=== PATIENT | male | born 1960 | race American Indian/Alaskan Native ===

== ENCOUNTER 2019-01-27 10:07 | Inpatient (IN) | payer MEDICAID ==
[2019-01-27] MEDS ORDERED: KEPPRA 1,000 MG/NS 0.75% 100ML 1,000 MG/100 ML BAG IV ONE ×2 (10:12→10:21)
[2019-01-27] MEDS ORDERED: ATIVAN IV ONE (10:20)
[2019-01-27] MEDS ORDERED: NACL 0.9% 1000 ML IV ONE (10:21)
[2019-01-27] MEDS ORDERED: TYLENOL PR ONE ×2 (10:24→10:25)
[2019-01-27] MEDS ORDERED: NACL 0.9% 1000 ML 1,000 ML ONE (10:24)
--- NOTE | 2019-01-27 10:32 | Emergency Department Report ---
ED Seizure HPI - General Chief Complaint: Seizure Stated Complaint: SEIZURE Time Seen by Provider: 01/27/19 10:16 Source: EMS, RN notes reviewed, old records reviewed Mode of arrival: Stretcher Limitations: Altered Mental Status - History of Present Illness Initial Comments: Mr. Bauman is 59 yo male with hx of seizure disorder, Wernickie's encephalopathy, coronary artery disease, type 2 diabetes mellitus, chronic systolic heart failure, schizophrenia, hematochezia status post CVA, myocardial infarction who presents from [facility] with altered mental status. SNF personnel noticed seizure activitiy. Administered 1 mg Ativan. EMS then administered 2 mg of Ativan. Seizure activity has continued since. Jono, relative, saw Mr. Bauman this morning. Today is Mr. Bauman's birthday. The family had planned to take him out. He was in his normal state of health this morning. He was talking with mild twitching in his extremities. He was awake alert, conversant. He then became unresponsive with full seizure activity. Relative noticed blood from scalp. He is concerned that he may have fallen causing a closed head injury. Mr. Bauman is full CODE STATUS Antiepileptic medications include Keppra Depakote and Dilantin. I obtained further hx from niece Yesenia Bauman via phone . I also spoke with son-in-law Jono at the bedside. Mr. Bauman has been a resident at SNF for the past year since February or March. At [place], he was diagnosed with major severe CVA at that time, requiring trachesotomy and prolonged hospitalization. MD Complaint: seizure -: This morning Description of Episode: loss of consciousness, tonic-clonic movement, other (t ongue biting eyes deviated) Witnessed:: Yes Trauma: Yes (tongue laceration) Seizure History: known seizure disorder [facility] Associated Symptoms: other (fever present on arrival 102 Fahrenheit rectal temp) - Related Data Home Medications Medication Instructions Recorded Confirmed Last Taken Aspirin [Aspirin BABY CHEW TAB] 81 mg PO DAILY 01/27/19 01/27/19 Unknown Clopidogrel [Plavix] 75 mg PO QDAY 01/27/19 01/27/[address] [DepaKOTE DR] 125 mg PO DAILY 01/27/19 01/27/19 Unknown Lisinopril [Zestril] 5 mg PO DAILY 01/27/19 01/27/19 Unknown Mag Hydrox/Aluminum Hyd/Simeth 355 ml PO PRN 01/27/19 01/27/19 Unknown [Maalox Advanced Suspension] Metoprolol Tartrate 75 mg PO BID 01/27/19 01/27/19 Unknown Pantoprazole [Protonix TAB] 20 mg PO DAILY 01/27/19 01/27/19 Unknown Phenytoin [Dilantin] 200 mg PO BID 01/27/19 01/27/19 Unknown Pravastatin Sodium [Pravastatin] 20 mg PO QHS 01/27/19 01/27/19 Unknown Terbinafine [LamiSIL At 1%] 1 gm TRANSDERMA BID 01/27/19 01/27/19 Unknown Tylenol Pm Ex-Strength Caplet 500 mg PO PRN 01/27/19 01/27/19 Unknown levETIRAcetam [Keppra] 100 mg PO DAILY 01/27/19 01/27/19 Unknown Allergies Allergy/AdvReac Type Severity Reaction Status Date / Time Iodine and Iodide Containing Allergy Unknown Verified 01/27/19 10:25 Produc ED Review of Systems ROS: Stated complaint: SEIZURE Other details as noted in HPI Comment: Unobtainable due to pts medical conditions (active seizure altered mental status history of encephalopathy) ED Past Medical Hx - Past Medical History Previous Medical History?: Yes Hx Hypertension: Yes Hx CVA: Yes Hx Congestive Heart Failure: Yes Hx Seizures: Yes Hx Psychiatric Treatment: Yes (Schizophrenia) Additional medical history: hyperlipidemia, CAD - Surgical History Additional Surgical History: Unable to obtain at this time - Social History Smoking Status: Unknown if ever smoked - Medications Home Medications: Home Medications Medication Instructions Recorded Confirmed Last Taken Type Aspirin [Aspirin BABY CHEW TAB] 81 mg PO DAILY 01/27/19 01/27/19 Unknown History Clopidogrel [Plavix] 75 mg PO QDAY 01/27/19 01/27/19 Unknown History Divalproex [Braxton DUTTA] 125 mg PO DAILY 01/27/19 01/27/19 Unknown History Lisinopril [Zestril] 5 mg PO DAILY 01/27/19 01/27/19 Unknown History Mag Hydrox/Aluminum Hyd/Simeth 355 ml PO PRN 01/27/19 01/27/19 Unknown History [Maalox Advanced Suspension] Metoprolol Tartrate 75 mg PO BID 01/27/19 01/27/19 Unknown History Pantoprazole [Protonix TAB] 20 mg PO DAILY 01/27/19 01/27/19 Unknown History Phenytoin [Dilantin] 200 mg PO BID 01/27/19 01/27/19 Unknown History Pravastatin Sodium [Pravastatin] 20 mg PO QHS 01/27/19 01/27/19 Unknown History Terbinafine [LamiSIL At 1%] 1 gm TRANSDERMA BID 01/27/19 01/27/19 Unknown History Tylenol Pm Ex-Strength Caplet 500 mg PO PRN 01/27/19 01/27/19 Unknown History levETIRAcetam [Keppra] 100 mg PO DAILY 01/27/19 01/27/19 Unknown History ED Physical Exam - General Limitations: No Limitations, Altered Mental Status General appearance: lethargic, other (one sided tonic clonic movement of upper and lower extremity, head turned to left, not responsive to voice) - Head Head exam: Present: atraumatic, normocephalic - Eye Eye exam: Present: normal appearance, PERRL Pupils: Present: normal accommodation - ENT ENT exam: Present: other (small amount of bleeding at tongue) - Neck Neck exam: Present: normal inspection - Respiratory Respiratory exam: Present: wheezes, rales, rhonchi (loud) - Cardiovascular Cardiovascular Exam: Present: regular rate, tachycardia, normal heart sounds. Absent: systolic murmur, diastolic murmur - GI/Abdominal GI/Abdominal exam: Present: soft. Absent: distended, tenderness, guarding, rebound - Extremities Exam Extremities exam: Present: other (no edema) - Neurological Exam Neurological exam: Present: other (lethargic) - Psychiatric Psychiatric exam: Present: other (lethargic) - Skin Skin exam: Present: dry, intact, other (hot to touch) ED Course Vital Signs 01/27/19 10:32 Temperature 102.1 F H Pulse Rate 123 H Respiratory 29 H Rate Blood Pressure 130/88 [Left] O2 Sat by Pulse 100 Oximetry ED Medical Decision Making - Lab Data Result diagrams: 01/27/19 10:31 01/27/19 10:31 Laboratory Results - last 24 hr 01/27/19 01/27/19 01/27/19 10:31 10:31 10:31 WBC 7.0 RBC 4.74 Hgb 13.9 Hct 41.7 MCV 88 MCH 29 MCHC 33 RDW 14.4 Plt Count 292 Lymph % (Auto) 36.[address] [place] % (Auto) 7.0 Eos % (Auto) 4.4 H Baso % (Auto) 0.9 Lymph # 2.5 [place] # 0.5 Eos # 0.3 Baso # 0.1 Seg Neutrophils % 51.3 Seg Neutrophils # 3.6 Sodium 138 Potassium 3.9 Chloride 98.5 Carbon Dioxide 23 Anion Gap 20 BUN 13 Creatinine 1.0 Estimated GFR > 60 BUN/Creatinine Ratio 13 Glucose 162 H Lactic Acid 4.90 H* Calcium 8.6 Total Bilirubin 0.20 AST 25 ALT 24 Alkaline Phosphatase 112 Troponin T 0.036 H Total Protein 7.5 Albumin 4.3 Albumin/Globulin Ratio 1.3 Triglycerides 101 Cholesterol 175 LDL Cholesterol Direct 116 HDL Cholesterol 49 Cholesterol/HDL Ratio 3.57 Urine Color Urine Turbidity Urine pH Ur Specific [place] Urine Protein Urine Glucose (UA) Urine Ketones Urine Blood Urine Nitrite Urine Bilirubin Urine Urobilinogen Ur Leukocyte Esterase Urine WBC (Auto) Urine RBC (Auto) Urine Mucus Phenytoin Valproic Acid 01/27/19 01/27/19 11:09 Unknown WBC RBC Hgb Hct MCV MCH MCHC RDW Plt Count Lymph % (Auto) [place] % (Auto) Eos % (Auto) Baso % (Auto) Lymph # [place] # Eos # Baso # Seg Neutrophils % Seg Neutrophils # Sodium Potassium Chloride Carbon Dioxide Anion Gap BUN Creatinine Estimated GFR BUN/Creatinine Ratio Glucose Lactic Acid Calcium Total Bilirubin AST ALT Alkaline Phosphatase Troponin T Total Protein Albumin Albumin/Globulin Ratio Triglycerides Cholesterol LDL Cholesterol Direct HDL Cholesterol Cholesterol/HDL Ratio Urine Color Yellow Urine Turbidity Slightly-cloudy Urine pH 5.0 Ur Specific [place] 1.017 Urine Protein <15 mg/dl Urine Glucose (UA) Neg Urine Ketones Neg Urine Blood Neg Urine Nitrite Neg Urine Bilirubin Neg Urine Urobilinogen < 2.0 Ur Leukocyte Esterase Neg Urine WBC (Auto) < 1.0 Urine RBC (Auto) 1.0 Urine Mucus Few Phenytoin 16.4 Valproic Acid 6.9 L - EKG Data 01/27/19 10:32 EKG obtained 1010 Sinus tachycardia rate of 130 beats a minute left axis deviation right bundle snehal block no ST elevation - Radiology Data Radiology results: report reviewed, image reviewed pCXR: no acute process according to radiology report Head CT: acute or subacute infarct in the left occipital lobe - Medical Decision Making 1. status epilepticus: given IV keppra 1000 mg, Ativan 5 mg IV, dilantin 500 mg IV, teleneurologist Dr. Xiao recommended Keppra 1500 mg BID and to continue Dilantin 200 mg BID. I was concerned that the patient is persistently was lethargic in postictal state. Teleneurologist explained that his decrease level consciousness is to be expected after prolonged seizure activity and multiple doses of antiepileptic medications including lorazepam. 2. abnormal head CT possible acute CVA, will need MRI and further w/u 3. fever: unknown source at this time. Presumed pneumonia with abnormal lung exam. Sepsis protocol initiated admitted to hospitalist service in fair condition. Critical Care Time: Yes Critical care time in (mins) excluding proc time.: 50 Critical care attestation.: If time is entered above; I have spent that time in minutes in the direct care of this critically ill patient, excluding procedure time. 50 minutes of critical care time excluding procedures were used in the care of the patient. I came to the bedside immediately upon arrival. I spoke with health care assistant obtaining history at the bedside. I reviewed [facility] documentation. I directed resuscitation with orders of Ativan, Keppra and sepsis protocol. I monitored patient's airway. I was concerned for respiratory failure after receiving multiple doses of lorazepam. Patient required multiple assessments and interventions. I reviewed the electronic medical record. I spoke with consultants involved in the care of the patient. ED Disposition Clinical Impression: Status epilepticus, Acute CVA (cerebrovascular accident), Fever Disposition: OP ADMIT IP TO THIS HOSP Is pt being admited?: Yes Does the pt Need Aspirin: No Condition: Fair Referrals: YUMIKO GALAVIZ MD [Primary Care Provider] - 3-5 Days
[2019-01-27 10:42] LABS: Bilirubin,Urine NEG (Negative); Blood,Urine NEG (Negative); Color,Urine Yellow (Yellow); Mucus,Urine FEW /HPF; Protein,Urine <15 mg/dL mg/dL (Negative); Urobilinogen,Urine < 2.0 mg/dL (<2.0); WBC,Urine < 1.0 /HPF (0.0-6.0)
[2019-01-27 10:46] LABS: Basophils # (Auto) 0.1 K/mm3 (0.0-0.1); Basophils % (Auto) 0.9 % (0.0-1.8); Eosinophils # (Auto) 0.3 K/mm3 (0.0-0.4); Eosinophils % (Auto) 4.4 % (0.0-4.3); Hematocrit 41.7 % (35.5-45.6); Hemoglobin 13.9 gm/dl (11.8-15.2); Lymphocytes # (Auto) 2.5 K/mm3 (1.2-5.4); Lymphocytes % (Auto) 36.4 % (13.4-35.0); Mean Corpuscular HGB Conc 33 % (32-34); Mean Corpuscular Volume 88 fl (84-94); Monocytes # (Auto) 0.5 K/mm3 (0.0-0.8); Platelet Count 292 K/mm3 (140-440); Red Blood Count 4.74 M/mm3 (3.65-5.03); Red Cell Distribution Width 14.4 % (13.2-15.2)
--- NOTE | 2019-01-27 10:49 | XRay Report ---
PROCEDURE: XR CHEST 1V AP TECHNIQUE: Portable semiupright HISTORY: fever COMPARISON: None FINDINGS: There is borderline cardiomegaly. Patient is status post median sternotomy. There is no congestion, p leural effusion, infiltrate or pneumothorax. IMPRESSION: There is no acute abnormality identified. This document is electronically signed by Aleida Holland MD., Jan 27 2019 10:47:40 AM ET
[2019-01-27] MEDS: MAXIPIME/NS 2 GM/100 ML 2 GM/100 ML BAG IV SCH ×2 (11:01→20:00)
[2019-01-27 11:07] LABS: Alanine Aminotransferase 24 units/L (7-56); Albumin 4.3 g/dL (3.9-5); BUN/Creatinine Ratio 13; Blood Urea Nitrogen 13 mg/dL (9-20); Calcium 8.6 mg/dL (8.4-10.2); Hemolysis Index 2
[2019-01-27 11:18] LABS: Chol/HDL Ratio 3.57 %; HDL Cholesterol 49 mg/dL (40-59); LDL Cholesterol,Direct 116 mg/dL (50-130)
--- NOTE | 2019-01-27 11:35 | Cat Scan Report ---
PROCEDURE: CT HEAD/BRAIN WO CON TECHNIQUE: A noncontrast CT of the head was performed. HISTORY: Seizure COMPARISON: None FINDINGS: Hypoattenuation throughout the white matter seen which may reflect chronic microvascular ischemic ivis nge. There is some hypodensity in the left occipital lobe. I cannot exclude an acute infarct. Consider MRI for further evaluation. There is likely an old small infarct in right temporal lobe. There is no acute intracranial hemorrhage. There is no brain edema, mass effect or midline shift. Ventricular size is appropriate for brain volume. There is no abnormal extra-axial fluid collections. There is no skull fracture seen. The visualized paranasal sinuses are clear. IMPRESSION: Possible acute or subacute infarct in the left occipital lobe. This can be correlated with MRI. Nonspecific white matter hypoattenuation could reflect chronic microvascular ischemic disease. This document is electronically signed by Aleida Holland MD., Jan 27 2019 11:33:22 AM ET
[2019-01-27] MEDS ORDERED: VANCOMYCIN 1,500 MG in NACL 0.9% 500 ML 500 ML IV ONE (13:00)
[2019-01-27] MEDS ORDERED: DILANTIN IV ONE (13:00)
[2019-01-27] MEDS ORDERED: NACL 0.9% IV ONE (13:00)
[2019-01-27] MEDS ORDERED: VANCOMYCIN PHARMACY TO DOSE IV SCH (13:00)
--- NOTE | 2019-01-27 15:42 | Cat Scan Report ---
PROCEDURE: CT ABDOMEN W CON TECHNIQUE: CT of the abdomen and pelvis was performed. IV contrast was administered. Axial images and coronal and sagittal reformatted images were obtained. HISTORY: FEVER/HIGH LACTIC ACID COMPARISON: None FINDINGS: Atelectasis and/or infiltrate at both lung bases. There are multiple low-density liver lesions. The larger lesions are likely cysts. Others are too sma ll to characterize but may also be cysts. The spleen, pancreas, adrenal glands and kidneys demonstrate no significant abnormality. There is no evidence for intestinal obstruction. The appendix is not visualized. There is no abnormal fluid collection seen. There is no free intraperitoneal air. There is a small amount of free fluid in the pelvis. The bladder is unremarkable. There is prominent dextroconvex thoracolumbar scoliosis. There are IMPRESSION: Atelectasis and/or infiltrate at both lung bases. Scoliosis. Otherwise no acute finding in the abdomen or pelvis.. This document is electronically signed by Aleida Holland MD., Jan 27 2019 03:40:27 PM ET
--- NOTE | 2019-01-27 16:52 | History and Physical Report ---
History of Present Illness Date of examination: 01/27/19 Date of admission: 01/27/19 13:03 Chief complaint: Continuous seizures History of present illness: 59-year-old -[place] male--[facility] resident with extensive past medical history including Wernick is encephalopathy seizure disorder type 2 diabetes congestive heart failure schizophrenia status post cerebrovascular accident and status post MA sent from [facility] for recurrent seizures and altered sensorium. Patient has been having continuous seizures. EMS administered 1 mg of Ativan followed by 2 mg of Ativan.. This a.m. patient was apparently talking with mild twitching in his upper extremities. Patient continued to have seizures. Patient has a small laceration on the scalp secondary to fall. No shortness of breath no recent travel. Patient was given multiple doses of Ativan and IV Keppra was started when the seizures stopped. Patient was about to be intubated for protection of airway but because the seizures stopped--patient was not intubated or rebound W the [facility] we will requestalson will evaluate his family is Medical History Previous Medical History?: Yes Hypertension: Yes CVA: Yes Congestive Heart Failure: Yes Seizures: Yes Psychiatric Treatment: Yes (Schizophrenia) Additional medical history: hyperlipidemia, CAD Surgical History Additional Surgical History: Unable to obtain at this time Family History Htn Social History Smoking Status: Unknown if ever smoked Resident of [facility] Medications Home Medications: Home Medications Medication Instructions Recorded Confirmed Last Taken Type Aspirin [Aspirin BABY CHEW TAB] 81 mg PO DAILY 01/27/19 01/27/19 Unknown History Clopidogrel [Plavix] 75 mg PO QDAY 01/27/19 01/27/[address] [Braxton DUTTA] 125 mg PO DAILY 01/27/19 01/27/19 Unknown History Lisinopril [Zestril] 5 mg PO DAILY 01/27/19 01/27/19 Unknown History Mag Hydrox/Aluminum Hyd/Simeth 355 ml PO PRN 01/27/19 01/27/19 Unknown History [Maalox Advanced Suspension] Metoprolol Tartrate 75 mg PO BID 01/27/19 01/27/19 Unknown History Pantoprazole [Protonix TAB] 20 mg PO DAILY 01/27/19 01/27/19 Unknown History Phenytoin [Dilantin] 200 mg PO BID 01/27/19 01/27/19 Unknown History Pravastatin Sodium [Pravastatin] 20 mg PO QHS 01/27/19 01/27/19 Unknown History Terbinafine [LamiSIL At 1%] 1 gm TRANSDERMA BID 01/27/19 01/27/19 Unknown History Tylenol Pm Ex-Strength Caplet 500 mg PO PRN 01/27/19 01/27/19 Unknown History levETIRAcetam [Keppra] 100 mg PO DAILY 01/27/19 01/27/19 Unknown History Review of Systems ROS: Stated complaint: SEIZURE Other details as noted in HPI Patient lethargic and postictal Comment: Unobtainable due to pts medical conditions (active seizure altered mental status history of encephalopathy) Medications and Allergies Allergies Allergy/AdvReac Type Severity Reaction Status Date / Time Iodine and Iodide Containing Allergy Unknown Verified 01/27/19 10:25 Produc Home Medications Medication Instructions Recorded Confirmed Last Taken Type Aspirin [Aspirin BABY CHEW TAB] 81 mg PO DAILY 01/27/19 01/27/19 Unknown History Clopidogrel [Plavix] 75 mg PO QDAY 01/27/19 01/27/19 Unknown History Divalproex [DepaKOTE DR] 125 mg PO DAILY 01/27/19 01/27/19 Unknown History Lisinopril [Zestril] 5 mg PO DAILY 01/27/19 01/27/19 Unknown History Mag Hydrox/Aluminum Hyd/Simeth 355 ml PO PRN 01/27/19 01/27/19 Unknown History [Maalox Advanced Suspension] Metoprolol Tartrate 75 mg PO BID 01/27/19 01/27/19 Unknown History Pantoprazole [Protonix TAB] 20 mg PO DAILY 01/27/19 01/27/19 Unknown History Phenytoin [Dilantin] 200 mg PO BID 01/27/19 01/27/19 Unknown History Pravastatin Sodium [Pravastatin] 20 mg PO QHS 01/27/19 01/27/19 Unknown History Terbinafine [LamiSIL At 1%] 1 gm TRANSDERMA BID 01/27/19 01/27/19 Unknown History Tylenol Pm Ex-Strength Caplet 500 mg PO PRN 01/27/19 01/27/19 Unknown History levETIRAcetam [Keppra] 100 mg PO DAILY 01/27/19 01/27/19 Unknown History Active Meds: Active Medications Cefepime HCl (Maxipime/Ns 2 Gm/100 Ml) 2 gm in 100 mls @ 200 mls/hr IV Q8H WALT; Protocol Last Admin: 01/27/19 11:01 Dose: 200 mls/hr Documented by: Vancomycin HCl 1,250 mg/ (Sodium Chloride) 262.5 mls @ 175 mls/hr IV Q12H [facility] Exam - Constitutional Vitals: Temp Pulse Resp BP Pulse Ox 102.1 F H 84 27 H 115/90 97 01/27/19 10:32 01/27/19 15:30 01/27/19 15:30 01/27/19 15:30 01/27/19 15:30 General appearance: Present: no acute distress, well-nourished - EENT Eyes: Present: PERRL ENT: hearing intact, clear oral mucosa - Neck Neck: Present: supple, normal ROM - Respiratory Respiratory effort: normal Respiratory: bilateral: CTA - Cardiovascular Heart rate: 78 Rhythm: regular Heart Sounds: Present: S1 & S2. Absent: rub, click - Extremities Extremities: no ischemia, pulses intact, pulses symmetrical, No edema Peripheral Pulses: within normal limits - Abdominal General gastrointestinal: Present: soft, non-tender, non-distended, normal bowel sounds Male genitourinary: Present: normal - Rectal Rectal Exam: deferred - Integumentary Integumentary: Present: clear, warm, dry - Musculoskeletal Musculoskeletal: generalized weakness - Psychiatric Psychiatric: other (patient very lethargic and decreased responsiveness consi stent with postictal state) - Neurologic Neurologic: other (patient very lethargic,Neuro Exam could not be done) Results - Labs CBC & Chem 7: 01/27/19 10:31 01/27/19 10:31 Labs: Laboratory Last Values WBC 7.0 K/mm3 (4.5-11.0) 01/27/19 10:31 RBC 4.74 M/mm3 (3.65-5.03) 01/27/19 10:31 Hgb 13.9 gm/dl (11.8-15.2) 01/27/19 10:31 Hct 41.7 % (35.5-45.6) 01/27/19 10:31 MCV 88 fl (84-94) 01/27/19 10:31 MCH 29 pg (28-32) 01/27/19 10:31 MCHC 33 % (32-34) 01/27/19 10:31 RDW 14.4 % (13.2-15.2) 01/27/19 10:31 Plt Count 292 K/mm3 (140-440) 01/27/19 10:31 Lymph % (Auto) 36.4 % (13.4-35.0) H 01/27/19 10:31 [place] % (Auto) 7.0 % (0.0-7.3) 01/27/19 10:31 Eos % (Auto) 4.4 % (0.0-4.3) H 01/27/19 10:31 Baso % (Auto) 0.9 % (0.0-1.8) 01/27/19 10:31 Lymph # 2.5 K/mm3 (1.2-5.4) 01/27/19 10:31 [place] # 0.5 K/mm3 (0.0-0.8) 01/27/19 10:31 Eos # 0.3 K/mm3 (0.0-0.4) 01/27/19 10:31 Baso # 0.1 K/mm3 (0.0-0.1) 01/27/19 10:31 Seg Neutrophils % 51.3 % (40.0-70.0) 01/27/19 10:31 Seg Neutrophils # 3.6 K/mm3 (1.8-7.7) 01/27/19 10:31 Sodium 138 mmol/L (137-145) 01/27/19 10:31 Potassium 3.9 mmol/L (3.6-5.0) 01/27/19 10:31 Chloride 98.5 mmol/L (98-107) 01/27/19 10:31 Carbon Dioxide 23 mmol/L (22-30) 01/27/19 10:31 20 mmol/L 01/27/19 10:31 BUN 13 mg/dL (9-20) 01/27/19 10:31 1.0 mg/dL (0.8-1.5) 01/27/19 10:31 Estimated GFR > 60 ml/min 01/27/19 10:31 13 % 01/27/19 10:31 Glucose 162 mg/dL (75-100) H 01/27/19 10:31 Lactic Acid 1.80 mmol/L (0.7-2.0) 01/27/19 13:18 Calcium 8.6 mg/dL (8.4-10.2) 01/27/19 10:31 0.20 mg/dL (0.1-1.2) 01/27/19 10:31 AST 25 units/L (5-40) 01/27/19 10:31 ALT 24 units/L (7-56) 01/27/19 10:31 112 units/L (35-129) 01/27/19 10:31 0.036 ng/mL (0.00-0.029) H 01/27/19 10:31 7.5 g/dL (6.3-8.2) 01/27/19 10:31 4.3 g/dL (3.9-5) 01/27/19 10:31 1.3 % 01/27/19 10:31 Triglycerides 101 mg/dL (2-149) 01/27/19 10:31 Cholesterol 175 mg/dL (50-199) 01/27/19 10:31 116 mg/dL (50-130) 01/27/19 10:31 49 mg/dL (40-59) 01/27/19 10:31 3.57 % 01/27/19 10:31 Yellow (Yellow) 01/27/19 Unknown Slightly-cloudy (Clear) 01/27/19 Unknown 5.0 (5.0-7.0) 01/27/19 Unknown Ur Specific [place] 1.017 (1.003-1.030) 01/27/19 Unknown <15 mg/dl mg/dL (Negative) 01/27/19 Unknown Neg mg/dL (Negative) 01/27/19 Unknown Neg mg/dL (Negative) 01/27/19 Unknown Neg (Negative) 01/27/19 Unknown Neg (Negative) 01/27/19 Unknown Neg (Negative) 01/27/19 Unknown < 2.0 mg/dL (<2.0) 01/27/19 Unknown Ur Leukocyte Esterase Neg (Negative) 01/27/19 Unknown < 1.0 /HPF (0.0-6.0) 01/27/19 Unknown 1.0 /HPF (0.0-6.0) 01/27/19 Unknown Few /HPF 01/27/19 Unknown Phenytoin 16.4 ug/mL (10.0-20.0) 01/27/19 11:09 Valproic Acid 6.9 ug/mL (50-100) L 01/27/19 11:09 Short CBC 01/27/19 Range/Units 10:31 WBC 7.0 (4.5-11.0) K/mm3 Hgb 13.9 (11.8-15.2) gm/dl Hct 41.7 (35.5-45.6) % Plt Count 292 (140-440) K/mm3 BMP 01/27/19 10:31 Sodium 138 Potassium 3.9 Chloride 98.5 Carbon Dioxide 23 BUN 13 Creatinine 1.0 Glucose 162 H Calcium 8.6 Cardiac Enzymes 01/27/19 Range/Units 10:31 Troponin T 0.036 H (0.00-0.029) ng/mL Liver Function 01/27/19 Range/Units 10:31 Total Bilirubin 0.20 (0.1-1.2) mg/dL AST 25 (5-40) units/L ALT 24 (7-56) units/L Alkaline Phosphatase 112 (35-129) units/L Albumin 4.3 (3.9-5) g/dL Urine 01/27/19 Range/Units Unknown Urine Color Yellow (Yellow) Urine pH 5.0 (5.0-7.0) Ur Specific [place] 1.017 (1.003-1.030) Urine Protein <15 mg/dl (Negative) mg/dL Urine Glucose (UA) Neg (Negative) mg/dL - Imaging and Cardiology EKG: report reviewed (sinus tachycardia heart rate of 1 27/m IVCD consider right bundle branch block) Assessment and Plan Assessment and plan: Critical care statement The high probability of a clinically significant, sudden or life-threatening de terioration of the pulmonary, cardiac, renal systems required my full and direct attention, intervention and personal management. The aggregate critical care time was 38 minutes. This time is in addition to times when performing reported procedures but includes the followin data review and interpretation 2 patient assessment and monitoring of vital signs 3 documentation 4 medication orders and management Advance Directives: Yes (full code) VTE prophylaxis?: Chemical Plan of care discussed with patient/family: Yes - Patient Problems (1) Status epilepticus Current Visit: Yes Status: Acute Plan to address problem: IV Keppra initiated IV Ativan when necessary IV fluids We will discontinue valproic acid Will discontinue phenytoin (2) Hypertension Current Visit: Yes Status: Chronic Qualifiers: Hypertension type: essential hypertension Qualified Code(s): I10 - Essential (primary) hypertension Plan to address problem: Continue antihypertensives (3) Coronary artery disease Current Visit: Yes Status: Chronic Qualifiers: Coronary Disease-Associated Artery/Lesion type: [place] artery [place] vs. transplanted heart: [place] heart Plan to address problem: Continue Plavix 75 mg once a day (4) Hyperlipidemia Current Visit: Yes Status: Chronic Qualifiers: Hyperlipidemia type: unspecified Qualified Code(s): E78.5 - Hyperlipidemia, unspecified Plan to address problem: Continue statins (5) Elevated lactic acid level Current Visit: Yes Status: Acute Plan to address problem: Secondary to seizures No signs of infection (6) History of cerebrovascular accident Current Visit: Yes Status: Chronic Plan to address problem: Supportive care (7) Elevated troponin Current Visit: Yes Status: Acute Plan to address problem: Nonspecific Will trend the troponin (8) DVT prophylaxis Current Visit: Yes Status: Acute Plan to address problem: Lovenox 40 mg subcutaneous daily
[2019-01-27] MEDS ORDERED: TORADOL IV PRN (18:33)
[2019-01-27] MEDS ORDERED: SIMPLE SYRUP FEEDTUBE PRN ×2 (18:33)
[2019-01-27] MEDS ORDERED: PANCREAZE DR 10,500 UNIT FEEDTUBE PRN (18:33)
[2019-01-27] MEDS ORDERED: SODIUM CHLORIDE FLUSH SYRINGE 10 ML IV PRN (18:33)
[2019-01-27] MEDS ORDERED: SODIUM BICARBONATE FEEDTUBE PRN (18:33)
[2019-01-27] MEDS ORDERED: MORPHINE IV PRN (18:33)
[2019-01-27] MEDS ORDERED: PROTONIX PO SCH (19:00)
[2019-01-27] MEDS: KEPPRA 750 MG in D5W 100 ML IV SCH (19:30)
[2019-01-27] MEDS: LOVENOX SUB-Q SCH (21:37)
[2019-01-27] MEDS: PRAVACHOL PO SCH (21:40)
[2019-01-27] MEDS: LOPRESSOR PO SCH (21:40)
[2019-01-27] MEDS: PLAVIX PO SCH (21:40)
[2019-01-27] MEDS: SODIUM CHLORIDE FLUSH SYRINGE 10 ML IV SCH (21:41)
[2019-01-27] MEDS: PEPCID IV SCH (21:46)
[2019-01-27] MEDS ORDERED: NON-FORMULARY (Pravastatin Sodium [Pravastatin] 20 MG) PO SCH (22:00)
[2019-01-27] MEDS ORDERED: NON-FORMULARY (Metoprolol Tartrate [Metoprolol Tartrate] 75 MG) PO SCH (22:00)
[2019-01-27] MEDS ORDERED: D50W (25GM) Syringe IV PRN (23:01)
[2019-01-28] MEDS ORDERED: VANCOMYCIN 1,250 MG in NACL 0.9% 250ML 250 ML IV SCH (02:00)
[2019-01-28] MEDS: MAXIPIME/NS 2 GM/100 ML 2 GM/100 ML BAG IV SCH (04:58)
[2019-01-28] MEDS ORDERED: ATIVAN IV ONE (05:33)
[2019-01-28] MEDS ORDERED: ZOFRAN IV PRN (05:34)
--- NOTE | 2019-01-28 06:26 | Event Note ---
Date: 01/28/19 Received a call from nurse at 0507am stating that patient had seizure lasting in 40 seconds followed by 20 second seizure. Ativan 2 mg was ordered and given. There has been no additional seizure activity reported. Pt remains on seizure precautions.
--- NOTE | 2019-01-28 09:33 | XRay Report ---
PROCEDURE: XR ABDOMEN 1V AP TECHNIQUE: Supine abdomen HISTORY: dobhoff placement COMPARISON: None FINDINGS: The feeding tube tip is in the stomach. The gas pattern is nonspecific and nonobstructive with gas lo cated within normal caliber bowel. There is scoliosis. No suspicious calcifications are seen. IMPRESSION: Feeding tube tip in the stomach. This document is electronically signed by Aleida Holland MD., Jan 28 2019 09:31:45 AM ET
[2019-01-28] MEDS ORDERED: SIMPLE SYRUP FEEDTUBE PRN ×2 (10:00)
[2019-01-28] MEDS ORDERED: SODIUM BICARBONATE FEEDTUBE PRN (10:00)
[2019-01-28] MEDS ORDERED: PANCREAZE DR 10,500 UNIT FEEDTUBE PRN (10:00)
[2019-01-28] MEDS: D5NS 1,000 ML IV SCH ×2 (10:30→22:53)
[2019-01-28] MEDS: KEPPRA 750 MG in D5W 100 ML IV SCH ×2 (10:30→22:52)
[2019-01-28] MEDS: ZESTRIL PO SCH (10:31)
[2019-01-28] MEDS: PEPCID IV SCH ×2 (10:31→22:54)
[2019-01-28] MEDS: PLAVIX PO SCH (10:31)
[2019-01-28] MEDS: LOPRESSOR PO SCH ×2 (10:31→22:52)
[2019-01-28] MEDS: SODIUM CHLORIDE FLUSH SYRINGE 10 ML IV SCH ×2 (10:33→22:55)
--- NOTE | 2019-01-28 12:00 | Progress Note ---
Assessment and Plan Assessment and plan: - Patient Problems -- Status epilepticus: Seizure precautions , IV Ativan as needed Antiseizure medications , neuro workup Continue phenytoin and Depakote Workup so far; CT head without contrast; possible acute or subacute infarct in the left occipital lobe CT abdomen and pelvis; atelectasis or infiltrates in both lung bases, scoliosis Chest x-ray; no acute abnormality --Possible CVACVA; not a candidate for TPA Aspirin and statin, neuro workup with MRI/MRA echocardiogram carotid Doppler Physical therapy occupational therapy speech therapy Neurology consult, EEG --Hypertension Rate controlled , continue current antihypertensives and when necessary medications Permissive hypertension per stroke protocol -- Coronary artery disease Continue Plavix 75 mg once a day --Hyperlipidemia Continue statins -- Elevated lactic acid level Secondary to seizures No signs of infection --? History of cerebrovascular accident Supportive care --Nonspecific Elevated troponin Will trend the troponin, allergy evaluation if needed --DVT prophylaxis Lovenox 40 mg subcutaneous daily Monitor closely and adjust management as needed Critical care Time 36 min History Interval history: Patient seen and examined medical records reviewed Admitted last night with witnessed seizures and possible CVA Patient had 1 witnessed seizure in the ICU early this morning noticed by night No new episodes since then On seizure precautions Patient is alert and awake nonverbal confused and nonverbal vital signs noted Hospitalist Physical - Constitutional Vitals: Temp Pulse Resp BP Pulse Ox 99.2 F 95 H 35 H 129/89 100 01/28/19 08:00 01/28/19 11:57 01/28/19 11:57 01/28/19 11:00 01/28/19 11:57 General appearance: Present: no acute distress, well-nourished - EENT Eyes: Present: PERRL, EOM intact - Neck Neck: Present: supple, normal ROM - Respiratory Respiratory effort: normal, labored Respiratory: bilateral: diminished, rhonchi, negative: rales, wheezing - Cardiovascular Rhythm: regular Heart Sounds: Present: S1 & S2 - Extremities Extremities: no ischemia, No edema - Abdominal General gastrointestinal: soft, non-tender, non-distended, normal bowel sounds - Integumentary Integumentary: Present: clear, warm - Psychiatric Psychiatric: other (nonverbal) - Neurologic Neurologic: other (unable to assess as patient is not cooperative) Results - Labs CBC & Chem 7: 01/27/19 10:31 01/27/19 10:31 Labs: Laboratory Last Values WBC 7.0 K/mm3 (4.5-11.0) 01/27/19 10:31 RBC 4.74 M/mm3 (3.65-5.03) 01/27/19 10:31 Hgb 13.9 gm/dl (11.8-15.2) 01/27/19 10:31 Hct 41.7 % (35.5-45.6) 01/27/19 10:31 MCV 88 fl (84-94) 01/27/19 10:31 MCH 29 pg (28-32) 01/27/19 10:31 MCHC 33 % (32-34) 01/27/19 10:31 RDW 14.4 % (13.2-15.2) 01/27/19 10:31 Plt Count 292 K/mm3 (140-440) 01/27/19 10:31 Lymph % (Auto) 36.4 % (13.4-35.0) H 01/27/19 10:31 [place] % (Auto) 7.0 % (0.0-7.3) 01/27/19 10:31 Eos % (Auto) 4.4 % (0.0-4.3) H 01/27/19 10:31 Baso % (Auto) 0.9 % (0.0-1.8) 01/27/19 10:31 Lymph # 2.5 K/mm3 (1.2-5.4) 01/27/19 10:31 [place] # 0.5 K/mm3 (0.0-0.8) 01/27/19 10:31 Eos # 0.3 K/mm3 (0.0-0.4) 01/27/19 10:31 Baso # 0.1 K/mm3 (0.0-0.1) 01/27/19 10:31 Seg Neutrophils % 51.3 % (40.0-70.0) 01/27/19 10:31 Seg Neutrophils # 3.6 K/mm3 (1.8-7.7) 01/27/19 10:31 Sodium 138 mmol/L (137-145) 01/27/19 10:31 Potassium 3.9 mmol/L (3.6-5.0) 01/27/19 10:31 Chloride 98.5 mmol/L (98-107) 01/27/19 10:31 Carbon Dioxide 23 mmol/L (22-30) 01/27/19 10:31 20 mmol/L 01/27/19 10:31 BUN 13 mg/dL (9-20) 01/27/19 10:31 1.0 mg/dL (0.8-1.5) 01/27/19 10:31 Estimated GFR > 60 ml/min 01/27/19 10:31 13 % 01/27/19 10:31 Glucose 162 mg/dL (75-100) H 01/27/19 10:31 POC Glucose 125 (70-105) H 01/28/19 08:43 Lactic Acid 1.50 mmol/L (0.7-2.0) 01/27/19 19:05 Calcium 8.6 mg/dL (8.4-10.2) 01/27/19 10:31 0.20 mg/dL (0.1-1.2) 01/27/19 10:31 AST 25 units/L (5-40) 01/27/19 10:31 ALT 24 units/L (7-56) 01/27/19 10:31 112 units/L (35-129) 01/27/19 10:31 0.036 ng/mL (0.00-0.029) H 01/27/19 10:31 7.5 g/dL (6.3-8.2) 01/27/19 10:31 4.3 g/dL (3.9-5) 01/27/19 10:31 1.3 % 01/27/19 10:31 Triglycerides 101 mg/dL (2-149) 01/27/19 10:31 Cholesterol 175 mg/dL (50-199) 01/27/19 10:31 116 mg/dL (50-130) 01/27/19 10:31 49 mg/dL (40-59) 01/27/19 10:31 3.57 % 01/27/19 10:31 Yellow (Yellow) 01/27/19 Unknown Slightly-cloudy (Clear) 01/27/19 Unknown 5.0 (5.0-7.0) 01/27/19 Unknown Ur Specific [place] 1.017 (1.003-1.030) 01/27/19 Unknown <15 mg/dl mg/dL (Negative) 01/27/19 Unknown Neg mg/dL (Negative) 01/27/19 Unknown Neg mg/dL (Negative) 01/27/19 Unknown Neg (Negative) 01/27/19 Unknown Neg (Negative) 01/27/19 Unknown Neg (Negative) 01/27/19 Unknown < 2.0 mg/dL (<2.0) 01/27/19 Unknown Ur Leukocyte Esterase Neg (Negative) 01/27/19 Unknown < 1.0 /HPF (0.0-6.0) 01/27/19 Unknown 1.0 /HPF (0.0-6.0) 01/27/19 Unknown Few /HPF 01/27/19 Unknown Phenytoin 16.4 ug/mL (10.0-20.0) 01/27/19 11:09 Valproic Acid 6.9 ug/mL (50-100) L 01/27/19 11:09 Active Medications - Current Medications Current Medications: Generic Name Dose Route Start Last Admin Trade Name Freq PRN Reason Stop Dose Admin Lipase/Protease/Amylase 1 each 01/27/19 18:[address] 10,500 Unit FEEDTUBE PRN PRN For Clogged Feeding Tube Clopidogrel Bisulfate 75 mg 01/27/19 19:00 01/28/19 10:31 Plavix PO 75 mg QDAY [facility] Administration Dextrose 50 ml 01/27/19 23:01 D50w (25gm) Syringe IV PRN PRN Hypoglycemia Enoxaparin Sodium 40 mg 01/27/19 22:00 01/27/19 21:37 Lovenox SUB-Q 40 mg QDAY@2200 W[facility] Administration Famotidine 20 mg 01/27/19 22:00 01/28/19 10:31 Pepcid IV 20 mg BID WALT Administration Dextrose/Sodium Chloride 1,000 mls @ 100 mls/hr 01/27/19 19:00 01/28/19 10:30 D5ns IV 100 mls/hr DIRECT WALT Administration Levetiracetam 750 mg/ Dextrose 107.5 mls @ 400 mls/hr 01/27/19 22:00 01/28/19 10:30 IV 400 mls/hr Q12HR WALT Administration Ketorolac Tromethamine 15 mg 01/27/19 18:33 Toradol IV 02/01/19 18:32 Q6H PRN Pain, Mild (1-3) Lisinopril 5 mg 01/28/19 10:00 01/28/19 10:31 Zestril PO 5 mg DAILY WALT Administration Metoprolol Tartrate 75 mg 01/27/19 22:00 01/28/19 10:31 Lopressor PO 75 mg BID WALT Administration Morphine Sulfate 2 mg 01/27/19 18:33 Morphine IV Q4H PRN Pain, Moderate (4-6) Ondansetron HCl 4 mg 01/28/19 05:34 01/28/19 06:24 Zofran IV 4 mg Q8H PRN Administration Nausea And Vomiting Pravastatin Sodium 20 mg 01/27/19 22:00 01/27/19 21:40 Pravachol PO 20 mg QHS WALT Administration Simple Syrup 15 ml 01/27/19 18:33 Simple Syrup FEEDTUBE PRN PRN Hypoglycemia Simple Syrup 30 ml 01/27/19 18:33 Simple Syrup FEEDTUBE PRN PRN Hypoglycemia Sodium Bicarbonate 325 mg 01/27/19 18:33 Sodium Bicarbonate FEEDTUBE PRN PRN For Clogged Feeding Tube Sodium Chloride 10 ml 01/27/19 22:00 01/28/19 10:33 Sodium Chloride Flush Syringe 10 Ml IV 10 ml BID WALT Administration Sodium Chloride 10 ml 01/27/19 18:33 Sodium Chloride Flush Syringe 10 Ml IV PRN PRN LINE FLUSH Nutrition/Malnutrition Assess - Dietary Evaluation Nutrition/Malnutrition Findings: Nutrition Notes Start: 01/28/19 08:19 Freq: Status: Active Protocol: Document 01/28/19 08:19 LP (Rec: 01/28/19 08:25 LP [id number]) Nutrition Notes Need for Assessment generated from: MD Order Initial or Follow up Assessment Current Diagnosis Diabetes,Heart Failure,Stroke Other Pertinent Diagnosis Wernicke's Encephalopathy Current Diet NPO Labs/Tests Reviewed Pertinent Medications Reviewed Height 6 ft 3 in Weight 80.8 kg [place] Body Weight (kg) 89.09 BMI 22.2 Subjective/Other Information Consult for TF. Pt noted with seizures. Dobhoff placed. Burn Absent Trauma Absent #1 Nutrition Diagnosis Inadequate oral intake Etiology dysphagia As Evidenced by Signs and Symptoms Pt S/P CVA and NPO Is patient on ventilator? No Is Patient Ambulatory and/or Out of Bed No REE-([place]-St. Jeor-confined to bed) 5.855 Calculation Used for Recommendations [place]-St Jeor Additional Notes Protein need are 81-97g (1-1. 2g/kg) Fluid needs are 1ml/kcal Nutrition Intervention Change Diet Order: TF Nutrition Support: Glucerna 1.2 at 70ml/hr Flush with 100ml q4h Kcal 2,016 Protein (gm) 101 Fluid (mL) 1,357 Goal #1 Meet at least 80% of kcal and protein needs via TF Anticipated Discharge Needs: Unable to determine at this time Follow-Up By: 01/30/19 Additional Comments Follow for TF start/tolerance
--- NOTE | 2019-01-28 12:11 | Consultation ---
History of Present Illness - Reason for Consult Consult date: 01/28/19 Seizure Requesting physician: VAL PATEL - History of Present Illness 59 y/o male with prior history of Seizure's and Wernicke's encephalopathy admitted with seizures. Per report, patient was in status but aborted with Ativan therapy and Keppra load. Did not require intubation but IMS requested ICU for management. Patient apparently had another seizure this am early that was aborted with ativan. patient speaks but does not make sense. I am not sure what his baseline is. No family at bedside. Past History Past Medical History: other (unable to obtain from patient. Only PMHx is what is listed in the H and P from IMS) Past Surgical History: Other (unable to obtain) Social history: other (unable to obtain) Family history: other (unable to obtain) Medications and Allergies Allergies Allergy/AdvReac Type Severity Reaction Status Date / Time Iodine and Iodide Containing Allergy Unknown Verified 01/27/19 10:25 Produc Home Medications Medication Instructions Recorded Confirmed Last Taken Type Aspirin [Aspirin BABY CHEW TAB] 81 mg PO DAILY 01/27/19 01/27/19 Unknown History Clopidogrel [Plavix] 75 mg PO QDAY 01/27/19 01/27/[address] [DepaKOTE DR] 125 mg PO DAILY 01/27/19 01/27/19 Unknown History Lisinopril [Zestril] 5 mg PO DAILY 01/27/19 01/27/19 Unknown History Mag Hydrox/Aluminum Hyd/Simeth 355 ml PO PRN 01/27/19 01/27/19 Unknown History [Maalox Advanced Suspension] Metoprolol Tartrate 75 mg PO BID 01/27/19 01/27/19 Unknown History Pantoprazole [Protonix TAB] 20 mg PO DAILY 01/27/19 01/27/19 Unknown History Phenytoin [Dilantin] 200 mg PO BID 01/27/19 01/27/19 Unknown History Pravastatin Sodium [Pravastatin] 20 mg PO QHS 01/27/19 01/27/19 Unknown History Terbinafine [LamiSIL At 1%] 1 gm TRANSDERMA BID 01/27/19 01/27/19 Unknown History Tylenol Pm Ex-Strength Caplet 500 mg PO PRN 01/27/19 01/27/19 Unknown History levETIRAcetam [Keppra] 100 mg PO DAILY 01/27/19 01/27/19 Unknown History Active Meds: Active Medications Lipase/Protease/Amylase ([place]ignesh [place] 10,500 Unit) 1 each FEEDTUBE PRN PRN PRN Reason: For Clogged Feeding Tube Clopidogrel Bisulfate (Plavix) 75 mg PO QDAY [facility] Last Admin: 01/28/19 10:31 Dose: 75 mg Documented by: Dextrose (D50w (25gm) Syringe) 50 ml IV PRN PRN PRN Reason: Hypoglycemia Enoxaparin Sodium (Lovenox) 40 mg SUB-Q QDAY@2200 [facility] Last Admin: 01/27/19 21:37 Dose: 40 mg Documented by: Famotidine (Pepcid) 20 mg IV BID [facility] Last Admin: 01/28/19 10:31 Dose: 20 mg Documented by: Dextrose/Sodium Chloride (D5ns) 1,000 mls @ 100 mls/hr IV DIRECT [facility] Last Admin: 01/28/19 10:30 Dose: 100 mls/hr Documented by: Levetiracetam 750 mg/ Dextrose 107.5 mls @ 400 mls/hr IV Q12HR [facility] Last Admin: 01/28/19 10:30 Dose: 400 mls/hr Documented by: Ketorolac Tromethamine (Toradol) 15 mg IV Q6H PRN PRN Reason: Pain, Mild (1-3) Stop: 02/01/19 18:32 Lisinopril (Zestril) 5 mg PO DAILY [facility] Last Admin: 01/28/19 10:31 Dose: 5 mg Documented by: Metoprolol Tartrate (Lopressor) 75 mg PO BID [facility] Last Admin: 01/28/19 10:31 Dose: 75 mg Documented by: Morphine Sulfate (Morphine) 2 mg IV Q4H PRN PRN Reason: Pain, Moderate (4-6) Ondansetron HCl (Zofran) 4 mg IV Q8H PRN PRN Reason: Nausea And Vomiting Last Admin: 01/28/19 06:24 Dose: 4 mg Documented by: Pravastatin Sodium (Pravachol) 20 mg PO QHS [facility] Last Admin: 01/27/19 21:40 Dose: 20 mg Documented by: Simple Syrup (Simple Syrup) 15 ml FEEDTUBE PRN PRN PRN Reason: Hypoglycemia Simple Syrup (Simple Syrup) 30 ml FEEDTUBE PRN PRN PRN Reason: Hypoglycemia Sodium Bicarbonate (Sodium Bicarbonate) 325 mg FEEDTUBE PRN PRN PRN Reason: For Clogged Feeding Tube Sodium Chloride (Sodium Chloride Flush Syringe 10 Ml) 10 ml IV BID [facility] Last Admin: 01/28/19 10:33 Dose: 10 ml Documented by: Sodium Chloride (Sodium Chloride Flush Syringe 10 Ml) 10 ml IV PRN PRN PRN Reason: LINE FLUSH Review of Systems ROS unobtainable: due to mental status Exam - Constitutional Vitals: Temp Pulse Resp BP Pulse Ox 99.2 F 95 H 35 H 129/89 100 01/28/19 08:00 01/28/19 11:57 01/28/19 11:57 01/28/19 11:00 01/28/19 11:57 General appearance: Present: mild distress (tachpnic) - EENT Eyes: Present: EOM intact ENT: hearing intact, poor dentition - Neck Neck: Present: supple - Respiratory Respiratory effort: labored Respiratory: bilateral: CTA - Cardiovascular Rhythm: regular Heart Sounds: Present: S1 & S2 - Abdominal General gastrointestinal: Present: non-tender Male genitourinary: Present: deferred - Rectal Rectal Exam: deferred Results - Labs CBC & Chem 7: 01/27/19 10:31 01/27/19 10:31 Labs: Abnormal lab results 01/27/19 01/28/19 01/28/19 Range/Units 16:53 00:10 05:10 POC Glucose 126 H 108 H 130 H (70-105) 01/28/19 Range/Units 08:43 POC Glucose 125 H (70-105) - Imaging and Cardiology Chest x-ray: image reviewed (No acute disease noted) Assessment and Plan 59 y/o male with prior history of seizures, admitted with seizures, altered mental state and elevated lactic acid. 1. Agree with PRN ativan therapy. Continue keppra. May need increase dosage of keppra if continues to have breakthrough seizures. Also needs an order for PRN ativan. Suggest Neuro consult as well. 2. CVA seen on CT, unsure if old vs new. Not a TPA candidate. Agree with MRI if possible (may not be able to obtain accurate history for safety) 3. BP control per primary 4. From a critical care standpoint, does not meet criteria to remain in unit, spoke with IMS, please consider transfer. If uncomfortable with floor could do step down.
[2019-01-28] MEDS ORDERED: DILANTIN PO SCH (13:00)
[2019-01-28] MEDS: DILANTIN PO SCH ×2 (15:07→22:52)
[2019-01-28 15:52] LABS: Alanine Aminotransferase 21 units/L (7-56); Albumin 3.6 g/dL (3.9-5); BUN/Creatinine Ratio 17; Basophils # (Auto) 0.1 K/mm3 (0.0-0.1); Blood Urea Nitrogen 10 mg/dL (9-20); Calcium 8.4 mg/dL (8.4-10.2); Eosinophils % (Auto) 0.5 % (0.0-4.3); Hematocrit 38.9 % (35.5-45.6); Hemoglobin 12.9 gm/dl (11.8-15.2); Hemolysis Index 17; Lymphocytes # (Auto) 0.7 K/mm3 (1.2-5.4); Lymphocytes % (Auto) 11.6 % (13.4-35.0); Mean Corpuscular HGB Conc 33 % (32-34); Mean Corpuscular Volume 87 fl (84-94); Monocytes # (Auto) 0.8 K/mm3 (0.0-0.8); Monocytes % (Auto) 12.7 % (0.0-7.3); Platelet Count 246 K/mm3 (140-440); Red Blood Count 4.47 M/mm3 (3.65-5.03); Red Cell Distribution Width 14.4 % (13.2-15.2)
[2019-01-28] MEDS: LOVENOX SUB-Q SCH (22:53)
[2019-01-28] MEDS: PRAVACHOL PO SCH (22:55)
--- NOTE | 2019-01-29 08:25 | Progress Note ---
Assessment and Plan Assessment and plan: 59-year-old -[place] Citizen male patient in [facility] resident with history of Wernicke's encephalopathy,seizure disorder, diabetes mellitus congestive heart failure schizophrenia history of CVA was admi tted through emergency room with recurrent episodes of seizure and altered level of consciousness., CT head shows acute stroke, placed on seizure precautions and neuro workup is in progress Neurology evaluation noted and appreciated. Neuro workup is pending due to long weekend -- Status epilepticus: Seizure precautions , IV Ativan as needed Antiseizure medications , neuro workup,EEG Neurology following Workup so far; CT head without contrast; possible acute or subacute infarct in the left occipital lobe CT abdomen and pelvis; atelectasis or infiltrates in both lung bases, scoliosis Chest x-ray; no acute abnormality --Acute /subacute CVA; not a candidate for TPA Aspirin and statin, neuro workup with MRI/MRA echocardiogram carotid Doppler Physical therapy occupational therapy speech therapy, rehabilitation Neurology following, --Hypertension: Well controlled , continue current antihypertensives and when necessary medications , Permissive hypertension per stroke protocol -- Coronary artery disease Continue Plavix 75 mg once a day --Hyperlipidemia Continue statins -- Elevated lactic acid level Secondary to seizures, nonspecific --? History of cerebrovascular accident With residual weakness --Nonspecific Elevated troponin Will trend the troponin, cardiology evaluation if needed --DVT prophylaxis Lovenox 40 mg subcutaneous daily Monitor closely and adjust management as needed Consults and recommendations noted and appreciated Disposition; follow neuro workup, PTOT, discharged back to [facility] ,When medically stable Critical care Time 36 min Stable to be transferred out of ICU to medical floor History Interval history: Patient seen and evaluated medical records reviewed No new episodes of seizure, patient is noncommunicative Not in acute distress Vital signs noted Neuro workup is in progress Hospitalist Physical - Constitutional Vitals: Temp Pulse Resp BP Pulse Ox 98.1 F 80 32 H 137/94 99 01/29/19 04:00 01/29/19 06:00 01/29/19 06:00 01/29/19 06:00 01/29/19 07:02 General appearance: Present: no acute distress, well-nourished, other (noncomm unicative) - EENT Eyes: Present: PERRL, EOM intact - Neck Neck: Present: supple, normal ROM - Respiratory Respiratory: bilateral: diminished, negative: rales, rhonchi, wheezing - Cardiovascular Rhythm: regular Heart Sounds: Present: S1 & S2 - Extremities Extremities: no ischemia, No edema - Abdominal General gastrointestinal: soft, non-tender, non-distended, normal bowel sounds - Integumentary Integumentary: Present: clear, warm - Psychiatric Psychiatric: other (confused ,noncommunicative) - Neurologic Neurologic: other (residual weakness) Results - Labs CBC & Chem 7: 01/28/19 15:12 01/28/19 15:12 Labs: Laboratory Last Values WBC 6.3 K/mm3 (4.5-11.0) 01/28/19 15:12 RBC 4.47 M/mm3 (3.65-5.03) 01/28/19 15:12 Hgb 12.9 gm/dl (11.8-15.2) 01/28/19 15:12 Hct 38.9 % (35.5-45.6) 01/28/19 15:12 MCV 87 fl (84-94) 01/28/19 15:12 MCH 29 pg (28-32) 01/28/19 15:12 MCHC 33 % (32-34) 01/28/19 15:12 RDW 14.4 % (13.2-15.2) 01/28/19 15:12 Plt Count 246 K/mm3 (140-440) 01/28/19 15:12 Lymph % (Auto) 11.6 % (13.4-35.0) L 01/28/19 15:12 [place] % (Auto) 12.7 % (0.0-7.3) H 01/28/19 15:12 Eos % (Auto) 0.5 % (0.0-4.3) 01/28/19 15:12 Baso % (Auto) 1.0 % (0.0-1.8) 01/28/19 15:12 Lymph # 0.7 K/mm3 (1.2-5.4) L 01/28/19 15:12 [place] # 0.8 K/mm3 (0.0-0.8) 01/28/19 15:12 Eos # 0.0 K/mm3 (0.0-0.4) 01/28/19 15:12 Baso # 0.1 K/mm3 (0.0-0.1) 01/28/19 15:12 Seg Neutrophils % 74.2 % (40.0-70.0) H 01/28/19 15:12 Seg Neutrophils # 4.7 K/mm3 (1.8-7.7) 01/28/19 15:12 Sodium 134 mmol/L (137-145) L 01/28/19 15:12 Potassium 3.4 mmol/L (3.6-5.0) L 01/28/19 15:12 Chloride 101.4 mmol/L (98-107) 01/28/19 15:12 Carbon Dioxide 24 mmol/L (22-30) 01/28/19 15:12 12 mmol/L 01/28/19 15:12 BUN 10 mg/dL (9-20) 01/28/19 15:12 0.6 mg/dL (0.8-1.5) L 01/28/19 15:12 Estimated GFR > 60 ml/min 01/28/19 15:12 17 % 01/28/19 15:12 Glucose 143 mg/dL (75-100) H 01/28/19 15:12 POC Glucose 144 (70-105) H 01/28/19 23:45 Lactic Acid 1.50 mmol/L (0.7-2.0) 01/27/19 19:05 Calcium 8.4 mg/dL (8.4-10.2) 01/28/19 15:12 0.30 mg/dL (0.1-1.2) 01/28/19 15:12 AST 30 units/L (5-40) 01/28/19 15:12 ALT 21 units/L (7-56) 01/28/19 15:12 105 units/L (35-129) 01/28/19 15:12 0.036 ng/mL (0.00-0.029) H 01/27/19 10:31 6.9 g/dL (6.3-8.2) 01/28/19 15:12 3.6 g/dL (3.9-5) L 01/28/19 15:12 1.1 % 01/28/19 15:12 Triglycerides 101 mg/dL (2-149) 01/27/19 10:31 Cholesterol 175 mg/dL (50-199) 01/27/19 10:31 116 mg/dL (50-130) 01/27/19 10:31 49 mg/dL (40-59) 01/27/19 10:31 3.57 % 01/27/19 10:31 Yellow (Yellow) 01/27/19 Unknown Slightly-cloudy (Clear) 01/27/19 Unknown 5.0 (5.0-7.0) 01/27/19 Unknown Ur Specific [place] 1.017 (1.003-1.030) 01/27/19 Unknown <15 mg/dl mg/dL (Negative) 01/27/19 Unknown Neg mg/dL (Negative) 01/27/19 Unknown Neg mg/dL (Negative) 01/27/19 Unknown Neg (Negative) 01/27/19 Unknown Neg (Negative) 01/27/19 Unknown Neg (Negative) 01/27/19 Unknown < 2.0 mg/dL (<2.0) 01/27/19 Unknown Ur Leukocyte Esterase Neg (Negative) 01/27/19 Unknown < 1.0 /HPF (0.0-6.0) 01/27/19 Unknown 1.0 /HPF (0.0-6.0) 01/27/19 Unknown Few /HPF 01/27/19 Unknown Phenytoin 16.4 ug/mL (10.0-20.0) 01/27/19 11:09 Valproic Acid 6.9 ug/mL (50-100) L 01/27/19 11:09 Active Medications - Current Medications Current Medications: Generic Name Dose Route Start Last Admin Trade Name Freq PRN Reason Stop Dose Admin Lipase/Protease/Amylase 1 each 01/27/19 18:33 Pancreaze 10,500 Unit FEEDTUBE PRN PRN For Clogged Feeding Tube Atorvastatin Calcium 40 mg 01/28/19 22:00 01/28/19 22:53 Lipitor PO 40 mg QHS [facility] Administration Clopidogrel Bisulfate 75 mg 01/27/19 19:00 01/28/19 10:31 Plavix PO 75 mg QDAY [facility] Administration Dextrose 50 ml 01/27/19 23:01 D50w (25gm) Syringe IV PRN PRN Hypoglycemia Divalproex Sodium 125 mg 01/29/19 10:00 Depalvin [place] PO DAILY WALT Enoxaparin Sodium 40 mg 01/27/19 22:00 01/28/19 22:53 Lovenox SUB-Q 40 mg QDAY@2200 [facility] Administration Famotidine 20 mg 01/27/19 22:00 01/28/19 22:54 Pepcid IV 20 mg BID WALT Administration Dextrose/Sodium Chloride 1,000 mls @ 100 mls/hr 01/27/19 19:00 01/28/19 22:53 D5ns IV 100 mls/hr DIRECT [facility] Administration Levetiracetam 750 mg/ Dextrose 107.5 mls @ 400 mls/hr 01/27/19 22:00 01/28/19 22:52 IV 400 mls/hr Q12HR [facility] Administration Ketorolac Tromethamine 15 mg 01/27/19 18:33 Toradol IV 02/01/19 18:32 Q6H PRN Pain, Mild (1-3) Lisinopril 5 mg 01/28/19 10:00 01/28/19 10:31 Zestril PO 5 mg DAILY [facility] Administration Lorazepam 2 mg 01/28/19 12:28 Ativan IV Q4H PRN Seizures Metoprolol Tartrate 75 mg 01/27/19 22:00 01/28/19 22:52 Lopressor PO 75 mg BID [facility] Administration Ondansetron HCl 4 mg 01/28/19 05:34 01/28/19 06:24 Zofran IV 4 mg Q8H PRN Administration Nausea And Vomiting Phenytoin 200 mg 01/28/19 15:00 01/28/19 22:52 Dilantin PO 200 mg BID WALT Administration Pravastatin Sodium 20 mg 01/27/19 22:00 01/28/19 22:55 Pravachol PO 20 mg QHS [facility] Administration Simple Syrup 15 ml 01/27/19 18:33 Simple Syrup FEEDTUBE PRN PRN Hypoglycemia Simple Syrup 30 ml 01/27/19 18:33 Simple Syrup FEEDTUBE PRN PRN Hypoglycemia Sodium Bicarbonate 325 mg 01/27/19 18:33 Sodium Bicarbonate FEEDTUBE PRN PRN For Clogged Feeding Tube Sodium Chloride 10 ml 01/27/19 22:00 01/28/19 22:55 Sodium Chloride Flush Syringe 10 Ml IV 10 ml BID WALT Administration Sodium Chloride 10 ml 01/27/19 18:33 Sodium Chloride Flush Syringe 10 Ml IV PRN PRN LINE FLUSH Nutrition/Malnutrition Assess - Dietary Evaluation Nutrition/Malnutrition Findings: Nutrition Notes Start: 01/28/19 08:19 Freq: Status: Active Protocol: Document 01/28/19 08:19 LP (Rec: 01/28/19 08:25 LP [id number]) Nutrition Notes Need for Assessment generated from: MD Order Initial or Follow up Assessment Current Diagnosis Diabetes,Heart Failure,Stroke Other Pertinent Diagnosis Wernicke's Encephalopathy Current Diet NPO Labs/Tests Reviewed Pertinent Medications Reviewed Height 6 ft 3 in Weight 80.8 kg [place] Body Weight (kg) 89.09 BMI 22.2 Subjective/Other Information Consult for TF. Pt noted with seizures. Dobhoff placed. Burn Absent Trauma Absent #1 Nutrition Diagnosis Inadequate oral intake Etiology dysphagia As Evidenced by Signs and Symptoms Pt S/P CVA and NPO Is patient on ventilator? No Is Patient Ambulatory and/or Out of Bed No REE-([place]-St. Jeor-confined to bed) 2065. Calculation Used for Recommendations [place]-St Jeor Additional Notes Protein need are 81-97g (1-1. 2g/kg) Fluid needs are 1ml/kcal Nutrition Intervention Change Diet Order: TF Nutrition Support: Glucerna 1.2 at 70ml/hr Flush with 100ml q4h Kcal 2,016 Protein (gm) 101 Fluid (mL) 1,357 Goal #1 Meet at least 80% of kcal and protein needs via TF Anticipated Discharge Needs: Unable to determine at this time Follow-Up By: 01/30/19 Additional Comments Follow for TF start/tolerance
--- NOTE | 2019-01-29 09:37 | Progress Note ---
Subjective Date of service: 01/29/19 Interval history: went over the ED note and the PMH there have been several major old stroke delmy right hemisphere likely MCA occlusion there is large amount od ischemic white matter strokes bilateral advise check MRI and get EEG plan to follow spoke to Dr. Victoria suspect these are chronic seizures as the patient has been on dilantin previously- will check level Objective - Vital Sign Vital Signs - 12hr 01/28/19 01/28/19 01/28/19 22:00 22:52 23:00 Temperature Pulse Rate 78 79 80 Pulse Rate [ From Monitor] Respiratory 27 H 27 H Rate Blood Pressure 149/99 149/99 151/93 O2 Sat by Pulse 98 99 Oximetry 01/28/19 01/29/19 01/29/19 23:02 00:00 01:00 Temperature 98.0 F Pulse Rate 74 72 71 Pulse Rate [ 73 From Monitor] Respiratory 24 31 H 29 H Rate Blood Pressure 149/99 147/101 154/100 O2 Sat by Pulse 99 100 100 Oximetry 01/29/19 01/29/19 01/29/19 02:00 03:00 04:00 Temperature 98.1 F Pulse Rate 73 77 73 Pulse Rate [ 73 From Monitor] Respiratory 32 H 31 H 29 H Rate Blood Pressure 154/100 142/95 137/94 O2 Sat by Pulse 99 98 99 Oximetry 01/29/19 01/29/19 01/29/19 05:00 06:00 07:02 Temperature Pulse Rate 75 80 Pulse Rate [ From Monitor] Respiratory 32 H 32 H Rate Blood Pressure 137/94 137/94 O2 Sat by Pulse 98 99 99 Oximetry 01/29/19 08:00 Temperature 97.4 F L Pulse Rate Pulse Rate [ From Monitor] Respiratory Rate Blood Pressure O2 Sat by Pulse Oximetry - Laboratory Findings CBC and BMP: 01/28/19 15:12 01/28/19 15:12 Abnormal Lab Findings: Abnormal Labs 01/27/19 01/27/19 01/27/19 10:31 10:31 10:31 Lymph % (Auto) 36.4 H [place] % (Auto) Eos % (Auto) 4.4 H Lymph # Seg Neutrophils % Sodium Potassium Creatinine Glucose 162 H POC Glucose Lactic Acid 4.90 H* Troponin T 0.036 H Albumin Valproic Acid 01/27/19 01/27/19 01/28/19 11:09 16:53 00:10 Lymph % (Auto) [place] % (Auto) Eos % (Auto) Lymph # Seg Neutrophils % Sodium Potassium Creatinine Glucose POC Glucose 126 H 108 H Lactic Acid Troponin T Albumin Valproic Acid 6.9 L 01/28/19 01/28/19 01/28/19 05:10 08:43 12:32 Lymph % (Auto) [place] % (Auto) Eos % (Auto) Lymph # Seg Neutrophils % Sodium Potassium Creatinine Glucose POC Glucose 130 H 125 H 135 H Lactic Acid Troponin T Albumin Valproic Acid 01/28/19 01/28/19 01/28/19 15:12 15:12 17:20 Lymph % (Auto) 11.6 L [place] % (Auto) 12.7 H Eos % (Auto) Lymph # 0.7 L Seg Neutrophils % 74.2 H Sodium 134 L Potassium 3.4 L Creatinine 0.6 L Glucose 143 H POC Glucose 129 H Lactic Acid Troponin T Albumin 3.6 L Valproic Acid 01/28/19 23:45 Lymph % (Auto) [place] % (Auto) Eos % (Auto) Lymph # Seg Neutrophils % Sodium Potassium Creatinine Glucose POC Glucose 144 H Lactic Acid Troponin T Albumin Valproic Acid
--- NOTE | 2019-01-29 10:10 | Progress Note ---
Assessment and Plan 59 y/o male with prior history of seizures, admitted with seizures, altered mental state and elevated lactic acid. 1. Follow up neurology recs, if any 2. WEan FiO2 for sats >88% 3. BP control per primary 4. From a critical care standpoint, does not meet criteria to remain in unit, spoke with IMS, please consider transfer. If uncomfortable with floor could do step down. 5. Will sign off once transitioned out of unit Subjective Date of service: 01/29/19 Interval history: No acute events. Saw Neurology in the room at bedside this am. No further seizures documented since yesterday early am. No family available yet. Objective - Constitutional Vitals: Vital Signs - 12hr 01/28/19 01/28/19 01/28/19 22:52 23:00 23:02 Temperature Pulse Rate 79 80 74 Pulse Rate [ From Monitor] Respiratory 27 H 24 Rate Blood Pressure 149/99 151/93 149/99 O2 Sat by Pulse 99 99 Oximetry 01/29/19 01/29/19 01/29/19 00:00 01:00 02:00 Temperature 98.0 F Pulse Rate 72 71 73 Pulse Rate [ 73 From Monitor] Respiratory 31 H 29 H 32 H Rate Blood Pressure 147/101 154/100 154/100 O2 Sat by Pulse 100 100 99 Oximetry 01/29/19 01/29/19 01/29/19 03:00 04:00 05:00 Temperature 98.1 F Pulse Rate 77 73 75 Pulse Rate [ 73 From Monitor] Respiratory 31 H 29 H 32 H Rate Blood Pressure 142/95 137/94 137/94 O2 Sat by Pulse 98 99 98 Oximetry 01/29/19 01/29/19 01/29/19 06:00 07:00 07:02 Temperature Pulse Rate 80 68 Pulse Rate [ From Monitor] Respiratory 32 H 25 H Rate Blood Pressure 137/94 137/94 O2 Sat by Pulse 99 99 99 Oximetry 01/29/19 01/29/19 08:00 09:01 Temperature 97.4 F L Pulse Rate 75 70 Pulse Rate [ 76 From Monitor] Respiratory 31 H 26 H Rate Blood Pressure 137/94 O2 Sat by Pulse 99 99 Oximetry General appearance: Present: no acute distress, disheveled - EENT ENT: hearing intact - Neck Neck: supple - Respiratory Respiratory effort: normal Respiratory: bilateral: CTA - Cardiovascular Rhythm: regular Heart Sounds: Present: S1 & S2 - Gastrointestinal General gastrointestinal: Present: soft, non-tender Rectal Exam: deferred - Genitourinary Male genitourinary: deferred - Labs CBC & Chem 7: 01/28/19 15:12 01/28/19 15:12 Labs: Abnormal lab results 01/28/19 01/28/19 01/28/19 Range/Units 05:10 12:32 15:12 Lymph % (Auto) 11.6 L (13.4-35.0) % [place] % (Auto) 12.7 H (0.0-7.3) % Lymph # 0.7 L (1.2-5.4) K/mm3 Seg Neutrophils % 74.2 H (40.0-70.0) % Sodium (137-145) mmol/L Potassium (3.6-5.0) mmol/L Creatinine (0.8-1.5) mg/dL Glucose (75-100) mg/dL POC Glucose 130 H 135 H (70-105) Albumin (3.9-5) g/dL 01/28/19 01/28/19 01/28/19 Range/Units 15:12 17:20 23:45 Lymph % (Auto) (13.4-35.0) % [place] % (Auto) (0.0-7.3) % Lymph # (1.2-5.4) K/mm3 Seg Neutrophils % (40.0-70.0) % Sodium 134 L (137-145) mmol/L Potassium 3.4 L (3.6-5.0) mmol/L Creatinine 0.6 L (0.8-1.5) mg/dL Glucose 143 H (75-100) mg/dL POC Glucose 129 H 144 H (70-105) Albumin 3.6 L (3.9-5) g/dL Medications & Allergies - Medications Allergies/Adverse Reactions: Allergies Iodine and Iodide Containing Produc Allergy (Verified 01/27/19 10:25) Unknown Home Medications: Home Medications Medication Instructions Recorded Confirmed Last Taken Type Aspirin [Aspirin BABY CHEW TAB] 81 mg PO DAILY 01/27/19 01/27/19 Unknown History Clopidogrel [Plavix] 75 mg PO QDAY 01/27/19 01/27/[address] [DepaKOTE DR] 125 mg PO DAILY 01/27/19 01/27/19 Unknown History Lisinopril [Zestril] 5 mg PO DAILY 01/27/19 01/27/19 Unknown History Mag Hydrox/Aluminum Hyd/Simeth 355 ml PO PRN 01/27/19 01/27/19 Unknown History [Maalox Advanced Suspension] Metoprolol Tartrate 75 mg PO BID 01/27/19 01/27/19 Unknown History Pantoprazole [Protonix TAB] 20 mg PO DAILY 01/27/19 01/27/19 Unknown History Phenytoin [Dilantin] 200 mg PO BID 01/27/19 01/27/19 Unknown History Pravastatin Sodium [Pravastatin] 20 mg PO QHS 01/27/19 01/27/19 Unknown History Terbinafine [LamiSIL At 1%] 1 gm TRANSDERMA BID 01/27/19 01/27/19 Unknown History Tylenol Pm Ex-Strength Caplet 500 mg PO PRN 01/27/19 01/27/19 Unknown History levETIRAcetam [Keppra] 100 mg PO DAILY 01/27/19 01/27/19 Unknown History Active Medications: Generic Name Dose Route Start Last Admin Trade Name Freq PRN Reason Stop Dose Admin Lipase/Protease/Amylase 1 each 01/27/19 18:33 Pancreaze 10,500 Unit FEEDTUBE PRN PRN For Clogged Feeding Tube Atorvastatin Calcium 40 mg 01/28/19 22:00 01/28/19 22:53 Lipitor PO 40 mg QHS WALT Administration Clopidogrel Bisulfate 75 mg 01/27/19 19:00 01/28/19 10:31 Plavix PO 75 mg QDAY WALT Administration Dextrose 50 ml 01/27/19 23:01 D50w (25gm) Syringe IV PRN PRN Hypoglycemia Divalproex Sodium 125 mg 01/29/19 10:00 Depakote PO DAILY WALT Enoxaparin Sodium 40 mg 01/27/19 22:00 01/28/19 22:53 Lovenox SUB-Q 40 mg QDAY@2200 WALT Administration Famotidine 20 mg 01/27/19 22:00 01/28/19 22:54 Pepcid IV 20 mg BID WALT Administration Dextrose/Sodium Chloride 1,000 mls @ 100 mls/hr 01/27/19 19:00 01/28/19 22:53 D5ns IV 100 mls/hr DIRECT WALT Administration Levetiracetam 750 mg/ Dextrose 107.5 mls @ 400 mls/hr 01/27/19 22:00 01/28/19 22:52 IV 400 mls/hr Q12HR WALT Administration Ketorolac Tromethamine 15 mg 01/27/19 18:33 Toradol IV 02/01/19 18:32 Q6H PRN Pain, Mild (1-3) Lisinopril 5 mg 01/28/19 10:00 01/28/19 10:31 Zestril PO 5 mg DAILY WALT Administration Lorazepam 2 mg 01/28/19 12:28 Ativan IV Q4H PRN Seizures Metoprolol Tartrate 75 mg 01/27/19 22:00 01/28/19 22:52 Lopressor PO 75 mg BID WALT Administration Ondansetron HCl 4 mg 01/28/19 05:34 01/28/19 06:24 Zofran IV 4 mg Q8H PRN Administration Nausea And Vomiting Phenytoin 200 mg 01/28/19 15:00 01/28/19 22:52 Dilantin PO 200 mg BID WATL Administration Pravastatin Sodium 20 mg 01/27/19 22:00 01/28/19 22:55 Pravachol PO 20 mg QHS WALT Administration Simple Syrup 15 ml 01/27/19 18:33 Simple Syrup FEEDTUBE PRN PRN Hypoglycemia Simple Syrup 30 ml 01/27/19 18:33 Simple Syrup FEEDTUBE PRN PRN Hypoglycemia Sodium Bicarbonate 325 mg 01/27/19 18:33 Sodium Bicarbonate FEEDTUBE PRN PRN For Clogged Feeding Tube Sodium Chloride 10 ml 01/27/19 22:00 01/28/19 22:55 Sodium Chloride Flush Syringe 10 Ml IV 10 ml BID WALT Administration Sodium Chloride 10 ml 01/27/19 18:33 Sodium Chloride Flush Syringe 10 Ml IV PRN PRN LINE FLUSH
[2019-01-29] MEDS: DILANTIN PO SCH ×2 (10:27→22:30)
[2019-01-29] MEDS: KEPPRA 750 MG in D5W 100 ML IV SCH ×2 (10:27→22:55)
[2019-01-29] MEDS: ZESTRIL PO SCH (10:28)
[2019-01-29] MEDS: LOPRESSOR PO SCH ×2 (10:28→22:37)
[2019-01-29] MEDS: PEPCID IV SCH ×2 (10:28→22:31)
[2019-01-29] MEDS: PLAVIX PO SCH (10:28)
--- NOTE | 2019-01-29 14:21 | Vascular Lab Report ---
PROCEDURE: VL CAROTID DUPLEX BILAT TECHNIQUE: Duplex Doppler ultrasound of the common, internal and external carotid arteries and the v ertebral arteries was performed bilaterally. Hopson scale imaging, velocity spectral waveform analysis, and color flow Doppler were employed. HISTORY: CVA COMPARISONS: None . Note: Measurement of carotid stenosis is based on flow velocity values that correlate with the [place] Symptomatic Carotid Endarterectomy Trial (NASCET) based stenosis criteria using the internal carotid artery diameter as the denominator for stenosis calculation. FINDINGS: RIGHT carotid artery: Velocities: ICA PSV: 59 cm/sec ICA End diastolic: 21 cm/sec CCA PSV: 80 cm/sec IC/CC ratio: 0.75 Plaque/color flow: Mild homogeneous plaquing visualized without significant stenosis. Internal carot id artery is mildly tortuous. . RIGHT vertebral artery: Antegrade systolic and diastolic flow LEFT carotid artery: Velocities: ICA PSV: 69 cm/sec ICA End diastolic: 20 cm/sec CCA PSV: 71 cm/sec IC/CC ratio: 0.97 Plaque/color flow: Mild homogeneous plaquing visualized without significant stenosis. Internal carot id artery is mildly tortuous. . LEFT vertebral artery: Antegrade systolic and diastolic flow IMPRESSION: There is mild homogeneous smooth plaquing visualized bilaterally without significant visible stenosis . Velocities are not accelerated. Degree of stenosis is estimated 1-39%. No high-grade areas of steno sis or occlusion visualized. Antegrade flow seen in both vertebral arteries. This document is electronically signed by Edy Madison MD., Jan 29 2019 02:18:49 PM ET
[2019-01-29] MEDS: D5NS 1,000 ML IV SCH (18:04)
[2019-01-29] MEDS: SODIUM CHLORIDE FLUSH SYRINGE 10 ML IV SCH ×2 (18:05→22:36)
[2019-01-29] MEDS: LOVENOX SUB-Q SCH (22:31)
[2019-01-29] MEDS: PHOS-NAK PO SCH (22:32)
[2019-01-29] MEDS: PRAVACHOL PO SCH (22:32)
[2019-01-30] MEDS: D5NS 1,000 ML IV SCH ×2 (05:59→21:02)
[2019-01-30 07:51] LABS: Basophils % (Auto) 0.4 % (0.0-1.8); Eosinophils # (Auto) 0.1 K/mm3 (0.0-0.4); Eosinophils % (Auto) 2.5 % (0.0-4.3); Hematocrit 37.7 % (35.5-45.6); Hemoglobin 12.8 gm/dl (11.8-15.2); Lymphocytes # (Auto) 0.7 K/mm3 (1.2-5.4); Lymphocytes % (Auto) 13.8 % (13.4-35.0); Mean Corpuscular HGB Conc 34 % (32-34); Mean Corpuscular Volume 87 fl (84-94); Monocytes # (Auto) 0.5 K/mm3 (0.0-0.8); Monocytes % (Auto) 10.6 % (0.0-7.3); Platelet Count 238 K/mm3 (140-440); Red Blood Count 4.36 M/mm3 (3.65-5.03); Red Cell Distribution Width 14.1 % (13.2-15.2)
[2019-01-30 08:13] LABS: Alanine Aminotransferase 25 units/L (7-56); Albumin 3.3 g/dL (3.9-5); BUN/Creatinine Ratio 12; Blood Urea Nitrogen 7 mg/dL (9-20); Calcium 8.5 mg/dL (8.4-10.2); Hemolysis Index 6
--- NOTE | 2019-01-30 08:16 | Progress Note ---
Subjective Date of service: 01/30/19 Interval history: I did review the dilantin level and it is 20.6 which is therapeutic range this is not toxic level (n [place] 30) I would not chage thedose of dilantin but monitor closely... suspct seizure control will be good at this point will check the EEG Objective - Vital Sign Vital Signs - 12hr 01/29/19 01/30/19 01/30/19 22:37 02:39 05:38 Temperature 98.5 F Pulse Rate 81 72 Respiratory 22 Rate Blood Pressure 144/86 127/89 O2 Sat by Pulse 95 97 Oximetry - Laboratory Findings CBC and BMP: 01/30/19 07:24 01/30/19 07:24 Abnormal Lab Findings: Abnormal Labs 01/27/19 01/27/19 01/27/19 10:31 10:31 10:31 Lymph % (Auto) 36.4 H [place] % (Auto) Eos % (Auto) 4.4 H Lymph # Seg Neutrophils % Sodium Potassium BUN Creatinine Glucose 162 H POC Glucose Lactic Acid 4.90 H* Phosphorus Troponin T 0.036 H Total Protein Albumin Phenytoin Valproic Acid 01/27/19 01/27/19 01/28/19 11:09 16:53 00:10 Lymph % (Auto) [place] % (Auto) Eos % (Auto) Lymph # Seg Neutrophils % Sodium Potassium BUN Creatinine Glucose POC Glucose 126 H 108 H Lactic Acid Phosphorus Troponin T Total Protein Albumin Phenytoin Valproic Acid 6.9 L 01/28/19 01/28/19 01/28/19 05:10 08:43 12:32 Lymph % (Auto) [place] % (Auto) Eos % (Auto) Lymph # Seg Neutrophils % Sodium Potassium BUN Creatinine Glucose POC Glucose 130 H 125 H 135 H Lactic Acid Phosphorus Troponin T Total Protein Albumin Phenytoin Valproic Acid 01/28/19 01/28/19 01/28/19 15:12 15:12 17:20 Lymph % (Auto) 11.6 L [place] % (Auto) 12.7 H Eos % (Auto) Lymph # 0.7 L Seg Neutrophils % 74.2 H Sodium 134 L Potassium 3.4 L BUN Creatinine 0.6 L Glucose 143 H POC Glucose 129 H Lactic Acid Phosphorus Troponin T Total Protein Albumin 3.6 L Phenytoin Valproic Acid 01/28/19 01/29/19 01/29/19 23:45 07:47 09:36 Lymph % (Auto) [place] % (Auto) Eos % (Auto) Lymph # Seg Neutrophils % Sodium Potassium BUN Creatinine Glucose POC Glucose 144 H 110 H Lactic Acid Phosphorus 2.20 L Troponin T Total Protein Albumin Phenytoin Valproic Acid 01/29/19 01/29/19 01/29/19 09:36 12:05 16:55 Lymph % (Auto) [place] % (Auto) Eos % (Auto) Lymph # Seg Neutrophils % Sodium Potassium BUN Creatinine Glucose POC Glucose 126 H 114 H Lactic Acid Phosphorus Troponin T Total Protein Albumin Phenytoin 20.6 H Valproic Acid 01/29/19 01/30/19 01/30/19 21:48 07:24 07:24 Lymph % (Auto) [place] % (Auto) 10.6 H Eos % (Auto) Lymph # 0.7 L Seg Neutrophils % 72.7 H Sodium Potassium BUN 7 L Creatinine 0.6 L Glucose 122 H POC Glucose 120 H Lactic Acid Phosphorus Troponin T Total Protein 6.2 L Albumin 3.3 L Phenytoin Valproic Acid 01/30/19 07:36 Lymph % (Auto) [place] % (Auto) Eos % (Auto) Lymph # Seg Neutrophils % Sodium Potassium BUN Creatinine Glucose POC Glucose 134 H Lactic Acid Phosphorus Troponin T Total Protein Albumin Phenytoin Valproic Acid
--- NOTE | 2019-01-30 11:23 | Progress Note ---
Assessment and Plan Seizure episode. Appears to be clinically controlled on bedside examination. See neurology comments Wernicke's encephalopathy CLD Recommendations Continue antiseizure therapy per neurology. Aspiration precautions Restraints per primary care DVT prophylaxis Again no family available for case discussion. We'll sign off at this point. Feel free to reconsult if necessary Subjective Date of service: 01/30/19 Principal diagnosis: seizure, Wernicke's encephalopathy, Interval history: Post-ICU/transfer rounds. Awake but not fully oriented on restraints. No family at bedside Objective Vital Signs - 12hr 01/30/19 01/30/19 01/30/19 02:39 05:38 08:35 Temperature 98.5 F Pulse Rate 72 Respiratory 22 Rate Blood Pressure 127/89 O2 Sat by Pulse 95 97 100 Oximetry Constitutional: no acute distress, alert, other (hiccups noted) Eyes: non-icteric ENT: oropharynx moist, other (NGT in) Neck: supple, no lymphadenopathy Effort: no acute distress Ascultation: Bilateral: clear Cardiovascular: regular rate and rhythm Gastrointestinal: normoactive bowel sounds, soft, non-tender, non-distended Integumentary: normal Extremities: no cyanosis, no cyanosis, no cyanosis Neurologic: other (not oriented, slightly confused but not agitated.) CBC and BMP: 01/30/19 07:24 01/30/19 07:24 Abnormal lab findings: Abnormal Labs 01/27/19 01/27/19 01/27/19 10:31 10:31 10:31 Lymph % (Auto) 36.4 H [place] % (Auto) Eos % (Auto) 4.4 H Lymph # Seg Neutrophils % Sodium Potassium BUN Creatinine Glucose 162 H POC Glucose Lactic Acid 4.90 H* Phosphorus Troponin T 0.036 H Total Protein Albumin Phenytoin Valproic Acid 01/27/19 01/27/19 01/28/19 11:09 16:53 00:10 Lymph % (Auto) [place] % (Auto) Eos % (Auto) Lymph # Seg Neutrophils % Sodium Potassium BUN Creatinine Glucose POC Glucose 126 H 108 H Lactic Acid Phosphorus Troponin T Total Protein Albumin Phenytoin Valproic Acid 6.9 L 01/28/19 01/28/19 01/28/19 05:10 08:43 12:32 Lymph % (Auto) [place] % (Auto) Eos % (Auto) Lymph # Seg Neutrophils % Sodium Potassium BUN Creatinine Glucose POC Glucose 130 H 125 H 135 H Lactic Acid Phosphorus Troponin T Total Protein Albumin Phenytoin Valproic Acid 01/28/19 01/28/19 01/28/19 15:12 15:12 17:20 Lymph % (Auto) 11.6 L [place] % (Auto) 12.7 H Eos % (Auto) Lymph # 0.7 L Seg Neutrophils % 74.2 H Sodium 134 L Potassium 3.4 L BUN Creatinine 0.6 L Glucose 143 H POC Glucose 129 H Lactic Acid Phosphorus Troponin T Total Protein Albumin 3.6 L Phenytoin Valproic Acid 01/28/19 01/29/19 01/29/19 23:45 07:47 09:36 Lymph % (Auto) [place] % (Auto) Eos % (Auto) Lymph # Seg Neutrophils % Sodium Potassium BUN Creatinine Glucose POC Glucose 144 H 110 H Lactic Acid Phosphorus 2.20 L Troponin T Total Protein Albumin Phenytoin Valproic Acid 01/29/19 01/29/19 01/29/19 09:36 12:05 16:55 Lymph % (Auto) [place] % (Auto) Eos % (Auto) Lymph # Seg Neutrophils % Sodium Potassium BUN Creatinine Glucose POC Glucose 126 H 114 H Lactic Acid Phosphorus Troponin T Total Protein Albumin Phenytoin 20.6 H Valproic Acid 01/29/19 01/30/19 01/30/19 21:48 07:24 07:24 Lymph % (Auto) [place] % (Auto) 10.6 H Eos % (Auto) Lymph # 0.7 L Seg Neutrophils % 72.7 H Sodium Potassium BUN 7 L Creatinine 0.6 L Glucose 122 H POC Glucose 120 H Lactic Acid Phosphorus Troponin T Total Protein 6.2 L Albumin 3.3 L Phenytoin Valproic Acid 01/30/19 07:36 Lymph % (Auto) [place] % (Auto) Eos % (Auto) Lymph # Seg Neutrophils % Sodium Potassium BUN Creatinine Glucose POC Glucose 134 H Lactic Acid Phosphorus Troponin T Total Protein Albumin Phenytoin Valproic Acid
--- NOTE | 2019-01-30 12:18 | Magnetic Resonance Report ---
MRI OF THE BRAIN WITHOUT CONTRAST: HISTORY: Acute CVA PROCEDURE: Multiplanar, multisequence MR imaging of the brain without IV contrast was performed. FINDINGS: Compared to the CT head dated 01/27/19. Mild volume loss and moderate chronic ischemic changes in the white matter are identified. There is a 2.1 x 1.0 cm area of weak diffusion restriction in the medial right thalamus. There is decreased signal in this region on the ADC map consistent with subacute ischemia. There is no evidence for hemorrhage or mass effect. The gradient sequence demonstrates evidence for numerous small chronic microhemorrhages throughout the posterior fossa and midbrain. This could represent amyloid angiopathy. The midline structures are central. The basal cisterns are patent. Normal ventricular size. The orbital cavities and sella turcica demonstrate no abnormality. The visualized paranasal sinuses and mastoid air cells are well aerated. IMPRESSION: 2.1 x 1.0 cm area of subacute ischemia in the medial right thalamus. Findings suggestive of amyloid angiopathy. Volume loss. Advanced chronic white matter changes.
--- NOTE | 2019-01-30 12:18 | Magnetic Resonance Report ---
MRA HEAD WITHOUT CONTRAST HISTORY: Acute CVA. [id number] imaging with MIP reformations of the [place] is submitted. The arteries appear widely patent and free of hemodynamically significant stenosis, aneurysm or dissection. IMPRESSION: Unremarkable MRA head.
[2019-01-30] MEDS: KEPPRA 750 MG in D5W 100 ML IV SCH (13:34)
[2019-01-30] MEDS: DILANTIN PO SCH ×2 (13:36→21:03)
[2019-01-30] MEDS: PEPCID IV SCH (13:37)
[2019-01-30] MEDS: PHOS-NAK PO SCH ×2 (13:38→21:04)
[2019-01-30] MEDS: PLAVIX PO SCH (13:38)
[2019-01-30] MEDS: LOPRESSOR PO SCH ×2 (13:39→21:03)
[2019-01-30] MEDS: SODIUM CHLORIDE FLUSH SYRINGE 10 ML IV SCH ×2 (13:41→21:04)
--- NOTE | 2019-01-30 15:16 | Progress Note ---
Assessment and Plan /Status epilepticus: Seizure precautions , IV Ativan as needed cont keppra and dilantin, neuro workup - EEG pending Neurology following Workup so far; CT head without contrast; possible acute or subacute infarct in the left occipital lobe CT abdomen and pelvis; atelectasis or infiltrates in both lung bases, scoliosis Chest x-ray; no acute abnormality /Acute /subacute CVA; not a candidate for TPA cont Aspirin and statin, complete neuro workup with MRI/MRA echocardiogram carotid Doppler consulted Physical therapy occupational therapy speech therapy, Neurology following, on TF /-Hypertension: Well controlled , continue current antihypertensives and when necessary medications , Permissive hypertension per stroke protocol /Coronary artery disease Continue Plavix 75 mg once a day /Hyperlipidemia Continue statins / Elevated lactic acid level Secondary to seizures, nonspecific /-? History of cerebrovascular accident With residual weakness /Nonspecific Elevated troponin Will trend the troponin, cardiology evaluation if CE trends up /DVT prophylaxis Lovenox 40 mg subcutaneous daily Monitor closely and adjust management as needed Disposition; follow neuro workup, PTOT, discharged back to [facility] When medically stable Brief History 59-year-old -[place] male [facility] with history of Wernicke's encephalopathy,seizure disorder, diabetes mellitus congestive heart failure schizophrenia history of CVA was admitted through emergency room with recurrent episodes of seizure and altered level of consciousness., CT head shows acute stroke, placed on seizure precautions and neuro workup is in progress. Neurology consulted. Neuro workup is still pending due to long weekend Hospitalist Physical General appearance: Present: no acute distress, well-nourished, other (noncommunicative) - EENT Eyes: Present: PERRL, EOM intact - Neck Neck: Present: supple, normal ROM - Respiratory Respiratory: bilateral: diminished, negative: rales, rhonchi, wheezing - Cardiovascular Rhythm: regular Heart Sounds: Present: S1 & S2 - Extremities Extremities: no ischemia, No edema - Abdominal General gastrointestinal: soft, non-tender, non-distended, normal bowel sounds - Integumentary Integumentary: Present: clear, warm - Psychiatric Psychiatric: other (confused ,noncommunicative) - Neurologic Neurologic: other (residual weakness) Subjective Date of service: 01/30/19 Principal diagnosis: seizure, Wernicke's encephalopathy, Interval history: Patient seen and examined appears confused, on TF MRI/EEG pending Objective - Constitutional Vitals: Vital Signs - 12hr 05/28/19 05/28/19 05/28/19 05:38 08:35 12:26 Temperature 98.5 F 98.1 F Pulse Rate 72 Respiratory 22 20 Rate Blood Pressure 127/89 144/95 Blood Pressure [Left] O2 Sat by Pulse 97 100 Oximetry 01/30/19 01/30/19 12:28 13:39 Temperature 98.3 F Pulse Rate 84 84 Respiratory 20 Rate Blood Pressure 144/95 Blood Pressure 144/95 [Left] O2 Sat by Pulse 94 Oximetry - Labs CBC & Chem 7: 01/30/19 07:24 01/30/19 07:24 Labs: Abnormal lab results 01/29/19 01/29/19 01/30/19 Range/Units 16:55 21:48 07:24 [place] % (Auto) 10.6 H (0.0-7.3) % Lymph # 0.7 L (1.2-5.4) K/mm3 Seg Neutrophils % 72.7 H (40.0-70.0) % BUN (9-20) mg/dL Creatinine (0.8-1.5) mg/dL Glucose (75-100) mg/dL POC Glucose 114 H 120 H (70-105) Total Protein (6.3-8.2) g/dL Albumin (3.9-5) g/dL 01/30/19 01/30/19 Range/Units 07:24 07:36 [place] % (Auto) (0.0-7.3) % Lymph # (1.2-5.4) K/mm3 Seg Neutrophils % (40.0-70.0) % BUN 7 L (9-20) mg/dL Creatinine 0.6 L (0.8-1.5) mg/dL Glucose 122 H (75-100) mg/dL POC Glucose 134 H (70-105) Total Protein 6.2 L (6.3-8.2) g/dL Albumin 3.3 L (3.9-5) g/dL
[2019-01-30] MEDS: ATIVAN IV PRN (19:02)
[2019-01-30] MEDS: ZESTRIL PO SCH (19:04)
[2019-01-30] MEDS: KEPPRA 1,500 MG in D5W 100 ML IV SCH ×2 (21:03→22:33)
[2019-01-30] MEDS: PEPCID FEEDTUBE SCH (21:04)
[2019-01-30] MEDS: LOVENOX SUB-Q SCH (21:04)
[2019-01-30] MEDS: PRAVACHOL PO SCH (21:04)
[2019-01-31] MEDS: D5NS 1,000 ML IV SCH ×2 (07:32→17:50)
[2019-01-31] MEDS: ATIVAN IV PRN (07:46)
[2019-01-31] MEDS: LOPRESSOR PO SCH ×2 (09:48→21:17)
[2019-01-31] MEDS: DILANTIN PO SCH ×2 (09:49→21:17)
[2019-01-31] MEDS: ZESTRIL PO SCH (09:50)
[2019-01-31] MEDS: PHOS-NAK PO SCH ×2 (09:50→21:18)
[2019-01-31] MEDS: PEPCID FEEDTUBE SCH ×2 (09:50→21:18)
[2019-01-31] MEDS: PLAVIX PO SCH (09:50)
[2019-01-31] MEDS: SODIUM CHLORIDE FLUSH SYRINGE 10 ML IV SCH ×2 (09:50→21:18)
[2019-01-31] MEDS ORDERED: KEPPRA FEEDTUBE SCH (10:00)
--- NOTE | 2019-01-31 10:44 | Progress Note ---
Assessment and Plan Seizure episode. Had another thismorning. patient examined just after getting Ativan. No respiratory complains per nursing report. Wernicke's encephalopathy CLD Recommendations Continue antiseizure therapy per neurology. Ammonia levels f/u Aspiration precautions Restraints per primary care DVT prophylaxis Again no family available for case discussion. We'll sign off at this point. Feel free to reconsult if necessary Subjective Date of service: 01/31/19 Principal diagnosis: seizure, Wernicke's encephalopathy, Interval history: Asleep,sedated post Ativan. No family Objective Vital Signs - 12hr 01/30/19 01/31/19 01/31/19 23:15 09:48 09:58 Temperature 97.5 F L Pulse Rate 73 90 Respiratory 20 Rate Blood Pressure 115/79 140/93 O2 Sat by Pulse 96 97 Oximetry Constitutional: no acute distress, asleep, other Eyes: non-icteric ENT: oropharynx moist, other (NGT in) Neck: supple, no lymphadenopathy Effort: no acute distress Ascultation: Bilateral: clear Cardiovascular: regular rate and rhythm Gastrointestinal: normoactive bowel sounds, soft, non-tender, non-distended Integumentary: normal Extremities: no cyanosis, no cyanosis, no cyanosis Neurologic: other (not oriented when aroused,non focal response but limited exam) CBC and BMP: 01/30/19 07:24 01/30/19 07:24 Abnormal lab findings: Abnormal Labs 01/27/19 01/27/19 01/27/19 10:31 10:31 10:31 Lymph % (Auto) 36.4 H [place] % (Auto) Eos % (Auto) 4.4 H Lymph # Seg Neutrophils % Sodium Potassium BUN Creatinine Glucose 162 H POC Glucose Lactic Acid 4.90 H* Phosphorus Troponin T 0.036 H Total Protein Albumin Phenytoin Valproic Acid 01/27/19 01/27/19 01/28/19 11:09 16:53 00:10 Lymph % (Auto) [place] % (Auto) Eos % (Auto) Lymph # Seg Neutrophils % Sodium Potassium BUN Creatinine Glucose POC Glucose 126 H 108 H Lactic Acid Phosphorus Troponin T Total Protein Albumin Phenytoin Valproic Acid 6.9 L 01/28/19 01/28/19 01/28/19 05:10 08:43 12:32 Lymph % (Auto) [place] % (Auto) Eos % (Auto) Lymph # Seg Neutrophils % Sodium Potassium BUN Creatinine Glucose POC Glucose 130 H 125 H 135 H Lactic Acid Phosphorus Troponin T Total Protein Albumin Phenytoin Valproic Acid 01/28/19 01/28/19 01/28/19 15:12 15:12 17:20 Lymph % (Auto) 11.6 L [place] % (Auto) 12.7 H Eos % (Auto) Lymph # 0.7 L Seg Neutrophils % 74.2 H Sodium 134 L Potassium 3.4 L BUN Creatinine 0.6 L Glucose 143 H POC Glucose 129 H Lactic Acid Phosphorus Troponin T Total Protein Albumin 3.6 L Phenytoin Valproic Acid 01/28/19 01/29/19 01/29/19 23:45 07:47 09:36 Lymph % (Auto) [place] % (Auto) Eos % (Auto) Lymph # Seg Neutrophils % Sodium Potassium BUN Creatinine Glucose POC Glucose 144 H 110 H Lactic Acid Phosphorus 2.20 L Troponin T Total Protein Albumin Phenytoin Valproic Acid 01/29/19 01/29/19 01/29/19 09:36 12:05 16:55 Lymph % (Auto) [place] % (Auto) Eos % (Auto) Lymph # Seg Neutrophils % Sodium Potassium BUN Creatinine Glucose POC Glucose 126 H 114 H Lactic Acid Phosphorus Troponin T Total Protein Albumin Phenytoin 20.6 H Valproic Acid 01/29/19 01/30/19 01/30/19 21:48 07:24 07:24 Lymph % (Auto) [place] % (Auto) 10.6 H Eos % (Auto) Lymph # 0.7 L Seg Neutrophils % 72.7 H Sodium Potassium BUN 7 L Creatinine 0.6 L Glucose 122 H POC Glucose 120 H Lactic Acid Phosphorus Troponin T Total Protein 6.2 L Albumin 3.3 L Phenytoin Valproic Acid 01/30/19 01/30/19 01/31/19 07:36 17:43 01:12 Lymph % (Auto) [place] % (Auto) Eos % (Auto) Lymph # Seg Neutrophils % Sodium Potassium BUN Creatinine Glucose POC Glucose 134 H 111 H 125 H Lactic Acid Phosphorus Troponin T Total Protein Albumin Phenytoin Valproic Acid 01/31/19 07:22 Lymph % (Auto) [place] % (Auto) Eos % (Auto) Lymph # Seg Neutrophils % Sodium Potassium BUN Creatinine Glucose POC Glucose 106 H Lactic Acid Phosphorus Troponin T Total Protein Albumin Phenytoin Valproic Acid
--- NOTE | 2019-01-31 11:20 | Event Note ---
Date: 01/30/19 Patient had another episode of seizure, will increase the dose of keppra.
[2019-01-31] MEDS: KEPPRA 1,500 MG in D5W 100 ML IV SCH ×2 (11:44→23:03)
--- NOTE | 2019-01-31 14:00 | Progress Note ---
Subjective Date of service: 01/31/19 Principal diagnosis: seizure, Wernicke's encephalopathy, Interval history: there is an acute small ischemic stroke in the right medial thalamus which could as well be related to Wernicke's... the lesion seen on MRI is not correlatd with lesion (arterial) since the MRA is negative the patient is to have increased dose of keppra that should control the seizures agree with Dr. Swanson's dosing and approach as of this morning do not have EEG I will review once available.. agree with current managemnt plan detailed exam shows seizures have subsided after dose keppra raised Objective - Vital Sign Vital Signs - 12hr 01/31/19 01/31/19 01/31/19 09:01 09:48 09:58 Temperature 97.9 F Pulse Rate 90 Respiratory 24 24 Rate Blood Pressure 145/92 140/93 O2 Sat by Pulse 97 Oximetry 01/31/19 11:06 Temperature 99.3 F Pulse Rate 84 Respiratory 24 Rate Blood Pressure 111/89 O2 Sat by Pulse 92 Oximetry - Laboratory Findings CBC and BMP: 01/30/19 07:24 01/30/19 07:24 Abnormal Lab Findings: Abnormal Labs 01/27/19 01/27/19 01/27/19 10:31 10:31 10:31 Lymph % (Auto) 36.4 H [place] % (Auto) Eos % (Auto) 4.4 H Lymph # Seg Neutrophils % Sodium Potassium BUN Creatinine Glucose 162 H POC Glucose Lactic Acid 4.90 H* Phosphorus Troponin T 0.036 H Total Protein Albumin Phenytoin Valproic Acid 01/27/19 01/27/19 01/28/19 11:09 16:53 00:10 Lymph % (Auto) [place] % (Auto) Eos % (Auto) Lymph # Seg Neutrophils % Sodium Potassium BUN Creatinine Glucose POC Glucose 126 H 108 H Lactic Acid Phosphorus Troponin T Total Protein Albumin Phenytoin Valproic Acid 6.9 L 01/28/19 01/28/19 01/28/19 05:10 08:43 12:32 Lymph % (Auto) [place] % (Auto) Eos % (Auto) Lymph # Seg Neutrophils % Sodium Potassium BUN Creatinine Glucose POC Glucose 130 H 125 H 135 H Lactic Acid Phosphorus Troponin T Total Protein Albumin Phenytoin Valproic Acid 01/28/19 01/28/19 01/28/19 15:12 15:12 17:20 Lymph % (Auto) 11.6 L [place] % (Auto) 12.7 H Eos % (Auto) Lymph # 0.7 L Seg Neutrophils % 74.2 H Sodium 134 L Potassium 3.4 L BUN Creatinine 0.6 L Glucose 143 H POC Glucose 129 H Lactic Acid Phosphorus Troponin T Total Protein Albumin 3.6 L Phenytoin Valproic Acid 01/28/19 01/29/19 01/29/19 23:45 07:47 09:36 Lymph % (Auto) [place] % (Auto) Eos % (Auto) Lymph # Seg Neutrophils % Sodium Potassium BUN Creatinine Glucose POC Glucose 144 H 110 H Lactic Acid Phosphorus 2.20 L Troponin T Total Protein Albumin Phenytoin Valproic Acid 01/29/19 01/29/19 01/29/19 09:36 12:05 16:55 Lymph % (Auto) [place] % (Auto) Eos % (Auto) Lymph # Seg Neutrophils % Sodium Potassium BUN Creatinine Glucose POC Glucose 126 H 114 H Lactic Acid Phosphorus Troponin T Total Protein Albumin Phenytoin 20.6 H Valproic Acid 01/29/19 01/30/19 01/30/19 21:48 07:24 07:24 Lymph % (Auto) [place] % (Auto) 10.6 H Eos % (Auto) Lymph # 0.7 L Seg Neutrophils % 72.7 H Sodium Potassium BUN 7 L Creatinine 0.6 L Glucose 122 H POC Glucose 120 H Lactic Acid Phosphorus Troponin T Total Protein 6.2 L Albumin 3.3 L Phenytoin Valproic Acid 01/30/19 01/30/19 01/31/19 07:36 17:43 01:12 Lymph % (Auto) [place] % (Auto) Eos % (Auto) Lymph # Seg Neutrophils % Sodium Potassium BUN Creatinine Glucose POC Glucose 134 H 111 H 125 H Lactic Acid Phosphorus Troponin T Total Protein Albumin Phenytoin Valproic Acid 01/31/19 01/31/19 07:22 11:09 Lymph % (Auto) [place] % (Auto) Eos % (Auto) Lymph # Seg Neutrophils % Sodium Potassium BUN Creatinine Glucose POC Glucose 106 H 123 H Lactic Acid Phosphorus Troponin T Total Protein Albumin Phenytoin Valproic Acid
--- NOTE | 2019-01-31 15:25 | Progress Note ---
Assessment and Plan /Status epilepticus: Seizure precautions , IV Ativan as needed cont keppra and dilantin, neuro workup - EEG result pending Neurology following increased the dose of keppra to 1500 BID ativan as needed Workup so far; CT head without contrast; possible acute or subacute infarct in the left occipital lobe CT abdomen and pelvis; atelectasis or infiltrates in both lung bases, scoliosis Chest x-ray; no acute abnormality /Acute /subacute CVA; not a candidate for TPA cont Aspirin and statin, completed neuro workup with MRI/MRA echocardiogram carotid Doppler MRI showed subacute stroke on right thalamus consulted Physical therapy occupational therapy speech therapy, Neurology following, on TF /Acute on chronic encephalopathy, POA - possibly post-ictal and from CVA, also has h/o Wernicke's encephalopathy - cont supportive care - if mental status does not improve will need PEG tube placement for feeding /-Hypertension: Well controlled , continue current antihypertensives and when necessary medications , Permissive hypertension per stroke protocol /Coronary artery disease Continue Plavix 75 mg once a day /Hyperlipidemia Continue statins / Elevated lactic acid level Secondary to seizures, nonspecific /-? History of cerebrovascular accident With residual weakness /Nonspecific Elevated troponin Will trend the troponin, cardiology evaluation if CE trends up /DVT prophylaxis Lovenox 40 mg subcutaneous daily Monitor closely and adjust management as needed Disposition; follow PT OT speech, discharged back to [facility] When medically stable Brief History 59-year-old -[place] male patient in [facility] resident with history of Wernicke's encephalopathy,seizure disorder, diabetes mellitus congestive heart failure schizophrenia history of CVA was admitted through emergency room with recurrent episodes of seizure and altered level of consciousness., CT head shows acute stroke, placed on seizure precautions and neuro workup is in progress. Neurology consulted. Neuro workup is still pending due to long weekend Hospitalist Physical General appearance: Present: no acute distress, well-nourished, other (n oncommunicative) - EENT Eyes: Present: PERRL, EOM intact - Neck Neck: Present: supple, normal ROM - Respiratory Respiratory: bilateral: diminished, negative: rales, rhonchi, wheezing - Cardiovascular Rhythm: regular Heart Sounds: Present: S1 & S2 - Extremities Extremities: no ischemia, No edema - Abdominal General gastrointestinal: soft, non-tender, non-distended, normal bowel sounds - Integumentary Integumentary: Present: clear, warm - Psychiatric Psychiatric: other (confused ,noncommunicative) - Neurologic Neurologic: other (residual weakness) Subjective Date of service: 01/31/19 Principal diagnosis: seizure, Wernicke's encephalopathy, Interval history: Patient seen and examined Appears confused, on TF Had episode of seizure yesterday and this morning. Objective - Constitutional Vitals: Vital Signs - 12hr 01/31/19 01/31/19 01/31/19 09:01 09:48 09:58 Temperature 97.9 F Pulse Rate 90 Respiratory 24 24 Rate Blood Pressure 145/92 140/93 O2 Sat by Pulse 97 Oximetry 01/31/19 11:06 Temperature 99.3 F Pulse Rate 84 Respiratory 24 Rate Blood Pressure 111/89 O2 Sat by Pulse 92 Oximetry - Labs CBC & Chem 7: 01/30/19 07:24 01/30/19 07:24 Labs: Abnormal lab results 01/30/19 01/31/19 01/31/19 Range/Units 17:43 01:12 07:22 POC Glucose 111 H 125 H 106 H (70-105) 01/31/19 Range/Units 11:09 POC Glucose 123 H (70-105)
[2019-01-31] MEDS: LOVENOX SUB-Q SCH (21:18)
[2019-01-31] MEDS: PRAVACHOL PO SCH (21:18)
--- NOTE | 2019-02-01 07:51 | Progress Note ---
Subjective Date of service: 02/01/19 Principal diagnosis: seizure, Wernicke's encephalopathy, Interval history: doses of keppra have been raised and should control seizures... there ias acute ischemic small stroke in thalamus which based on location would not be expected to contribute to seizures Objective - Vital Sign Vital Signs - 12hr 01/31/19 01/31/19 02/01/19 23:29 23:30 05:15 Temperature 99.1 F 98.4 F Pulse Rate 72 70 71 Respiratory 20 20 Rate Blood Pressure 133/78 141/82 O2 Sat by Pulse 97 98 100 Oximetry - Laboratory Findings CBC and BMP: 01/30/19 07:24 01/30/19 07:24 Abnormal Lab Findings: Abnormal Labs 01/27/19 01/27/19 01/27/19 10:31 10:31 10:31 Lymph % (Auto) 36.[address] [place] % (Auto) Eos % (Auto) 4.4 H Lymph # Seg Neutrophils % Sodium Potassium BUN Creatinine Glucose 162 H POC Glucose Lactic Acid 4.90 H* Phosphorus Troponin T 0.036 H Total Protein Albumin Phenytoin Valproic Acid 01/27/19 01/27/19 01/28/19 11:09 16:53 00:10 Lymph % (Auto) [place] % (Auto) Eos % (Auto) Lymph # Seg Neutrophils % Sodium Potassium BUN Creatinine Glucose POC Glucose 126 H 108 H Lactic Acid Phosphorus Troponin T Total Protein Albumin Phenytoin Valproic Acid 6.9 L 01/28/19 01/28/19 01/28/19 05:10 08:43 12:32 Lymph % (Auto) [place] % (Auto) Eos % (Auto) Lymph # Seg Neutrophils % Sodium Potassium BUN Creatinine Glucose POC Glucose 130 H 125 H 135 H Lactic Acid Phosphorus Troponin T Total Protein Albumin Phenytoin Valproic Acid 01/28/19 01/28/19 01/28/19 15:12 15:12 17:20 Lymph % (Auto) 11.[address] [place] % (Auto) 12.7 H Eos % (Auto) Lymph # 0.7 L Seg Neutrophils % 74.2 H Sodium 134 L Potassium 3.4 L BUN Creatinine 0.6 L Glucose 143 H POC Glucose 129 H Lactic Acid Phosphorus Troponin T Total Protein Albumin 3.6 L Phenytoin Valproic Acid 01/28/19 01/29/19 01/29/19 23:45 07:47 09:36 Lymph % (Auto) [place] % (Auto) Eos % (Auto) Lymph # Seg Neutrophils % Sodium Potassium BUN Creatinine Glucose POC Glucose 144 H 110 H Lactic Acid Phosphorus 2.20 L Troponin T Total Protein Albumin Phenytoin Valproic Acid 01/29/19 01/29/19 01/29/19 09:36 12:05 16:55 Lymph % (Auto) [place] % (Auto) Eos % (Auto) Lymph # Seg Neutrophils % Sodium Potassium BUN Creatinine Glucose POC Glucose 126 H 114 H Lactic Acid Phosphorus Troponin T Total Protein Albumin Phenytoin 20.6 H Valproic Acid 01/29/19 01/30/19 01/30/19 21:48 07:24 07:24 Lymph % (Auto) [place] % (Auto) 10.6 H Eos % (Auto) Lymph # 0.7 L Seg Neutrophils % 72.7 H Sodium Potassium BUN 7 L Creatinine 0.6 L Glucose 122 H POC Glucose 120 H Lactic Acid Phosphorus Troponin T Total Protein 6.2 L Albumin 3.3 L Phenytoin Valproic Acid 01/30/19 01/30/19 01/31/19 07:36 17:43 01:12 Lymph % (Auto) [place] % (Auto) Eos % (Auto) Lymph # Seg Neutrophils % Sodium Potassium BUN Creatinine Glucose POC Glucose 134 H 111 H 125 H Lactic Acid Phosphorus Troponin T Total Protein Albumin Phenytoin Valproic Acid 01/31/19 01/31/19 01/31/19 07:22 11:09 16:19 Lymph % (Auto) [place] % (Auto) Eos % (Auto) Lymph # Seg Neutrophils % Sodium Potassium BUN Creatinine Glucose POC Glucose 106 H 123 H 116 H Lactic Acid Phosphorus Troponin T Total Protein Albumin Phenytoin Valproic Acid 01/31/19 02/01/19 21:34 07:29 Lymph % (Auto) [place] % (Auto) Eos % (Auto) Lymph # Seg Neutrophils % Sodium Potassium BUN Creatinine Glucose POC Glucose 114 H 116 H Lactic Acid Phosphorus Troponin T Total Protein Albumin Phenytoin Valproic Acid
--- NOTE | 2019-02-01 08:04 | Progress Note ---
Subjective Date of service: 02/01/19 Principal diagnosis: seizure, Wernicke's encephalopathy, Interval history: alert and will track with eyes no visible seizures are noted at this point will confirm by getting EEG doubt thalamic stroke is much of issue and may be from Wernicke's Objective - Vital Sign Vital Signs - 12hr 01/31/19 01/31/19 02/01/19 23:29 23:30 05:15 Temperature 99.1 F 98.4 F Pulse Rate 72 70 71 Respiratory 20 20 Rate Blood Pressure 133/78 141/82 O2 Sat by Pulse 97 98 100 Oximetry - Laboratory Findings CBC and BMP: 01/30/19 07:24 01/30/19 07:24 Abnormal Lab Findings: Abnormal Labs 01/27/19 01/27/19 01/27/19 10:31 10:31 10:31 Lymph % (Auto) 36.4 H [place] % (Auto) Eos % (Auto) 4.4 H Lymph # Seg Neutrophils % Sodium Potassium BUN Creatinine Glucose 162 H POC Glucose Lactic Acid 4.90 H* Phosphorus Troponin T 0.036 H Total Protein Albumin Phenytoin Valproic Acid 01/27/19 01/27/19 01/28/19 11:09 16:53 00:10 Lymph % (Auto) [place] % (Auto) Eos % (Auto) Lymph # Seg Neutrophils % Sodium Potassium BUN Creatinine Glucose POC Glucose 126 H 108 H Lactic Acid Phosphorus Troponin T Total Protein Albumin Phenytoin Valproic Acid 6.9 L 01/28/19 01/28/19 01/28/19 05:10 08:43 12:32 Lymph % (Auto) [place] % (Auto) Eos % (Auto) Lymph # Seg Neutrophils % Sodium Potassium BUN Creatinine Glucose POC Glucose 130 H 125 H 135 H Lactic Acid Phosphorus Troponin T Total Protein Albumin Phenytoin Valproic Acid 01/28/19 01/28/19 01/28/19 15:12 15:12 17:20 Lymph % (Auto) 11.6 L [place] % (Auto) 12.7 H Eos % (Auto) Lymph # 0.7 L Seg Neutrophils % 74.2 H Sodium 134 L Potassium 3.4 L BUN Creatinine 0.6 L Glucose 143 H POC Glucose 129 H Lactic Acid Phosphorus Troponin T Total Protein Albumin 3.6 L Phenytoin Valproic Acid 01/28/19 01/29/19 01/29/19 23:45 07:47 09:36 Lymph % (Auto) [place] % (Auto) Eos % (Auto) Lymph # Seg Neutrophils % Sodium Potassium BUN Creatinine Glucose POC Glucose 144 H 110 H Lactic Acid Phosphorus 2.20 L Troponin T Total Protein Albumin Phenytoin Valproic Acid 01/29/19 01/29/19 01/29/19 09:36 12:05 16:55 Lymph % (Auto) [place] % (Auto) Eos % (Auto) Lymph # Seg Neutrophils % Sodium Potassium BUN Creatinine Glucose POC Glucose 126 H 114 H Lactic Acid Phosphorus Troponin T Total Protein Albumin Phenytoin 20.6 H Valproic Acid 01/29/19 01/30/19 01/30/19 21:48 07:24 07:24 Lymph % (Auto) [place] % (Auto) 10.6 H Eos % (Auto) Lymph # 0.7 L Seg Neutrophils % 72.7 H Sodium Potassium BUN 7 L Creatinine 0.6 L Glucose 122 H POC Glucose 120 H Lactic Acid Phosphorus Troponin T Total Protein 6.2 L Albumin 3.3 L Phenytoin Valproic Acid 01/30/19 01/30/19 01/31/19 07:36 17:43 01:12 Lymph % (Auto) [place] % (Auto) Eos % (Auto) Lymph # Seg Neutrophils % Sodium Potassium BUN Creatinine Glucose POC Glucose 134 H 111 H 125 H Lactic Acid Phosphorus Troponin T Total Protein Albumin Phenytoin Valproic Acid 01/31/19 01/31/19 01/31/19 07:22 11:09 16:19 Lymph % (Auto) [place] % (Auto) Eos % (Auto) Lymph # Seg Neutrophils % Sodium Potassium BUN Creatinine Glucose POC Glucose 106 H 123 H 116 H Lactic Acid Phosphorus Troponin T Total Protein Albumin Phenytoin Valproic Acid 01/31/19 02/01/19 21:34 07:29 Lymph % (Auto) [place] % (Auto) Eos % (Auto) Lymph # Seg Neutrophils % Sodium Potassium BUN Creatinine Glucose POC Glucose 114 H 116 H Lactic Acid Phosphorus Troponin T Total Protein Albumin Phenytoin Valproic Acid
[2019-02-01] MEDS: ZESTRIL PO SCH (10:02)
[2019-02-01] MEDS: PEPCID FEEDTUBE SCH (10:02)
[2019-02-01] MEDS: DILANTIN PO SCH (10:02)
[2019-02-01] MEDS: PLAVIX PO SCH (10:02)
[2019-02-01] MEDS: LOPRESSOR PO SCH (10:02)
[2019-02-01] MEDS: KEPPRA 1,500 MG in D5W 100 ML IV SCH (10:03)
[2019-02-01] MEDS: PHOS-NAK PO SCH (10:03)
[2019-02-01] MEDS: SODIUM CHLORIDE FLUSH SYRINGE 10 ML IV SCH (10:04)
[2019-02-01] MEDS: ATIVAN IV PRN ×2 (10:05→22:35)
--- NOTE | 2019-02-01 13:21 | Progress Note ---
Assessment and Plan /Status epilepticus: Seizure precautions , IV Ativan as needed cont keppra and dilantin, neuro workup - EEG result pending Neurology following increased the dose of keppra to 1500 BID ativan as needed Workup so far; CT head without contrast; possible acute or subacute infarct in the left occipital lobe CT abdomen and pelvis; atelectasis or infiltrates in both lung bases, scoliosis Chest x-ray; no acute abnormality wait for EEG /Acute /subacute CVA; not a candidate for TPA cont Aspirin and statin, completed neuro workup with MRI/MRA echocardiogram carotid Doppler MRI showed subacute stroke on right thalamus consulted Physical therapy occupational therapy speech therapy, Neurology following, on TF /Acute on chronic encephalopathy, POA - possibly post-ictal and from CVA, also has h/o Wernicke's encephalopathy - cont supportive care - if mental status does not improve will need PEG tube placement for feeding - called brother but no response /-Hypertension: Well controlled , continue current antihypertensives and when necessary medications , Permissive hypertension per stroke protocol /Coronary artery disease Continue Plavix 75 mg once a day /Hyperlipidemia Continue statins / Elevated lactic acid level Secondary to seizures, nonspecific /-? History of cerebrovascular accident With residual weakness /Nonspecific Elevated troponin Will trend the troponin, cardiology evaluation if CE trends up /DVT prophylaxis Lovenox 40 mg subcutaneous daily Monitor closely and adjust management as needed Disposition; follow PT OT speech, discharged back to [facility] When medically stable Brief History 59-year-old -[place] male patient in [place] [facility] resident with history of Wernicke's encephalopathy,seizure disorder, diabetes mellitus congestive heart failure schizophrenia history of CVA was admitted through emergency room with recurrent episodes of seizure and altered level of consciousness., CT head shows acute stroke, placed on seizure precautions and neuro workup is in progress. Neurology consulted. Neuro workup is still pending due to long weekend Hospitalist Physical General appearance: Present: no acute distress, well-nourished, other (noncommunicative) - EENT Eyes: Present: PERRL, EOM intact - Neck Neck: Present: supple, normal ROM - Respiratory Respiratory: bilateral: diminished, negative: rales, rhonchi, wheezing - Cardiovascular Rhythm: regular Heart Sounds: Present: S1 & S2 - Extremities Extremities: no ischemia, No edema - Abdominal General gastrointestinal: soft, non-tender, non-distended, normal bowel sounds - Integumentary Integumentary: Present: clear, warm - Psychiatric Psychiatric: other (confused ,noncommunicative) - Neurologic Neurologic: other (residual weakness) Subjective Date of service: 02/01/19 Principal diagnosis: seizure, Wernicke's encephalopathy, Interval history: Patient seen and examined Appears confused and agitated, on TF Objective - Constitutional Vitals: Vital Signs - 12hr 02/01/19 02/01/19 05:15 09:40 Temperature 98.4 F 98.6 F Pulse Rate 71 83 Respiratory 20 20 Rate Blood Pressure 141/82 Blood Pressure 118/65 [Left] O2 Sat by Pulse 100 98 Oximetry - Labs CBC & Chem 7: 01/30/19 07:24 02/02/19 04:37 Labs: Abnormal lab results 01/31/19 01/31/19 02/01/19 Range/Units 16:19 21:34 07:29 POC Glucose 116 H 114 H 116 H (70-105) 02/01/19 Range/Units 11:03 POC Glucose 142 H (70-105)
[2019-02-01] MEDS: D5NS 1,000 ML IV SCH (16:45)
--- NOTE | 2019-02-02 00:38 | XRay Report ---
PROCEDURE: XR ABDOMEN 1V AP TECHNIQUE: Abdominal radiograph, single view. HISTORY: tube placement COMPARISONS: None . FINDINGS: Bowel gas pattern: Nonobstructive . Masses or calcifications: None . Bony structures: No significant abnormality . Other: There is an NG tube in the stomach. . IMPRESSION: NG tube is in the stomach.. This document is electronically signed by Conor Lazo MD., Feb 02 2019 12:36:42 AM ET
[2019-02-02] MEDS: DILANTIN PO SCH ×3 (00:56→22:23)
[2019-02-02] MEDS: KEPPRA 1,500 MG in D5W 100 ML IV SCH (00:56)
[2019-02-02] MEDS: LOVENOX SUB-Q SCH ×2 (00:57→22:22)
[2019-02-02] MEDS: PEPCID FEEDTUBE SCH ×3 (00:57→22:22)
[2019-02-02] MEDS: LOPRESSOR PO SCH ×3 (00:57→22:55)
[2019-02-02] MEDS: PRAVACHOL PO SCH ×2 (00:58→22:54)
[2019-02-02] MEDS: SODIUM CHLORIDE FLUSH SYRINGE 10 ML IV SCH ×3 (00:58→22:23)
[2019-02-02] MEDS: PHOS-NAK PO SCH ×3 (00:58→22:22)
[2019-02-02] MEDS: D5NS 1,000 ML IV SCH ×2 (04:14→16:30)
[2019-02-02 05:21] LABS: BUN/Creatinine Ratio 16; Blood Urea Nitrogen 8 mg/dL (9-20); Calcium 8.9 mg/dL (8.4-10.2); Hemolysis Index 34
[2019-02-02] MEDS: ATIVAN IV PRN (07:42)
[2019-02-02] MEDS: KEPPRA PO SCH ×2 (10:20→22:23)
[2019-02-02] MEDS: PLAVIX PO SCH (10:21)
[2019-02-02] MEDS: ZESTRIL PO SCH (10:26)
[2019-02-02] MEDS ORDERED: CATAPRES-TTS PATCH TD SCH (12:00)
--- NOTE | 2019-02-02 12:35 | Progress Note ---
Subjective Date of service: 02/02/19 Principal diagnosis: seizure, Wernicke's encephalopathy, Interval history: patient remains alert otherwise no interval change in exam no overt evidence of seizures at this point condition stable will repeat CT today Objective - Vital Sign Vital Signs - 12hr 02/02/19 05:25 Temperature 98.9 F Pulse Rate 90 Respiratory 18 Rate Blood Pressure 164/92 O2 Sat by Pulse 97 Oximetry - Laboratory Findings CBC and BMP: 01/30/19 07:24 02/02/19 04:37 Abnormal Lab Findings: Abnormal Labs 01/27/19 01/27/19 01/27/19 10:31 10:31 10:31 Lymph % (Auto) 36.4 H [place] % (Auto) Eos % (Auto) 4.4 H Lymph # Seg Neutrophils % Sodium Potassium BUN Creatinine Glucose 162 H POC Glucose Lactic Acid 4.90 H* Phosphorus Troponin T 0.036 H Total Protein Albumin Phenytoin Valproic Acid 01/27/19 01/27/19 01/28/19 11:09 16:53 00:10 Lymph % (Auto) [place] % (Auto) Eos % (Auto) Lymph # Seg Neutrophils % Sodium Potassium BUN Creatinine Glucose POC Glucose 126 H 108 H Lactic Acid Phosphorus Troponin T Total Protein Albumin Phenytoin Valproic Acid 6.9 L 01/28/19 01/28/19 01/28/19 05:10 08:43 12:32 Lymph % (Auto) [place] % (Auto) Eos % (Auto) Lymph # Seg Neutrophils % Sodium Potassium BUN Creatinine Glucose POC Glucose 130 H 125 H 135 H Lactic Acid Phosphorus Troponin T Total Protein Albumin Phenytoin Valproic Acid 01/28/19 01/28/19 01/28/19 15:12 15:12 17:20 Lymph % (Auto) 11.6 L [place] % (Auto) 12.7 H Eos % (Auto) Lymph # 0.7 L Seg Neutrophils % 74.2 H Sodium 134 L Potassium 3.4 L BUN Creatinine 0.6 L Glucose 143 H POC Glucose 129 H Lactic Acid Phosphorus Troponin T Total Protein Albumin 3.6 L Phenytoin Valproic Acid 01/28/19 01/29/19 01/29/19 23:45 07:47 09:36 Lymph % (Auto) [place] % (Auto) Eos % (Auto) Lymph # Seg Neutrophils % Sodium Potassium BUN Creatinine Glucose POC Glucose 144 H 110 H Lactic Acid Phosphorus 2.20 L Troponin T Total Protein Albumin Phenytoin Valproic Acid 01/29/19 01/29/19 01/29/19 09:36 12:05 16:55 Lymph % (Auto) [place] % (Auto) Eos % (Auto) Lymph # Seg Neutrophils % Sodium Potassium BUN Creatinine Glucose POC Glucose 126 H 114 H Lactic Acid Phosphorus Troponin T Total Protein Albumin Phenytoin 20.6 H Valproic Acid 01/29/19 01/30/19 01/30/19 21:48 07:24 07:24 Lymph % (Auto) [place] % (Auto) 10.6 H Eos % (Auto) Lymph # 0.7 L Seg Neutrophils % 72.7 H Sodium Potassium BUN 7 L Creatinine 0.6 L Glucose 122 H POC Glucose 120 H Lactic Acid Phosphorus Troponin T Total Protein 6.2 L Albumin 3.3 L Phenytoin Valproic Acid 01/30/19 01/30/19 01/31/19 07:36 17:43 01:12 Lymph % (Auto) [place] % (Auto) Eos % (Auto) Lymph # Seg Neutrophils % Sodium Potassium BUN Creatinine Glucose POC Glucose 134 H 111 H 125 H Lactic Acid Phosphorus Troponin T Total Protein Albumin Phenytoin Valproic Acid 01/31/19 01/31/19 01/31/19 07:22 11:09 16:19 Lymph % (Auto) [place] % (Auto) Eos % (Auto) Lymph # Seg Neutrophils % Sodium Potassium BUN Creatinine Glucose POC Glucose 106 H 123 H 116 H Lactic Acid Phosphorus Troponin T Total Protein Albumin Phenytoin Valproic Acid 01/31/19 02/01/19 02/01/19 21:34 07:29 11:03 Lymph % (Auto) [place] % (Auto) Eos % (Auto) Lymph # Seg Neutrophils % Sodium Potassium BUN Creatinine Glucose POC Glucose 114 H 116 H 142 H Lactic Acid Phosphorus Troponin T Total Protein Albumin Phenytoin Valproic Acid 02/01/19 02/01/19 02/02/19 16:46 21:18 04:37 Lymph % (Auto) [place] % (Auto) Eos % (Auto) Lymph # Seg Neutrophils % Sodium Potassium BUN 8 L Creatinine 0.5 L Glucose 123 H POC Glucose 106 H 119 H Lactic Acid Phosphorus Troponin T Total Protein Albumin Phenytoin Valproic Acid
--- NOTE | 2019-02-02 16:07 | Progress Note ---
Assessment and Plan /Status epilepticus: Seizure precautions , IV Ativan as needed cont keppra and dilantin, neuro workup - EEG result pending Neurology following increased the dose of keppra to 1500 BID ativan as needed Workup so far; CT head without contrast; possible acute or subacute infarct in the left occipital lobe CT abdomen and pelvis; atelectasis or infiltrates in both lung bases, scoliosis Chest x-ray; no acute abnormality wait for EEG /Acute /subacute CVA; not a candidate for TPA cont Aspirin and statin, completed neuro workup with MRI/MRA echocardiogram carotid Doppler MRI showed subacute stroke on right thalamus consulted Physical therapy occupational therapy speech therapy, Neurology following, on TF /Acute on chronic encephalopathy, POA - possibly post-ictal and from CVA, also has h/o Wernicke's encephalopathy - cont supportive care - if mental status does not improve will need PEG tube placement for feeding - called brother but no response /-Hypertension: Well controlled , continue current antihypertensives and when necessary medications , Permissive hypertension per stroke protocol /Coronary artery disease Continue Plavix 75 mg once a day /Hyperlipidemia Continue statins / Elevated lactic acid level Secondary to seizures, nonspecific /-? History of cerebrovascular accident With residual weakness /Nonspecific Elevated troponin Will trend the troponin, cardiology evaluation if CE trends up /DVT prophylaxis Lovenox 40 mg subcutaneous daily Monitor closely and adjust management as needed Disposition; follow PT OT speech, discharged back to [facility] When medically stable Brief History 59-year-old -[place] male patient in [place] resident with history of Wernicke's encephalopathy,seizure disorder, diabetes mellitus congestive heart failure schizophrenia history of CVA was admitted through emergency room with recurrent episodes of seizure and altered level of consciousness., CT head shows acute stroke, placed on seizure precautions and neuro workup is in progress. Neurology consulted. Neuro workup is still pending due to long weekend Hospitalist Physical General appearance: Present: no acute distress, well-nourished, other (noncommunicative) - EENT Eyes: Present: PERRL, EOM intact - Neck Neck: Present: supple, normal ROM - Respiratory Respiratory: bilateral: diminished, negative: rales, rhonchi, wheezing - Cardiovascular Rhythm: regular Heart Sounds: Present: S1 & S2 - Extremities Extremities: no ischemia, No edema - Abdominal General gastrointestinal: soft, non-tender, non-distended, normal bowel sounds - Integumentary Integumentary: Present: clear, warm - Psychiatric Psychiatric: other (confused ,noncommunicative) - Neurologic Neurologic: other (residual weakness) Subjective Date of service: 02/02/19 Principal diagnosis: seizure, Wernicke's encephalopathy, Interval history: Patient seen and examined Appears confused and agitated, on TF Tried to call brother but unable to reach, left message Objective - Constitutional Vitals: Vital Signs - 12hr 02/02/19 02/02/19 05:25 11:58 Temperature 98.9 F 97.8 F Pulse Rate 90 Respiratory 18 18 Rate Blood Pressure 164/92 154/91 O2 Sat by Pulse 97 Oximetry - Labs CBC & Chem 7: 01/30/19 07:24 02/02/19 04:37 Labs: Abnormal lab results 02/01/19 02/01/19 02/02/19 Range/Units 16:46 21:18 04:37 BUN 8 L (9-20) mg/dL Creatinine 0.5 L (0.8-1.5) mg/dL Glucose 123 H (75-100) mg/dL POC Glucose 106 H 119 H (70-105)
[2019-02-02] MEDS: VISTARIL PO PRN (16:32)
[2019-02-03] MEDS ORDERED: ZESTRIL PO SCH (02:16)
[2019-02-03] MEDS: D5NS 1,000 ML IV SCH ×2 (07:05→19:18)
[2019-02-03] MEDS: VISTARIL PO PRN (10:36)
[2019-02-03] MEDS: KEPPRA PO SCH ×2 (10:37→22:31)
[2019-02-03] MEDS: DILANTIN PO SCH ×2 (10:38→22:31)
[2019-02-03] MEDS: PHOS-NAK PO SCH ×2 (10:38→22:30)
[2019-02-03] MEDS: PEPCID FEEDTUBE SCH ×2 (10:39→22:31)
[2019-02-03] MEDS: LOPRESSOR PO SCH ×2 (10:39→22:31)
[2019-02-03] MEDS: SODIUM CHLORIDE FLUSH SYRINGE 10 ML IV SCH ×2 (10:41→22:32)
[2019-02-03] MEDS: PLAVIX PO SCH (10:42)
--- NOTE | 2019-02-03 11:34 | Progress Note ---
Assessment and Plan Workup so far; CT head without contrast; possible acute or subacute infarct in the left occipital lobe CT abdomen and pelvis; atelectasis or infiltrates in both lung bases, scoliosis Chest x-ray; no acute abnormality wait for EEG 59-year-old -[place] male patient in [facility] resident with history of Wernicke's encephalopathy,seizure disorder, diabetes mellitus congestive heart failure schizophrenia history of CVA was admitted through emergency room with recurrent episodes of seizure and altered level of consciousness., CT head shows acute stroke, placed on seizure precautions and neuro workup is in progress. Neurology consulted. Neuro workup is still pending due to long weekend - Status epilepticus: Seizure precautions , IV Ativan as needed cont keppra and dilantin, neuro workup - EEG result pending Neurology following increased the dose of keppra to 1500 BID ativan as needed -Acute /subacute CVA; not a candidate for TPA cont Aspirin and statin, completed neuro workup with MRI/MRA echocardiogram carotid Doppler MRI showed subacute stroke on right thalamus consulted Physical therapy occupational therapy speech therapy, Neurology following, on TF - Acute on chronic encephalopathy, POA possibly post-ictal and from CVA, also has h/o Wernicke's encephalopathy cont supportive care if mental status does not improve will need PEG tube placement for feeding called brother but no response -Hypertension: Increase lisinopril to 40 mg daily continue current antihypertensives when necessary medications , Permissive hypertension per stroke protocol Coronary artery disease Continue Plavix 75 mg once a day Hyperlipidemia Continue statins Elevated lactic acid level Secondary to seizures, nonspecific -? History of cerebrovascular accident With residual weakness - Nonspecific Elevated troponin Will trend the troponin, cardiology evaluation if CE trends up - DVT prophylaxis Lovenox 40 mg subcutaneous daily Monitor closely and adjust management as needed Disposition: follow PT OT speech, discharged back to [facility] When medically stable Subjective Date of service: 02/03/19 Principal diagnosis: seizure, Wernicke's encephalopathy, Interval history: Patient seen and examined. No new complaints. Denies any headache, chest pain or shortness of breath. About to obtain a CT scan of the brain Objective - Exam Narrative Exam: Constitutional: Well-nourished well-developed. NG tube in place. In no distress Head: Normocephalic atraumatic Eyes: Pupils are equal round and reactive to light Nose: No enlarged turbinates, no septal deviation. Mouth: Moist mucous membranes. Neck: Supple no thyromegaly. No bruit. No JVD Heart: Regular rate and rhythm, S1-S2 normal. No rubs murmurs or gallop Lungs: Clear to auscultation bilaterally. no rales or rhonchi Abdomen: Soft, nontender. Bowel sound are present. Extremities: No edema, no cyanosis, no clubbing. Neuro: Alert oriented Oriented x3. No focal sensory or motor deficit. Skin: No rashes or hyperpigmented spots Musculoskeletal system: No joint pain or swelling Hematological: No petechia or subcutanous hemorrhages. Immunological: No multiple septic spots on the skin Lymphatic: No generalized lymphadenopathy Psychiatry: Euthymic. Calm. - Constitutional Vitals: Vital Signs - 12hr 02/03/19 02/03/19 02/03/19 05:49 05:52 10:38 Temperature 98.8 F Pulse Rate 74 74 Respiratory 20 Rate Blood Pressure 150/97 150/97 O2 Sat by Pulse 95 Oximetry 02/03/19 10:39 Temperature Pulse Rate 74 Respiratory Rate Blood Pressure 150/97 O2 Sat by Pulse Oximetry - Labs CBC & Chem 7: 01/30/19 07:24 02/02/19 04:37 Labs: Abnormal lab results 02/02/19 02/03/19 Range/Units 22:56 06:56 POC Glucose 127 H 119 H (70-105)
[2019-02-03] MEDS ORDERED: GEODON IM ONE (12:20)
--- NOTE | 2019-02-03 14:43 | Consultation ---
History of Present Illness - Reason for Consult Consult date: 02/03/19 Reason for consult: Initial Psychiatric Evaluation - History of Present Psychiatric Illness Patient is a 59 yo male with hx of seizure disorder, Wernickie's encephalopathy, coronary artery disease, type 2 diabetes mellitus, chronic systolic heart failure, hematochezia status post CVA, myocardial infarction who presents from [facility] with altered mental status. SNF personnel noticed seizure activitiy. Patient has a PPHx of schizophrenia. Psychiatry was consulted for agitation and delirium. Today the patient is calm and uncooperative during the assessment. He verbalizes " the truck is different." Responses to questions are not logical. He continuously repeat " the truck is different." Patient thought content is impoverished. Speech is somewhat incoherent. Unable to fully assess due to limited speech/cognition. Most questions patient does not answer. Per nurse patient has been yelling all day. Current Psychiatric Medications: Unable to Assess. Past Psychiatric History: Unable to Assess. Past Medication Trials: Unable to Assess. History of Drug/ Alcohol Abuse: Unable to Assess. Family History of Psychiatric Illness/Substance Abuse: Unable to Assess. Social History: Unable to Assess. Medications and Allergies Allergies Allergy/AdvReac Type Severity Reaction Status Date / Time Iodine and Iodide Containing Allergy Unknown Verified 01/27/19 10:25 Produc Home Medications Medication Instructions Recorded Confirmed Last Taken Type Aspirin [Aspirin BABY CHEW TAB] 81 mg PO DAILY 01/27/19 01/27/19 Unknown History Clopidogrel [Plavix] 75 mg PO QDAY 01/27/19 01/27/19 Unknown History Divalproex [Braxton ORONA] 125 mg PO DAILY 01/27/19 01/27/19 Unknown History Lisinopril [Zestril] 5 mg PO DAILY 01/27/19 01/27/19 Unknown History Mag Hydrox/Aluminum Hyd/Simeth 355 ml PO PRN 01/27/19 01/27/19 Unknown History [Maalox Advanced Suspension] Metoprolol Tartrate 75 mg PO BID 01/27/19 01/27/19 Unknown History Pantoprazole [Protonix TAB] 20 mg PO DAILY 01/27/19 01/27/19 Unknown History Phenytoin [Dilantin] 200 mg PO BID 01/27/19 01/27/19 Unknown History Pravastatin Sodium [Pravastatin] 20 mg PO QHS 01/27/19 01/27/19 Unknown History Terbinafine [LamiSIL At 1%] 1 gm TRANSDERMA BID 01/27/19 01/27/19 Unknown History Tylenol Pm Ex-Strength Caplet 500 mg PO PRN 01/27/19 01/27/19 Unknown History levETIRAcetam [Keppra] 100 mg PO DAILY 01/27/19 01/27/19 Unknown History Active Meds: Active Medications Lipase/Protease/Amylase (Vignesh [place] 10,500 Unit) 1 each FEEDTUBE PRN PRN PRN Reason: For Clogged Feeding Tube Atorvastatin Calcium (Lipitor) 40 mg PO QHS [facility] Last Admin: 02/02/19 22:22 Dose: 40 mg Documented by: Clonidine HCl (Catapres-Tts Patch) 0.2 mg TD QWEEK [facility] Last Admin: 02/02/19 12:00 Dose: 0.2 mg Documented by: Clopidogrel Bisulfate (Plavix) 75 mg PO QDAY [facility] Last Admin: 02/03/19 10:42 Dose: 75 mg Documented by: Dextrose (D50w (25gm) Syringe) 50 ml IV PRN PRN PRN Reason: Hypoglycemia Divalproex Sodium (Depakote Dr) 125 mg PO DAILY [facility] Last Admin: 02/03/19 12:39 Dose: 125 mg Documented by: Enoxaparin Sodium (Lovenox) 40 mg SUB-Q QDAY@2200 [facility] Last Admin: 02/02/19 22:22 Dose: 40 mg Documented by: Famotidine (Pepcid) 20 mg FEEDTUBE BID [facility] Last Admin: 02/03/19 10:39 Dose: 20 mg Documented by: Hydroxyzine Pamoate (Vistaril) 25 mg PO Q6H PRN PRN Reason: Anxiety Last Admin: 02/03/19 10:36 Dose: 25 mg Documented by: Dextrose/Sodium Chloride (D5ns) 1,000 mls @ 100 mls/hr IV DIRECT [facility] Last Admin: 02/03/19 07:05 Dose: 100 mls/hr Documented by: Levetiracetam (Keppra) 1,500 mg PO BID [facility] Last Admin: 02/03/19 10:37 Dose: 1,500 mg Documented by: Lisinopril (Zestril) 10 mg PO DAILY [facility] Last Admin: 02/03/19 10:38 Dose: 10 mg Documented by: Metoprolol Tartrate (Lopressor) 75 mg PO BID [facility] Last Admin: 02/03/19 10:39 Dose: 75 mg Documented by: Ondansetron HCl (Zofran) 4 mg IV Q8H PRN PRN Reason: Nausea And Vomiting Last Admin: 01/28/19 06:24 Dose: 4 mg Documented by: Phenytoin (Dilantin) 200 mg PO BID [facility] Last Admin: 02/03/19 10:38 Dose: 200 mg Documented by: Potassium Phos/Sodium Phos (Phos-Nak) 1 each PO Q12HR [facility] Last Admin: 02/03/19 10:38 Dose: 1 each Documented by: Pravastatin Sodium (Pravachol) 20 mg PO QHS [facility] Last Admin: 02/02/19 22:54 Dose: 20 mg Documented by: Simple Syrup (Simple Syrup) 15 ml FEEDTUBE PRN PRN PRN Reason: Hypoglycemia Simple Syrup (Simple Syrup) 30 ml FEEDTUBE PRN PRN PRN Reason: Hypoglycemia Sodium Bicarbonate (Sodium Bicarbonate) 325 mg FEEDTUBE PRN PRN PRN Reason: For Clogged Feeding Tube Sodium Chloride (Sodium Chloride Flush Syringe 10 Ml) 10 ml IV BID [facility] Last Admin: 02/03/19 10:41 Dose: 10 ml Documented by: Sodium Chloride (Sodium Chloride Flush Syringe 10 Ml) 10 ml IV PRN PRN PRN Reason: LINE FLUSH Mental Status Exam - Vital signs Last Vital Signs Temp 98.8 F 02/03/19 05:52 Pulse 74 02/03/19 10:39 Resp 20 02/03/19 05:49 BP 150/97 02/03/19 10:39 Pulse Ox 99 02/03/19 10:00 - Exam Narrative exam: Mental Status Exam: Appearance: calm, cooperative Behavior: poor eye contact Speech: "somewhat incoherent" Mood:: "the truck is different" Affect: constricted Thought Process: unable to assess Thought Content: impoverished; unable to assess Motor Activity: Cognition: alert; unable to assess orientation Insight: poor Judgment: poor Results Result Diagrams: 01/30/19 07:24 02/02/19 04:37 Abnormal lab results 02/02/19 02/03/19 Range/Units 22:56 06:56 POC Glucose 127 H 119 H (70-105) All other labs normal. Assessment and Plan Assessment and plan: Impression: PPHx schizophrenia. Today the patient was calm but uncooperative during the assessment. Speech somewhat incoherent. Thought content impoverished. Unable to full assess due to limited cognition/speech. VPA 6.9. Recommendation/Plan: 1. Will reassess. 2. Will increase Depakote 250mg po BID agitation. Attempted to discuss the metabolic side effects of Depakote. 3. Will order Liver Function Test. Recommend Delirium precautions below: 1. Frequently reorient patient and involve him/her in their care (simple explanations of procedures, tests, medications). 2. Lights on and shades open during daytime hours. 3. Write date and goals of care in a visible place. 4. Try to avoid unnecessary interruptions to sleep during nighttime hours. 5. Obtain glasses, hearing aids from home if patient uses these at baseline. 6. Avoid medications that may exacerbate delirium (especially narcotics, benzodiazepines, barbiturates, ambien, lunesta, and medications with excessive anticholinergic properties). Disposition: Will attempt to gain collateral to determine proper disposition. Will staff with Dr. Matilde Escalante.
--- NOTE | 2019-02-03 17:11 | Cat Scan Report ---
PROCEDURE: CT HEAD/BRAIN WO CON TECHNIQUE: Computerized tomography of the head was performed without contrast material. CT DOSE LENGTH PRODUCT: 927.3 mGycm HISTORY: ams COMPARISONS: Head CT January 27, 2019 . FINDINGS: No acute extra-axial fluid collection. No midline shift. No cisternal effacement. Generalized promine nce of the ventricles and subarachnoid spaces compatible with volume loss. Extensive hypoattenuation white matter compatible with chronic microvessel ischemic change. Encephalomalacia in right temporal tip compatible with chronic microvessel ischemic change. Hypoattenuation occipital lobes is unchanged and likely reflects chronic white matter disease. No acute hemorrhage. Calvarium with no acute defec t. Paranasal sinuses no air fluid level. IMPRESSION: No acute intracranial process identified. No significant interval change Chronic microvessel ischemic changes white matter Generalized volume loss Chronic encephalomalacia right temporal tip If further evaluation warranted, MRI may be obtained . This document is electronically signed by Ham Terry MD., February 03 2019 06:09:05 PM ET
[2019-02-03 20:41] LABS: Alanine Aminotransferase 42 units/L (7-56)
[2019-02-03 20:49] LABS: Bilirubin,Direct < 0.2 mg/dL (0-0.2)
[2019-02-03] MEDS: LOVENOX SUB-Q SCH (22:30)
[2019-02-03] MEDS: PRAVACHOL PO SCH (22:31)
[2019-02-04] MEDS: VISTARIL PO PRN (05:25)
[2019-02-04 05:43] LABS: Basophils % (Auto) 0.8 % (0.0-1.8); Eosinophils # (Auto) 0.3 K/mm3 (0.0-0.4); Eosinophils % (Auto) 4.4 % (0.0-4.3); Hematocrit 37.7 % (35.5-45.6); Hemoglobin 12.7 gm/dl (11.8-15.2); Lymphocytes # (Auto) 0.9 K/mm3 (1.2-5.4); Lymphocytes % (Auto) 15.3 % (13.4-35.0); Mean Corpuscular HGB Conc 34 % (32-34); Mean Corpuscular Volume 87 fl (84-94); Monocytes # (Auto) 0.6 K/mm3 (0.0-0.8); Monocytes % (Auto) 9.3 % (0.0-7.3); Platelet Count 263 K/mm3 (140-440); Red Blood Count 4.33 M/mm3 (3.65-5.03); Red Cell Distribution Width 14.5 % (13.2-15.2)
[2019-02-04 06:18] LABS: Alanine Aminotransferase 42 units/L (7-56); Albumin 3.6 g/dL (3.9-5); BUN/Creatinine Ratio 30; Blood Urea Nitrogen 12 mg/dL (9-20); Calcium 9.1 mg/dL (8.4-10.2); Hemolysis Index 8
[2019-02-04] MEDS: D5NS 1,000 ML IV SCH ×2 (11:31→22:30)
[2019-02-04] MEDS: KEPPRA PO SCH ×2 (11:32→22:20)
[2019-02-04] MEDS: PHOS-NAK PO SCH ×2 (11:33→22:21)
[2019-02-04] MEDS: DILANTIN PO SCH ×2 (11:33→22:20)
[2019-02-04] MEDS: PLAVIX PO SCH (11:33)
[2019-02-04] MEDS: PEPCID FEEDTUBE SCH ×2 (11:34→22:21)
[2019-02-04] MEDS: SODIUM CHLORIDE FLUSH SYRINGE 10 ML IV SCH ×2 (11:35→22:25)
[2019-02-04] MEDS: LOPRESSOR PO SCH ×2 (11:38→22:22)
[2019-02-04] MEDS: ZESTRIL PO SCH (11:39)
--- NOTE | 2019-02-04 11:40 | Progress Note ---
Assessment and Plan Workup so far; CT head without contrast; possible acute or subacute infarct in the left occipital lobe CT abdomen and pelvis; atelectasis or infiltrates in both lung bases, scoliosis Chest x-ray; no acute abnormality wait for EEG 59-year-old -Wallis[place] male patient in [facility] resident with history of Wernicke's encephalopathy,seizure disorder, diabetes mellitus congestive heart failure schizophrenia history of CVA was admitted through emergency room with recurrent episodes of seizure and altered level of consciousness., CT head shows acute stroke, placed on seizure precautions and neuro workup is in progress. Neurology consulted. Neuro workup is still pending due to long weekend - Status epilepticus: Seizure precautions , IV Ativan as needed cont keppra and dilantin, neuro workup - EEG result pending Neurology following increased the dose of keppra to 1500 BID ativan as needed -Acute /subacute CVA; not a candidate for TPA cont Aspirin and statin, completed neuro workup with MRI/MRA echocardiogram carotid Doppler MRI showed subacute stroke on right thalamus consulted Physical therapy occupational therapy speech therapy, Neurology following, on TF - Acute on chronic encephalopathy, POA possibly post-ictal and from CVA, also has h/o Wernicke's encephalopathy cont supportive care if mental status does not improve will need PEG tube placement for feeding called brother but no response CT of the head was unremarkable for an acute event - Acute on chronic schizophrenia Psychiatric following Comments patient on Depakote -Hypertension: Increase lisinopril to 40 mg daily continue current antihypertensives when necessary medications , Permissive hypertension per stroke protocol Coronary artery disease Continue Plavix 75 mg once a day Hyperlipidemia Continue statins Elevated lactic acid level Secondary to seizures, nonspecific -? History of cerebrovascular accident With residual weakness - Nonspecific Elevated troponin Will trend the troponin, cardiology evaluation if CE trends up - DVT prophylaxis Lovenox 40 mg subcutaneous daily Monitor closely and adjust management as needed Disposition: follow PT OT speech, discharged back to [facility] When medically stable Subjective Date of service: 02/04/19 Principal diagnosis: seizure, Wernicke's encephalopathy, Interval history: Patient seen and examined. talking irrationally in bed. Denies any headache, chest pain or shortness of breath. About to obtain a CT scan of the brain Objective - Exam Narrative Exam: Constitutional: Confused. Disoriented. Has visual hallucination. Sees a nuras in the wall. NG tube in place. Agitated. Has history of schizophrenia Head: Normocephalic atraumatic Eyes: Pupils are equal round and reactive to light Nose: No enlarged turbinates, no septal deviation. Mouth: Moist mucous membranes. Neck: Supple no thyromegaly. No bruit. No JVD Heart: Regular rate and rhythm, S1-S2 normal. No rubs murmurs or gallop Lungs: Clear to auscultation bilaterally. no rales or rhonchi Abdomen: Soft, nontender. Bowel sound are present. Extremities: No edema, no cyanosis, no clubbing. Neuro: Alert oriented Oriented x1. She was then agitated Skin: No rashes or hyperpigmented spots Musculoskeletal system: No joint pain or swelling Hematological: No petechia or subcutanous hemorrhages. Immunological: No multiple septic spots on the skin Lymphatic: No generalized lymphadenopathy Psychiatry: Agitated - Constitutional Vitals: Vital Signs - 12hr 02/04/19 02/04/19 00:11 05:40 Temperature 98.3 F Pulse Rate 79 74 Respiratory 18 20 Rate Blood Pressure 137/98 137/95 O2 Sat by Pulse 96 94 Oximetry - Labs CBC & Chem 7: 02/04/19 04:50 02/04/19 04:50 Labs: Abnormal lab results 02/03/19 02/04/19 02/04/19 Range/Units 17:39 00:03 04:50 Eddy % (Auto) 9.3 H (0.0-7.3) % Eos % (Auto) 4.4 H (0.0-4.3) % Lymph # 0.9 L (1.2-5.4) K/mm3 Seg Neutrophils % 70.2 H (40.0-70.0) % Creatinine (0.8-1.5) mg/dL Glucose (75-100) mg/dL POC Glucose 116 H 134 H (70-105) AST (5-40) units/L Albumin (3.9-5) g/dL 02/04/19 02/04/19 Range/Units 04:50 05:43 Eddy % (Auto) (0.0-7.3) % Eos % (Auto) (0.0-4.3) % Lymph # (1.2-5.4) K/mm3 Seg Neutrophils % (40.0-70.0) % Creatinine 0.4 L (0.8-1.5) mg/dL Glucose 143 H (75-100) mg/dL POC Glucose 123 H (70-105) AST 46 H (5-40) units/L Albumin 3.6 L (3.9-5) g/dL
[2019-02-04] MEDS: LOVENOX SUB-Q SCH (22:20)
[2019-02-04] MEDS: PRAVACHOL PO SCH (22:27)
[2019-02-05 06:31] LABS: Basophils % (Auto) 0.7 % (0.0-1.8); Eosinophils # (Auto) 0.3 K/mm3 (0.0-0.4); Eosinophils % (Auto) 4.2 % (0.0-4.3); Hematocrit 41.1 % (35.5-45.6); Lymphocytes # (Auto) 1.1 K/mm3 (1.2-5.4); Lymphocytes % (Auto) 16.3 % (13.4-35.0); Mean Corpuscular HGB Conc 34 % (32-34); Mean Corpuscular Volume 88 fl (84-94); Monocytes # (Auto) 0.9 K/mm3 (0.0-0.8); Monocytes % (Auto) 12.7 % (0.0-7.3); Platelet Count 263 K/mm3 (140-440); Red Blood Count 4.67 M/mm3 (3.65-5.03); Red Cell Distribution Width 14.4 % (13.2-15.2)
[2019-02-05 06:45] LABS: Alanine Aminotransferase 44 units/L (7-56); Albumin 3.9 g/dL (3.9-5); BUN/Creatinine Ratio 26; Blood Urea Nitrogen 13 mg/dL (9-20); Calcium 9.6 mg/dL (8.4-10.2); Hemolysis Index 38
--- NOTE | 2019-02-05 08:15 | Progress Note ---
Subjective Date of service: 02/05/19 Principal diagnosis: seizure, Wernicke's encephalopathy, Interval history: I went over the recent CT and there is no worsening the acute thalamic "stroke" seen on MRI is barely visible ! and certainly no worse... 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 recommend continue the keepra Objective - Vital Sign Vital Signs - 12hr 02/04/19 02/04/19 02/04/19 20:16 22:22 23:14 Temperature 98.1 F Pulse Rate 75 82 Respiratory 20 Rate Blood Pressure 129/94 130/94 O2 Sat by Pulse 94 91 Oximetry 02/05/19 05:45 Temperature 98.2 F Pulse Rate 82 Respiratory 18 Rate Blood Pressure 118/73 O2 Sat by Pulse 94 Oximetry - Laboratory Findings CBC and BMP: 02/05/19 05:49 02/05/19 05:49 Abnormal Lab Findings: Abnormal Labs 01/27/19 01/27/19 01/27/19 10:31 10:31 10:31 Lymph % (Auto) 36.4 H Dickinson % (Auto) Eos % (Auto) 4.4 H Lymph # Dickinson # Seg Neutrophils % Sodium Potassium BUN Creatinine Glucose 162 H POC Glucose Lactic Acid 4.90 H* Phosphorus AST Troponin T 0.036 H Total Protein Albumin Phenytoin Valproic Acid 01/27/19 01/27/19 01/28/19 11:09 16:53 00:10 Lymph % (Auto) Dickinson % (Auto) Eos % (Auto) Lymph # Dickinson # Seg Neutrophils % Sodium Potassium BUN Creatinine Glucose POC Glucose 126 H 108 H Lactic Acid Phosphorus AST Troponin T Total Protein Albumin Phenytoin Valproic Acid 6.9 L 01/28/19 01/28/19 01/28/19 05:10 08:43 12:32 Lymph % (Auto) Dickinson % (Auto) Eos % (Auto) Lymph # Dickinson # Seg Neutrophils % Sodium Potassium BUN Creatinine Glucose POC Glucose 130 H 125 H 135 H Lactic Acid Phosphorus AST Troponin T Total Protein Albumin Phenytoin Valproic Acid 01/28/19 01/28/19 01/28/19 15:12 15:12 17:20 Lymph % (Auto) 11.6 L Dickinson % (Auto) 12.7 H Eos % (Auto) Lymph # 0.7 L Dickinson # Seg Neutrophils % 74.2 H Sodium 134 L Potassium 3.4 L BUN Creatinine 0.6 L Glucose 143 H POC Glucose 129 H Lactic Acid Phosphorus AST Troponin T Total Protein Albumin 3.6 L Phenytoin Valproic Acid 01/28/19 01/29/19 01/29/19 23:45 07:47 09:36 Lymph % (Auto) Dickinson % (Auto) Eos % (Auto) Lymph # Dickinson # Seg Neutrophils % Sodium Potassium BUN Creatinine Glucose POC Glucose 144 H 110 H Lactic Acid Phosphorus 2.20 L AST Troponin T Total Protein Albumin Phenytoin Valproic Acid 01/29/19 01/29/19 01/29/19 09:36 12:05 16:55 Lymph % (Auto) Dickinson % (Auto) Eos % (Auto) Lymph # Dickinson # Seg Neutrophils % Sodium Potassium BUN Creatinine Glucose POC Glucose 126 H 114 H Lactic Acid Phosphorus AST Troponin T Total Protein Albumin Phenytoin 20.6 H Valproic Acid 01/29/19 01/30/19 01/30/19 21:48 07:24 07:24 Lymph % (Auto) Dickinson % (Auto) 10.6 H Eos % (Auto) Lymph # 0.7 L Dickinson # Seg Neutrophils % 72.7 H Sodium Potassium BUN 7 L Creatinine 0.6 L Glucose 122 H POC Glucose 120 H Lactic Acid Phosphorus AST Troponin T Total Protein 6.2 L Albumin 3.3 L Phenytoin Valproic Acid 01/30/19 01/30/19 01/31/19 07:36 17:43 01:12 Lymph % (Auto) Dickinson % (Auto) Eos % (Auto) Lymph # Dickinson # Seg Neutrophils % Sodium Potassium BUN Creatinine Glucose POC Glucose 134 H 111 H 125 H Lactic Acid Phosphorus AST Troponin T Total Protein Albumin Phenytoin Valproic Acid 01/31/19 01/31/19 01/31/19 07:22 11:09 16:19 Lymph % (Auto) Dickinson % (Auto) Eos % (Auto) Lymph # Dickinson # Seg Neutrophils % Sodium Potassium BUN Creatinine Glucose POC Glucose 106 H 123 H 116 H Lactic Acid Phosphorus AST Troponin T Total Protein Albumin Phenytoin Valproic Acid 01/31/19 02/01/19 02/01/19 21:34 07:29 11:03 Lymph % (Auto) Dickinson % (Auto) Eos % (Auto) Lymph # Dickinson # Seg Neutrophils % Sodium Potassium BUN Creatinine Glucose POC Glucose 114 H 116 H 142 H Lactic Acid Phosphorus AST Troponin T Total Protein Albumin Phenytoin Valproic Acid 02/01/19 02/01/1902/02/19 16:46 21:18 04:37 Lymph % (Auto) Dickinson % (Auto) Eos % (Auto) Lymph # Dickinson # Seg Neutrophils % Sodium Potassium BUN 8 L Creatinine 0.5 L Glucose 123 H POC Glucose 106 H 119 H Lactic Acid Phosphorus AST Troponin T Total Protein Albumin Phenytoin Valproic Acid 02/02/19 02/03/19 02/03/19 22:56 06:56 17:39 Lymph % (Auto) Dickinson % (Auto) Eos % (Auto) Lymph # Dickinson # Seg Neutrophils % Sodium Potassium BUN Creatinine Glucose POC Glucose 127 H 119 H 116 H Lactic Acid Phosphorus AST Troponin T Total Protein Albumin Phenytoin Valproic Acid 02/04/19 02/04/19 02/04/19 00:03 04:50 04:50 Lymph % (Auto) Dickinson % (Auto) 9.3 H Eos % (Auto) 4.4 H Lymph # 0.9 L Dickinson # Seg Neutrophils % 70.2 H Sodium Potassium BUN Creatinine 0.4 L Glucose 143 H POC Glucose 134 H Lactic Acid Phosphorus AST 46 H Troponin T Total Protein Albumin 3.6 L Phenytoin Valproic Acid 02/04/19 02/04/19 02/04/19 05:43 11:46 17:26 Lymph % (Auto) Dickinson % (Auto) Eos % (Auto) Lymph # Dickinson # Seg Neutrophils % Sodium Potassium BUN Creatinine Glucose POC Glucose 123 H 111 H 119 H Lactic Acid Phosphorus AST Troponin T Total Protein Albumin Phenytoin Valproic Acid 02/05/19 02/05/19 02/05/19 05:49 05:49 06:30 Lymph % (Auto) Dickinson % (Auto) 12.7 H Eos % (Auto) Lymph # 1.1 L Dickinson # 0.9 H Seg Neutrophils % Sodium Potassium BUN Creatinine 0.5 L Glucose 114 H POC Glucose 133 H Lactic Acid Phosphorus AST 42 H Troponin T Total Protein Albumin Phenytoin Valproic Acid
--- NOTE | 2019-02-05 09:50 | Progress Note ---
Subjective - Reason for Consult Consult date: 02/05/19 Reason for consult: Psychiatry Follow-up - Chief Complaint Chief complaint: "Hello" 59 yo AA male ho presented to the ER for seizure activity. The patient is a resident of a SNF. Psychiatry was consulted for agitation and delirium. Today the patient was calm, but confused during the the assessment. He was tangent throughout the interview. He was able state his and the current [place] President when asked. He could elaborate about his mental health when asked. He did state that he "used to drink." He denies SI/HI's and AVH's. Mental Status Exam - Vital signs Last Vital Signs Temp 98.2 F 02/05/19 05:45 Pulse 82 02/05/19 05:45 Resp 18 02/05/19 05:45 BP 118/73 02/05/19 05:45 Pulse Ox 94 02/05/19 05:45 - Exam Narrative exam: MSE: Appearance: calm Behavior: regular eye contact Speech: regular rate and tone Mood:: "okay" Affect: congruent to mood Thought Process: tangential Thought Content: denies SI/HI's and AVH's Motor Activity: in restraints Cognition: alert, but confused Insight: impaired Judgment: poor Assessment and Plan Impression: Delirium. Today the patient was calm but confused during the assessment. Neuro is following. The patient is in restraints. Medical: Recommendation/Plan: Gather collateral information to help determined proper treatment. Start Haldol 5 mg IM Q6hrs PRN for acute psychosis. The Depakote is being managed by the hospitalist. Recommend Delirium precautions below: 1. Frequently reorient patient and involve him/her in their care (simple explanations of procedures, tests, medications). 2. Lights on and shades open during daytime hours. 3. Write date and goals of care in a visible place. 4. Try to avoid unnecessary interruptions to sleep during nighttime hours. 5. Obtain glasses, hearing aids from home if patient uses these at baseline. 6. Avoid medications that may exacerbate delirium (especially narcotics, benzodiazepines, barbiturates, ambien, lunesta, and medications with excessive anticholinergic properties). Dispo: The patient resides at a SNF per the notes. Stafedf with Dr. Matilde Escalante.
[2019-02-05] MEDS: LOPRESSOR PO SCH ×2 (10:07→22:09)
[2019-02-05] MEDS: KEPPRA PO SCH ×2 (10:08→22:07)
[2019-02-05] MEDS: DILANTIN PO SCH ×2 (10:08→22:06)
[2019-02-05] MEDS: PLAVIX PO SCH (10:08)
[2019-02-05] MEDS: PHOS-NAK PO SCH ×2 (10:09→22:08)
[2019-02-05] MEDS: PEPCID FEEDTUBE SCH ×2 (10:09→22:08)
[2019-02-05] MEDS: ZESTRIL PO SCH (10:09)
[2019-02-05] MEDS: SODIUM CHLORIDE FLUSH SYRINGE 10 ML IV SCH ×2 (10:11→22:14)
[2019-02-05] MEDS: D5NS 1,000 ML IV SCH (13:03)
--- NOTE | 2019-02-05 14:15 | Progress Note ---
Assessment and Plan /Status epilepticus: Seizure precautions , IV Ativan as needed cont keppra and dilantin, Neurology following increased the dose of keppra to 1500 BID Workup so far; CT head without contrast; possible acute or subacute infarct in the left occipital lobe CT abdomen and pelvis; atelectasis or infiltrates in both lung bases, scoliosis Chest x-ray; no acute abnormality EEG still pending /Acute /subacute CVA; not a candidate for TPA cont Aspirin and statin, completed neuro workup with MRI/MRA echocardiogram carotid Doppler MRI showed subacute stroke on right thalamus consulted Physical therapy occupational therapy speech therapy, Neurology following, passed swallow eval today for mechanical soft, will stop TF pending PT eval as he remained restraint /Acute on chronic encephalopathy, POA - possibly post-ictal and from CVA, also has h/o Wernicke's encephalopathy - cont supportive care - called brother but no response /-Hypertension: Well controlled , continue current antihypertensives and when necessary medications /Coronary artery disease Continue Plavix 75 mg once a day /Hyperlipidemia Continue statins / Elevated lactic acid level Secondary to seizures, nonspecific /-? History of cerebrovascular accident With residual weakness /Nonspecific Elevated troponin Will trend the troponin, cardiology evaluation if CE trends up 2d echo showed preserved EF /DVT prophylaxis Lovenox 40 mg subcutaneous daily Monitor closely and adjust management as needed Disposition; discharged back to [facility] When medically stable and off restraint Brief History 59-year-old -[place] male patient in [facility] resident with history of Wernicke's encephalopathy, seizure disorder, diabetes mellitus congestive heart failure schizophrenia history of CVA was admitted through emergency room with recurrent episodes of seizure and altered level of consciousness., CT/MRI head showed acute stroke, placed on seizure precautions. Neurology consulted. Hospitalist Physical General appearance: Present: no acute distress, well-nourished, restraint - EENT Eyes: Present: PERRL, EOM intact - Neck Neck: Present: supple, normal ROM - Respiratory Respiratory: bilateral: diminished, negative: rales, rhonchi, wheezing - Cardiovascular Rhythm: regular Heart Sounds: Present: S1 & S2 - Extremities Extremities: no ischemia, No edema - Abdominal General gastrointestinal: soft, non-tender, non-distended, normal bowel sounds - Integumentary Integumentary: Present: clear, warm - Psychiatric Psychiatric: cooperative - Neurologic Neurologic: other (residual weakness) Subjective Date of service: 02/05/19 Principal diagnosis: seizure, Wernicke's encephalopathy, Interval history: Patient seen and examined Appears confused but much cooperative today still on restraint, passed swallow eval today Objective - Constitutional Vitals: Vital Signs - 12hr 02/05/19 02/05/19 02/05/19 05:45 10:07 10:09 Temperature 98.2 F Pulse Rate 82 77 77 Respiratory 18 Rate Blood Pressure 118/73 142/88 O2 Sat by Pulse 94 Oximetry 02/05/19 11:57 Temperature 98.0 F Pulse Rate Respiratory 18 Rate Blood Pressure 128/89 O2 Sat by Pulse Oximetry - Labs CBC & Chem 7: 02/05/19 05:49 02/05/19 05:49 Labs: Abnormal lab results 02/04/19 02/05/19 02/05/19 Range/Units 17:26 05:49 05:49 [place] % (Auto) 12.7 H (0.0-7.3) % Lymph # 1.1 L (1.2-5.4) K/mm3 [place] # 0.9 H (0.0-0.8) K/mm3 Creatinine 0.5 L (0.8-1.5) mg/dL Glucose 114 H (75-100) mg/dL POC Glucose 119 H (70-105) AST 42 H (5-40) units/L 02/05/19 02/05/19 Range/Units 06:30 11:39 [place] % (Auto) (0.0-7.3) % Lymph # (1.2-5.4) K/mm3 [place] # (0.0-0.8) K/mm3 Creatinine (0.8-1.5) mg/dL Glucose (75-100) mg/dL POC Glucose 133 H 112 H (70-105) AST (5-40) units/L
[2019-02-05] MEDS: LOVENOX SUB-Q SCH (22:05)
[2019-02-05] MEDS: PRAVACHOL PO SCH (22:08)
[2019-02-06] MEDS: D5NS 1,000 ML IV SCH (02:57)
[2019-02-06 07:36] LABS: Hematocrit 43.2 % (35.5-45.6); Mean Corpuscular HGB Conc 35 % (32-34); Mean Corpuscular Volume 86 fl (84-94); Red Blood Count 5.01 M/mm3 (3.65-5.03); Red Cell Distribution Width 14.5 % (13.2-15.2)
[2019-02-06 07:52] LABS: Alanine Aminotransferase 40 units/L (7-56); Albumin 3.7 g/dL (3.9-5); BUN/Creatinine Ratio 20; Blood Urea Nitrogen 12 mg/dL (9-20); Hemolysis Index 26
[2019-02-06] MEDS: PLAVIX PO SCH (09:06)
[2019-02-06] MEDS: KEPPRA PO SCH ×2 (09:06→21:40)
[2019-02-06] MEDS: ZESTRIL PO SCH (09:06)
[2019-02-06] MEDS: PEPCID FEEDTUBE SCH ×2 (09:06→21:40)
[2019-02-06] MEDS: PHOS-NAK PO SCH ×2 (09:06→21:40)
[2019-02-06] MEDS: LOPRESSOR PO SCH ×2 (09:07→21:40)
[2019-02-06] MEDS: DILANTIN PO SCH ×2 (09:13→21:40)
[2019-02-06] MEDS: SODIUM CHLORIDE FLUSH SYRINGE 10 ML IV SCH ×2 (09:17→21:40)
[2019-02-06 10:25] LABS: Platelet Estimate Consistent w Auto; RBC Morphology Normal; Total Cells Counted 100
[2019-02-06 10:26] LABS: Platelet Count 224 K/mm3 (140-440)
--- NOTE | 2019-02-06 12:46 | Progress Note ---
Subjective - Reason for Consult Consult date: 02/06/19 Reason for consult: Psychiatry Follow-up - Chief Complaint Chief complaint: "I am okay today" 59 yo AA male ho presented to the ER for seizure activity. The patient is a resident of a SNF. Psychiatry was consulted for agitation and delirium. Today the patient was calm during the assessment. He was more lucid and cooperative. He was able to answer most questions logically without being redirected. The patient is eating, Dobhoff was D/C'd. Per the notes, no behavioral disturbances overnight. He denies SI/HI's and AVH's. I briefly spoke with Yesenia Ramirez per the chart before the call was discon nected. I called back, no one answered. Collateral information could not be obtained. Mental Status Exam - Vital signs Last Vital Signs Temp 98.3 F 02/06/19 04:59 Pulse 85 02/06/19 04:59 Resp 20 02/06/19 04:59 BP 126/92 02/06/19 09:07 Pulse Ox 98 02/06/19 07:59 - Exam Narrative exam: MSE: Appearance: calm Behavior: regular eye contact Speech: regular rate and tone Mood:: "okay" Affect: congruent to mood Thought Process: circumstantial Thought Content: denies SI/HI's and AVH's Motor Activity: in restraints Cognition: alert, with slight confusion Insight:variable to fair Judgment: variable Assessment and Plan Impression: Delirium. Today the patient was calm during the assessment. Neuro is following. The patient's mental status is improving. Medical: Recommendation/Plan: Gather collateral information to help determined proper treatment. Start Haldol 5 mg IM Q6hrs PRN for acute psychosis. The Depakote is being managed by the hospitalist. Psy sign off, reconsult when indicated. Recommend Delirium precautions below: 1. Frequently reorient patient and involve him/her in their care (simple explanations of procedures, tests, medications). 2. Lights on and shades open during daytime hours. 3. Write date and goals of care in a visible place. 4. Try to avoid unnecessary interruptions to sleep during nighttime hours. 5. Obtain glasses, hearing aids from home if patient uses these at baseline. 6. Avoid medications that may exacerbate delirium (especially narcotics, benzodiazepines, barbiturates, ambien, lunesta, and medications with excessive anticholinergic properties). 7. Recommend 1:1 sitter. Will staff with Dr. Matilde Escalante.
--- NOTE | 2019-02-06 14:32 | Progress Note ---
Assessment and Plan Assessment and plan: Patient is a 59-year-old -[place] man from [facility] with a history of Wernicke's encephalopathy, seizure disorder, diabetes mellitus type 2, congestive heart failure, schizophrenia and CVA was admitted through emergency room with recurrent episodes of seizure and altered level of consciousness. * CT head wo contrast IMPRESSION: No acute intracranial process identified. No significant interval change Chronic microvessel ischemic changes white matter Generalized volume loss Chronic encephalomalacia right temporal tip If further evaluation warranted, MRI may be obtained * Brain MRI wo contrast IMPRESSION: 2.1 x 1.0 cm area of subacute ischemia in the medial right thalamus. Findings suggestive of amyloid angiopathy. Volume loss. Advanced chronic white matter changes. Acute ischemic stroke: treat with asa, statin Status epilepticus: increased the dose of keppra to 1500 BID, EEG pending Acute metabolic encephalopathy, poa Hypertension; low salt diet and anti-hypertensives Coronary artery disease-Continue Plavix 75 mg once a day Hyperlipidemia-Continue statins Elevated lactic acid level-Secondary to seizures, nonspecific, non infectious Nonspecific Elevated troponin-Will trend the troponin, cardiology evaluation if CE trends up DVT prophylaxis-Lovenox 40 mg subcutaneous daily Disposition; discharged back to [facility] When medically stable and off restraint d/c restraints, possibly d/c back to [place] tomorrow. History Interval history: Patient was seen and examined. Follow-up on current diagnosis of AMS, improved. No overnight events reported to me. Patient denies any chest pain, shortness breath, nausea/vomiting or severe headaches. Imaging, nursing note, chart, labs and old chart reviewed. Discussed with patient. Hospitalist Physical - Physical exam Narrative exam: Gen: WDWN, NAD, Awake, Alert, Orientated x 1 but he knows he is in hospital, he thinks he is at [facility], also missed year HEENT: NCAT, EOMI, PERRL, OP Clear Neck: supple, no adenopathy, no thyromegaly, no JVD CVS/Heart: RRR, normal S1S2, pulses present bilaterally Chest/Lungs: CTA B, Symmetrical chest exddfpansion, good air entry bilaterally GI/Abdomen: soft, NTND, good bowel sounds, no guarding or rebound /Bladder: no suprapubic tenderness, no CVA or paraspinal tenderness Extermity/Skin: no c/c/e, no obvious rash MSK: FROM x 3 Neuro: CN 2-12 grossly intact, no new focal deficits Psych: calm - Constitutional Vitals: Temp Pulse Resp BP Pulse Ox 97.6 F 69 22 128/75 85 02/06/19 12:35 02/06/19 12:35 02/06/19 12:35 02/06/19 12:35 02/06/19 12:35 General appearance: Present: no acute distress, well-nourished, other (noncommunicative) Results - Labs CBC & Chem 7: 02/06/19 07:11 02/06/19 07:11 Labs: Laboratory Last Values WBC 6.4 K/mm3 (4.5-11.0) 02/06/19 07:11 RBC 5.01 M/mm3 (3.65-5.03) 02/06/19 07:11 Hgb 15.0 gm/dl (11.8-15.2) 02/06/19 07:11 Hct 43.2 % (35.5-45.6) 02/06/19 07:11 MCV 86 fl (84-94) 02/06/19 07:11 MCH 30 pg (28-32) 02/06/19 07:11 MCHC 35 % (32-34) H 02/06/19 07:11 RDW 14.5 % (13.2-15.2) 02/06/19 07:11 Plt Count 224 K/mm3 (140-440) 02/06/19 07:11 Lymph % (Auto) 16.3 % (13.4-35.0) 02/05/19 05:49 [place] % (Auto) Folder And Notcher 02/06/19 07:11 Eos % (Auto) 4.2 % (0.0-4.3) 02/05/19 05:49 Baso % (Auto) 0.7 % (0.0-1.8) 02/05/19 05:49 Lymph # 1.1 K/mm3 (1.2-5.4) L 02/05/19 05:49 [place] # 0.9 K/mm3 (0.0-0.8) H 02/05/19 05:49 Eos # 0.3 K/mm3 (0.0-0.4) 02/05/19 05:49 Baso # 0.0 K/mm3 (0.0-0.1) 02/05/19 05:49 Add Manual Diff Complete 02/06/19 07:11 Total Counted 100 02/06/19 07:11 Seg Neutrophils % 66.1 % (40.0-70.0) 02/05/19 05:49 Seg Neuts % (Manual) 67.0 % (40.0-70.0) 02/06/19 07:11 0 % 02/06/19 07:11 14.0 % (13.4-35.0) 02/06/19 07:11 Reactive Lymphs % (Man) 0 % 02/06/19 07:11 15.0 % (0.0-7.3) H 02/06/19 07:11 3.0 % (0.0-4.3) 02/06/19 07:11 1.0 % (0.0-1.8) 02/06/19 07:11 0 % 02/06/19 07:11 0 % 02/06/19 07:11 0 % 02/06/19 07:11 0 % 02/06/19 07:11 Nucleated RBC % Not Reportable 02/06/19 07:11 Seg Neutrophils # 4.4 K/mm3 (1.8-7.7) 02/05/19 05:49 Seg Neutrophils # Man 4.3 K/mm3 (1.8-7.7) 02/06/19 07:11 Band Neutrophils # 0.0 K/mm3 02/06/19 07:11 0.9 K/mm3 (1.2-5.4) L 02/06/19 07:11 Abs React Lymphs (Man) 0.0 K/mm3 02/06/19 07:11 1.0 K/mm3 (0.0-0.8) H 02/06/19 07:11 0.2 K/mm3 (0.0-0.4) 02/06/19 07:11 0.1 K/mm3 (0.0-0.1) 02/06/19 07:11 0.0 K/mm3 02/06/19 07:11 0.0 K/mm3 02/06/19 07:11 0.0 K/mm3 02/06/19 07:11 Blast Cells # 0.0 K/mm3 02/06/19 07:11 WBC Morphology Not Reportable 02/06/19 07:11 Hypersegmented Neuts Not Reportable 02/06/19 07:11 Hyposegmented Neuts Not Reportable 02/06/19 07:11 Hypogranular Neuts Not Reportable 02/06/19 07:11 Not Reportable 02/06/19 07:11 Not Reportable 02/06/19 07:11 Not Reportable 02/06/19 07:11 Not Reportable 02/06/19 07:11 Not Reportable 02/06/19 07:11 Not Reportable 02/06/19 07:11 Consistent w auto 02/06/19 07:11 Not Reportable 02/06/19 07:11 Plt Clumps, EDTA Not Reportable 02/06/19 07:11 Not Reportable 02/06/19 07:11 Not Reportable 02/06/19 07:11 Not Reportable 02/06/19 07:11 Plt Morphology Comment Not Reportable 02/06/19 07:11 RBC Morphology Normal 02/06/19 07:11 Dimorphic RBCs Not Reportable 02/06/19 07:11 Not Reportable 02/06/19 07:11 Not Reportable 02/06/19 07:11 Not Reportable 02/06/19 07:11 Not Reportable 02/06/19 07:11 Not Reportable 02/06/19 07:11 Not Reportable 02/06/19 07:11 Not Reportable 02/06/19 07:11 Not Reportable 02/06/19 07:11 Not Reportable 02/06/19 07:11 Not Reportable 02/06/19 07:11 Not Reportable 02/06/19 07:11 Not Reportable 02/06/19 07:11 Not Reportable 02/06/19 07:11 Not Reportable 02/06/19 07:11 Not Reportable 02/06/19 07:11 Not Reportable 02/06/19 07:11 Not Reportable 02/06/19 07:11 Not Reportable 02/06/19 07:11 Not Reportable 02/06/19 07:11 Acanthocytes (Spur) Not Reportable 02/06/19 07:11 Rouleaux Not Reportable 02/06/19 07:11 Not Reportable 02/06/19 07:11 Not Reportable 02/06/19 07:11 Not Reportable 02/06/19 07:11 Not Reportable 02/06/19 07:11 Hem Pathologist Commnt No 02/06/19 07:11 Sodium 142 mmol/L (137-145) 02/06/19 07:11 Potassium 4.4 mmol/L (3.6-5.0) 02/06/19 07:11 Chloride 103.8 mmol/L (98-107) 02/06/19 07:11 Carbon Dioxide 25 mmol/L (22-30) 02/06/19 07:11 18 mmol/L 02/06/19 07:11 BUN 12 mg/dL (9-20) 02/06/19 07:11 0.6 mg/dL (0.8-1.5) L 02/06/19 07:11 Estimated GFR > 60 ml/min 02/06/19 07:11 20 % 02/06/19 07:11 Glucose 99 mg/dL (75-100) 02/06/19 07:11 POC Glucose 132 (70-105) H 02/06/19 12:41 Lactic Acid 1.50 mmol/L (0.7-2.0) 01/27/19 19:05 Calcium 9.0 mg/dL (8.4-10.2) 02/06/19 07:11 Phosphorus 3.80 mg/dL (2.5-4.5) 02/04/19 04:50 Magnesium 2.10 mg/dL (1.7-2.3) 02/04/19 04:50 0.40 mg/dL (0.1-1.2) 02/06/19 07:11 < 0.2 mg/dL (0-0.2) 02/03/19 19:27 0.1 mg/dL 02/03/19 19:27 AST 34 units/L (5-40) 02/06/19 07:11 ALT 40 units/L (7-56) 02/06/19 07:11 121 units/L (35-129) 02/06/19 07:11 0.036 ng/mL (0.00-0.029) H 01/27/19 10:31 7.3 g/dL (6.3-8.2) 02/06/19 07:11 3.7 g/dL (3.9-5) L 02/06/19 07:11 1.0 % 02/06/19 07:11 Triglycerides 101 mg/dL (2-149) 01/27/19 10:31 Cholesterol 175 mg/dL (50-199) 01/27/19 10:31 116 mg/dL (50-130) 01/27/19 10:31 49 mg/dL (40-59) 01/27/19 10:31 3.57 % 01/27/19 10:31 Yellow (Yellow) 01/27/19 Unknown Slightly-cloudy (Clear) 01/27/19 Unknown 5.0 (5.0-7.0) 01/27/19 Unknown Ur Specific [place] 1.017 (1.003-1.030) 01/27/19 Unknown <15 mg/dl mg/dL (Negative) 01/27/19 Unknown Neg mg/dL (Negative) 01/27/19 Unknown Neg mg/dL (Negative) 01/27/19 Unknown Neg (Negative) 01/27/19 Unknown Neg (Negative) 01/27/19 Unknown Neg (Negative) 01/27/19 Unknown < 2.0 mg/dL (<2.0) 01/27/19 Unknown Ur Leukocyte Esterase Neg (Negative) 01/27/19 Unknown < 1.0 /HPF (0.0-6.0) 01/27/19 Unknown 1.0 /HPF (0.0-6.0) 01/27/19 Unknown Few /HPF 01/27/19 Unknown Phenytoin 20.6 ug/mL (10.0-20.0) H 01/29/19 09:36 Valproic Acid 6.9 ug/mL (50-100) L 01/27/19 11:09 Active Medications - Current Medications Current Medications: Generic Name Dose Route Start Last Admin Trade Name Freq PRN Reason Stop Dose Admin Lipase/Protease/Amylase 1 each 01/27/19 18:[address] 10,500 Unit FEEDTUBE PRN PRN For Clogged Feeding Tube Atorvastatin Calcium 40 mg 01/28/19 22:00 02/05/19 22:08 Lipitor PO 40 mg QHS WALT Administration Clonidine HCl 0.2 mg 02/02/19 12:00 02/02/19 12:00 Catapres-Tts Patch TD 0.2 mg QWEEK WALT Administration Clopidogrel Bisulfate 75 mg 01/27/19 19:00 02/06/19 09:06 Plavix PO 75 mg QDAY WALT Administration Dextrose 50 ml 01/27/19 23:01 D50w (25gm) Syringe IV PRN PRN Hypoglycemia Divalproex Sodium 125 mg 01/29/19 10:00 02/06/19 09:[address] PO 125 mg DAILY WALT Administration Enoxaparin Sodium 40 mg 01/27/19 22:00 02/05/19 22:05 Lovenox SUB-Q 40 mg QDAY@2200 WALT Administration Famotidine 20 mg 01/30/19 22:00 02/06/19 09:06 Pepcid FEEDTUBE 20 mg BID WALT Administration Haloperidol Lactate 5 mg 02/05/19 09:56 Haldol IM Q6H PRN Acute Psychosis Dextrose/Sodium Chloride 1,000 mls @ 100 mls/hr 01/27/19 19:00 02/06/19 02:57 D5ns IV 100 mls/hr DIRECT WALT Administration Levetiracetam 1,500 mg 02/02/19 10:00 02/06/19 09:06 Keppra PO 1,500 mg BID WALT Administration Lisinopril 40 mg 02/04/19 10:00 02/06/19 09:06 Zestril PO 40 mg QDAY WALT Administration Metoprolol Tartrate 75 mg 01/27/19 22:00 02/06/19 09:07 Lopressor PO 75 mg BID WALT Administration Ondansetron HCl 4 mg 01/28/19 05:34 01/28/19 06:24 Zofran IV 4 mg Q8H PRN Administration Nausea And Vomiting Phenytoin 200 mg 01/28/19 15:00 02/06/19 09:13 Dilantin PO 200 mg BID WALT Administration Potassium Phos/Sodium Phos 1 each 01/29/19 22:00 02/06/19 09:06 Phos-Nak PO 1 each Q12HR WALT Administration Pravastatin Sodium 20 mg 01/27/19 22:00 02/05/19 22:08 Pravachol PO 20 mg QHS WALT Administration Simple Syrup 15 ml 01/27/19 18:33 Simple Syrup FEEDTUBE PRN PRN Hypoglycemia Simple Syrup 30 ml 01/27/19 18:33 Simple Syrup FEEDTUBE PRN PRN Hypoglycemia Sodium Bicarbonate 325 mg 01/27/19 18:33 Sodium Bicarbonate FEEDTUBE PRN PRN For Clogged Feeding Tube Sodium Chloride 10 ml 01/27/19 22:00 02/06/19 09:17 Sodium Chloride Flush Syringe 10 Ml IV Not Given BID WALT Sodium Chloride 10 ml 01/27/19 18:33 Sodium Chloride Flush Syringe 10 Ml IV PRN PRN LINE FLUSH Nutrition/Malnutrition Assess - Dietary Evaluation Nutrition/Malnutrition Findings: Nutrition Notes Start: 01/28/19 08:19 Freq: Status: Active Protocol: Document 01/30/19 16:00 EVIN (Rec: 01/30/19 16:03 KSHERMANN SRW- [email or web address]) Nutrition Notes Initial or Follow up Reassessment Current Diagnosis Coronary Artery Disease, Diabetes,Hypertension,Stroke, Hyperlipidemia Other Pertinent Diagnosis Status epilepticus Current Diet TF - Glucerna 1.2 at 70ml/hr Labs/Tests Reviewed Pertinent Medications Phos-Nak BID Height 6 ft 3 in Weight 80.8 kg [place] Body Weight (kg) 89.09 BMI 22.2 Subjective/Other Information TF off at time of visit (11:58 ). Per RN, pt just returned from procedure. TF to be restarted; pt tolerating TF at goal rate. Burn Absent Trauma Absent #1 Nutrition Diagnosis Inadequate oral intake Diagnosis Progress(for reassessment Continues documentation) Is patient on ventilator? No Is Patient Ambulatory and/or Out of Bed No REE-([facility]-confined to bed) 0.856 Calculation Used for Recommendations [facility] Additional Notes Protein need are 81-97g (1-1. 2g/kg) Fluid needs are 1ml/kcal Nutrition Intervention Nutrition Support: Glucerna 1.2 at 70ml/hr Flush with 100ml q4h Kcal 2,016 Protein (gm) 101 Fluid (mL) 1,357 Goal #1 TF tolerance Goal #2 Meet at least 80% of kcal and protein needs via TF Anticipated Discharge Needs: Continue TF Follow-Up By: 02/06/19 Additional Comments F/U: stable TF, wt
[2019-02-06] MEDS: HALDOL IM PRN ×2 (15:33→21:40)
[2019-02-06] MEDS: PRAVACHOL PO SCH (21:40)
[2019-02-06] MEDS: LOVENOX SUB-Q SCH (21:40)
[2019-02-07] MEDS: D5NS 1,000 ML IV SCH (02:19)
[2019-02-07] MEDS: PLAVIX PO SCH (10:20)
[2019-02-07] MEDS: DILANTIN PO SCH (10:20)
[2019-02-07] MEDS: KEPPRA PO SCH (10:20)
[2019-02-07] MEDS: ZESTRIL PO SCH (10:21)
[2019-02-07] MEDS: PEPCID FEEDTUBE SCH (10:21)
[2019-02-07] MEDS: PHOS-NAK PO SCH (10:21)
[2019-02-07] MEDS: LOPRESSOR PO SCH (10:21)
[2019-02-07] MEDS: SODIUM CHLORIDE FLUSH SYRINGE 10 ML IV SCH (10:22)
[2019-02-07] MEDS: HALDOL IM PRN (11:12)
--- NOTE | 2019-02-07 12:29 | Discharge Summary ---
Providers - Providers Date of Admission: 01/27/19 13:03 Date of discharge: 02/07/19 Attending physician: SERGE SCRUGGS 01/27/19 18:07 Speech Therapy Evaluation and Treat [CONS] Routine Reason For Exam: S/P Acute/Subacute CVA 01/27/19 18:08 Occupational Therapy Evaluate and Treat [CONS] Routine Comment: Reason For Exam: S/P subacute/acute CVA Physical Therapy Evaluation and Treat [CONS] Routine Comment: Reason For Exam: S/P Acute/Subacute CVA 01/27/19 18:33 Consult to Dietitian/Nutrition [CONS] Routine Physician Instructions: Reason For Exam: Reason for Consult: Write/Manage Tube Feeding 01/27/19 18:35 Consult to Dietitian/Nutrition [CONS] Routine Physician Instructions: Assess nutrtn needs, initiate, modify, manage TF Reason For Exam: Reason for Consult: Write/Manage Tube Feeding Reason for Consult: Write/Manage Tube Feeding 01/28/19 12:23 Consult to Physician [CONS] Routine Comment: Consulting Provider: YUMIKO KIRKLAND Physician Instructions: Reason For Exam: Acute CVA/Seizures 02/02/19 14:44 Consult to Mental Health [CONS] Routine Reason For Exam: agitation/delirium Place consult to:: mental health Notified:: Phone number called:: [phone] Was contact made?: No Time called:: 15:04 Comment:: nobody answered the phone. 02/02/19 14:46 Speech Therapy Evaluation and Treat [CONS] Routine Reason For Exam: aspiration 02/03/19 02:18 Speech Therapy Evaluation and Treat [CONS] Routine Reason For Exam: aspiration 02/05/19 12:03 Speech Therapy Evaluation and Treat [CONS] Routine Reason For Exam: aspiration Primary care physician: YUMIKO GALAVIZ Hospitalization Condition: Stable Hospital course: Patient is a 59-year-old -[place] man from [facility] with a history of Wernicke's encephalopathy, seizure disorder, diabetes mellitus type 2, congestive heart failure, schizophrenia and CVA was admitted through emergency room with recurrent episodes of seizure and altered level of consciousness. * CT head wo contrast IMPRESSION: No acute intracranial process identified. No significant interval change Chronic microvessel ischemic changes white matter Generalized volume loss Chronic encephalomalacia right temporal tip If further evaluation warranted, MRI may be obtained * Brain MRI wo contrast IMPRESSION: 2.1 x 1.0 cm area of subacute ischemia in the medial right thalamus. Findings suggestive of amyloid angiopathy. Volume loss. Advanced chronic white matter changes. Acute ischemic stroke: treat with asa, statin Status epilepticus: increased the dose of keppra to 1500 BID, EEG per Neurologist Dr. Kirkland Acute metabolic encephalopathy, poa Hypertension; low salt diet and anti-hypertensives Coronary artery disease-Continue Plavix 75 mg once a day Hyperlipidemia-Continue statins Elevated lactic acid level-Secondary to seizures, nonspecific, non infectious Nonspecific Elevated troponin Disposition; discharged back to [facility] off restraints x 24 hours Disposition: [id number]/[place]-03 [facility] CERT Time spent for discharge: 35 minutes Core Measure Documentation - Palliative Care Palliative Care/ Comfort Measures: Not Applicable - Core Measures Any of the following diagnoses?: stroke - VTE Discharge Requirements Deep Vein Thrombosis/Pulmonary Embolism Present on Admission: No Has pt received <5 days of overlap therapy or INR<2.0: No Anticoagulant overlap therapy prescribed at discharge: No Contraindication No Overlap Therapy order at DC: Not Indicated - Stroke Discharge Requirements Statin for LDL = or >70 mg/dl on DC: Yes Anticoag for atrial fib/atrial flutter: Not Applicable Antithrombotic for ischemic stroke: Yes Exam - Physical Exam Narrative exam: Gen: WDWN, NAD, Awake, Alert, Orientated x 1 but he knows he is in hospital, he thinks he is at [facility], also missed year HEENT: NCAT, EOMI, PERRL, OP Clear Neck: supple, no adenopathy, no thyromegaly, no JVD CVS/Heart: RRR, normal S1S2, pulses present bilaterally Chest/Lungs: CTA B, Symmetrical chest exddfpansion, good air entry bilaterally GI/Abdomen: soft, NTND, good bowel sounds, no guarding or rebound /Bladder: no suprapubic tenderness, no CVA or paraspinal tenderness Extermity/Skin: no c/c/e, no obvious rash MSK: FROM x 3 Neuro: CN 2-12 grossly intact, no new focal deficits Psych: calm - Constitutional Vitals: Temp Pulse Resp BP Pulse Ox 98.2 F 75 24 130/85 96 02/07/19 04:58 02/07/19 04:58 02/07/19 04:58 02/07/19 10:19 02/07/19 04:58 Plan Activity: up only with assistance, other (no strenous activity) Diet: low salt Special Instructions: record daily BP diary Follow up with: YUMIKO GALAVIZ MD [Primary Care Provider] - 3-5 Days YUMIKO KIRKLAND MD [Staff Physician] - 7 Days Prescriptions: AtorvaSTATin [Lipitor] 40 mg PO QHS #30 tablet levETIRAcetam [Keppra] 1,500 mg PO BID #60 oral.liqd Clopidogrel [Plavix] 75 mg PO QDAY #30 tablet
[2019-02-07 12:36] VITALS: BP 110/77
== END 2019-02-07 13:20 | DRG 64 ==
LOC: ED 10:07 → CC1 13:03 → 3A 01-29 16:58
PROVIDERS: ADMIT Internal Medicine; ATTEND Internal Medicine
DX: I63.9 Cerebral infarction, unspecified (principal); G93.41 Metabolic encephalopathy; E51.2 Wernicke's encephalopathy; I50.22 Chronic systolic (congestive) heart failure; G40.901 Epilepsy, unspecified, not intractable, with status epilepticus; E78.2 Mixed hyperlipidemia; F20.9 Schizophrenia, unspecified; I25.10 Atherosclerotic heart disease of native coronary artery without angina pectoris; I25.2 Old myocardial infarction; Z82.49 Family history of ischemic heart disease and other diseases of the circulatory system; Z79.82 Long term (current) use of aspirin; Z79.899 Other long term (current) drug therapy; Z91.041 Radiographic dye allergy status; Z95.5 Presence of coronary angioplasty implant and graft
CPT/HCPCS: 36415; 70450; 70544; 70551; 71045; 74018; 74160; 80048; 80053; 80061; 80076; 80164; 80185; 81001; 82140; 82962; 83735; 84100; 84484; 85007; 85025; 87040; 93005; 93010; 93306; 93880; 94760; G0378; A9270-GY; J0692; J1165; J1630; J1650; J1885; J1953; J2060; J2405; J3370; J3486; J7030; J7040; J7042; J7050; Q0177; Q9967

== ENCOUNTER 2019-03-27 10:43 | Emergency (ER) | payer MEDICAID ==
--- NOTE | 2019-03-27 12:34 | Cat Scan Report ---
CT HEAD WITHOUT CONTRAST INDICATION / CLINICAL INFORMATION: Trauma with head injury. TECHNIQUE: All CT scans at this location are performed using CT dose reduction for ALARA by means of automated e xposure control. COMPARISON: Head CT 02/03/2019. MRI brain dated 01/30/[address] dated 01/27/2019 are not available for compari son at the time of this interpretation. FINDINGS: HEMORRHAGE: No evidence of intracranial hemorrhage or extra-axial fluid collection. EXTRA-AXIAL SPACES: Cortical sulci and sylvian fissures are enlarged reflecting a degree of parenchym al volume loss which is greater than expected for the patient's age of 59 years. Basilar cisterns hav e an unremarkable appearance. VENTRICULAR SYSTEM: The third and lateral ventricles are enlarged out of proportion to the cortical s ulci. This probably reflects the presence of central greater than cortical atrophy. Communicating hyd rocephalus is considered less likely but not entirely excluded. Similar findings were present on prev ious study. CEREBRAL PARENCHYMA: Encephalomalacia is observed in the anterior and medial aspect of the right temp oral lobe secondary to remote brain injury which may be ischemic or posttraumatic. There is marked di latation of the temporal horn of the right lateral ventricle and dilatation of temporal lobe sulci is observed. Encephalomalacia is noted in the medial aspect of the right occipital lobe secondary to re mote right posterior cerebral artery infarction. Extensive white matter lucency is noted probably sec ondary to advanced microvascular ischemic change.. On recent MRI brain and area of restricted diffusi on was described in the right thalamus. I do not identify an area of encephalomalacia secondary to in farction in the right thalamus. MIDLINE SHIFT OR HERNIATION: There is no mass effect. CEREBELLUM / BRAINSTEM: Brainstem and cerebellum have an unremarkable appearance. INTRACRANIAL VESSELS:Calcified atherosclerotic plaque is present along the course of the cavernous se gments of both internal carotid arteries. Similar findings are seen at the distal vertebral arteries. ORBITS: Postoperative changes status post cataract surgery and bilateral scleral banding are noted. N o additional abnormality. SOFT TISSUES of HEAD: No significant abnormality. CALVARIUM: Evaluation of bone windows reveals no abnormalities. PARANASAL SINUSES / MASTOID AIR CELLS: Paranasal sinuses are free from inflammatory mucosal disease. Mastoid air cells are normally pneumatized. IMPRESSION: 1. No acute intracranial abnormality. 2. Prominent central greater than cortical parenchymal volume loss. 3. Prominent right temporal lobe atrophy likely related to remote temporal lobe injury. 4. Evidence of remote right posterior cerebral artery infarction involving the medial aspect of the r ight occipital lobe. Signer Name: Bandar Uriarte MD Signed: 03/27/2019 12:30 PM Workstation Name: [id number]
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
[2019-03-27] MEDS ORDERED: ATIVAN IM ONE (13:53)
[2019-03-27] MEDS ORDERED: ATIVAN ONE (13:56)
[2019-03-27] MEDS ORDERED: GEODON IM ONE ×3 (14:10→17:40)
[2019-03-27] MEDS ORDERED: WATER FOR INJ Sterile (PF) 10 ML ONE (17:37)
[2019-03-27 23:01] VITALS: BP 114/76
== END 2019-03-27 22:39 | disposition home or self-care (01) ==
LOC: ED 10:43
DX: S01.81XA Laceration without foreign body of other part of head, initial encounter (principal); I11.0 Hypertensive heart disease with heart failure; I50.9 Heart failure, unspecified; F20.9 Schizophrenia, unspecified; E78.00 Pure hypercholesterolemia, unspecified; I25.10 Atherosclerotic heart disease of native coronary artery without angina pectoris; E11.9 Type 2 diabetes mellitus without complications; Z86.73 Personal history of transient ischemic attack (TIA), and cerebral infarction without residual deficits; Z79.82 Long term (current) use of aspirin; Z79.899 Other long term (current) drug therapy; Z88.8 Allergy status to other drugs, medicaments and biological substances; W18.30XA Fall on same level, unspecified, initial encounter; Y93.89 Activity, other specified; Y92.129 Unspecified place in nursing home as the place of occurrence of the external cause; Y99.8 Other external cause status
CPT/HCPCS: 12013; 70450; 96372; 99284; J2060; J3486

== ENCOUNTER 2019-09-09 10:00 | Inpatient (IN) | payer MEDICAID ==
[2019-09-09] MEDS ORDERED: SODIUM CHLORIDE 0.9% 1000 ML 1,000 ML IV ONE (10:05)
--- NOTE | 2019-09-09 10:48 | Emergency Department Report ---
ED Seizure HPI - General Chief Complaint: Seizure Stated Complaint: TONY Time Seen by Provider: 09/09/19 10:02 Source: EMS Mode of arrival: Stretcher Limitations: Altered Mental Status - History of Present Illness Initial Comments: 59-year-old male who is brought to this facility by EMS from a [facility]. He had a similar hospitalization in 2019 for persistent seizures. I am told he was given a van at the [facility]. I'm not sure of the amount route. He arrived in a postictal state but without active seizures. He was given Keppra. His Accu-Chek in the field was not low. Current? MAR from the [facility] indicates that he is on divalproate and phenytoin. It is uncertain to the patient's baseline. However records note that he has a history of work he is encephalopathy, schizophrenia and is maintained in a [facility]. Hospitalization 2019 under similar circumstances: Condition: Stable Hospital course: Patient is a 59-year-old -[place] man from [facility] with a history of Wernicke's encephalopathy, seizure disorder, diabetes mellitus type 2, congestive heart failure, schizophrenia and CVA was admitted through emergency room with recurrent episodes of seizure and altered level of consciousness. CT head wo contrast IMPRESSION: No acute intracranial process identified. No significant interval change Chronic microvessel ischemic changes white matter Generalized volume loss Chronic encephalomalacia right temporal tip If further evaluation warranted, MRI may be obtained Brain MRI wo contrast IMPRESSION: 2.1 x 1.0 cm area of subacute ischemia in the medial right thalamus. Findings suggestive of amyloid angiopathy. Volume loss. Advanced chronic white matter changes. Acute ischemic stroke: treat with asa, statin Status epilepticus: increased the dose of keppra to 1500 BID, EEG per Neurologist Dr. Kirkland Acute metabolic encephalopathy, poa Hypertension; low salt diet and anti-hypertensives Coronary artery disease-Continue Plavix 75 mg once a day Hyperlipidemia-Continue statins Elevated lactic acid level-Secondary to seizures, nonspecific, non infectious Nonspecific Elevated troponin Disposition; discharged back to [facility] off restraints x 24 hours Complaint: seizure -: minutes(s), hour(s) Description of Episode: tonic-clonic movement -: minutes(s) Witnessed:: Yes Trauma: No Seizure History: known seizure disorder Place: other ([facility]) Possible Precipitating Event: other (unknown) - Related Data Previous Rx's Medication Instructions Recorded Last Taken Type Aspirin [Aspirin BABY CHEW TAB] 81 mg PO DAILY #30 02/07/19 Unknown Rx AtorvaSTATin [Lipitor] 40 mg PO QHS #30 tablet 02/07/19 Unknown Rx Clopidogrel [Plavix] 75 mg PO QDAY #30 tablet 02/07/19 Unknown Rx Divalproex [Yenny [place]] 125 mg PO DAILY #30 02/07/19 Unknown Rx Famotidine [Pepcid] 20 mg PO BID #60 tablet 02/07/19 Unknown Rx Metoprolol [Lopressor TAB] 75 mg PO BID #60 tablet 02/07/19 Unknown Rx Phenytoin [Dilantin] 200 mg PO BID #60 02/07/19 Unknown Rx cloNIDine-TTS PATCH [Catapres-Tts 0.2 mg TD QWEEK patch 02/07/19 Unknown Rx 0.2mg Patch] levETIRAcetam [Keppra] 1,500 mg PO BID #60 oral.liqd 02/07/19 Unknown Rx lisinopriL [Zestril TAB] 40 mg PO QDAY #30 tablet 02/07/19 Unknown Rx Allergies Allergy/AdvReac Type Severity Reaction Status Date / Time Iodine and Iodide Containing Allergy Unknown Verified 01/27/19 10:25 Produc ED Review of Systems ROS: Stated complaint: TONY Other details as noted in HPI Comment: Unobtainable due to pts medical conditions ED Past Medical Hx - Past Medical History Previous Medical History?: Yes Hx Hypertension: Yes Hx CVA: Yes Hx Heart Attack/AMI: Yes Hx Congestive Heart Failure: Yes Hx Seizures: Yes Hx Psychiatric Treatment: Yes (Schizophrenia) Additional medical history: hyperlipidemia, CAD - Surgical History Additional Surgical History: Unable to obtain at this time - Social History Smoking Status: Never Smoker Substance Use Type: None - Medications Home Medications: Home Medications Medication Instructions Recorded Confirmed Last Taken Type Aspirin [Aspirin BABY CHEW TAB] 81 mg PO DAILY #30 02/07/19 01/27/19 Unknown Rx AtorvaSTATin [Lipitor] 40 mg PO QHS #30 tablet 02/07/19 Unknown Rx Clopidogrel [Plavix] 75 mg PO QDAY #30 tablet 02/07/19 Unknown Rx Divalproex [Yenny [place]] 125 mg PO DAILY #30 02/07/19 01/27/19 Unknown Rx Famotidine [Pepcid] 20 mg PO BID #60 tablet 02/07/19 Unknown Rx Metoprolol [Lopressor TAB] 75 mg PO BID #60 tablet 02/07/19 Unknown Rx Phenytoin [Dilantin] 200 mg PO BID #60 02/07/19 01/27/19 Unknown Rx cloNIDine-TTS PATCH [Catapres-Tts 0.2 mg TD QWEEK patch 02/07/19 Unknown Rx 0.2mg Patch] levETIRAcetam [Keppra] 1,500 mg PO BID #60 oral.liqd 02/07/19 Unknown Rx lisinopriL [Zestril TAB] 40 mg PO QDAY #30 tablet 02/07/19 Unknown Rx ED Physical Exam - General Limitations: Altered Mental Status General appearance: obtunded (somewhat) - Head Head exam: Present: atraumatic - Eye Eye exam: Present: other (iridectomy scar). Absent: scleral icterus - ENT ENT exam: Present: mucous membranes moist - Neck Neck exam: Absent: tenderness, meningismus - Respiratory Respiratory exam: Present: normal lung sounds bilaterally. Absent: respiratory distress - Cardiovascular Cardiovascular Exam: Present: regular rate, normal rhythm. Absent: systolic murmur, diastolic murmur, rubs, gallop - GI/Abdominal GI/Abdominal exam: Present: soft, distended (somewhat but no obvious ascites), normal bowel sounds, organomegaly (appears to have significant hepatosplenomegaly.), hernia (ventral hernia), other (do not note any palpable consistent with ascites.). Absent: tenderness, guarding, rebound, rigid - Extremities Exam Extremities exam: Present: normal inspection, full ROM - Back Exam Back exam: Present: normal inspection - Neurological Exam Neurological exam: Present: other (postictal) - Skin Skin exam: Present: warm, dry, intact, normal color. Absent: rash ED Course Vital Signs 09/09/19 09/09/19 09/09/19 11:11 11:17 13:42 Pulse Rate 124 H 113 H 105 H Blood Pressure 150/97 Blood Pressure 144/96 [Right] O2 Sat by Pulse 100 100 Oximetry 09/09/19 13:48 Pulse Rate Blood Pressure Blood Pressure [Right] O2 Sat by Pulse 100 Oximetry - Reevaluation(s) Reevaluation #1: The patient was noted to be blinking his eyes and having some semi-purposeful grasping. I thought it would be worthwhile to attempt CO2 reduction using the high flow humidified oxygen delivery. However, this was not tolerated well. The patient had some vomiting but did not obviously aspirate. Ultimately , with the consideration of need for secure airway and additional radiographic study, I decided to electively intubate the patient. This was done using standard RSI method. Patient was intubated with a #8 [place] endotracheal tube, single attempt. Secured at 23 at the teeth with good bilateral breath sounds. 09/09/19 12:27 Reevaluation #2: CT studies pending. Nurses already encouraged to transport patient. State waiting on respiratory. 09/09/19 13:56 - Intubation Time Out Performed: Yes Sedative: Etomidate Paralytic: Succinylcholine Laryngoscope: Mayi Size: 4 ET Tube Size: 8 Tube Secured Depth (cm): 23 Tube Secured Location: teeth Tube Placement Confirmation: visualized tube passing t Patient Tolerated Procedure: well Intubation Complications: none ED Medical Decision Making - Lab Data Result diagrams: 09/09/19 10:22 09/09/19 10:22 Laboratory Results - last 24 hr 09/09/19 09/09/19 09/09/19 10:22 10:22 10:22 WBC 9.5 RBC 4.79 Hgb 14.0 Hct 42.7 MCV 89 MCH 29 MCHC 33 RDW 14.1 Plt Count 253 Lymph % (Auto) 32.1 Kerr % (Auto) 8.6 H Eos % (Auto) 4.7 H Baso % (Auto) 0.8 Lymph # 3.0 Kerr # 0.8 Eos # 0.4 Baso # 0.1 Seg Neutrophils % 53.8 Seg Neutrophils # 5.1 PT 13.6 INR 1.03 APTT 27.3 POC ABG pH POC ABG pO2 POC ABG HCO3 POC ABG Total CO2 POC ABG O2 Sat POC ABG Base Excess FiO2 Sodium 137 Potassium 3.4 L Chloride 99.0 Carbon Dioxide 21 L Anion Gap 20 BUN 14 Creatinine 0.8 Estimated GFR > 60 BUN/Creatinine Ratio 18 Glucose 161 H Calcium 8.8 Magnesium 2.20 Total Bilirubin 0.20 Direct Bilirubin < 0.2 Indirect Bilirubin 0.0 AST 32 ALT 26 Alkaline Phosphatase 139 H Ammonia Total Creatine Kinase 267 H CK-MB (CK-2) 4.6 H CK-MB (CK-2) Rel Index 1.7 Troponin T NT-Pro-B Natriuret Pep 268.5 Total Protein 8.2 Albumin 4.5 Albumin/Globulin Ratio 1.2 09/09/19 09/09/19 09/09/19 10:22 10:22 10:29 WBC RBC Hgb Hct MCV MCH MCHC RDW Plt Count Lymph % (Auto) Kerr % (Auto) Eos % (Auto) Baso % (Auto) Lymph # Kerr # Eos # Baso # Seg Neutrophils % Seg Neutrophils # PT INR APTT POC ABG pH 7.150 L POC ABG pO2 105 POC ABG HCO3 27.5 POC ABG Total CO2 30 POC ABG O2 Sat 96 POC ABG Base Excess -1 FiO2 36 Sodium Potassium Chloride Carbon Dioxide Anion Gap BUN Creatinine Estimated GFR BUN/Creatinine Ratio Glucose Calcium Magnesium Total Bilirubin Direct Bilirubin Indirect Bilirubin AST ALT Alkaline Phosphatase Ammonia 83.0 H Total Creatine Kinase CK-MB (CK-2) CK-MB (CK-2) Rel Index Troponin T < 0.010 NT-Pro-B Natriuret Pep Total Protein Albumin Albumin/Globulin Ratio - EKG Data -: EKG Interpreted by Co EKG shows normal: sinus rhythm Rate: tachycardia - EKG Data Interpretation: other (right bundle-branch block and left anterior fascicular block. Diffuse T-wave inversions consider ischemia) - Radiology Data Radiology results: image reviewed (consistent with bilateral lower lobe infiltrates) To be in good position above the edward. The right lower lobe infiltrate is more prominent on this film. Critical Care Time: Yes Critical care time in (mins) excluding proc time.: 90 Critical care attestation.: If time is entered above; I have spent that time in minutes in the direct care of this critically ill patient, excluding procedure time. ED Disposition Clinical Impression: Status epilepticus, Postictal coma, Hepatic encephalopathy Pneumonia Qualifiers: Pneumonia type: due to unspecified organism Laterality: bilateral Lung location: lower lobe of lung Qualified Code(s): J18.9 - Pneumonia, unspecified organism Respiratory failure Qualifiers: Chronicity: acute Respiratory failure complication: hypercapnia Qualified Code(s): J96.02 - Acute respiratory failure with hypercapnia Disposition: OP ADMIT IP TO THIS HOSP Is pt being admited?: Yes Does the pt Need Aspirin: Yes Condition: Stable Instructions: Bacterial Pneumonia (ED) Referrals: PRIMARY CARE, [Primary Care Provider] - 3-5 Days Time of Disposition: 13:55
[2019-09-09] MEDS ORDERED: ONDANSETRON 4 MG/2 ML INJ ONE (10:56)
[2019-09-09] MEDS ORDERED: ETOMIDATE 20 MG/10 ML INJ IV ONE (11:03)
[2019-09-09] MEDS ORDERED: SUCCINYLCHOLINE CHLORIDE 200 MG/10 ML INJ MDV ONE (11:03)
[2019-09-09] MEDS: PROPOFOL 1,000 MG/100 ML BOTTLE IV SCH ×4 (11:04→23:48)
--- NOTE | 2019-09-09 11:04 | XRay Report ---
CHEST 1 VIEW INDICATION / CLINICAL INFORMATION: hypertension. COMPARISON: 02/01/2019 chest radiograph FINDINGS: SUPPORT DEVICES: None. HEART / MEDIASTINUM: Stable. LUNGS / PLEURA: Dense left retrocardiac opacity with air bronchograms obscures the left diaphragm. Th ere is milder medial right basilar opacity. No pneumothorax is identified. There is probably a small left-sided effusion layering posteriorly. IMPRESSION: Bibasilar retrocardiac opacities represent atelectasis with or without superimposed pneumonia. A smal l volume of pleural fluid is suspected on the left. Signer Name: Michael Daniels MD Signed: 09/09/2019 11:00 AM Workstation Name: [id number]
[2019-09-09] MEDS ORDERED: PROPOFOL 1,000 MG/100 ML BOTTLE IV ONE ×3 (11:09→23:45)
[2019-09-09] MEDS ORDERED: levETIRAcetam 1000 MG/NS 0.75% 1,000 MG/100 ML BAG IV ONE (11:19)
[2019-09-09] MEDS ORDERED: ONDANSETRON 4 MG/2 ML INJ IV ONE (11:20)
[2019-09-09 11:54] LABS: Basophils # (Auto) 0.1 K/mm3 (0.0-0.1); Basophils % (Auto) 0.8 % (0.0-1.8); Eosinophils # (Auto) 0.4 K/mm3 (0.0-0.4); Eosinophils % (Auto) 4.7 % (0.0-4.3); Hematocrit 42.7 % (35.5-45.6); Lymphocytes % (Auto) 32.1 % (13.4-35.0); Mean Corpuscular HGB Conc 33 % (32-34); Mean Corpuscular Volume 89 fl (84-94); Monocytes # (Auto) 0.8 K/mm3 (0.0-0.8); Monocytes % (Auto) 8.6 % (0.0-7.3); Platelet Count 253 K/mm3 (140-440); Red Blood Count 4.79 M/mm3 (3.65-5.03); Red Cell Distribution Width 14.1 % (13.2-15.2)
[2019-09-09 12:02] LABS: Creatine Kinase MB 4.6 ng/mL (0.0-4.0)
[2019-09-09 12:05] LABS: Alanine Aminotransferase 26 units/L (7-56); Albumin 4.5 g/dL (3.9-5); BUN/Creatinine Ratio 18; Blood Urea Nitrogen 14 mg/dL (9-20); Calcium 8.8 mg/dL (8.4-10.2); Hemolysis Index 32
[2019-09-09 12:07] LABS: INR 1.03 (0.87-1.13)
[2019-09-09 12:08] LABS: Partial Thromboplastin Time 27.3 Sec. (24.2-36.6)
[2019-09-09 12:09] LABS: Bilirubin,Direct < 0.2 mg/dL (0-0.2)
[2019-09-09] MEDS ORDERED: LIP THERAPY VASELINE TP PRN (12:23)
[2019-09-09] MEDS ORDERED: MINERAL OIL/PETROLATUM, WHITE OPHTH OINT 3.5 GM OU PRN (12:23)
[2019-09-09] MEDS ORDERED: CEFEPIME/NS 1 GM/100 ML 1 GM/100 ML BAG IV ONE (12:32)
[2019-09-09] MEDS ORDERED: VANCOMYCIN PHARMACY TO DOSE IV SCH (13:00)
--- NOTE | 2019-09-09 13:14 | XRay Report ---
ABDOMEN 1 VIEW(S) INDICATION / CLINICAL INFORMATION: NG tube placement. COMPARISON: None available. FINDINGS: TUBES / LINES: NG tube in satisfactory position. BOWEL GAS PATTERN: Moderate air within large and small bowel. It is uncertain if this is secondary to ileus or developing obstruction. ADDITIONAL FINDINGS: Prominent dextroconvex scoliosis. Fracture Signer Name: Krzysztof Burch MD Signed: 09/09/2019 1:09 PM Workstation Name: [employer]
--- NOTE | 2019-09-09 13:15 | XRay Report ---
CHEST 1 VIEW INDICATION: Line Placement. COMPARISON: Endotracheal tube and NG tube in satisfactory position. FINDINGS: Support devices: None. Heart: Stable mild cardiomegaly. Lungs/Pleura: Left basilar effusion/volume loss and right basilar opacity remains. Additional findings: None. IMPRESSION: 1. Endotracheal tube and NG tube in satisfactory position. 2. Lungs unchanged. Signer Name: Krzysztof Burch MD Signed: 09/09/2019 1:10 PM Workstation Name: [id number]
[2019-09-09] MEDS ORDERED: ASPIRIN 300 MG RECT SUPP PR ONE (13:46)
[2019-09-09] MEDS ORDERED: VANCOMYCIN 1,500 MG in SODIUM CHLORIDE 0.9% 500 ML 500 ML IV ONE (14:00)
[2019-09-09] MEDS ORDERED: LORazepam 2 MG/ML VIAL IV ONE ×2 (14:28→14:29)
[2019-09-09] MEDS ORDERED: LORazepam 2 MG/ML VIAL ONE (14:30)
--- NOTE | 2019-09-09 15:15 | Cat Scan Report ---
NONENHANCED CT SCAN OF THE HEAD: INDICATION / CLINICAL INFORMATION: 59 years Male; prolonged sz. TECHNIQUE: Routine CT head without contrast. All CT scans at this location are performed using CT dos e reduction for ALARA by means of automated exposure control. COMPARISON: CT scan of the brain from 03/27/2019 FINDINGS: BRAIN / INTRACRANIAL CONTENTS: No acute hemorrhage, mass effect, midline shift, hydrocephalus, or ac chilkoot, large territorial infarct. As seen in the last CT scan, compensatory enlargement of right temporal horn is seen from volume loss in the right temporal lobe. Chronic changes are seen in the right occipital lobe. Bilateral symmetr ic periventricular low density areas are seen in both cerebral hemispheres. These findings remain unc hanged. CRANIOCERVICAL JUNCTION: No significant abnormality. ORBITS: Banding procedure is seen bilaterally. SINUSES / MASTOIDS: No significant abnormality of the visualized paranasal sinuses or mastoid air jacky ls. ADDITIONAL FINDINGS: None. IMPRESSION: The findings remain unchanged since 03/27/2019 No acute parenchymal lesion Right temporal lobe encephalomalacia Signer Name: Marion Govea MD Signed: 09/09/2019 3:10 PM Workstation Name: [id number]
--- NOTE | 2019-09-09 15:21 | Cat Scan Report ---
CT abdomen pelvis wo con INDICATION: abd distention, H-S megaly. TECHNIQUE: All CT scans at this location are performed using the following dose modulation technique: Automated exposure control. CONTRAST: None. COMPARISON: CT abdomen and pelvis 01/27/2019. CT ABDOMEN: The lung bases contain bibasilar volume loss/consolidation. Evaluation of the parenchymal organs is limited by motion artifact. Renal and left hepatic cysts are noted. Negative for suspicious lesion. Moderate distention of small bowel and colon anteriorly. No transition point or wall thickening. Negative for abdominal mass, fluid or localized inflammation. CT PELVIS: Negative for pelvic mass, fluid or inflammation. The bladder is decompressed by Meraz cath eter. Prominent groin nodes remain. IMPRESSION: 1. Bibasilar atelectasis/pneumonia. 2. Bowel distention has an appearance most typical of ileus. Signer Name: Krzysztof Burch MD Signed: 09/09/2019 3:17 PM Workstation Name: [id number]
[2019-09-09 15:51] LABS: Bacteria,Urine 1+ /HPF (Negative); Bilirubin,Urine NEG (Negative); Blood,Urine MOD (Negative); Color,Urine Yellow (Yellow); Mucus,Urine FEW /HPF; Urobilinogen,Urine < 2.0 mg/dL (<2.0)
--- NOTE | 2019-09-09 18:55 | XRay Report ---
ABDOMEN 1 VIEW(S) INDICATION / CLINICAL INFORMATION: NG tube placement. COMPARISON: Earlier the same day. FINDINGS: TUBES / LINES: NG tube in satisfactory position. BOWEL GAS PATTERN: Bowel distention remains. ADDITIONAL FINDINGS: No significant additional findings. IMPRESSION: Satisfactory NG tube placement. Signer Name: Krzysztof Burch MD Signed: 09/09/2019 6:50 PM Workstation Name: [employer]
[2019-09-09] MEDS ORDERED: FAMOTIDINE 20 MG TAB PO SCH (22:00)
[2019-09-09] MEDS ORDERED: levETIRAcetam 500 MG/5 ML ORAL LIQD PO SCH (22:00)
[2019-09-09] MEDS ORDERED: PHENYTOIN 100 MG CAPSULE.ER PO SCH (22:00)
[2019-09-09] MEDS ORDERED: ONDANSETRON 4 MG/2 ML INJ IV PRN (22:21)
[2019-09-09] MEDS ORDERED: ACETAMINOPHEN 325 MG TAB PO PRN (22:21)
--- NOTE | 2019-09-09 22:27 | History and Physical Report ---
History of Present Illness Date of admission: 09/09/19 13:57 Chief complaint: Seizure History of present illness: 59-year-old man who lives in a group home. He was brought in for multiple seizures. Apparently he was having seizures nonstop at the group home. He rests arrived in the hospital in a postictal state and was not having active seizures. He was given Keppra, he had normal blood glucose. It is not clear how well he is receiving his phenytoin and valproate in a group home. While in the ER the patient remained postictal nonresponsive was unable to protect his airway and therefore intubated for airway protection. It is reported that the patient vomited and aspirated in the EMS and prior to arrival Past medical history; hypertension, CVA, CHF, seizure disorder, Wernicke's encephalopathy, schizophrenia, hyperlipidemia, CAD Surgical history, unknown, unable to obtain as patient is intubated Social history; never smoker, previous history of alcohol abuse Family history; unknown Medications and Allergies Allergies Allergy/AdvReac Type Severity Reaction Status Date / Time Iodine and Iodide Containing Allergy Unknown Verified 01/27/19 10:25 Produc Home Medications Medication Instructions Recorded Confirmed Last Taken Type Aspirin [Aspirin BABY CHEW TAB] 81 mg PO DAILY #30 02/07/19 01/27/19 Unknown Rx AtorvaSTATin [Lipitor] 40 mg PO QHS #30 tablet 02/07/19 Unknown Rx Clopidogrel [Plavix] 75 mg PO QDAY #30 tablet 02/07/[address] [Depakote Dr] 125 mg PO DAILY #30 02/07/19 01/27/19 Unknown Rx Famotidine [Pepcid] 20 mg PO BID #60 tablet 02/07/19 Unknown Rx Metoprolol [Lopressor TAB] 75 mg PO BID #60 tablet 02/07/19 Unknown Rx Phenytoin [Dilantin] 200 mg PO BID #60 02/07/19 01/27/19 Unknown Rx cloNIDine-TTS PATCH [Catapres-Tts 0.2 mg TD QWEEK patch 02/07/19 Unknown Rx 0.2mg Patch] levETIRAcetam [Keppra] 1,500 mg PO BID #60 oral.liqd 02/07/19 Unknown Rx lisinopriL [Zestril TAB] 40 mg PO QDAY #30 tablet 02/07/19 Unknown Rx Active Meds: Active Medications Atorvastatin Calcium (Lipitor) 40 mg PO QHS [facility] Clopidogrel Bisulfate (Plavix) 75 mg PO QDAY [facility] Divalproex Sodium (Depakote Dr) 125 mg PO DAILY [facility] Famotidine (Pepcid) 20 mg PO BID [facility] Hydrophilic Ointment (Vaseline Lip Therapy) 1 applic TP Q2HR PRN PRN Reason: Dry Lips Propofol (Diprivan 10 Mg/Ml) 1,000 mg in 100 mls @ 2.599 mls/hr IV TITR [facility]; Protocol Last Admin: 09/09/19 19:04 Dose: 40 mcg/kg/min, 20.793 mls/hr Documented by: Levetiracetam (Keppra) 1,500 mg PO BID [facility] Multi-Ingred Cream/Lotion/Oil/Oint (Artificial Tears Ophth Oint) 1 applic OU Q4HR PRN PRN Reason: Dry Eye(s) Phenytoin (Dilantin) 200 mg PO BID [facility] Review of Systems ROS unobtainable: due to mental status Exam - Constitutional Vitals: Temp Pulse Resp BP Pulse Ox 100.3 F H 114 H 20 138/84 98 09/09/19 17:42 09/09/19 19:01 09/09/19 16:30 09/09/19 19:01 09/09/19 19:01 General appearance: Present: well-nourished, other (Intubated and sedated) - EENT Eyes: Present: PERRL ENT: hearing intact, clear oral mucosa - Neck Neck: Present: supple, normal ROM - Respiratory Respiratory effort: normal Respiratory: bilateral: rhonchi - Cardiovascular Heart Sounds: Present: S1 & S2. Absent: rub, click - Extremities Extremities: pulses symmetrical, No edema Peripheral Pulses: within normal limits - Abdominal General gastrointestinal: Present: soft, non-tender, non-distended, normal bowel sounds Male genitourinary: Present: normal - Integumentary Integumentary: Present: clear, warm, dry - Musculoskeletal Musculoskeletal: other (Nonresponsive, sedated) - Psychiatric Psychiatric: other (Intubated and sedated) - Neurologic Neurologic: other (Intubated and sedated, nonresponsive) Results - Labs CBC & Chem 7: 09/09/19 10:22 09/09/19 10:22 Labs: Laboratory Last Values WBC 9.5 K/mm3 (4.5-11.0) 09/09/19 10:22 RBC 4.79 M/mm3 (3.65-5.03) 09/09/19 10:22 Hgb 14.0 gm/dl (11.8-15.2) 09/09/19 10:22 Hct 42.7 % (35.5-45.6) 09/09/19 10:22 MCV 89 fl (84-94) 09/09/19 10:22 MCH 29 pg (28-32) 09/09/19 10:22 MCHC 33 % (32-34) 09/09/19 10:22 RDW 14.1 % (13.2-15.2) 09/09/19 10:22 Plt Count 253 K/mm3 (140-440) 09/09/19 10:22 Lymph % (Auto) 32.1 % (13.4-35.0) 09/09/19 10:22 [place] % (Auto) 8.6 % (0.0-7.3) H 09/09/19 10:22 Eos % (Auto) 4.7 % (0.0-4.3) H 09/09/19 10:22 Baso % (Auto) 0.8 % (0.0-1.8) 09/09/19 10:22 Lymph # 3.0 K/mm3 (1.2-5.4) 09/09/19 10:22 [place] # 0.8 K/mm3 (0.0-0.8) 09/09/19 10:22 Eos # 0.4 K/mm3 (0.0-0.4) 09/09/19 10:22 Baso # 0.1 K/mm3 (0.0-0.1) 09/09/19 10:22 Seg Neutrophils % 53.8 % (40.0-70.0) 09/09/19 10: Seg Neutrophils # 5.1 K/mm3 (1.8-7.7) 09/09/19 10:22 PT 13.6 Sec. (12.2-14.9) 09/09/19 10:22 INR 1.03 (0.87-1.13) 09/09/19 10:22 APTT 27.3 Sec. (24.2-36.6) 09/09/19 10:22 POC ABG pH 7.389 (7.35-7.45) 09/09/19 13:54 POC ABG pCO2 46.7 (35-45) H 09/09/19 13:54 POC ABG pO2 179 (80-105) H 09/09/19 13:54 POC ABG HCO3 28.3 (22-26 mml/L) 09/09/19 13:54 POC ABG Total CO2 30 (23-27mmol/L) 09/09/19 13:54 POC ABG O2 Sat 100 09/09/19 13:54 POC ABG Base Excess 3 ((-2) - (+3)mmol/L) 09/09/19 13:54 FiO2 60 % 09/09/19 13:54 Sodium 137 mmol/L (137-145) 09/09/19 10:22 Potassium 3.4 mmol/L (3.6-5.0) L 09/09/19 10:22 Chloride 99.0 mmol/L (98-107) 09/09/19 10:22 Carbon Dioxide 21 mmol/L (22-30) L 09/09/19 10:22 Anion Gap 20 mmol/L 09/09/19 10:22 BUN 14 mg/dL (9-20) 09/09/19 10:22 Creatinine 0.8 mg/dL (0.8-1.5) 09/09/19 10:22 Estimated GFR > 60 ml/min 09/09/19 10:22 BUN/Creatinine Ratio 18 % 09/09/19 10:22 Glucose 161 mg/dL (75-100) H 09/09/19 10:22 Calcium 8.8 mg/dL (8.4-10.2) 09/09/19 10:22 Magnesium 2.20 mg/dL (1.7-2.3) 09/09/19 10:22 Total Bilirubin 0.20 mg/dL (0.1-1.2) 09/09/19 10:22 Direct Bilirubin < 0.2 mg/dL (0-0.2) 09/09/19 10:22 Indirect Bilirubin 0.0 mg/dL 09/09/19 10:22 AST 32 units/L (5-40) 09/09/19 10:22 ALT 26 units/L (7-56) 09/09/19 10:22 Alkaline Phosphatase 139 units/L (35-129) H 09/09/19 10:22 Ammonia 83.0 umol/L (25-60) H 09/09/19 10:22 Total Creatine Kinase 267 units/L (55-170) H 09/09/19 10:22 CK-MB (CK-2) 4.6 ng/mL (0.0-4.0) H 09/09/19 10:22 CK-MB (CK-2) Rel Index 1.7 (0-4) 09/09/19 10:22 Troponin T < 0.010 ng/mL (0.00-0.029) 09/09/19 10:22 NT-Pro-B Natriuret Pep 268.5 pg/mL (0-900) 09/09/19 10:22 Total Protein 8.2 g/dL (6.3-8.2) 09/09/19 10:22 Albumin 4.5 g/dL (3.9-5) 09/09/19 10:22 Albumin/Globulin Ratio 1.2 % 09/09/19 10:22 Urine Color Yellow (Yellow) 09/09/19 15:24 Urine Turbidity Clear (Clear) 09/09/19 15:24 Urine pH 5.0 (5.0-7.0) 09/09/19 15:24 Ur Specific [place] 1.015 (1.003-1.030) 09/09/19 15:24 Urine Protein 30 mg/dl mg/dL (Negative) 09/09/19 15:24 Urine Glucose (UA) Neg mg/dL (Negative) 09/09/19 15:24 Urine Ketones Neg mg/dL (Negative) 09/09/19 15:24 Urine Blood Mod (Negative) 09/09/19 15:24 Urine Nitrite Neg (Negative) 09/09/19 15:24 Urine Bilirubin Neg (Negative) 09/09/19 15:24 Urine Urobilinogen < 2.0 mg/dL (<2.0) 09/09/19 15:24 Ur Leukocyte Esterase Neg (Negative) 09/09/19 15:24 Urine WBC (Auto) 2.0 /HPF (0.0-6.0) 09/09/19 15:24 Urine RBC (Auto) 59.0 /HPF (0.0-6.0) 09/09/19 15:24 U Epithel Cells (Auto) < 1.0 /HPF (0-13.0) 09/09/19 15:24 Urine Bacteria (Auto) 1+ /HPF (Negative) 09/09/19 15:24 Urine Mucus Few /HPF 09/09/19 15:24 Phenytoin 11.1 ug/mL (10.0-20.0) 09/09/19 13:10 Valproic Acid < 2.8 ug/mL (50-100) L 09/09/19 13:10 Assessment and Plan Assessment and plan: 59-year-old man with history of seizure disorder who presents to the hospital with status epilepticus, intubated for airway protection as he was obtunded and postictal state Chest x-ray bibasilar retrocardiac opacities represents atelectasis with or without superimposed pneumonia. CT abdomen and pelvis. Bibasilar pneumonia, bowel distention which is typical of ileus Status epilepticus Valproate levels are low, will need to communicate with the group home to see if they are giving it, if not the dose needs to be increased. Dilantin levels at goal, continue to prevent drip. Neurology consult. CT head did not show any acute findings. Acute metabolic encephalopathy Due to postictal state Acute respiratory failure on mechanical ventilator less than 96 hours Continue ventilator, will attempt to wean when mentation improves History of CVA? Cannot exclude stroke as etiology of his current symptoms. neurology consulted, Allow permissive hypertension, has received aspirin, stroke education, observe for arrhythmia on telemetry, --aspirin and high dose statin, check Lipid panel MRI brain, MRA head, carotid Dopplers, echo Aspiration pneumonia/sepsis Antibiotics Hepatic encephalopathy Lactulose Hypokalemia Repleted, recheck in a.m. Ileus Bowel rest, repeat abdominal x-ray in a.m., general surgery consult DVT prophylaxis; SCDs Critical care time 35 minutes
[2019-09-09] MEDS ORDERED: POTASSIUM CHLORIDE 40 MEQ in SODIUM CHLORIDE 0.45% 500 ML IV SCH (22:30)
[2019-09-09] MEDS ORDERED: LACTULOSE ENEMA 1000 ML PR SCH (23:00)
[2019-09-09] MEDS ORDERED: SODIUM CHLORIDE 0.9% 1000 ML 1,000 ML ONE (23:45)
[2019-09-10] MEDS: AMPICILLIN/SULBACTA 3GM/100ML 3 GM/100 ML BAG IV SCH ×4 (00:09→20:00)
[2019-09-10] MEDS: FAMOTIDINE 20 MG/2 ML INJ IV SCH ×3 (00:10→22:19)
[2019-09-10] MEDS: levETIRAcetam 1,500 MG in DEXTROSE 5% IN WATER 100 ML IV SCH ×2 (01:00→10:06)
[2019-09-10] MEDS: SODIUM CHLORIDE 0.9% IV SCH ×2 (01:03→09:33)
[2019-09-10] MEDS: PHENYTOIN IV SCH ×2 (01:03→09:33)
[2019-09-10] MEDS: PROPOFOL 1,000 MG/100 ML BOTTLE IV SCH ×7 (01:38→23:23)
[2019-09-10] MEDS ORDERED: PROPOFOL 1,000 MG/100 ML BOTTLE IV ONE ×6 (03:19→23:14)
--- NOTE | 2019-09-10 04:30 | XRay Report ---
ABDOMEN 1 VIEW(S) INDICATION / CLINICAL INFORMATION: Ileus. COMPARISON: Abdominal radiograph, 09/09/2019 FINDINGS: TUBES / LINES: Esophagogastric tube remains in stable position. BOWEL GAS PATTERN: Multiple loops of gas-distended bowel are noted throughout the abdomen and have no t significantly changed. ADDITIONAL FINDINGS: There is scoliotic and degenerative changes of the thoracolumbar spine. IMPRESSION: 1. Stable appearance of multiple loops of gas-distended bowel. Signer Name: Jaylene Alarcon MD Signed: 09/10/2019 4:26 AM Workstation Name: [id number]
--- NOTE | 2019-09-10 04:32 | XRay Report ---
CHEST 1 VIEW, 09/10/2019 2:45 AM CLINICAL INFORMATION/INDICATION: Respiratory failure COMPARISON: Chest radiograph, 09/09/2019 at 12:37 PM FINDINGS: SUPPORT DEVICES: Endotracheal tube and esophagogastric tube project in similar position. HEART: The cardiac silhouette is normal in size. LUNGS/PLEURA: Faint predominantly perihilar interstitial disease is unchanged. The left costophrenic angle is omitted from the [id number]. ADDITIONAL FINDINGS: No additional acute findings. IMPRESSION: 1. Overall stable appearance of faint bilateral interstitial disease. Signer Name: Jaylene Alarcon MD Signed: 09/10/2019 4:28 AM Workstation Name: [id number]
[2019-09-10 05:56] LABS: Basophils % (Auto) 0.3 % (0.0-1.8); Eosinophils % (Auto) 0.3 % (0.0-4.3); Hematocrit 39.5 % (35.5-45.6); Hemoglobin 13.2 gm/dl (11.8-15.2); Lymphocytes # (Auto) 0.6 K/mm3 (1.2-5.4); Lymphocytes % (Auto) 7.2 % (13.4-35.0); Mean Corpuscular HGB Conc 33 % (32-34); Mean Corpuscular Volume 88 fl (84-94); Monocytes # (Auto) 0.8 K/mm3 (0.0-0.8); Monocytes % (Auto) 10.3 % (0.0-7.3); Platelet Count 199 K/mm3 (140-440); Red Blood Count 4.51 M/mm3 (3.65-5.03); Red Cell Distribution Width 14.3 % (13.2-15.2)
[2019-09-10 06:17] LABS: Alanine Aminotransferase 23 units/L (7-56); Albumin 3.8 g/dL (3.9-5); BUN/Creatinine Ratio 18; Blood Urea Nitrogen 11 mg/dL (9-20); Calcium 8.5 mg/dL (8.4-10.2); Chol/HDL Ratio 3.43 %; HDL Cholesterol 57 mg/dL (40-59); Hemolysis Index 15; LDL Cholesterol,Direct 131 mg/dL (50-130)
[2019-09-10 06:18] LABS: Bilirubin,Direct < 0.2 mg/dL (0-0.2)
[2019-09-10 06:59] LABS: Amphetamine Screen,Urine PRESUMPTIVE NEGATIVE; Cannabinoid Screen,Urine PRESUMPTIVE NEGATIVE; Cocaine Screen,Urine PRESUMPTIVE NEGATIVE; Methadone Screen,Urine PRESUMPTIVE NEGATIVE; Opiate Screen,Urine PRESUMPTIVE NEGATIVE
[2019-09-10 07:10] LABS: Benzodiazepines Screen,Urine PRESUMPTIVE POSITIVE
[2019-09-10] MEDS ORDERED: CLOPIDOGREL 75 MG TAB ONE (09:21)
[2019-09-10] MEDS ORDERED: FAMOTIDINE 20 MG/2 ML INJ IV ONE ×2 (09:22→22:09)
[2019-09-10] MEDS ORDERED: PHENYTOIN 100 MG/2 ML VIAL IV SCH (10:00)
[2019-09-10] MEDS ORDERED: ASPIRIN 300 MG RECT SUPP PR SCH (10:00)
[2019-09-10] MEDS: CLOPIDOGREL 75 MG TAB PO SCH (10:07)
--- NOTE | 2019-09-10 10:13 | Consultation ---
History of Present Illness Consult date: 09/10/19 Requesting physician: LILIANA CHU Reason for Consult: seizure Chief complaint: unable to be obtained intubated History of present illness: 59-year-old male with a history of stroke seizure disorder CHF wern.encephalopathy and schizophrenia possible alcohol abuse Arriving with seizure-like activity from a residential it's not clear his regimen of phenytoin and valproic acid CT head on arrival shows right temporal encephalomalacia otherwise no acute processes are reviewed the images myself EKG atrial fibrillation Patient had supposedly many seizures in the residential multiple [id number] seizures finally broke here in the ED after being loaded on Keppra and Ativan and propofol No fever no suspicion of meningitis Patient is in a coma cannot give his own history and intubated No family in the room Patient vomited and possibly aspiration pneumonia On arrival was having blinking and some semi-purposeful movements prior to intubation Patient presented similar in the past on chart review seizures 2019 No further generalized tonic-clonic seizure-like activity since admission to the ER Review of systems unable to be obtained family history negative for neurologic disease Social history no tobacco or drugs possible alcohol history Medications and Allergies Allergies Allergy/AdvReac Type Severity Reaction Status Date / Time Iodine and Iodide Containing Allergy Unknown Verified 01/27/19 10:25 Produc Home Medications Medication Instructions Recorded Confirmed Last Taken Type Aspirin [Aspirin BABY CHEW TAB] 81 mg PO DAILY #30 02/07/19 01/27/19 Unknown Rx AtorvaSTATin [Lipitor] 40 mg PO QHS #30 tablet 02/07/19 Unknown Rx Clopidogrel [Plavix] 75 mg PO QDAY #30 tablet 02/07/19 Unknown Rx Divalproex [[place]] 125 mg PO DAILY #30 02/07/19 01/27/19 Unknown Rx Famotidine [Pepcid] 20 mg PO BID #60 tablet 02/07/19 Unknown Rx Metoprolol [Lopressor TAB] 75 mg PO BID #60 tablet 02/07/19 Unknown Rx Phenytoin [Dilantin] 200 mg PO BID #60 02/07/19 01/27/19 Unknown Rx cloNIDine-TTS PATCH [Catapres-Tts 0.2 mg TD QWEEK patch 02/07/19 Unknown Rx 0.2mg Patch] levETIRAcetam [Keppra] 1,500 mg PO BID #60 oral.liqd 02/07/19 Unknown Rx lisinopriL [Zestril TAB] 40 mg PO QDAY #30 tablet 02/07/19 Unknown Rx Active Meds: Active Medications Acetaminophen (Tylenol) 650 mg PO Q4H PRN PRN Reason: Pain MILD(1-3)/Fever >100.5/ANG Aspirin (Aspirin) 300 mg SC QDAY [facility] Atorvastatin Calcium (Lipitor) 40 mg PO QHS [facility] Last Admin: 09/09/19 23:51 Dose: Not Given Documented by: Clopidogrel Bisulfate (Plavix) 75 mg PO QDAY [facility] Last Admin: 09/10/19 10:07 Dose: 75 mg Documented by: Divalproex Sodium (Depakote Dr) 125 mg PO DAILY [facility] Famotidine (Pepcid) 20 mg IV BID [facility] Last Admin: 09/10/19 09:30 Dose: 20 mg Documented by: Hydrophilic Ointment (Vaseline Lip Therapy) 1 applic TP Q2HR PRN PRN Reason: Dry Lips Propofol (Diprivan 10 Mg/Ml) 1,000 mg in 100 mls @ 2.599 mls/hr IV TITR [facility]; Protocol Last Admin: 09/10/19 06:51 Dose: 50 mcg/kg/min, 25.991 mls/hr Documented by: Ampicillin Sodium/Sulbactam Sodium (Unasyn/Ns 3 Gm/100 Ml) 3 gm in 100 mls @ 200 mls/hr IV Q6HR [facility]; Protocol Last Infusion: 09/10/19 07:48 Dose: Infused Documented by: Levetiracetam 1,500 mg/ (Dextrose) 115 mls @ 400 mls/hr IV Q12HR [facility] Last Admin: 09/10/19 10:06 Dose: 400 mls/hr Documented by: Phenytoin 200 mg/ Sodium (Chloride) 54 mls @ 216 mls/hr IV BID [facility] Last Infusion: 09/10/19 10:07 Dose: Infused Documented by: Labetalol HCl (Labetalol) 10 mg IV Q4H PRN PRN Reason: BP >170/105; hold for HR <60 Multi-Ingred Cream/Lotion/Oil/Oint (Artificial Tears Ophth Oint) 1 applic OU Q4HR PRN PRN Reason: Dry Eye(s) Ondansetron HCl (Zofran) 4 mg IV Q8H PRN PRN Reason: Nausea And Vomiting Sodium Chloride (Sodium Chloride Flush Syringe 10 Ml) 10 ml IV BID [facility] Last Admin: 09/10/19 10:07 Dose: 10 ml Documented by: Sodium Chloride (Sodium Chloride Flush Syringe 10 Ml) 10 ml IV PRN PRN PRN Reason: LINE FLUSH Physical Examination - Vital Signs Vital Signs: Vital Signs Pulse Resp Pulse Ox 120 H 29 H 94 09/09/19 10:04 09/09/19 10:04 09/09/19 10:04 Intubated sedated coma No forced gaze deviation pupils reactive Face seems symmetrical Neck is supple No discharge nose or ears Tone is down throughout no extra movements No myoclonus or posturing no withdrawal 4 with noxious stimuli Abdomen soft skin intact pulses good 4 No extra movements Results - Laboratory Findings CBC and BMP: 09/10/19 04:40 09/10/19 04:40 Abnormal Lab Findings: Abnormal Labs 09/09/19 09/09/19 09/09/19 10:22 10:22 10:22 Lymph % (Auto) [place] % (Auto) 8.6 H Eos % (Auto) 4.7 H Lymph # Seg Neutrophils % POC ABG pH POC ABG pCO2 POC ABG pO2 Potassium 3.4 L Carbon Dioxide 21 L Creatinine Glucose 161 H Alkaline Phosphatase 139 H Ammonia 83.0 H Total Creatine Kinase 267 H CK-MB (CK-2) 4.6 H Albumin LDL Cholesterol Direct Valproic Acid 09/09/19 09/09/19 09/09/19 10:29 13:10 13:54 Lymph % (Auto) [place] % (Auto) Eos % (Auto) Lymph # Seg Neutrophils % POC ABG pH 7.150 L POC ABG pCO2 46.7 H POC ABG pO2 179 H Potassium Carbon Dioxide Creatinine Glucose Alkaline Phosphatase Ammonia Total Creatine Kinase CK-MB (CK-2) Albumin LDL Cholesterol Direct Valproic Acid < 2.8 L 09/10/19 09/10/19 04:40 04:40 Lymph % (Auto) 7.2 L [place] % (Auto) 10.3 H Eos % (Auto) Lymph # 0.6 L Seg Neutrophils % 81.9 H POC ABG pH POC ABG pCO2 POC ABG pO2 Potassium Carbon Dioxide 20 L Creatinine 0.6 L Glucose 109 H Alkaline Phosphatase Ammonia Total Creatine Kinase CK-MB (CK-2) Albumin 3.8 L LDL Cholesterol Direct 131 H Valproic Acid Assessment and Plan Concerning for status epilepticus: unstable Stat EEG Continue Keppra 1000 twice a day valproic acid 500 twice a day both IV Will adjust AED based on EEG Atrial fibrillation prior stroke patient may be a anticoagulant candidate There is a possibility that patient's breakthrough seizures may have resulted from new stroke or exacerbation of known prior seizure disorder w nidus right temporal encephalomalacia likely secondary to embolic stroke Stroke workup continue aspirin MRI brain echo cardiogram MRA head and neck Continue ventilatory support along with antibiotics for possible aspiration pneumonia
[2019-09-10] MEDS: DIVALPROEX DR 125 MG TAB PO SCH (10:33)
--- NOTE | 2019-09-10 11:03 | Consultation ---
History of Present Illness Consult date: 09/10/19 Reason for consult: other (ileus) Requesting physician: GALI GRACIA Chief complaint: distended abdomen - History of present illness History of present illness: 59yo M present to emergency department with seizure-like activity. There is concern for possible aspiration. Patient was intubated. We are asked to see the patient for possible ileus. Patient unable to participate in the exam. Past History Past Medical History: CAD, heart failure, hypertension, hyperlipidemia, seizures, stroke, other (schizophrenia. Wernicke's encephalopathy) Past Surgical History: Other (Feeding tube placement? chest surgery) Social history: alcohol abuse (by reports) Medications and Allergies Allergies Allergy/AdvReac Type Severity Reaction Status Date / Time Iodine and Iodide Containing Allergy Unknown Verified 01/27/19 10:25 Produc Home Medications Medication Instructions Recorded Confirmed Last Taken Type Aspirin [Aspirin BABY CHEW TAB] 81 mg PO DAILY #30 02/07/19 01/27/19 Unknown Rx AtorvaSTATin [Lipitor] 40 mg PO QHS #30 tablet 02/07/19 Unknown Rx Clopidogrel [Plavix] 75 mg PO QDAY #30 tablet 02/07/[address] [Depakote Dr] 125 mg PO DAILY #30 02/07/19 01/27/19 Unknown Rx Famotidine [Pepcid] 20 mg PO BID #60 tablet 02/07/19 Unknown Rx Metoprolol [Lopressor TAB] 75 mg PO BID #60 tablet 02/07/19 Unknown Rx Phenytoin [Dilantin] 200 mg PO BID #60 02/07/19 01/27/19 Unknown Rx cloNIDine-TTS PATCH [Catapres-Tts 0.2 mg TD QWEEK patch 02/07/19 Unknown Rx 0.2mg Patch] levETIRAcetam [Keppra] 1,500 mg PO BID #60 oral.liqd 02/07/19 Unknown Rx lisinopriL [Zestril TAB] 40 mg PO QDAY #30 tablet 02/07/19 Unknown Rx Active Meds: Active Medications Acetaminophen (Tylenol) 650 mg PO Q4H PRN PRN Reason: Pain MILD(1-3)/Fever >100.5/ANG Aspirin (Aspirin) 300 mg [place] QDAY [facility] Atorvastatin Calcium (Lipitor) 40 mg PO QHS [facility] Last Admin: 09/09/19 23:51 Dose: Not Given Documented by: Clopidogrel Bisulfate (Plavix) 75 mg PO QDAY [facility] Last Admin: 09/10/19 10:07 Dose: 75 mg Documented by: Divalproex Sodium (Depakote Dr) 125 mg PO DAILY [facility] Last Admin: 09/10/19 10:33 Dose: Not Given Documented by: Famotidine (Pepcid) 20 mg IV BID [facility] Last Admin: 09/10/19 09:30 Dose: 20 mg Documented by: Hydrophilic Ointment (Vaseline Lip Therapy) 1 applic TP Q2HR PRN PRN Reason: Dry Lips Propofol (Diprivan 10 Mg/Ml) 1,000 mg in 100 mls @ 2.599 mls/hr IV TITR [facility]; Protocol Last Admin: 09/10/19 10:59 Dose: 50 mcg/kg/min, 25.991 mls/hr Documented by: Ampicillin Sodium/Sulbactam Sodium (Unasyn/Ns 3 Gm/100 Ml) 3 gm in 100 mls @ 200 mls/hr IV Q6HR [facility]; Protocol Last Infusion: 09/10/19 07:48 Dose: Infused Documented by: Phenytoin 200 mg/ Sodium (Chloride) 54 mls @ 216 mls/hr IV BID [facility] Last Infusion: 09/10/19 10:07 Dose: Infused Documented by: Levetiracetam 1,000 mg/ (Dextrose) 110 mls @ 400 mls/hr IV Q12HR [facility] Labetalol HCl (Labetalol) 10 mg IV Q4H PRN PRN Reason: BP >170/105; hold for HR <60 Multi-Ingred Cream/Lotion/Oil/Oint (Artificial Tears Ophth Oint) 1 applic OU Q4HR PRN PRN Reason: Dry Eye(s) Ondansetron HCl (Zofran) 4 mg IV Q8H PRN PRN Reason: Nausea And Vomiting Sodium Chloride (Sodium Chloride Flush Syringe 10 Ml) 10 ml IV BID [facility] Last Admin: 09/10/19 10:07 Dose: 10 ml Documented by: Sodium Chloride (Sodium Chloride Flush Syringe 10 Ml) 10 ml IV PRN PRN PRN Reason: LINE FLUSH Review of Systems ROS unobtainable: due to endotracheal tube, due to mental status Exam Vital Signs Pulse Resp Pulse Ox 120 H 29 H 94 09/09/19 10:04 09/09/19 10:04 09/09/19 10:04 - General physical appearance Positive: no distress, no pain, other (minimally responsive) - ENT Positive: other (intubated) - Respiratory Positive: normal expansion, normal respiratory effort, other (equal breath sounds) - Cardiovascular Rhythm: regular (sinus rhythm on monitor with ectopy) - Abdomen Abdomen: Present: soft, bowel sounds hypoactive, distended, surgical scars (appears to have old scars from mediastinal tubes and possible feeding tube). Absent: guarding, rigid - Integumentary other (median sternotomy scar) Results - Labs 09/10/19 04:40 09/10/19 04:40 Abnormal lab results 09/09/19 09/09/19 09/09/19 Range/Units 10:22 10:22 10:22 Lymph % (Auto) (13.4-35.0) % [place] % (Auto) 8.6 H (0.0-7.3) % Eos % (Auto) 4.7 H (0.0-4.3) % Lymph # (1.2-5.4) K/mm3 Seg Neutrophils % (40.0-70.0) % POC ABG pCO2 (35-45) POC ABG pO2 (80-105) Potassium 3.4 L (3.6-5.0) mmol/L Carbon Dioxide 21 L (22-30) mmol/L Creatinine (0.8-1.5) mg/dL Glucose 161 H (75-100) mg/dL Alkaline Phosphatase 139 H (35-129) units/L Ammonia 83.0 H (25-60) umol/L Total Creatine Kinase 267 H (55-170) units/L CK-MB (CK-2) 4.6 H (0.0-4.0) ng/mL Albumin (3.9-5) g/dL LDL Cholesterol Direct (50-130) mg/dL Valproic Acid (50-100) ug/mL 09/09/19 09/09/19 09/10/19 Range/Units 13:10 13:54 04:40 Lymph % (Auto) 7.2 L (13.4-35.0) % [place] % (Auto) 10.3 H (0.0-7.3) % Eos % (Auto) (0.0-4.3) % Lymph # 0.6 L (1.2-5.4) K/mm3 Seg Neutrophils % 81.9 H (40.0-70.0) % POC ABG pCO2 46.7 H (35-45) POC ABG pO2 179 H (80-105) Potassium (3.6-5.0) mmol/L Carbon Dioxide (22-30) mmol/L Creatinine (0.8-1.5) mg/dL Glucose (75-100) mg/dL Alkaline Phosphatase (35-129) units/L Ammonia (25-60) umol/L Total Creatine Kinase (55-170) units/L CK-MB (CK-2) (0.0-4.0) ng/mL Albumin (3.9-5) g/dL LDL Cholesterol Direct (50-130) mg/dL Valproic Acid < 2.8 L (50-100) ug/mL 09/10/19 Range/Units 04:40 Lymph % (Auto) (13.4-35.0) % [place] % (Auto) (0.0-7.3) % Eos % (Auto) (0.0-4.3) % Lymph # (1.2-5.4) K/mm3 Seg Neutrophils % (40.0-70.0) % POC ABG pCO2 (35-45) POC ABG pO2 (80-105) Potassium (3.6-5.0) mmol/L Carbon Dioxide 20 L (22-30) mmol/L Creatinine 0.6 L (0.8-1.5) mg/dL Glucose 109 H (75-100) mg/dL Alkaline Phosphatase (35-129) units/L Ammonia (25-60) umol/L Total Creatine Kinase (55-170) units/L CK-MB (CK-2) (0.0-4.0) ng/mL Albumin 3.8 L (3.9-5) g/dL LDL Cholesterol Direct 131 H (50-130) mg/dL Valproic Acid (50-100) ug/mL Diabetes panel 09/09/19 09/10/19 Range/Units 10:22 04:40 Sodium 137 140 (137-145) mmol/L Potassium 3.4 L 3.6 (3.6-5.0) mmol/L Chloride 99.0 104.6 (98-107) mmol/L Carbon Dioxide 21 L 20 L (22-30) mmol/L BUN 14 11 (9-20) mg/dL Creatinine 0.8 0.6 L (0.8-1.5) mg/dL Glucose 161 H 109 H (75-100) mg/dL Calcium 8.8 8.5 (8.4-10.2) mg/dL AST 32 33 (5-40) units/L ALT 26 23 (7-56) units/L Alkaline Phosphatase 139 H 117 (35-129) units/L Total Protein 8.2 7.1 (6.3-8.2) g/dL Albumin 4.5 3.8 L (3.9-5) g/dL Triglycerides 90 (2-149) mg/dL HDL Cholesterol 57 (40-59) mg/dL Calcium panel 09/09/19 09/10/19 Range/Units 10:22 04:40 Calcium 8.8 8.5 (8.4-10.2) mg/dL Albumin 4.5 3.8 L (3.9-5) g/dL Pituitary panel 09/09/19 09/10/19 Range/Units 10:22 04:40 Sodium 137 140 (137-145) mmol/L Potassium 3.4 L 3.6 (3.6-5.0) mmol/L Chloride 99.0 104.6 (98-107) mmol/L Carbon Dioxide 21 L 20 L (22-30) mmol/L BUN 14 11 (9-20) mg/dL Creatinine 0.8 0.6 L (0.8-1.5) mg/dL Glucose 161 H 109 H (75-100) mg/dL Calcium 8.8 8.5 (8.4-10.2) mg/dL Adrenal panel 09/09/19 09/10/19 Range/Units 10:22 04:40 Sodium 137 140 (137-145) mmol/L Potassium 3.4 L 3.6 (3.6-5.0) mmol/L Chloride 99.0 104.6 (98-107) mmol/L Carbon Dioxide 21 L 20 L (22-30) mmol/L BUN 14 11 (9-20) mg/dL Creatinine 0.8 0.6 L (0.8-1.5) mg/dL Glucose 161 H 109 H (75-100) mg/dL Calcium 8.8 8.5 (8.4-10.2) mg/dL Total Bilirubin 0.20 0.50 (0.1-1.2) mg/dL AST 32 33 (5-40) units/L ALT 26 23 (7-56) units/L Alkaline Phosphatase 139 H 117 (35-129) units/L Total Protein 8.2 7.1 (6.3-8.2) g/dL Albumin 4.5 3.8 L (3.9-5) g/dL - Imaging Abdominal x-ray: report reviewed, image reviewed Assessment and Plan - Patient Problems (1) Abdominal distension, gaseous Current Visit: Yes Status: Acute Plan to address problem: Pt stable from abdominal standpoint. Agree with NGT. Will follow clinically for now. Need to make sure electrolytes and fluid balance are ok. Conservative management. Will follow along. Please call with questions. time=30min
--- NOTE | 2019-09-10 13:48 | Vascular Lab Report ---
"DUPLEX DOPPLER ULTRASOUND CAROTID, BILATERAL INDICATION: stroke. COMPARISON: Carotid Doppler from 01/29/2019. FINDINGS: RIGHT CAROTID: No significant atherosclerotic plaque. CCA velocity: 77 cm/sec. ICA peak systolic velocity: 80 cm/sec. ICA/CCA PSV Ratio: 1.0. Right Vertebral Artery: Antegrade flow. LEFT CAROTID: Mild calcified plaques along the common carotid artery result in less than 50% stenosis by diameter. CCA velocity: 73 cm/sec. ICA peak systolic velocity: 96 cm/sec. ICA/CCA PSV Ratio: 1.3. Left Vertebral Artery: Antegrade flow. IMPRESSION: 1. Right Internal Carotid Artery: Normal. 2. Left Internal Carotid Artery: Less than 50% diameter stenosis. Velocity criteria are extrapolated from diameter data as defined by the Society of Radiologists in Ul trasound Consensus Conference, Radiology 2003; 229;340-346. Degree of || ICA PSV || Plaque || ICA/CCA Stenosis (%) || (cm/sec) || estimate (%) || PSV Ratio - Normal...............<125..............None.................<2.0 - <50....................<125..............<50....................<2.0 - 50-69................125-230.........>50....................2.0-4.0 - >70 but <100....>230..............>50....................>4.0 - Near...................High, low, .....visible................variable occlusion or none - Total...................None.............visible;................N/A occlusion no lumen Signer Name: Greg Palencia MD Signed: 09/10/2019 1:44 PM Workstation Name: [id number]"
--- NOTE | 2019-09-10 14:46 | Consultation ---
History of Present Illness Consult date: 09/10/19 Requesting physician: LILIANA CHU Reason for consult: other (Status epilepticus) History of present illness: 59 y/o male admitted with status, intubated for airway protection as he required deep sedation for seizure . Past History Past Medical History: CAD, heart failure, hypertension, hyperlipidemia, seizures, stroke, other (schizophrenia. Wernicke's encephalopathy) Past Surgical History: Other (Feeding tube placement? chest surgery) Social history: alcohol abuse (by reports) Medications and Allergies Allergies Allergy/AdvReac Type Severity Reaction Status Date / Time Iodine and Iodide Containing Allergy Unknown Verified 01/27/19 10:25 Produc Home Medications Medication Instructions Recorded Confirmed Last Taken Type Aspirin [Aspirin BABY CHEW TAB] 81 mg PO DAILY #30 02/07/19 01/27/19 Unknown Rx AtorvaSTATin [Lipitor] 40 mg PO QHS #30 tablet 02/07/19 Unknown Rx Clopidogrel [Plavix] 75 mg PO QDAY #30 tablet 02/07/[address] [Depakote Dr] 125 mg PO DAILY #30 02/07/19 01/27/19 Unknown Rx Famotidine [Pepcid] 20 mg PO BID #60 tablet 02/07/19 Unknown Rx Metoprolol [Lopressor TAB] 75 mg PO BID #60 tablet 02/07/19 Unknown Rx Phenytoin [Dilantin] 200 mg PO BID #60 02/07/19 01/27/19 Unknown Rx cloNIDine-TTS PATCH [Catapres-Tts 0.2 mg TD QWEEK patch 02/07/19 Unknown Rx 0.2mg Patch] levETIRAcetam [Keppra] 1,500 mg PO BID #60 oral.liqd 02/07/19 Unknown Rx lisinopriL [Zestril TAB] 40 mg PO QDAY #30 tablet 02/07/19 Unknown Rx Active Meds: Active Medications Acetaminophen (Tylenol) 650 mg PO Q4H PRN PRN Reason: Pain MILD(1-3)/Fever >100.5/ANG Aspirin (Aspirin) 300 mg [place] QDAY [facility] Last Admin: 09/10/19 11:18 Dose: 300 mg Documented by: Atorvastatin Calcium (Lipitor) 40 mg PO QHS [facility] Last Admin: 09/09/19 23:51 Dose: Not Given Documented by: Clopidogrel Bisulfate (Plavix) 75 mg PO QDAY [facility] Last Admin: 09/10/19 10:07 Dose: 75 mg Documented by: Divalproex Sodium (Depakote Dr) 125 mg PO DAILY [facility] Last Admin: 09/10/19 10:33 Dose: Not Given Documented by: Famotidine (Pepcid) 20 mg IV BID [facility] Last Admin: 09/10/19 09:30 Dose: 20 mg Documented by: Hydrophilic Ointment (Vaseline Lip Therapy) 1 applic TP Q2HR PRN PRN Reason: Dry Lips Propofol (Diprivan 10 Mg/Ml) 1,000 mg in 100 mls @ 2.599 mls/hr IV TITR [facility]; Protocol Last Titration: 09/10/19 13:22 Dose: 40 mcg/kg/min, 20.793 mls/hr Documented by: Ampicillin Sodium/Sulbactam Sodium (Unasyn/Ns 3 Gm/100 Ml) 3 gm in 100 mls @ 200 mls/hr IV Q6HR [facility]; Protocol Last Admin: 09/10/19 13:19 Dose: 200 mls/hr Documented by: Phenytoin 200 mg/ Sodium (Chloride) 54 mls @ 216 mls/hr IV BID [facility] Last Infusion: 09/10/19 10:07 Dose: Infused Documented by: Levetiracetam 1,000 mg/ (Dextrose) 110 mls @ 400 mls/hr IV Q12HR [facility] Labetalol HCl (Labetalol) 10 mg IV Q4H PRN PRN Reason: BP >170/105; hold for HR <60 Multi-Ingred Cream/Lotion/Oil/Oint (Artificial Tears Ophth Oint) 1 applic OU Q4HR PRN PRN Reason: Dry Eye(s) Ondansetron HCl (Zofran) 4 mg IV Q8H PRN PRN Reason: Nausea And Vomiting Sodium Chloride (Sodium Chloride Flush Syringe 10 Ml) 10 ml IV BID [facility] Last Admin: 09/10/19 10:07 Dose: 10 ml Documented by: Sodium Chloride (Sodium Chloride Flush Syringe 10 Ml) 10 ml IV PRN PRN PRN Reason: LINE FLUSH Review of Systems ROS unobtainable: due to endotracheal tube, due to mental status Physical Examination Vital signs: Vital Signs Pulse Resp Pulse Ox 120 H 29 H 94 09/09/19 10:04 09/09/19 10:04 09/09/19 10:04 General appearance: comatose Eyes: non-icteric Neck: supple, no JVD Effort: normal Ascultation: Bilateral: clear Percussion: Bilateral: not dull Cardiovascular: regular rate and rhythm Gastrointestinal: hypoactive bowel sounds, other (distended, slightly) Extremities: no edema, pink and warm, pulses normal Results - Laboratory Findings CBC and BMP: 09/10/19 04:40 09/10/19 04:40 ABG POC ABG pH 7.419 (7.35-7.45) 09/10/19 05:02 POC ABG pCO2 38.4 (35-45) 09/10/19 05:02 POC ABG pO2 94 (80-105) 09/10/19 05:02 POC ABG HCO3 24.8 (22-26 mml/L) 09/10/19 05:02 POC ABG Total CO2 26 (23-27mmol/L) 09/10/19 05:02 POC ABG O2 Sat 97 09/10/19 05:02 PT/INR, D-dimer PT 13.6 Sec. (12.2-14.9) 09/09/19 10:22 INR 1.03 (0.87-1.13) 09/09/19 10:22 Abnormal lab findings: Abnormal Labs 09/09/19 09/09/19 09/09/19 10:22 10:22 10:22 Lymph % (Auto) [place] % (Auto) 8.6 H Eos % (Auto) 4.7 H Lymph # Seg Neutrophils % POC ABG pH POC ABG pCO2 POC ABG pO2 Potassium 3.4 L Carbon Dioxide 21 L Creatinine Glucose 161 H Alkaline Phosphatase 139 H Ammonia 83.0 H Total Creatine Kinase 267 H CK-MB (CK-2) 4.6 H Albumin LDL Cholesterol Direct Valproic Acid 09/09/19 09/09/19 09/09/19 10:29 13:10 13:54 Lymph % (Auto) [place] % (Auto) Eos % (Auto) Lymph # Seg Neutrophils % POC ABG pH 7.150 L POC ABG pCO2 46.7 H POC ABG pO2 179 H Potassium Carbon Dioxide Creatinine Glucose Alkaline Phosphatase Ammonia Total Creatine Kinase CK-MB (CK-2) Albumin LDL Cholesterol Direct Valproic Acid < 2.8 L 09/10/19 09/10/19 04:40 04:40 Lymph % (Auto) 7.2 L [place] % (Auto) 10.3 H Eos % (Auto) Lymph # 0.6 L Seg Neutrophils % 81.9 H POC ABG pH POC ABG pCO2 POC ABG pO2 Potassium Carbon Dioxide 20 L Creatinine 0.6 L Glucose 109 H Alkaline Phosphatase Ammonia Total Creatine Kinase CK-MB (CK-2) Albumin 3.8 L LDL Cholesterol Direct 131 H Valproic Acid - Diagnostic Findings Chest x-ray: image reviewed Assessment and Plan 59 y/o male with status epilepticus. 1. Follow up EEG results. If no seizures, will wean diprovan to off and attempt extubation. 2. Phenytoin levels were normal, now Neuro has added two other therapies 3. Monitor volume status given history of heart failure 4. Restart cardiac meds, surgery feels abomen is stable. All PO meds will need to be held or converted to IV CCT 31 minutes
--- NOTE | 2019-09-10 15:00 | Electroencephalogram Report ---
Electroencephalogram EEG Date of exam: 09/10/19 History: 59 M arrived w back to back seizures, hx of seizure d/o on PHT and VPA at [facility], now intubated and sedated w propofol and on keppra 20 min bedside EEG Impression: This EEG is consistent with non specific diffuse neuronal dysfunction with likely epileptogenic potential. Repeat EEG when awake would be recommended to re-evaluate patterns background slowing, high amplitude sharp wave discharges, and intermittent disorganization Correlation: suggest patient remain on antiepileptic medications Description: This EEG was acquired with electrodes placed according to the international 10/20 placement system. The patient remained in a coma on propofol until toward the end of this EEG where propofol was discontinued and patient clinically showed signs of arousal and followed commands. Most of this EEG, the best background rhythm appreciated was 6-7 Hz which was symmetric but reactivity was unable to be tested due to level of consciousness, and in the anterior head region faster activity was seen in the alpha range 8-9 Hz. This activity was seen for 30 seconds to 1 minute periods of time. Frequently the aforementioned periods of diffuse symmetrical electrocerebral activity would disorganize but also suppress into slow diffuse delta rhythm state with frequent diffuse high amplitude sharp discharges that resemble triphasic waves vs vertex waves vs K complexes although no sleep spindles were appreciated. Also these frequently seen stages of diffuse suppression-like periods with intermittent burst like discharges also had waveforms concerning for spike / sharp and slow wave. These suppression periods would last about 10-20 seconds, and then revert back to higher amplitude faster frequency with symmetric background slowing. Toward the end of the tracing, more periods of symmetric faster sustained cerebral rhythm was appreciated with tremendous EMG artifact making it difficult to read but I can say in between the EMG artifact I did not appreciate any epileptiform activity; eye opening and closing EEG reactivity was not able to evaluated. No focal or lateralizing features were appreciated. Photic stimulation and hyperventilation was not applied repeat EEG is highly recommended once patient is able to remain awake Interpretation: This is an abnormal coma/sleep and awake EEG d/t : 1 questionable diffuse spike/sharp wave discharges during periods of diffuse slow frequency and low amplitude pattern vs sleep pattern vs triphasic waves 2 cerebral pattern with background slowing and occasional disorganization 3 intermittent periods of diffuse slow frequency and low amplitude pattern which may represent drowsiness and sleep
--- NOTE | 2019-09-10 15:08 | Consultation ---
History of Present Illness - Reason for Consult Consult date: 09/10/19 pneumonia Requesting physician: GALI GRACIA - History of Present Illness The patient is a 59/M fdc resident, hypertension, CVA, CHF, seizure disorder, schizophrenia, hyperlipidemia, CAD, CHF was admitted today following multiple seizures. While in the ER the patient remained postictal non-responsive was unable to protect his airway and therefore intubated for airway protection. No fever. CT was concerning for possible ileus, also showed minimal bilateral basilar infiltrates concerning for aspiration. Infectious diseases was consulted for antibiotic recommendations. Currently, patient is intubated, sedated in the ER. Hemodynamically stable. Review of Systems: Intubated, unable to obtain Past History Past Medical History: CAD, heart failure, hypertension, hyperlipidemia, seizures, stroke, other (schizophrenia. Wernicke's encephalopathy) Past Surgical History: Other (Feeding tube placement? chest surgery) Social history: alcohol abuse (by reports) Medications and Allergies Allergies Allergy/AdvReac Type Severity Reaction Status Date / Time Iodine and Iodide Containing Allergy Unknown Verified 01/27/19 10:25 Produc Home Medications Medication Instructions Recorded Confirmed Last Taken Type Aspirin [Aspirin BABY CHEW TAB] 81 mg PO DAILY #30 02/07/19 01/27/19 Unknown Rx AtorvaSTATin [Lipitor] 40 mg PO QHS #30 tablet 02/07/19 Unknown Rx Clopidogrel [Plavix] 75 mg PO QDAY #30 tablet 02/07/[address] [Depakote Dr] 125 mg PO DAILY #30 02/07/19 01/27/19 Unknown Rx Famotidine [Pepcid] 20 mg PO BID #60 tablet 02/07/19 Unknown Rx Metoprolol [Lopressor TAB] 75 mg PO BID #60 tablet 02/07/19 Unknown Rx Phenytoin [Dilantin] 200 mg PO BID #60 02/07/19 01/27/19 Unknown Rx cloNIDine-TTS PATCH [Catapres-Tts 0.2 mg TD QWEEK patch 02/07/19 Unknown Rx 0.2mg Patch] levETIRAcetam [Keppra] 1,500 mg PO BID #60 oral.liqd 02/07/19 Unknown Rx lisinopriL [Zestril TAB] 40 mg PO QDAY #30 tablet 02/07/19 Unknown Rx Active Meds: Active Medications Acetaminophen (Tylenol) 650 mg PO Q4H PRN PRN Reason: Pain MILD(1-3)/Fever >100.5/ANG Aspirin (Aspirin) 300 mg ND QDAY [facility] Last Admin: 09/10/19 11:18 Dose: 300 mg Documented by: Atorvastatin Calcium (Lipitor) 40 mg PO QHS [facility] Last Admin: 09/09/19 23:51 Dose: Not Given Documented by: Clopidogrel Bisulfate (Plavix) 75 mg PO QDAY [facility] Last Admin: 09/10/19 10:07 Dose: 75 mg Documented by: Divalproex Sodium (Depakote Dr) 125 mg PO DAILY [facility] Last Admin: 09/10/19 10:33 Dose: Not Given Documented by: Famotidine (Pepcid) 20 mg IV BID [facility] Last Admin: 09/10/19 09:30 Dose: 20 mg Documented by: Hydrophilic Ointment (Vaseline Lip Therapy) 1 applic TP Q2HR PRN PRN Reason: Dry Lips Propofol (Diprivan 10 Mg/Ml) 1,000 mg in 100 mls @ 2.599 mls/hr IV TITR [facility]; Protocol Last Titration: 09/10/19 13:22 Dose: 40 mcg/kg/min, 20.793 mls/hr Documented by: Ampicillin Sodium/Sulbactam Sodium (Unasyn/Ns 3 Gm/100 Ml) 3 gm in 100 mls @ 200 mls/hr IV Q6HR [facility]; Protocol Last Infusion: 09/10/19 13:49 Dose: Infused Documented by: Phenytoin 200 mg/ Sodium (Chloride) 54 mls @ 216 mls/hr IV BID [facility] Last Infusion: 09/10/19 10:07 Dose: Infused Documented by: Levetiracetam 1,000 mg/ (Dextrose) 110 mls @ 400 mls/hr IV Q12HR [facility] Labetalol HCl (Labetalol) 10 mg IV Q4H PRN PRN Reason: BP >170/105; hold for HR <60 Multi-Ingred Cream/Lotion/Oil/Oint (Artificial Tears Ophth Oint) 1 applic OU Q4HR PRN PRN Reason: Dry Eye(s) Ondansetron HCl (Zofran) 4 mg IV Q8H PRN PRN Reason: Nausea And Vomiting Sodium Chloride (Sodium Chloride Flush Syringe 10 Ml) 10 ml IV BID [facility] Last Admin: 09/10/19 10:07 Dose: 10 ml Documented by: Sodium Chloride (Sodium Chloride Flush Syringe 10 Ml) 10 ml IV PRN PRN PRN Reason: LINE FLUSH Physical Examination - Physical Exam Narrative exam: Physical Exam: Constitutional: sedated, intubated Head, Ears, Nose: Normocephalic, atraumatic. External ears, nose normal Eyes: Conjunctivae/corneas clear. No icterus. No ptosis. Neck: intubated Oral: intubated Cardiovascular: S1, S2 normal. Respiratory: Good air entry, clear to auscultation bilaterally GI: mildly distended, bowel sounds hypo. No peritoneal signs Musculoskeletal: No pedal edema, no cyanosis. Skin: No rash or abscess Hem/Lymphatic: No palpable cervical or supraclavicular nodes. No lymphangitis Psych: no agitation Neurological: sedated, intubated, on vent - Constitutional Vitals: Vital Signs Temp Pulse Resp BP Pulse Ox 97.4 F L 74 18 145/90 100 09/10/19 04:00 09/10/19 14:31 09/10/19 14:31 09/10/19 14:31 09/10/19 14:31 Temperature -Last 24 Hours Temperature 97.4 F Temperature 98.7 F Temperature 98.4 F Temperature 99 F Temperature 100.3 F Results - Labs CBC & Chem 7: 09/10/19 04:40 09/10/19 04:40 Labs: Abnormal lab results 09/09/19 09/10/19 09/10/19 Range/Units 13:54 04:40 04:40 Lymph % (Auto) 7.2 L (13.4-35.0) % [place] % (Auto) 10.3 H (0.0-7.3) % Lymph # 0.6 L (1.2-5.4) K/mm3 Seg Neutrophils % 81.9 H (40.0-70.0) % POC ABG pCO2 46.7 H (35-45) POC ABG pO2 179 H (80-105) Carbon Dioxide 20 L (22-30) mmol/L Creatinine 0.6 L (0.8-1.5) mg/dL Glucose 109 H (75-100) mg/dL Albumin 3.8 L (3.9-5) g/dL LDL Cholesterol Direct 131 H (50-130) mg/dL - Imaging and Cardiology Chest x-ray: report reviewed, image reviewed (no obvious pneumonia) CT scan - abdomen: report reviewed, image reviewed (small bilateral infiltrates and ileus) Assessment and Plan Cultures: 09/09/2019 tracheal aspirate: in process 09/09/2019 blood culture: in process A/P: 59/M fdc resident, hypertension, CVA, CHF, seizure disorder, schizophrenia, hyperlipidemia, CAD, CHF admitted with: #Seizures, post ictal state, acute encephalopathy #Acute resp failure, b/l aspiration pneumonia vs pneumonitis #Ileus: surgery following Recs: continue Unasyn for now, anticipate short course Emily Nicholson MD, FACP [facility] C: [phone] O: [phone] F: [phone]
[2019-09-10] MEDS ORDERED: D5W/0.9% NACL 1,000 ML IV ONE (15:24)
[2019-09-10] MEDS: D5W/0.9% NACL 1,000 ML IV SCH (15:31)
--- NOTE | 2019-09-10 19:57 | Progress Note ---
Assessment and Plan Assessment and plan: 59-year-old man who lives in a long term. He was brought in for multiple seizures. Apparently he was having seizures nonstop at the long term. He rests arrived in the hospital in a postictal state and was not having active seizures. He was given Keppra, he had normal blood glucose. It is not clear how well he is receiving his phenytoin and valproate in a long term. While in the ER the patient remained postictal nonresponsive was unable to protect his airway and therefore intubated for airway protection. It is reported that the patient vomited and aspirated in the EMS and prior to arrival Past medical history; hypertension, CVA, CHF, seizure disorder, Wernicke's encephalopathy, schizophrenia, hyperlipidemia, CAD 59-year-old man with history of seizure disorder who presents to the hospital with status epilepticus, intubated for airway protection as he was obtunded and postictal state Chest x-ray bibasilar retrocardiac opacities represents atelectasis with or wit hout superimposed pneumonia. CT abdomen and pelvis. Bibasilar pneumonia, bowel distention which is typical of ileus Status epilepticus Valproate levels are low, will need to communicate with the long term to see if they are giving it, if not the dose needs to be increased. Dilantin levels at goal, continue to prevent drip. Neurology consult and input noted, do not see valprpate on home meds list, awaiting to see if patient was even on said medications. CT head did not show any acute findings. Acute metabolic encephalopathy Due to postictal state Acute respiratory failure on mechanical ventilator less than 96 hours Continue ventilator, will attempt to wean when mentation improves History of CVA? Cannot exclude stroke as etiology of his current symptoms. neurology consulted, Allow permissive hypertension, has received aspirin, stroke education, observe for arrhythmia on telemetry, --aspirin and high dose statin, check Lipid panel MRI brain, MRA head, carotid Dopplers, echo ?SBO- Surgery following Aspiration pneumonia/sepsis Antibiotics Hepatic encephalopathy Lactulose Hypokalemia Repleted, Ileus Bowel rest, repeat abdominal x-ray in a.m., general surgery consult DVT prophylaxis; SCDs Critical care time 35 minutes History Interval history: Patient seen and examined, remains on full ventilatory support. Undergoing EEG at this time. follows some commands Hospitalist Physical - Physical exam Narrative exam: General appearance: Present: well-nourished, other (Intubated and sedated) although awakens to voice and follows some commands - EENT Eyes: Present: PERRL ENT: hearing intact, clear oral mucosa - Neck Neck: Present: supple, normal ROM - Respiratory Respiratory effort: normal Respiratory: bilateral: rhonchi - Cardiovascular Heart Sounds: Present: S1 & S2. Absent: rub, click - Extremities Extremities: pulses symmetrical, No edema Peripheral Pulses: within normal limits - Abdominal General gastrointestinal: Present: soft, non-tender, non-distended, normal bowel sounds Male genitourinary: Present: normal - Integumentary Integumentary: Present: clear, warm, dry - Musculoskeletal Musculoskeletal: other (Nonresponsive, sedated) - Psychiatric Psychiatric: other (Intubated and sedated) - Neurologic Neurologic: other (Intubated and sedated, nonresponsive) - Constitutional Vitals: Temp Pulse Resp BP Pulse Ox 97.4 F L 70 17 135/90 83 L 09/10/19 04:00 09/10/19 19:00 09/10/19 19:00 09/10/19 19:00 09/10/19 19:00 General appearance: Present: well-nourished, other (Intubated and sedated) Results - Labs CBC & Chem 7: 09/10/19 04:40 09/11/19 04:50 Labs: Laboratory Last Values WBC 8.0 K/mm3 (4.5-11.0) 09/10/19 04:40 RBC 4.51 M/mm3 (3.65-5.03) 09/10/19 04:40 Hgb 13.2 gm/dl (11.8-15.2) 09/10/19 04:40 Hct 39.5 % (35.5-45.6) 09/10/19 04:40 MCV 88 fl (84-94) 09/10/19 04:40 MCH 29 pg (28-32) 09/10/19 04:40 MCHC 33 % (32-34) 09/10/19 04:40 RDW 14.3 % (13.2-15.2) 09/10/19 04:40 Plt Count 199 K/mm3 (140-440) 09/10/19 04:40 Lymph % (Auto) 7.2 % (13.4-35.0) L 09/10/19 04:40 [place] % (Auto) 10.3 % (0.0-7.3) H 09/10/19 04:40 Eos % (Auto) 0.3 % (0.0-4.3) 09/10/19 04:40 Baso % (Auto) 0.3 % (0.0-1.8) 09/10/19 04:40 Lymph # 0.6 K/mm3 (1.2-5.4) L 09/10/19 04:40 [place] # 0.8 K/mm3 (0.0-0.8) 09/10/19 04:40 Eos # 0.0 K/mm3 (0.0-0.4) 09/10/19 04:40 Baso # 0.0 K/mm3 (0.0-0.1) 09/10/19 04:40 Seg Neutrophils % 81.9 % (40.0-70.0) H 09/10/19 04:40 Seg Neutrophils # 6.6 K/mm3 (1.8-7.7) 09/10/19 04:40 PT 13.6 Sec. (12.2-14.9) 09/09/19 10:22 INR 1.03 (0.87-1.13) 09/09/19 10:22 APTT 27.3 Sec. (24.2-36.6) 09/09/19 10:22 POC ABG pH 7.419 (7.35-7.45) 09/10/19 05:02 POC ABG pCO2 38.4 (35-45) 09/10/19 05:02 POC ABG pO2 94 (80-105) 09/10/19 05:02 POC ABG HCO3 24.8 (22-26 mml/L) 09/10/19 05:02 POC ABG Total CO2 26 (23-27mmol/L) 09/10/19 05:02 POC ABG O2 Sat 97 09/10/19 05:02 POC ABG Base Excess 0 ((-2) - (+3)mmol/L) 09/10/19 05:02 FiO2 30 % 09/10/19 05:02 Sodium 140 mmol/L (137-145) 09/10/19 04:40 Potassium 3.6 mmol/L (3.6-5.0) 09/10/19 04:40 Chloride 104.6 mmol/L (98-107) 09/10/19 04:40 Carbon Dioxide 20 mmol/L (22-30) L 09/10/19 04:40 Anion Gap 19 mmol/L 09/10/19 04:40 BUN 11 mg/dL (9-20) 09/10/19 04:40 Creatinine 0.6 mg/dL (0.8-1.5) L 09/10/19 04:40 Estimated GFR > 60 ml/min 09/10/19 04:40 BUN/Creatinine Ratio 18 % 09/10/19 04:40 Glucose 109 mg/dL (75-100) H 09/10/19 04:40 POC Glucose 109 (70-105) H 09/10/19 18:21 Calcium 8.5 mg/dL (8.4-10.2) 09/10/19 04:40 Magnesium 2.10 mg/dL (1.7-2.3) 09/10/19 04:40 Total Bilirubin 0.50 mg/dL (0.1-1.2) 09/10/19 04:40 Direct Bilirubin < 0.2 mg/dL (0-0.2) 09/10/19 04:40 Indirect Bilirubin 0.0 mg/dL 09/09/19 10:22 AST 33 units/L (5-40) 09/10/19 04:40 ALT 23 units/L (7-56) 09/10/19 04:40 Alkaline Phosphatase 117 units/L (35-129) 09/10/19 04:40 Ammonia 60.0 umol/L (25-60) 09/10/19 04:40 Total Creatine Kinase 267 units/L (55-170) H 09/09/19 10:22 CK-MB (CK-2) 4.6 ng/mL (0.0-4.0) H 09/09/19 10:22 CK-MB (CK-2) Rel Index 1.7 (0-4) 09/09/19 10:22 Troponin T < 0.010 ng/mL (0.00-0.029) 09/09/19 10:22 NT-Pro-B Natriuret Pep 268.5 pg/mL (0-900) 09/09/19 10:22 Total Protein 7.1 g/dL (6.3-8.2) 09/10/19 04:40 Albumin 3.8 g/dL (3.9-5) L 09/10/19 04:40 Albumin/Globulin Ratio 1.2 % 09/10/19 04:40 Triglycerides 90 mg/dL (2-149) 09/10/19 04:40 Cholesterol 196 mg/dL (50-199) 09/10/19 04:40 LDL Cholesterol Direct 131 mg/dL (50-130) H 09/10/19 04:40 HDL Cholesterol 57 mg/dL (40-59) 09/10/19 04:40 Cholesterol/HDL Ratio 3.43 % 09/10/19 04:40 Urine Color Yellow (Yellow) 09/09/19 15:24 Urine Turbidity Clear (Clear) 09/09/19 15:24 Urine pH 5.0 (5.0-7.0) 09/09/19 15:24 Ur Specific [place] 1.015 (1.003-1.030) 09/09/19 15:24 Urine Protein 30 mg/dl mg/dL (Negative) 09/09/19 15:24 Urine Glucose (UA) Neg mg/dL (Negative) 09/09/19 15:24 Urine Ketones Neg mg/dL (Negative) 09/09/19 15:24 Urine Blood Mod (Negative) 09/09/19 15:24 Urine Nitrite Neg (Negative) 09/09/19 15:24 Urine Bilirubin Neg (Negative) 09/09/19 15:24 Urine Urobilinogen < 2.0 mg/dL (<2.0) 09/09/19 15:24 Ur Leukocyte Esterase Neg (Negative) 09/09/19 15:24 Urine WBC (Auto) 2.0 /HPF (0.0-6.0) 09/09/19 15:24 Urine RBC (Auto) 59.0 /HPF (0.0-6.0) 09/09/19 15:24 U Epithel Cells (Auto) < 1.0 /HPF (0-13.0) 09/09/19 15:24 Urine Bacteria (Auto) 1+ /HPF (Negative) 09/09/19 15:24 Urine Mucus Few /HPF 09/09/19 15:24 Urine Opiates Screen Presumptive negative 09/09/19 15:24 Urine Methadone Screen Presumptive negative 09/09/19 15:24 Ur Barbiturates Screen Presumptive negative 09/09/19 15:24 Phenytoin 11.1 ug/mL (10.0-20.0) 09/09/19 13:10 Valproic Acid < 2.8 ug/mL (50-100) L 09/09/19 13:10 Ur Phencyclidine Scrn Presumptive negative 09/09/19 15:24 Ur Amphetamines Screen Presumptive negative 09/09/19 15:24 U Benzodiazepines Scrn Presumptive positive 09/09/19 15:24 Urine Cocaine Screen Presumptive negative 09/09/19 15:24 U Marijuana (THC) Screen Presumptive negative 09/09/19 15:24 Drugs of Abuse Note Disclamer 09/09/19 15:24 Active Medications - Current Medications Current Medications: Generic Name Dose Route Start Last Admin Trade Name Freq PRN Reason Stop Dose Admin Acetaminophen 650 mg 09/09/19 22:21 Tylenol PO Q4H PRN Pain MILD(1-3)/Fever >100.5/ANG Aspirin 300 mg 09/10/19 10:00 09/10/19 11:18 Aspirin [place] 300 mg QDAY [facility] Administration Atorvastatin Calcium 40 mg 09/09/19 22:00 09/09/19 23:51 Lipitor PO Not Given QHS [facility] Clopidogrel Bisulfate 75 mg 09/10/19 10:00 09/10/19 10:07 Plavix PO 75 mg QDAY [facility] Administration Divalproex Sodium 125 mg 09/10/19 10:00 09/10/19 10:[address] PO Not Given DAILY [facility] Famotidine 20 mg 09/10/19 00:30 09/10/19 09:30 Pepcid IV 20 mg BID [facility] Administration Hydrophilic Ointment 1 applic 09/09/19 12:23 Vaseline Lip Therapy TP Q2HR PRN Dry Lips Propofol 1,000 mg in 100 mls @ 2.599 mls/hr 09/09/19 13:00 09/10/19 19:51 Diprivan 10 Mg/Ml IV 50 mcg/kg/min TITR [facility] 25.991 mls/hr Administration Protocol 5 MCG/KG/MIN Ampicillin Sodium/Sulbactam Sodium 3 gm in 100 mls @ 200 mls/hr 09/10/19 00:00 09/10/19 13:49 Unasyn/Ns 3 Gm/100 Ml IV Infused Q6HR [facility] Infusion Protocol Phenytoin 200 mg/ Sodium 54 mls @ 216 mls/hr 09/10/19 00:30 09/10/19 10:07 Chloride IV Infused BID [facility] Infusion Levetiracetam 1,000 mg/ 110 mls @ 400 mls/hr 09/10/19 22:00 Dextrose IV Q12HR [facility] Dextrose/Sodium Chloride 1,000 mls @ 75 mls/hr 09/10/19 15:09 09/10/19 15:31 D5ns IV 75 mls/hr DIRECT [facility] Administration Labetalol HCl 10 mg 09/09/19 22:26 Labetalol IV Q4H PRN BP >170/105; hold for HR <60 Multi-Ingred Cream/Lotion/Oil/Oint 1 applic 09/09/19 12:23 Artificial Tears Ophth Oint OU Q4HR PRN Dry Eye(s) Ondansetron HCl 4 mg 09/09/19 22:21 Zofran IV Q8H PRN Nausea And Vomiting Sodium Chloride 10 ml 09/10/19 10:00 09/10/19 10:07 Sodium Chloride Flush Syringe 10 Ml IV 10 ml BID [facility] Administration Sodium Chloride 10 ml 09/09/19 22:21 Sodium Chloride Flush Syringe 10 Ml IV PRN PRN LINE FLUSH Nutrition/Malnutrition Assess - Dietary Evaluation Nutrition/Malnutrition Findings: Nutrition Notes Start: 09/10/19 12:25 Freq: Status: Active Protocol: Document 09/10/19 12:25 LM (Rec: 09/10/19 12:34 LM [id number]) Nutrition Notes Need for Assessment generated from: MD Order Initial or Follow up Assessment Current Diagnosis Coronary Artery Disease, Decubitus(Pressure Ulcer), Hypertension,Heart Failure, Respiratory Failure, Hyperlipidemia Other Pertinent Diagnosis hx of CVA, seizures, schizophrenia, pneumonia, hepatic encephalopathy Current Diet NPO Labs/Tests BG 109 Pertinent Medications Propofol (69 kcal) Height 6 ft 1 in Weight 86.636 kg [place] Body Weight (kg) 83.63 BMI 25.2 Weight Status Overweight Subjective/Other Information MD consult to evaluate nutritional intake. Pt in ED and on vent. Burn Absent Trauma Absent Current % PO Negligible Minimum of two criteria No #1 Nutrition Diagnosis Inadequate oral intake Etiology Mechanical vent As Evidenced by Signs and Symptoms pt NPO Is patient on ventilator? Yes Is Patient Ambulatory and/or Out of Bed No REE-([facility]-confined to bed) [phone] Calculation Used for Recommendations [facility] Additional Notes Protein: 104-173g (1.2-2g/kg) Fluid: 1 ml/kcal or per MD Nutrition Intervention Change Diet Order: TF when medically feasible Nutrition Support: Vital AF 1.2 at 70 ml/hr Flush 100 q4h Kcal 2,016 Protein (gm) 126 Fluid (mL) 1,362 Goal #1 Start TF when medically feasible Anticipated Discharge Needs: unable to determine at this time Follow-Up By: 09/12/19 Additional Comments F/U for TF consult/start
[2019-09-10] MEDS ORDERED: fentaNYL 100 MCG/2 ML INJ IV PRN (20:27)
--- NOTE | 2019-09-10 20:30 | Event Note ---
Was called to the bedside because patient is combative. He was sitting up on the bed despite being intubated and on restraints. The nurse states that he is maxed out on propofol. Therefore fentanyl was added.
[2019-09-10] MEDS ORDERED: fentaNYL DRIP Premix 2,000 MCG/100 ML BAG IV SCH (21:00)
[2019-09-10] MEDS ORDERED: fentaNYL DRIP Premix 2,000 MCG/100 ML BAG IV ONE (21:13)
[2019-09-10] MEDS ORDERED: levETIRAcetam 1,000 MG in DEXTROSE 5% IN WATER 100 ML IV SCH (22:00)
[2019-09-10] MEDS ORDERED: PHENYTOIN 100 MG/2 ML VIAL IV ONE (22:08)
[2019-09-10] MEDS ORDERED: levETIRAcetam 1000 MG/NS 0.75% 0 MG/0 ML BAG IV ONE (22:08)
--- NOTE | 2019-09-11 03:27 | XRay Report ---
CHEST 1 VIEW, 09/11/2019 2:47 AM CLINICAL INFORMATION/INDICATION: Respiratory failure COMPARISON: Chest radiograph, 09/10/2019 at 2:51 AM FINDINGS: SUPPORT DEVICES: The endotracheal tube and esophagogastric tube remain in satisfactory position. HEART: The cardiac silhouette is normal in size. LUNGS/PLEURA: The lungs are clear of focal airspace disease or significant pleural effusion. ADDITIONAL FINDINGS: No additional acute findings. IMPRESSION: 1. Stable appearance of the chest. Signer Name: Jaylene Alarcon MD Signed: 09/11/2019 3:23 AM Workstation Name: [id number]
[2019-09-11 04:39] LABS: ABG Base Excess 0.1 mmol/L (-2.0-3.0); ABG HCO3 24.4 mmol/L (20.0-26.0); ABG Methemoglobin 0.6 % (0.0-1.5); ABG Oxygen Saturation 97.7 % (95.0-99.0); ABG PCO2 38.1 mm Hg; ABG PH 7.423 pH Units (7.350-7.450); ABG PO2 100.4 mm Hg (80.0-90.0)
[2019-09-11 06:05] LABS: Hemolysis Index 369
[2019-09-11 06:31] LABS: BUN/Creatinine Ratio TNR; Blood Urea Nitrogen TNR mg/dL (9-20); Calcium TNR mg/dL (8.4-10.2)
[2019-09-11] MEDS: PROPOFOL 1,000 MG/100 ML BOTTLE IV SCH (06:55)
[2019-09-11] MEDS: AMPICILLIN/SULBACTA 3GM/100ML 3 GM/100 ML BAG IV SCH ×3 (06:55→17:03)
[2019-09-11] MEDS: D5W/0.9% NACL 1,000 ML IV SCH ×2 (06:56→22:58)
--- NOTE | 2019-09-11 08:34 | Progress Note ---
Assessment and Plan 59 y/o male with status epilepticus. 1. Extubate today. 2. Follow up neurology recs 3. Monitor volume status given history of heart failure 4. Restart cardiac meds, surgery feels abomen is stable. Bedside swallow and then restart all PO meds. Would ask neuro about Dilantin 5. Once extubated, can be transitioned to the floor after about 1-2 hours of monitoring post extubation. CCT 31 minutes Subjective Date of service: 09/11/19 Interval history: No acute events. IMS started Fent last night. no further seizures, will extubate. Objective Vital Signs - 12hr 09/10/19 09/10/19 09/10/19 20:35 21:00 21:30 Temperature 97 F L Pulse Rate 76 78 Pulse Rate [ From Monitor] Respiratory 21 20 Rate Blood Pressure 134/89 123/86 O2 Sat by Pulse 100 100 Oximetry 09/10/19 09/10/19 09/10/19 22:00 22:30 22:36 Temperature 98 F Pulse Rate 75 67 Pulse Rate [ From Monitor] Respiratory 20 20 Rate Blood Pressure 113/75 110/73 O2 Sat by Pulse 97 98 Oximetry 09/10/19 09/10/19 09/10/19 23:00 23:21 23:30 Temperature Pulse Rate 67 65 65 Pulse Rate [ From Monitor] Respiratory 20 20 Rate Blood Pressure 107/71 113/78 111/74 O2 Sat by Pulse 98 100 95 Oximetry 09/11/19 09/11/19 09/11/19 00:00 00:04 00:11 Temperature 98.5 F Pulse Rate 85 85 Pulse Rate [ From Monitor] Respiratory 12 17 Rate Blood Pressure 146/92 O2 Sat by Pulse 96 94 Oximetry 09/11/19 09/11/19 09/11/19 00:21 00:30 00:41 Temperature Pulse Rate 86 79 74 Pulse Rate [ From Monitor] Respiratory 20 20 20 Rate Blood Pressure 139/87 117/73 117/73 O2 Sat by Pulse 95 94 95 Oximetry 09/11/19 09/11/19 09/11/19 00:51 00:59 01:00 Temperature 98.2 F Pulse Rate 73 72 Pulse Rate [ 66 From Monitor] Respiratory 20 22 Rate Blood Pressure 114/72 110/69 O2 Sat by Pulse 95 99 Oximetry 09/11/19 09/11/19 09/11/19 01:10 01:21 01:30 Temperature Pulse Rate 65 69 62 Pulse Rate [ From Monitor] Respiratory 20 20 15 Rate Blood Pressure 110/69 114/72 124/75 O2 Sat by Pulse 99 96 98 Oximetry 09/11/19 09/11/19 09/11/19 01:41 01:51 02:00 Temperature Pulse Rate 64 63 83 Pulse Rate [ From Monitor] Respiratory 20 20 20 Rate Blood Pressure 124/75 104/70 111/71 O2 Sat by Pulse 97 97 97 Oximetry 09/11/19 09/11/19 09/11/19 02:11 02:21 02:30 Temperature Pulse Rate 63 65 59 L Pulse Rate [ From Monitor] Respiratory 20 20 20 Rate Blood Pressure 111/71 107/72 113/71 O2 Sat by Pulse 97 98 99 Oximetry 09/11/19 09/11/19 09/11/19 02:41 02:51 03:00 Temperature Pulse Rate 61 57 L 59 L Pulse Rate [ From Monitor] Respiratory 20 17 20 Rate Blood Pressure 113/71 108/71 121/75 O2 Sat by Pulse 99 100 100 Oximetry 09/11/19 09/11/19 09/11/19 03:11 03:21 03:30 Temperature Pulse Rate 60 61 58 L Pulse Rate [ From Monitor] Respiratory 20 20 20 Rate Blood Pressure 121/75 110/69 113/67 O2 Sat by Pulse 100 100 100 Oximetry 09/11/19 09/11/19 09/11/19 03:31 03:41 03:51 Temperature 99.5 F Pulse Rate 61 60 Pulse Rate [ From Monitor] Respiratory 20 20 Rate Blood Pressure 113/67 118/70 O2 Sat by Pulse 100 100 Oximetry 09/11/19 09/11/19 09/11/19 04:01 04:11 04:21 Temperature Pulse Rate 73 63 62 Pulse Rate [ From Monitor] Respiratory 25 H 20 20 Rate Blood Pressure 132/87 132/87 115/73 O2 Sat by Pulse 100 98 98 Oximetry 09/11/19 09/11/19 09/11/19 04:31 04:33 04:41 Temperature Pulse Rate 66 71 72 Pulse Rate [ From Monitor] Respiratory 16 13 Rate Blood Pressure 111/74 111/74 O2 Sat by Pulse 93 96 96 Oximetry 09/11/19 09/11/19 09/11/19 04:45 04:51 05:00 Temperature Pulse Rate 77 74 Pulse Rate [ 63 From Monitor] Respiratory 20 12 Rate Blood Pressure 127/67 122/72 O2 Sat by Pulse 100 96 96 Oximetry 09/11/19 09/11/19 09/11/19 05:11 05:21 05:30 Temperature Pulse Rate 66 63 63 Pulse Rate [ From Monitor] Respiratory 21 20 20 Rate Blood Pressure 122/72 117/70 111/67 O2 Sat by Pulse 94 95 95 Oximetry 09/11/19 09/11/19 09/11/19 05:41 05:51 06:00 Temperature Pulse Rate 64 63 63 Pulse Rate [ From Monitor] Respiratory 20 20 20 Rate Blood Pressure 111/67 107/67 113/67 O2 Sat by Pulse 95 95 95 Oximetry 09/11/19 09/11/19 09/11/19 06:11 06:21 06:30 Temperature Pulse Rate 62 60 68 Pulse Rate [ From Monitor] Respiratory 20 20 22 Rate Blood Pressure 113/67 119/71 113/80 O2 Sat by Pulse 96 94 96 Oximetry 09/11/19 09/11/19 09/11/19 06:41 06:51 07:00 Temperature Pulse Rate 72 65 63 Pulse Rate [ From Monitor] Respiratory 17 20 20 Rate Blood Pressure 113/67 133/79 126/74 O2 Sat by Pulse 98 96 Oximetry 09/11/19 09/11/19 09/11/19 07:11 07:21 07:31 Temperature Pulse Rate 68 71 73 Pulse Rate [ From Monitor] Respiratory 17 15 9 L Rate Blood Pressure 126/74 125/79 135/75 O2 Sat by Pulse 96 81 L Oximetry 09/11/19 09/11/19 09/11/19 07:41 07:51 08:00 Temperature Pulse Rate 69 74 64 Pulse Rate [ 64 From Monitor] Respiratory 10 L 14 15 Rate Blood Pressure 135/75 128/77 128/75 O2 Sat by Pulse 96 95 96 Oximetry 09/11/19 08:12 Temperature Pulse Rate 64 Pulse Rate [ From Monitor] Respiratory 16 Rate Blood Pressure 128/75 O2 Sat by Pulse 96 Oximetry Constitutional: comatose Eyes: non-icteric Neck: supple, no JVD Effort: normal Ascultation: Bilateral: clear Percussion: Bilateral: not dull Cardiovascular: regular rate and rhythm Gastrointestinal: hypoactive bowel sounds, other (distended, slightly) Extremities: no edema, pink and warm, pulses normal CBC and BMP: 09/10/19 04:40 09/11/19 04:50 ABG, PT/INR, D-dimer: ABG POC ABG pH 7.419 (7.35-7.45) 09/10/19 05:02 ABG pH 7.423 pH Units (7.350-7.450) 09/11/19 03:57 POC ABG pCO2 38.4 (35-45) 09/10/19 05:02 ABG pCO2 38.1 mm Hg 09/11/19 03:57 POC ABG pO2 94 (80-105) 09/10/19 05:02 ABG pO2 100.4 mm Hg (80.0-90.0) H 09/11/19 03:57 POC ABG HCO3 24.8 (22-26 mml/L) 09/10/19 05:02 POC ABG Total CO2 26 (23-27mmol/L) 09/10/19 05:02 POC ABG O2 Sat 97 09/10/19 05:02 ABG O2 Saturation 97.7 % (95.0-99.0) 09/11/19 03:57 PT/INR, D-dimer PT 13.6 Sec. (12.2-14.9) 09/09/19 10:22 INR 1.03 (0.87-1.13) 09/09/19 10:22 Abnormal lab findings: Abnormal Labs 09/09/19 09/09/19 09/09/19 10:22 10:22 10:22 Lymph % (Auto) [place] % (Auto) 8.6 H Eos % (Auto) 4.7 H Lymph # Seg Neutrophils % POC ABG pH POC ABG pCO2 POC ABG pO2 ABG pO2 ABG Hemoglobin Potassium 3.4 L Carbon Dioxide 21 L Creatinine Glucose 161 H POC Glucose Alkaline Phosphatase 139 H Ammonia 83.0 H Total Creatine Kinase 267 H CK-MB (CK-2) 4.6 H Albumin LDL Cholesterol Direct Valproic Acid 09/09/19 09/09/19 09/09/19 10:29 13:10 13:54 Lymph % (Auto) [place] % (Auto) Eos % (Auto) Lymph # Seg Neutrophils % POC ABG pH 7.150 L POC ABG pCO2 > 70 H 46.7 H POC ABG pO2 179 H ABG pO2 ABG Hemoglobin Potassium Carbon Dioxide Creatinine Glucose POC Glucose Alkaline Phosphatase Ammonia Total Creatine Kinase CK-MB (CK-2) Albumin LDL Cholesterol Direct Valproic Acid < 2.8 L 09/10/19 09/10/19 09/10/19 04:40 04:40 18:21 Lymph % (Auto) 7.2 L [place] % (Auto) 10.3 H Eos % (Auto) Lymph # 0.6 L Seg Neutrophils % 81.9 H POC ABG pH POC ABG pCO2 POC ABG pO2 ABG pO2 ABG Hemoglobin Potassium Carbon Dioxide 20 L Creatinine 0.6 L Glucose 109 H POC Glucose 109 H Alkaline Phosphatase Ammonia Total Creatine Kinase CK-MB (CK-2) Albumin 3.8 L LDL Cholesterol Direct 131 H Valproic Acid 09/11/19 03:57 Lymph % (Auto) [place] % (Auto) Eos % (Auto) Lymph # Seg Neutrophils % POC ABG pH POC ABG pCO2 POC ABG pO2 ABG pO2 100.4 H ABG Hemoglobin 12.2 L Potassium Carbon Dioxide Creatinine Glucose POC Glucose Alkaline Phosphatase Ammonia Total Creatine Kinase CK-MB (CK-2) Albumin LDL Cholesterol Direct Valproic Acid
--- NOTE | 2019-09-11 08:54 | Progress Note ---
Assessment and Plan - Patient Problems (1) Abdominal distension, gaseous Current Visit: Yes Status: Acute Plan to address problem: Pt stable from abdominal standpoint. Order NGT to LIS. Will follow clinically for now. Need to make sure electrolytes and fluid balance are ok. Phos results not back yet. Abdominal film in AM. Conservative management. Will follow along. Please call with questions. time=10min Subjective Date of service: 09/11/19 Patient Reports: Positive: no flatus, no bowel movement Objective Vital Signs - 12hr 09/10/19 09/10/19 09/10/19 21:00 21:30 22:00 Temperature Pulse Rate 76 78 75 Pulse Rate [ From Monitor] Respiratory 21 20 20 Rate Blood Pressure 134/89 123/86 113/75 O2 Sat by Pulse 100 100 97 Oximetry 09/10/19 09/10/19 09/10/19 22:30 22:36 23:00 Temperature 98 F Pulse Rate 67 67 Pulse Rate [ From Monitor] Respiratory 20 20 Rate Blood Pressure 110/73 107/71 O2 Sat by Pulse 98 98 Oximetry 09/10/19 09/10/19 09/11/19 23:21 23:30 00:00 Temperature 98.5 F Pulse Rate 65 65 Pulse Rate [ From Monitor] Respiratory 20 Rate Blood Pressure 113/78 111/74 O2 Sat by Pulse 100 95 Oximetry 09/11/19 09/11/19 09/11/19 00:04 00:11 00:21 Temperature Pulse Rate 85 85 86 Pulse Rate [ From Monitor] Respiratory 12 17 20 Rate Blood Pressure 146/92 139/87 O2 Sat by Pulse 96 94 95 Oximetry 09/11/19 09/11/19 09/11/19 00:30 00:41 00:51 Temperature Pulse Rate 79 74 73 Pulse Rate [ From Monitor] Respiratory 20 20 20 Rate Blood Pressure 117/73 117/73 114/72 O2 Sat by Pulse 94 95 95 Oximetry 09/11/19 09/11/19 09/11/19 00:59 01:00 01:10 Temperature 98.2 F Pulse Rate 72 65 Pulse Rate [ 66 From Monitor] Respiratory 22 20 Rate Blood Pressure 110/69 110/69 O2 Sat by Pulse 99 99 Oximetry 09/11/19 09/11/19 09/11/19 01:21 01:30 01:41 Temperature Pulse Rate 69 62 64 Pulse Rate [ From Monitor] Respiratory 20 15 20 Rate Blood Pressure 114/72 124/75 124/75 O2 Sat by Pulse 96 98 97 Oximetry 09/11/19 09/11/19 09/11/19 01:51 02:00 02:11 Temperature Pulse Rate 63 83 63 Pulse Rate [ From Monitor] Respiratory 20 20 20 Rate Blood Pressure 104/70 111/71 111/71 O2 Sat by Pulse 97 97 97 Oximetry 09/11/19 09/11/19 09/11/19 02:21 02:30 02:41 Temperature Pulse Rate 65 59 L 61 Pulse Rate [ From Monitor] Respiratory 20 20 20 Rate Blood Pressure 107/72 113/71 113/71 O2 Sat by Pulse 98 99 99 Oximetry 09/11/19 09/11/19 09/11/19 02:51 03:00 03:11 Temperature Pulse Rate 57 L 59 L 60 Pulse Rate [ From Monitor] Respiratory 17 20 20 Rate Blood Pressure 108/71 121/75 121/75 O2 Sat by Pulse 100 100 100 Oximetry 09/11/19 09/11/19 09/11/19 03:21 03:30 03:31 Temperature 99.5 F Pulse Rate 61 58 L Pulse Rate [ From Monitor] Respiratory 20 20 Rate Blood Pressure 110/69 113/67 O2 Sat by Pulse 100 100 Oximetry 09/11/19 09/11/19 09/11/19 03:41 03:51 04:01 Temperature Pulse Rate 61 60 73 Pulse Rate [ From Monitor] Respiratory 20 20 25 H Rate Blood Pressure 113/67 118/70 132/87 O2 Sat by Pulse 100 100 100 Oximetry 09/11/19 09/11/19 09/11/19 04:11 04:21 04:31 Temperature Pulse Rate 63 62 66 Pulse Rate [ From Monitor] Respiratory 20 20 16 Rate Blood Pressure 132/87 115/73 111/74 O2 Sat by Pulse 98 98 93 Oximetry 09/11/19 09/11/19 09/11/19 04:33 04:41 04:45 Temperature Pulse Rate 71 72 Pulse Rate [ From Monitor] Respiratory 13 Rate Blood Pressure 111/74 O2 Sat by Pulse 96 96 100 Oximetry 09/11/19 09/11/19 09/11/19 04:51 05:00 05:11 Temperature Pulse Rate 77 74 66 Pulse Rate [ 63 From Monitor] Respiratory 20 12 21 Rate Blood Pressure 127/67 122/72 122/72 O2 Sat by Pulse 96 96 94 Oximetry 09/11/19 09/11/19 09/11/19 05:21 05:30 05:41 Temperature Pulse Rate 63 63 64 Pulse Rate [ From Monitor] Respiratory 20 20 20 Rate Blood Pressure 117/70 111/67 111/67 O2 Sat by Pulse 95 95 95 Oximetry 09/11/19 09/11/19 09/11/19 05:51 06:00 06:11 Temperature Pulse Rate 63 63 62 Pulse Rate [ From Monitor] Respiratory 20 20 20 Rate Blood Pressure 107/67 113/67 113/67 O2 Sat by Pulse 95 95 96 Oximetry 09/11/19 09/11/19 09/11/19 06:21 06:30 06:41 Temperature Pulse Rate 60 68 72 Pulse Rate [ From Monitor] Respiratory 20 22 17 Rate Blood Pressure 119/71 113/80 113/67 O2 Sat by Pulse 94 96 Oximetry 09/11/19 09/11/19 09/11/19 06:51 07:00 07:11 Temperature 98.9 F Pulse Rate 65 63 68 Pulse Rate [ From Monitor] Respiratory 20 20 17 Rate Blood Pressure 133/79 126/74 126/74 O2 Sat by Pulse 98 96 96 Oximetry 09/11/19 09/11/19 09/11/19 07:21 07:31 07:41 Temperature Pulse Rate 71 73 69 Pulse Rate [ From Monitor] Respiratory 15 9 L 10 L Rate Blood Pressure 125/79 135/75 135/75 O2 Sat by Pulse 81 L 96 Oximetry 09/11/19 09/11/19 09/11/19 07:51 08:00 08:12 Temperature Pulse Rate 74 64 64 Pulse Rate [ 64 From Monitor] Respiratory 14 15 16 Rate Blood Pressure 128/77 128/75 128/75 O2 Sat by Pulse 95 96 96 Oximetry - General physical appearance no distress, no pain, other (intubated and sedated) - Respiratory normal expansion, normal respiratory effort - Abdomen soft, bowel sounds hypoactive, distended, not guarding, not rigid - Labs 09/10/19 04:40 09/11/19 08:43 Diabetes panel 09/11/19 Range/Units 04:50 Sodium TNR Potassium TNR Chloride TNR Carbon Dioxide TNR BUN TNR Creatinine TNR Glucose TNR Calcium TNR Calcium panel 09/11/19 Range/Units 04:50 Calcium TNR Phosphorus TNR Pituitary panel 09/11/19 Range/Units 04:50 Sodium TNR Potassium TNR Chloride TNR Carbon Dioxide TNR BUN TNR Creatinine TNR Glucose TNR Calcium TNR Adrenal panel 09/11/19 Range/Units 04:50 Sodium TNR Potassium TNR Chloride TNR Carbon Dioxide TNR BUN TNR Creatinine TNR Glucose TNR Calcium TNR
[2019-09-11] MEDS ORDERED: HALOPERIDOL LACTATE 5 MG/1 ML INJ ONE (08:55)
[2019-09-11] MEDS ORDERED: diphenhydrAMINE 50 MG/ML VIAL IV ONE (09:00)
[2019-09-11] MEDS ORDERED: LORazepam 2 MG/ML VIAL IV ONE (09:00)
[2019-09-11 09:21] LABS: BUN/Creatinine Ratio 10; Blood Urea Nitrogen 6 mg/dL (9-20); Hemolysis Index 100
[2019-09-11] MEDS: CLOPIDOGREL 75 MG TAB PO SCH (09:27)
[2019-09-11] MEDS: ASPIRIN 325 MG TAB PO SCH (09:27)
[2019-09-11] MEDS: FAMOTIDINE 20 MG/2 ML INJ IV SCH ×2 (09:27→23:06)
[2019-09-11] MEDS ORDERED: HALOPERIDOL LACTATE 5 MG/1 ML INJ IV PRN ×2 (09:45→16:04)
[2019-09-11] MEDS ORDERED: VALPROIC ACID 250 MG/5 ML ORAL LIQD PO SCH (10:00)
[2019-09-11] MEDS ORDERED: levETIRAcetam 500 MG in DEXTROSE 5% IN WATER 100 ML IV SCH (10:00)
[2019-09-11] MEDS ORDERED: HALOPERIDOL LACTATE 5 MG/1 ML INJ IV ONE (10:00)
[2019-09-11] MEDS ORDERED: VALPROATE SODIUM 500 MG in SODIUM CHLORIDE 0.9% 100 ML IV SCH (10:00)
[2019-09-11] MEDS ORDERED: PNEUMOCOCCAL 23 Valent 0.5 ML VIAL IM ONE (12:00)
[2019-09-11] MEDS ORDERED: FLU VACC QUAD 2019-20 (3 YR UP)/PF 60 MCG/0.5 ML SYRINGE IM ONE (12:00)
--- NOTE | 2019-09-11 12:25 | Progress Note ---
Assessment and Plan seizure d/o, hx of stroke, arrived w back to back seizure breakthrough, poss . wasnt getting VPA, unstable agitated, internal stimuli, hx of MH, schizo, poss related to that, consider neuroleptic vpa and keppra on board will d/c keppra d/t poss. exacerbating psych d/o VPA 1000 bid from here on, can go up to 1500 bid if recurrent sz check levels sz precautions agitation : will start melatonin xavier to help relax pt repeat EEG when calm cont. secondary stroke prevention measures /meds tele : no a.fib , continue Subjective Date of service: 09/11/19 Principal diagnosis: seizure Interval history: no further sz per chart and nursing extubated, was combative overnight pt not able to give hx, agitated no a.fib no suspected LOC 2 point restraints NG tuba keppra and VPA 'i say my finger is what is going on' pt does say no to , do you have a ANG no fevers 'i didnt have any seizures, he got a gun he got a gun' haldol given VPA very low levels Objective - Exam Narrative Exam: awake agitated no moving eyes on commands a well as i would like pupils reactive pt seems 5/5 to the R side, L side seems weaker trying to get up , 2 point restraints fsc by closing eyes verbal neck supple CN seem intact pupils are reactive b/l not looking to L , I saw eyes going to right 'he got gun, he got gun , he got gun ' - Vital Sign Vital Signs - 12hr 09/11/19 09/11/19 09/11/19 00:30 00:41 00:51 Temperature Pulse Rate 79 74 73 Pulse Rate [ From Monitor] Respiratory 20 20 20 Rate Blood Pressure 117/73 117/73 114/72 O2 Sat by Pulse 94 95 95 Oximetry 09/11/19 09/11/19 09/11/19 00:59 01:00 01:10 Temperature 98.2 F Pulse Rate 72 65 Pulse Rate [ 66 From Monitor] Respiratory 22 20 Rate Blood Pressure 110/69 110/69 O2 Sat by Pulse 99 99 Oximetry 09/11/19 09/11/19 09/11/19 01:21 01:30 01:41 Temperature Pulse Rate 69 62 64 Pulse Rate [ From Monitor] Respiratory 20 15 20 Rate Blood Pressure 114/72 124/75 124/75 O2 Sat by Pulse 96 98 97 Oximetry 09/11/19 09/11/19 09/11/19 01:51 02:00 02:11 Temperature Pulse Rate 63 83 63 Pulse Rate [ From Monitor] Respiratory 20 20 20 Rate Blood Pressure 104/70 111/71 111/71 O2 Sat by Pulse 97 97 97 Oximetry 09/11/19 09/11/19 09/11/19 02:21 02:30 02:41 Temperature Pulse Rate 65 59 L 61 Pulse Rate [ From Monitor] Respiratory 20 20 20 Rate Blood Pressure 107/72 113/71 113/71 O2 Sat by Pulse 98 99 99 Oximetry 09/11/19 09/11/19 09/11/19 02:51 03:00 03:11 Temperature Pulse Rate 57 L 59 L 60 Pulse Rate [ From Monitor] Respiratory 17 20 20 Rate Blood Pressure 108/71 121/75 121/75 O2 Sat by Pulse 100 100 100 Oximetry 09/11/19 09/11/19 09/11/19 03:21 03:30 03:31 Temperature 99.5 F Pulse Rate 61 58 L Pulse Rate [ From Monitor] Respiratory 20 20 Rate Blood Pressure 110/69 113/67 O2 Sat by Pulse 100 100 Oximetry 09/11/19 09/11/19 09/11/19 03:41 03:51 04:01 Temperature Pulse Rate 61 60 73 Pulse Rate [ From Monitor] Respiratory 20 20 25 H Rate Blood Pressure 113/67 118/70 132/87 O2 Sat by Pulse 100 100 100 Oximetry 09/11/19 09/11/19 09/11/19 04:11 04:21 04:31 Temperature Pulse Rate 63 62 66 Pulse Rate [ From Monitor] Respiratory 20 20 16 Rate Blood Pressure 132/87 115/73 111/74 O2 Sat by Pulse 98 98 93 Oximetry 09/11/19 09/11/19 09/11/19 04:33 04:41 04:45 Temperature Pulse Rate 71 72 Pulse Rate [ From Monitor] Respiratory 13 Rate Blood Pressure 111/74 O2 Sat by Pulse 96 96 100 Oximetry 09/11/19 09/11/19 09/11/19 04:51 05:00 05:11 Temperature Pulse Rate 77 74 66 Pulse Rate [ 63 From Monitor] Respiratory 20 12 21 Rate Blood Pressure 127/67 122/72 122/72 O2 Sat by Pulse 96 96 94 Oximetry 09/11/19 09/11/19 09/11/19 05:21 05:30 05:41 Temperature Pulse Rate 63 63 64 Pulse Rate [ From Monitor] Respiratory 20 20 20 Rate Blood Pressure 117/70 111/67 111/67 O2 Sat by Pulse 95 95 95 Oximetry 09/11/19 09/11/19 09/11/19 05:51 06:00 06:11 Temperature Pulse Rate 63 63 62 Pulse Rate [ From Monitor] Respiratory 20 20 20 Rate Blood Pressure 107/67 113/67 113/67 O2 Sat by Pulse 95 95 96 Oximetry 09/11/19 09/11/19 09/11/19 06:21 06:30 06:41 Temperature Pulse Rate 60 68 72 Pulse Rate [ From Monitor] Respiratory 20 22 17 Rate Blood Pressure 119/71 113/80 113/67 O2 Sat by Pulse 94 96 Oximetry 09/11/19 09/11/19 09/11/19 06:51 07:00 07:11 Temperature 98.9 F Pulse Rate 65 63 68 Pulse Rate [ From Monitor] Respiratory 20 20 17 Rate Blood Pressure 133/79 126/74 126/74 O2 Sat by Pulse 98 96 96 Oximetry 09/11/19 09/11/19 09/11/19 07:21 07:31 07:41 Temperature Pulse Rate 71 73 69 Pulse Rate [ From Monitor] Respiratory 15 9 L 10 L Rate Blood Pressure 125/79 135/75 135/75 O2 Sat by Pulse 81 L 96 Oximetry 09/11/19 09/11/19 09/11/19 07:51 08:00 08:04 Temperature Pulse Rate 74 64 70 Pulse Rate [ 64 From Monitor] Respiratory 14 15 Rate Blood Pressure 128/77 128/75 O2 Sat by Pulse 95 96 Oximetry 09/11/19 09/11/19 09/11/19 08:11 08:12 08:21 Temperature Pulse Rate 64 64 72 Pulse Rate [ From Monitor] Respiratory 13 16 13 Rate Blood Pressure 128/75 128/75 120/73 O2 Sat by Pulse 95 96 94 Oximetry 09/11/19 09/11/19 09/11/19 08:30 08:40 08:50 Temperature Pulse Rate 89 75 136 H Pulse Rate [ From Monitor] Respiratory 12 16 16 Rate Blood Pressure 120/73 138/84 138/84 O2 Sat by Pulse Oximetry 09/11/19 09/11/19 09/11/19 08:55 09:01 09:11 Temperature Pulse Rate 164 H 108 H Pulse Rate [ From Monitor] Respiratory 29 H 27 H Rate Blood Pressure 138/84 138/84 O2 Sat by Pulse 97 100 Oximetry 09/11/19 09/11/19 09/11/19 09:21 09:30 09:41 Temperature Pulse Rate 97 H 95 H 98 H Pulse Rate [ From Monitor] Respiratory 27 H 18 27 H Rate Blood Pressure 134/78 145/88 145/88 O2 Sat by Pulse 91 91 90 Oximetry 09/11/19 09/11/19 09/11/19 09:51 10:01 10:11 Temperature Pulse Rate 95 H 115 H 95 H Pulse Rate [ From Monitor] Respiratory 25 H 21 26 H Rate Blood Pressure 146/87 146/87 146/87 O2 Sat by Pulse 95 92 95 Oximetry 09/11/19 09/11/19 09/11/19 10:21 10:30 10:41 Temperature Pulse Rate 105 H 95 H 94 H Pulse Rate [ From Monitor] Respiratory 23 27 H 31 H Rate Blood Pressure 138/88 137/87 137/87 O2 Sat by Pulse 93 95 96 Oximetry 09/11/19 09/11/19 09/11/19 10:51 11:00 11:11 Temperature Pulse Rate 103 H 92 H 104 H Pulse Rate [ From Monitor] Respiratory 27 H 22 19 Rate Blood Pressure 140/82 147/91 147/91 O2 Sat by Pulse 96 96 95 Oximetry - Laboratory Findings CBC and BMP: 09/10/19 04:40 09/11/19 08:43 Abnormal Lab Findings: Abnormal Labs 09/09/19 09/09/19 09/09/19 10:22 10:22 10:22 Lymph % (Auto) [place] % (Auto) 8.6 H Eos % (Auto) 4.7 H Lymph # Seg Neutrophils % POC ABG pH POC ABG pCO2 POC ABG pO2 ABG pO2 ABG Hemoglobin Potassium 3.4 L Chloride Carbon Dioxide 21 L BUN Creatinine Glucose 161 H POC Glucose Calcium Alkaline Phosphatase 139 H Ammonia 83.0 H Total Creatine Kinase 267 H CK-MB (CK-2) 4.6 H Albumin LDL Cholesterol Direct Valproic Acid 09/09/19 09/09/19 09/09/19 10:29 13:10 13:54 Lymph % (Auto) [place] % (Auto) Eos % (Auto) Lymph # Seg Neutrophils % POC ABG pH 7.150 L POC ABG pCO2 > 70 H 46.7 H POC ABG pO2 179 H ABG pO2 ABG Hemoglobin Potassium Chloride Carbon Dioxide BUN Creatinine Glucose POC Glucose Calcium Alkaline Phosphatase Ammonia Total Creatine Kinase CK-MB (CK-2) Albumin LDL Cholesterol Direct Valproic Acid < 2.8 L 09/10/19 09/10/19 09/10/19 04:40 04:40 18:21 Lymph % (Auto) 7.2 L [place] % (Auto) 10.3 H Eos % (Auto) Lymph # 0.6 L Seg Neutrophils % 81.9 H POC ABG pH POC ABG pCO2 POC ABG pO2 ABG pO2 ABG Hemoglobin Potassium Chloride Carbon Dioxide 20 L BUN Creatinine 0.6 L Glucose 109 H POC Glucose 109 H Calcium Alkaline Phosphatase Ammonia Total Creatine Kinase CK-MB (CK-2) Albumin 3.8 L LDL Cholesterol Direct 131 H Valproic Acid 09/11/19 09/11/19 03:57 08:43 Lymph % (Auto) [place] % (Auto) Eos % (Auto) Lymph # Seg Neutrophils % POC ABG pH POC ABG pCO2 POC ABG pO2 ABG pO2 100.4 H ABG Hemoglobin 12.2 L Potassium Chloride 111.6 H Carbon Dioxide 19 L BUN 6 L Creatinine 0.6 L Glucose POC Glucose Calcium 8.0 L Alkaline Phosphatase Ammonia Total Creatine Kinase CK-MB (CK-2) Albumin LDL Cholesterol Direct Valproic Acid
--- NOTE | 2019-09-11 14:44 | Progress Note ---
Assessment and Plan Cultures: 09/09/2019 tracheal aspirate: NGTD 09/09/2019 blood culture: NGTD A/P: 59/M skilled nursing resident, hypertension, CVA, CHF, seizure disorder, schizophrenia, hyperlipidemia, CAD, CHF admitted with: #Seizures, post ictal state, acute encephalopathy: improving. #Acute resp failure, b/l aspiration pneumonia vs pneumonitis: extubated #Ileus: surgery following, stable. Recs: continue Unasyn Day 2 fever could be from seizures / reactive. Procalcitonin ordered for AM Emily Nicholson MD, FACP [facility] C: [phone] O: [phone] F: [phone] Subjective Date of service: 09/11/19 Principal diagnosis: seizure Interval history: One episode of fever. Patient extubated to nasal cannula. Confused. Objective - Exam Narrative Exam: Physical Exam: Constitutional: awake, alert but confused Head, Ears, Nose: Normocephalic, atraumatic. External ears, nose normal Eyes: Conjunctivae/corneas clear. No icterus. No ptosis. Neck: supple, no meningeal signs Cardiovascular: S1, S2 normal. Respiratory: Good air entry, clear to auscultation bilaterally GI: mildly distended, bowel sounds +. No peritoneal signs Musculoskeletal: No pedal edema, no cyanosis. Skin: No rash or abscess Hem/Lymphatic: No palpable cervical or supraclavicular nodes. No lymphangitis Psych: no agitation Neurological: awake, alert but confused - Constitutional Vitals: Vital Signs Temp Pulse Resp BP Pulse Ox 101.5 F H 101 H 32 H 145/94 96 09/11/19 11:00 09/11/19 12:41 09/11/19 12:41 09/11/19 12:41 09/11/19 12:41 Temperature -Last 24 Hours Temperature 101.5 F Temperature 98.9 F Temperature 99.5 F Temperature 98.2 F Temperature 98.5 F Temperature 98 F Temperature 97 F - Labs CBC & Chem 7: 09/10/19 04:40 09/11/19 08:43 Labs: Abnormal lab results 09/09/19 09/10/19 09/11/19 Range/Units 10:29 18:21 03:57 POC ABG pCO2 > 70 H (35-45) ABG pO2 100.4 H (80.0-90.0) mm Hg ABG Hemoglobin 12.2 L (14.0-18.0) gm/dl Chloride (98-107) mmol/L Carbon Dioxide (22-30) mmol/L BUN (9-20) mg/dL Creatinine (0.8-1.5) mg/dL POC Glucose 109 H (70-105) Calcium (8.4-10.2) mg/dL 09/11/19 Range/Units 08:43 POC ABG pCO2 (35-45) ABG pO2 (80.0-90.0) mm Hg ABG Hemoglobin (14.0-18.0) gm/dl Chloride 111.6 H (98-107) mmol/L Carbon Dioxide 19 L (22-30) mmol/L BUN 6 L (9-20) mg/dL Creatinine 0.6 L (0.8-1.5) mg/dL POC Glucose (70-105) Calcium 8.0 L (8.4-10.2) mg/dL - Imaging and cardiology Chest x-ray: report reviewed, image reviewed (minimal basal infiltrate)
--- NOTE | 2019-09-11 14:46 | Consultation ---
<VANESSA DAY - Last Filed: 09/11/19 15:42> History of Present Illness Consult date: 09/11/19 Requesting physician: LILIANA CHU Consult reason: other (intracardiac mass) History of present illness: The pt is a 59-year-old male detention resident with a past medical history of ? CAD, aortic root dilation per [place] records, s/p apparent median sternotomy for unknown reasons, HF, HTN, HLP, CVA, seizure disorder, ETOH abuse, Wernicke's encephalopathy, schizophrenia. He is restrained, agitated and confused on evaluation and thus HPI is obtained per the chart. Pt brought in for multiple seizures. Apparently he was having seizures nonstop at the detention. While in the ER the patient was postictal and nonresponsive was unable to protect his airway and therefore intubated for airway protection. It is reported that the patient vomited and aspirated in the EMS and prior to arrival. Pt has subsequently been extubated. Pt underwent tte on 09/09/2019 which showed EF 45- 50%, mod LVH, grade 1 diastolic dysfunction, no sig valvular abnormalities, mod pleural effusion, mobile echogenic structure in LA that appears attached to the posterior wall of the aortic root or roof of the LA, atrial septal aneurysm present, negative bubble study although suboptimal study and thus cardiology has been consulted. Additionally, review of ECG and telemetry reveals apparent paroxysmal atrial flutter with RVR. Pt is in sinus tachycardia on evaluation. Past History Past Medical History: CAD, heart failure, hypertension, hyperlipidemia, seizures, stroke, other (schizophrenia. Wernicke's encephalopathy) Past Surgical History: Other (Feeding tube placement? chest surgery) Social history: alcohol abuse (by reports) Medications and Allergies Allergies Allergy/AdvReac Type Severity Reaction Status Date / Time Iodine and Iodide Containing Allergy Unknown Verified 01/27/19 10:25 Produc Home Medications Medication Instructions Recorded Confirmed Last Taken Type Aspirin [Aspirin BABY CHEW TAB] 81 mg PO DAILY #30 02/07/19 01/27/19 Unknown Rx AtorvaSTATin [Lipitor] 40 mg PO QHS #30 tablet 02/07/19 Unknown Rx Clopidogrel [Plavix] 75 mg PO QDAY #30 tablet 02/07/19 Unknown Rx Divalproex [Yenny [place]] 125 mg PO DAILY #30 02/07/19 01/27/19 Unknown Rx Famotidine [Pepcid] 20 mg PO BID #60 tablet 02/07/19 Unknown Rx Metoprolol [Lopressor TAB] 75 mg PO BID #60 tablet 02/07/19 Unknown Rx Phenytoin [Dilantin] 200 mg PO BID #60 02/07/19 01/27/19 Unknown Rx cloNIDine-TTS PATCH [Catapres-Tts 0.2 mg TD QWEEK patch 02/07/19 Unknown Rx 0.2mg Patch] levETIRAcetam [Keppra] 1,500 mg PO BID #60 oral.liqd 02/07/19 Unknown Rx lisinopriL [Zestril TAB] 40 mg PO QDAY #30 tablet 02/07/19 Unknown Rx Active Meds: Active Medications Acetaminophen (Tylenol) 650 mg PO Q4H PRN PRN Reason: Pain MILD(1-3)/Fever >100.5/ANG Last Admin: 09/11/19 12:25 Dose: 650 mg Documented by: Aspirin (Aspirin) 325 mg PO QDAY [facility] Last Admin: 09/11/19 09:27 Dose: 325 mg Documented by: Atorvastatin Calcium (Lipitor) 40 mg PO QHS [facility] Last Admin: 09/10/19 23:17 Dose: Not Given Documented by: Clopidogrel Bisulfate (Plavix) 75 mg PO QDAY [facility] Last Admin: 09/11/19 09:27 Dose: 75 mg Documented by: Famotidine (Pepcid) 20 mg IV BID [facility] Last Admin: 09/11/19 09:27 Dose: 20 mg Documented by: Hydrophilic Ointment (Vaseline Lip Therapy) 1 applic TP Q2HR PRN PRN Reason: Dry Lips Ampicillin Sodium/Sulbactam Sodium (Unasyn/Ns 3 Gm/100 Ml) 3 gm in 100 mls @ 200 mls/hr IV Q6HR [facility]; Protocol Last Admin: 09/11/19 11:56 Dose: 200 mls/hr Documented by: Dextrose/Sodium Chloride (D5ns) 1,000 mls @ 75 mls/hr IV DIRECT [facility] Last Admin: 09/11/19 06:56 Dose: 75 mls/hr Documented by: Valproate Sodium 1,000 mg/ (Sodium Chloride) 110 mls @ 100 mls/hr IV Q12HR [facility] Labetalol HCl (Labetalol) 10 mg IV Q4H PRN PRN Reason: BP >170/105; hold for HR <60 Melatonin (Melatonin) 5 mg PO BID [facility] Multi-Ingred Cream/Lotion/Oil/Oint (Artificial Tears Ophth Oint) 1 applic OU Q4HR PRN PRN Reason: Dry Eye(s) Ondansetron HCl (Zofran) 4 mg IV Q8H PRN PRN Reason: Nausea And Vomiting Sodium Chloride (Sodium Chloride Flush Syringe 10 Ml) 10 ml IV BID [facility] Last Admin: 09/11/19 09:28 Dose: 10 ml Documented by: Sodium Chloride (Sodium Chloride Flush Syringe 10 Ml) 10 ml IV PRN PRN PRN Reason: LINE FLUSH Review of Systems ROS unobtainable: due to mental status Physical Examination Vital Signs Pulse Resp Pulse Ox 120 H 29 H 94 09/09/19 10:04 09/09/19 10:04 09/09/19 10:04 General appearance: other (agitated, confused, restrained) HEENT: Positive: PERRL Cardiac: Positive: Regular Rhythm, S1/S2, Tachycardia Lungs: Positive: Decreased Breath Sounds Neuro: Positive: Grossly Intact, Other (agitated, confused, restrained) Skin: Negative: Rash Extremities: Absent: edema Results 09/10/19 04:40 09/11/19 08:43 Comprehensive Metabolic Panel 09/11/19 09/11/19 Range/Units 04:50 08:43 Sodium TNR 142 Potassium TNR 3.7 Chloride TNR 111.6 H Carbon Dioxide TNR 19 L BUN TNR 6 L Creatinine TNR 0.6 L Glucose TNR 100 Calcium TNR 8.0 L - Imaging and Cardiology Echo: report reviewed (09/09/2019 which showed EF 45-50%, mod LVH, grade 1 diastolic dysfunction, no sig valvular abnormalities, mod pleural effusion, mobile echogenic structure in LA that appears attached to the posterior wall of the aortic root or roof of the LA, atrial septal aneurysm present, negative bubble study although suboptimal study ) EKG: report reviewed, image reviewed EKG interpretations - Telemetry EKG Rhythm: Sinus Rhythm - EKG Supraventricular dysrhythmia: atrial flutter Assessment and Plan Will plan for POLINA once medically stabilized for more adequate visualization of mobile echogenic structure in LA. Differential dx includes vegetation v. thrombus. ID is following, blood cultures negative to date, cont abx per ID. Recommend initiation of heparin gtt for possible thrombus and paroxysmal AFlutter if no contraindications, although pt appears to be a poor candidate for skilled nursing systemic AC in setting of AMS, ETOH abuse, seizure disorder, psych disorder, etc. Pt with questionable ileus, general surgery is following. Optimize HR - initiate IV lopressor as pt is currently NPO. Further recs to follow per hospital course. The patient has been seen in conjunction with Dr. Arevalo who agrees with the assessment and plan of care. - Patient Problems (1) Cardiac mass Current Visit: Yes Status: Acute (2) Paroxysmal atrial flutter Current Visit: Yes Status: Acute (3) Seizure disorder Current Visit: Yes Status: Chronic (4) Altered mental status Current Visit: Yes Status: Acute (5) Aspiration pneumonia Current Visit: Yes Status: Suspected (6) Ileus Current Visit: Yes Status: Suspected (7) Hypertension Current Visit: Yes Status: Chronic Qualifiers: Hypertension type: essential hypertension Qualified Code(s): I10 - Essential (primary) hypertension (8) Hyperlipidemia Current Visit: Yes Status: Chronic Qualifiers: Hyperlipidemia type: unspecified Qualified Code(s): E78.5 - Hyperlipidemia, unspecified (9) History of cerebrovascular accident Current Visit: Yes Status: Chronic <JOSHUA AREVALO R - Last Filed: 09/11/19 17:11> Medications and Allergies Active Meds: Active Medications Acetaminophen (Tylenol) 650 mg PO Q4H PRN PRN Reason: Pain MILD(1-3)/Fever >100.5/ANG Last Admin: 09/11/19 12:25 Dose: 650 mg Documented by: Aspirin (Aspirin) 325 mg PO QDAY [facility] Last Admin: 09/11/19 09:27 Dose: 325 mg Documented by: Atorvastatin Calcium (Lipitor) 40 mg PO QHS [facility] Last Admin: 09/10/19 23:17 Dose: Not Given Documented by: Clopidogrel Bisulfate (Plavix) 75 mg PO QDAY [facility] Last Admin: 09/11/19 09:27 Dose: 75 mg Documented by: Diphenhydramine HCl (Benadryl) 25 mg IV Q6H PRN PRN Reason: Itching Famotidine (Pepcid) 20 mg IV BID [facility] Last Admin: 09/11/19 09:27 Dose: 20 mg Documented by: Haloperidol Lactate (Haldol) 5 mg IV Q6H PRN PRN Reason: Agitation Hydrophilic Ointment (Vaseline Lip Therapy) 1 applic TP Q2HR PRN PRN Reason: Dry Lips Ampicillin Sodium/Sulbactam Sodium (Unasyn/Ns 3 Gm/100 Ml) 3 gm in 100 mls @ 200 mls/hr IV Q6HR [facility]; Protocol Last Admin: 09/11/19 17:03 Dose: 200 mls/hr Documented by: Dextrose/Sodium Chloride (D5ns) 1,000 mls @ 75 mls/hr IV DIRECT [facility] Last Admin: 09/11/19 06:56 Dose: 75 mls/hr Documented by: Valproate Sodium 1,000 mg/ (Sodium Chloride) 110 mls @ 100 mls/hr IV Q12HR [facility] Heparin Sodium/Sodium Chloride (Heparin/ 0.45% Nacl-25,000 Unit/500 Ml) 25,000 unit in 500 mls @ 26 mls/hr IV TITR [facility]; Protocol Lorazepam (Ativan) 2 mg IV Q4H PRN PRN Reason: Agitation Last Admin: 09/11/19 17:01 Dose: 2 mg Documented by: Melatonin (Melatonin) 5 mg PO BID [facility] Last Admin: 09/11/19 16:17 Dose: 5 mg Documented by: Metoprolol Tartrate (Metoprolol) 5 mg IV TID [facility] Multi-Ingred Cream/Lotion/Oil/Oint (Artificial Tears Ophth Oint) 1 applic OU Q4HR PRN PRN Reason: Dry Eye(s) Ondansetron HCl (Zofran) 4 mg IV Q8H PRN PRN Reason: Nausea And Vomiting Sodium Chloride (Sodium Chloride Flush Syringe 10 Ml) 10 ml IV BID [facility] Last Admin: 09/11/19 09:28 Dose: 10 ml Documented by: Sodium Chloride (Sodium Chloride Flush Syringe 10 Ml) 10 ml IV PRN PRN PRN Reason: LINE FLUSH Physical Examination Vital Signs Pulse Resp Pulse Ox 120 H 29 H 94 09/09/19 10:04 09/09/19 10:04 09/09/19 10:04 Results 09/10/19 04:40 09/11/19 08:43 Comprehensive Metabolic Panel 09/11/19 09/11/19 Range/Units 04:50 08:43 Sodium TNR 142 Potassium TNR 3.7 Chloride TNR 111.6 H Carbon Dioxide TNR 19 L BUN TNR 6 L Creatinine TNR 0.6 L Glucose TNR 100 Calcium TNR 8.0 L Assessment and Plan intra cardiac mass unclear etiology. vegetation or thrombus possible but unusual location. 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 POLINA and possibly cardiac mri at some point appears warranted.
[2019-09-11] MEDS ORDERED: diphenhydrAMINE 50 MG/ML VIAL IV PRN (16:08)
[2019-09-11] MEDS: MELATONIN 5 MG TAB PO SCH ×2 (16:17→23:05)
[2019-09-11] MEDS: LORazepam 2 MG/ML VIAL IV PRN (17:01)
--- NOTE | 2019-09-11 17:52 | Progress Note ---
Assessment and Plan Assessment and plan: 59-year-old man who lives in a skilled nursing. He was brought in for multiple seizures. Apparently he was having seizures nonstop at the skilled nursing. He rests arrived in the hospital in a postictal state and was not having active seizures. He was given Keppra, he had normal blood glucose. It is not clear how well he is receiving his phenytoin and valproate in a skilled nursing. While in the ER the patient remained postictal nonresponsive was unable to protect his airway and therefore intubated for airway protection. It is reported that the patient vomited and aspirated in the EMS and prior to arrival Past medical history; hypertension, CVA, CHF, seizure disorder, Wernicke's encephalopathy, schizophrenia, hyperlipidemia, CAD Chest x-ray bibasilar retrocardiac opacities represents atelectasis with or without superimposed pneumonia. CT abdomen and pelvis. Bibasilar pneumonia, bowel distention which is typical of ileus Status epilepticus Valproate levels are low, will need to communicate with the skilled nursing to see if they are giving it, if not the dose needs to be increased. Dilantin levels at goal, Neurology consult and input noted, do not see valprpate on home meds list, awaiting to see if patient was even on said medications. CT head did not show any acute findings. Acute metabolic encephalopathy Due to postictal state EXACERBATED BY hystory of schizophrenia Awaiting Meds from home Continue restraints. Acute respiratory failure on mechanical ventilator less than 96 hours EXTUBATED Cardiac Mass - Start on Heparin drip - Cardiology consulted History of CVA? Cannot exclude stroke as etiology of his current symptoms. neurology consulted, Allow permissive hypertension, has received aspirin, stroke education, observe for arrhythmia on telemetry, --aspirin and high dose statin, check Lipid panel MRI brain, MRA head, carotid Dopplers, echo ?SBO- Surgery following Aspiration pneumonia/sepsis Antibiotics Hepatic encephalopathy Lactulose Hypokalemia Repleted, Ileus Bowel rest, repeat abdominal x-ray in a.m., general surgery consult DVT prophylaxis; SCDs History Interval history: Patient seen and examined, off ventilator and very agitated and encephalopathy, no coherent conversation Hospitalist Physical - Physical exam Narrative exam: General appearance: Present: well-nourished, non coherent conversation - EENT Eyes: Present: PERRL ENT: hearing intact, clear oral mucosa - Neck Neck: Present: supple, normal ROM - Respiratory Respiratory effort: normal Respiratory: bilateral: rhonchi - Cardiovascular Heart Sounds: Present: S1 & S2. Absent: rub, click - Extremities Extremities: pulses symmetrical, No edema Peripheral Pulses: within normal limits - Abdominal General gastrointestinal: Present: soft, non-tender, non-distended, normal bowel sounds Male genitourinary: Present: normal - Integumentary Integumentary: Present: clear, warm, dry - Musculoskeletal Musculoskeletal: other, moves all extremitis - Psychiatric Psychiatric: - Neurologic Neurologic: other encephalopathy - Constitutional Vitals: Temp Pulse Resp BP Pulse Ox 98.9 F 102 H 18 167/105 93 09/11/19 15:00 09/11/19 15:21 09/11/19 15:21 09/11/19 15:21 09/11/19 13:41 General appearance: Present: other (agitated, confused, restrained) Results - Labs CBC & Chem 7: 09/12/19 04:39 09/12/19 04:39 Labs: Laboratory Last Values WBC 8.0 K/mm3 (4.5-11.0) 09/10/19 04:40 RBC 4.51 M/mm3 (3.65-5.03) 09/10/19 04:40 Hgb 13.2 gm/dl (11.8-15.2) 09/10/19 04:40 Hct 39.5 % (35.5-45.6) 09/10/19 04:40 MCV 88 fl (84-94) 09/10/19 04:40 MCH 29 pg (28-32) 09/10/19 04:40 MCHC 33 % (32-34) 09/10/19 04:40 RDW 14.3 % (13.2-15.2) 09/10/19 04:40 Plt Count 199 K/mm3 (140-440) 09/10/19 04:40 Lymph % (Auto) 7.2 % (13.4-35.0) L 09/10/19 04:40 [place] % (Auto) 10.3 % (0.0-7.3) H 09/10/19 04:40 Eos % (Auto) 0.3 % (0.0-4.3) 09/10/19 04:40 Baso % (Auto) 0.3 % (0.0-1.8) 09/10/19 04:40 Lymph # 0.6 K/mm3 (1.2-5.4) L 09/10/19 04:40 [place] # 0.8 K/mm3 (0.0-0.8) 09/10/19 04:40 Eos # 0.0 K/mm3 (0.0-0.4) 09/10/19 04:40 Baso # 0.0 K/mm3 (0.0-0.1) 09/10/19 04:40 Seg Neutrophils % 81.9 % (40.0-70.0) H 09/10/19 04:40 Seg Neutrophils # 6.6 K/mm3 (1.8-7.7) 09/10/19 04:40 PT 13.6 Sec. (12.2-14.9) 09/09/19 10:22 INR 1.03 (0.87-1.13) 09/09/19 10:22 APTT 27.3 Sec. (24.2-36.6) 09/09/19 10:22 POC ABG pH 7.419 (7.35-7.45) 09/10/19 05:02 ABG pH 7.423 pH Units (7.350-7.450) 09/11/19 03:57 POC ABG pCO2 38.4 (35-45) 09/10/19 05:02 ABG pCO2 38.1 mm Hg 09/11/19 03:57 POC ABG pO2 94 (80-105) 09/10/19 05:02 ABG pO2 100.4 mm Hg (80.0-90.0) H 09/11/19 03:57 POC ABG HCO3 24.8 (22-26 mml/L) 09/10/19 05:02 ABG HCO3 24.4 mmol/L (20.0-26.0) 09/11/19 03:57 POC ABG Total CO2 26 (23-27mmol/L) 09/10/19 05:02 POC ABG O2 Sat 97 09/10/19 05:02 ABG O2 Saturation 97.7 % (95.0-99.0) 09/11/19 03:57 ABG O2 Content 16.5 (0.0-44) 09/11/19 03:57 POC ABG Base Excess 0 ((-2) - (+3)mmol/L) 09/10/19 05:02 ABG Base Excess 0.1 mmol/L (-2.0-3.0) 09/11/19 03:57 ABG Hemoglobin 12.2 gm/dl (14.0-18.0) L 09/11/19 03:57 ABG Carboxyhemoglobin 1.7 % (0.0-5.0) 09/11/19 03:57 ABG Methemoglobin 0.6 % (0.0-1.5) 09/11/19 03:57 Oxyhemoglobin 95.5 % (95.0-99.0) 09/11/19 03:57 FiO2 30 % 09/11/19 03:57 Sodium 142 mmol/L (137-145) 09/11/19 08:43 Potassium 3.7 mmol/L (3.6-5.0) 09/11/19 08:43 Chloride 111.6 mmol/L (98-107) H 09/11/19 08:43 Carbon Dioxide 19 mmol/L (22-30) L 09/11/19 08:43 Anion Gap 15 mmol/L 09/11/19 08:43 BUN 6 mg/dL (9-20) L 09/11/19 08:43 Creatinine 0.6 mg/dL (0.8-1.5) L 09/11/19 08:43 Estimated GFR > 60 ml/min 09/11/19 08:43 BUN/Creatinine Ratio 10 % 09/11/19 08:43 Glucose 100 mg/dL (75-100) 09/11/19 08:43 POC Glucose 99 (70-105) 09/11/19 12:25 Calcium 8.0 mg/dL (8.4-10.2) L 09/11/19 08:43 Phosphorus TNR 09/11/19 04:50 Magnesium 2.10 mg/dL (1.7-2.3) 09/10/19 04:40 Total Bilirubin 0.50 mg/dL (0.1-1.2) 09/10/19 04:40 Direct Bilirubin < 0.2 mg/dL (0-0.2) 09/10/19 04:40 Indirect Bilirubin 0.0 mg/dL 09/09/19 10:22 AST 33 units/L (5-40) 09/10/19 04:40 ALT 23 units/L (7-56) 09/10/19 04:40 Alkaline Phosphatase 117 units/L (35-129) 09/10/19 04:40 Ammonia 60.0 umol/L (25-60) 09/10/19 04:40 Total Creatine Kinase 267 units/L (55-170) H 09/09/19 10:22 CK-MB (CK-2) 4.6 ng/mL (0.0-4.0) H 09/09/19 10:22 CK-MB (CK-2) Rel Index 1.7 (0-4) 09/09/19 10:22 Troponin T < 0.010 ng/mL (0.00-0.029) 09/09/19 10:22 NT-Pro-B Natriuret Pep 268.5 pg/mL (0-900) 09/09/19 10:22 Total Protein 7.1 g/dL (6.3-8.2) 09/10/19 04:40 Albumin 3.8 g/dL (3.9-5) L 09/10/19 04:40 Albumin/Globulin Ratio 1.2 % 09/10/19 04:40 Triglycerides 90 mg/dL (2-149) 09/10/19 04:40 Cholesterol 196 mg/dL (50-199) 09/10/19 04:40 LDL Cholesterol Direct 131 mg/dL (50-130) H 09/10/19 04:40 HDL Cholesterol 57 mg/dL (40-59) 09/10/19 04:40 Cholesterol/HDL Ratio 3.43 % 09/10/19 04:40 Urine Color Yellow (Yellow) 09/09/19 15:24 Urine Turbidity Clear (Clear) 09/09/19 15:24 Urine pH 5.0 (5.0-7.0) 09/09/19 15:24 Ur Specific [place] 1.015 (1.003-1.030) 09/09/19 15:24 Urine Protein 30 mg/dl mg/dL (Negative) 09/09/19 15:24 Urine Glucose (UA) Neg mg/dL (Negative) 09/09/19 15:24 Urine Ketones Neg mg/dL (Negative) 09/09/19 15:24 Urine Blood Mod (Negative) 09/09/19 15:24 Urine Nitrite Neg (Negative) 09/09/19 15:24 Urine Bilirubin Neg (Negative) 09/09/19 15:24 Urine Urobilinogen < 2.0 mg/dL (<2.0) 09/09/19 15:24 Ur Leukocyte Esterase Neg (Negative) 09/09/19 15:24 Urine WBC (Auto) 2.0 /HPF (0.0-6.0) 09/09/19 15:24 Urine RBC (Auto) 59.0 /HPF (0.0-6.0) 09/09/19 15:24 U Epithel Cells (Auto) < 1.0 /HPF (0-13.0) 09/09/19 15:24 Urine Bacteria (Auto) 1+ /HPF (Negative) 09/09/19 15:24 Urine Mucus Few /HPF 09/09/19 15:24 Urine Opiates Screen Presumptive negative 09/09/19 15:24 Urine Methadone Screen Presumptive negative 09/09/19 15:24 Ur Barbiturates Screen Presumptive negative 09/09/19 15:24 Phenytoin 11.1 ug/mL (10.0-20.0) 09/09/19 13:10 Valproic Acid < 2.8 ug/mL (50-100) L 09/09/19 13:10 Ur Phencyclidine Scrn Presumptive negative 09/09/19 15:24 Ur Amphetamines Screen Presumptive negative 09/09/19 15:24 U Benzodiazepines Scrn Presumptive positive 09/09/19 15:24 Urine Cocaine Screen Presumptive negative 09/09/19 15:24 U Marijuana (THC) Screen Presumptive negative 09/09/19 15:24 Drugs of Abuse Note Disclamer 09/09/19 15:24 Active Medications - Current Medications Current Medications: Generic Name Dose Route Start Last Admin Trade Name Freq PRN Reason Stop Dose Admin Acetaminophen 650 mg 09/09/19 22:21 09/11/19 12:25 Tylenol PO 650 mg Q4H PRN Administration Pain MILD(1-3)/Fever >100.5/ANG Aspirin 325 mg 09/11/19 10:00 09/11/19 09:27 Aspirin PO 325 mg QDAY [facility] Administration Atorvastatin Calcium 40 mg 09/09/19 22:00 09/10/19 23:17 Lipitor PO Not Given QHS [facility] Clopidogrel Bisulfate 75 mg 09/10/19 10:00 09/11/19 09:27 Plavix PO 75 mg QDAY [facility] Administration Diphenhydramine HCl 25 mg 09/11/19 16:08 Benadryl IV Q6H PRN Itching Famotidine 20 mg 09/10/19 00:30 09/11/19 09:27 Pepcid IV 20 mg BID [facility] Administration Haloperidol Lactate 5 mg 09/11/19 16:04 Haldol IV Q6H PRN Agitation Hydrophilic Ointment 1 applic 09/09/19 12:23 Vaseline Lip Therapy TP Q2HR PRN Dry Lips Ampicillin Sodium/Sulbactam Sodium 3 gm in 100 mls @ 200 mls/hr 09/10/19 00:00 09/11/19 17:03 Unasyn/Ns 3 Gm/100 Ml IV 200 mls/hr Q6HR [facility] Administration Protocol Dextrose/Sodium Chloride 1,000 mls @ 75 mls/hr 09/10/19 15:09 09/11/19 06:56 D5ns IV 75 mls/hr DIRECT [facility] Administration Valproate Sodium 1,000 mg/ 110 mls @ 100 mls/hr 09/11/19 22:00 Sodium Chloride IV Q12HR [facility] Heparin Sodium/Sodium Chloride 25,000 unit in 500 mls @ 26 mls/hr 09/11/19 17:00 Heparin/ 0.45% Nacl-25,000 Unit/500 Ml IV TITR [facility] Protocol 1,300 UNITS/HR Lorazepam 2 mg 09/11/19 16:06 09/11/19 17:01 Ativan IV 2 mg Q4H PRN Administration Agitation Melatonin 5 mg 09/11/19 13:00 09/11/19 16:17 Melatonin PO 5 mg BID [facility] Administration Metoprolol Tartrate 5 mg 09/11/19 20:00 Metoprolol IV TID [facility] Multi-Ingred Cream/Lotion/Oil/Oint 1 applic 09/09/19 12:23 Artificial Tears Ophth Oint OU Q4HR PRN Dry Eye(s) Ondansetron HCl 4 mg 09/09/19 22:21 Zofran IV Q8H PRN Nausea And Vomiting Sodium Chloride 10 ml 09/10/19 10:00 09/11/19 09:28 Sodium Chloride Flush Syringe 10 Ml IV 10 ml BID [facility] Administration Sodium Chloride 10 ml 09/09/19 22:21 Sodium Chloride Flush Syringe 10 Ml IV PRN PRN LINE FLUSH Nutrition/Malnutrition Assess - Dietary Evaluation Nutrition/Malnutrition Findings: Nutrition Notes Start: 09/10/19 12:25 Freq: Status: Active Protocol: Document 09/10/19 12:25 LM (Rec: 09/10/19 12:34 LM [id number]) Nutrition Notes Need for Assessment generated from: MD Order Initial or Follow up Assessment Current Diagnosis Coronary Artery Disease, Decubitus(Pressure Ulcer), Hypertension,Heart Failure, Respiratory Failure, Hyperlipidemia Other Pertinent Diagnosis hx of CVA, seizures, schizophrenia, pneumonia, hepatic encephalopathy Current Diet NPO Labs/Tests BG 109 Pertinent Medications Propofol (69 kcal) Height 6 ft 1 in Weight 86.636 kg [place] Body Weight (kg) 83.63 BMI 25.2 Weight Status Overweight Subjective/Other Information MD consult to evaluate nutritional intake. Pt in ED and on vent. Burn Absent Trauma Absent Current % PO Negligible Minimum of two criteria No #1 Nutrition Diagnosis Inadequate oral intake Etiology Mechanical vent As Evidenced by Signs and Symptoms pt NPO Is patient on ventilator? Yes Is Patient Ambulatory and/or Out of Bed No REE-([facility]-confined to bed) 9169.909 Calculation Used for Recommendations [facility] Additional Notes Protein: 104-173g (1.2-2g/kg) Fluid: 1 ml/kcal or per MD Nutrition Intervention Change Diet Order: TF when medically feasible Nutrition Support: Vital AF 1.2 at 70 ml/hr Flush 100 q4h Kcal 2,016 Protein (gm) 126 Fluid (mL) 1,362 Goal #1 Start TF when medically feasible Anticipated Discharge Needs: unable to determine at this time Follow-Up By: 09/12/19 Additional Comments F/U for TF consult/start
[2019-09-11 18:34] LABS: Hematocrit 39.7 % (35.5-45.6); Hemoglobin 13.4 gm/dl (11.8-15.2)
[2019-09-11 18:46] LABS: INR 1.07 (0.87-1.13)
[2019-09-11 18:47] LABS: Partial Thromboplastin Time 29.1 Sec. (24.2-36.6)
[2019-09-11] MEDS: METOPROLOL TARTRATE 5 MG/5 ML INJ IV SCH (20:07)
[2019-09-11] MEDS: HEPARIN/ 0.45% NACL DRIP 25,000 UNIT/500 ML BAG IV SCH (21:00)
[2019-09-11] MEDS: VALPROATE SODIUM 1,000 MG in SODIUM CHLORIDE 0.9% 100 ML IV SCH (23:00)
[2019-09-12] MEDS: LORazepam 2 MG/ML VIAL IV PRN ×5 (00:21→21:57)
[2019-09-12] MEDS: AMPICILLIN/SULBACTA 3GM/100ML 3 GM/100 ML BAG IV SCH ×4 (02:12→17:37)
[2019-09-12 05:38] LABS: Hematocrit 35.1 % (35.5-45.6); Hemoglobin 12.1 gm/dl (11.8-15.2); Mean Corpuscular HGB Conc 34 % (32-34); Mean Corpuscular Volume 87 fl (84-94); Platelet Count 111 K/mm3 (140-440); Red Blood Count 4.02 M/mm3 (3.65-5.03); Red Cell Distribution Width 13.6 % (13.2-15.2)
[2019-09-12 05:49] LABS: BUN/Creatinine Ratio 8; Blood Urea Nitrogen 4 mg/dL (9-20); Hemolysis Index 16
[2019-09-12] MEDS ORDERED: POTASSIUM CHLORIDE ER 20 MEQ TAB PO SCH (09:30)
--- NOTE | 2019-09-12 10:31 | Progress Note ---
Assessment and Plan Cultures: 09/09/2019 tracheal aspirate: usual respiratory na 09/09/2019 blood culture: NGTD A/P: 59/M skilled nursing resident, hypertension, CVA, CHF, seizure disorder, schizophrenia, hyperlipidemia, CAD, CHF admitted with: #Seizures, post ictal state, acute encephalopathy: improving. #Acute resp failure, b/l aspiration pneumonia vs pneumonitis: extubated. Procal is low. #Ileus: surgery following, stable. Recs: continue Unasyn Day 3, may stop soon depending on clinical progress. Procalcitonin is low. Fever could be from seizures / reactive. Emily Nihcolson MD, FACP [facility] ([facility]) C: [phone] O: [phone] F: [phone] Subjective Date of service: 09/12/19 Principal diagnosis: seizure Interval history: One episode of fever. Denies any complaints. Objective - Exam Narrative Exam: Physical Exam: Constitutional: awake, alert, no distress Head, Ears, Nose: Normocephalic, atraumatic. External ears, nose normal Eyes: Conjunctivae/corneas clear. No icterus. No ptosis. Neck: supple, no meningeal signs Cardiovascular: S1, S2 normal Respiratory: Good air entry, clear to auscultation bilaterally GI: mildly distended, bowel sounds +. No peritoneal signs Musculoskeletal: No pedal edema, no cyanosis. Skin: No rash or abscess Hem/Lymphatic: No palpable cervical or supraclavicular nodes. No lymphangitis Psych: no agitation Neurological: awake, alert - Constitutional Vitals: Vital Signs Temp Pulse Resp BP Pulse Ox 98.1 F 77 20 146/82 97 09/12/19 05:29 09/12/19 05:29 09/12/19 05:29 09/12/19 05:29 09/12/19 05:29 Temperature -Last 24 Hours Temperature 98.1 F Temperature 98.9 F Temperature 99.1 F Temperature 98.9 F Temperature 101.5 F - Labs CBC & Chem 7: 09/12/19 04:39 09/12/19 04:39 Labs: Abnormal lab results 09/12/19 09/12/19 09/12/19 Range/Units 00:35 00:47 04:39 Hct 35.1 L (35.5-45.6) % Plt Count 111 L (140-440) K/mm3 Heparin Anti-Xa Level 0.17 L (0.3-0.7) U.I./ml Potassium (3.6-5.0) mmol/L Chloride (98-107) mmol/L BUN (9-20) mg/dL Creatinine (0.8-1.5) mg/dL Glucose (75-100) mg/dL POC Glucose 109 H (70-105) Calcium (8.4-10.2) mg/dL 09/12/19 Range/Units 04:39 Hct (35.5-45.6) % Plt Count (140-440) K/mm3 Heparin Anti-Xa Level (0.3-0.7) U.I./ml Potassium 3.1 L (3.6-5.0) mmol/L Chloride 108.2 H (98-107) mmol/L BUN 4 L (9-20) mg/dL Creatinine 0.5 L (0.8-1.5) mg/dL Glucose 107 H (75-100) mg/dL POC Glucose (70-105) Calcium 8.0 L (8.4-10.2) mg/dL
[2019-09-12] MEDS: VALPROATE SODIUM 1,000 MG in SODIUM CHLORIDE 0.9% 100 ML IV SCH ×2 (10:44→22:00)
[2019-09-12] MEDS: MELATONIN 5 MG TAB PO SCH ×2 (10:48→21:56)
[2019-09-12] MEDS: DIVALPROEX DR 125 MG TAB PO SCH (10:49)
[2019-09-12] MEDS: ASPIRIN 325 MG TAB PO SCH (10:49)
[2019-09-12] MEDS: CLOPIDOGREL 75 MG TAB PO SCH (10:49)
[2019-09-12] MEDS: FAMOTIDINE 20 MG/2 ML INJ IV SCH (10:50)
[2019-09-12] MEDS: METOPROLOL TARTRATE 5 MG/5 ML INJ IV SCH (11:16)
--- NOTE | 2019-09-12 12:13 | Progress Note ---
Assessment and Plan Will plan for POLINA once medically stabilized for more adequate visualization of mobile echogenic structure in LA. Differential dx includes vegetation v. thrombus. ID is following, blood cultures negative to date, cont abx per ID. Heparin gtt initiated per primary in setting of AFlutter and poss thrombus. Currently, pt appears to be a poor candidate for intermediate systemic AC in setting of AMS, ETOH abuse, seizure disorder, psych disorder, etc. Optimize HR - convert IV lopressor to PO lopressor. Attempted to contact pt's listed NOK, brother Bandar Bauman @ , regarding current assessment and recommendations including POLINA as we will require a legal NOK to sign consent given pt's confusion. No answer. Will continue to attempt to reach him. The patient has been seen in conjunction with Dr. Jovel who agrees with the assessment and plan of care. - Patient Problems (1) Cardiac mass Current Visit: Yes Status: Acute (2) Paroxysmal atrial flutter Current Visit: Yes Status: Acute (3) Seizure disorder Current Visit: Yes Status: Chronic (4) Altered mental status Current Visit: Yes Status: Acute (5) Aspiration pneumonia Current Visit: Yes Status: Suspected (6) Ileus Current Visit: Yes Status: Suspected (7) Hypertension Current Visit: Yes Status: Chronic Qualifiers: Hypertension type: essential hypertension Qualified Code(s): I10 - Essential (primary) hypertension (8) Hyperlipidemia Current Visit: Yes Status: Chronic Qualifiers: Hyperlipidemia type: unspecified Qualified Code(s): E78.5 - Hyperlipidemia, unspecified (9) History of cerebrovascular accident Current Visit: Yes Status: Chronic Subjective Date of service: 09/12/19 Principal diagnosis: seizure Interval history: pt resting in bed, remains confused and agitated and restrained. in SR on tele. no family present. Objective Last Vital Signs Temp 98.1 F 09/12/19 05:29 Pulse 77 09/12/19 05:29 Resp 20 09/12/19 05:29 BP 146/82 09/12/19 05:29 Pulse Ox 98 09/12/19 11:43 - Physical Examination General: Other (agitated, restrained, confused) HEENT: Positive: PERRL Cardiac: Positive: Reg Rate and Rhythm, S1/S2 Lungs: Positive: Decreased Breath Sounds Neuro: Positive: Grossly Intact, Other (agitated, confused, restrained) Skin: Negative: Rash Extremities: Absent: edema - Labs and Meds Coagulation 09/11/19 Range/Units 18:08 PT 14.0 (12.2-14.9) Sec. INR 1.07 (0.87-1.13) APTT 29.1 (24.2-36.6) Sec. CBC 09/11/19 09/12/19 Range/Units 18:08 04:39 WBC 5.2 (4.5-11.0) K/mm3 RBC 4.02 (3.65-5.03) M/mm3 Hgb 13.4 12.1 (11.8-15.2) gm/dl Hct 39.7 35.1 L (35.5-45.6) % Plt Count 201 111 L (140-440) K/mm3 Comprehensive Metabolic Panel 09/12/19 Range/Units 04:39 Sodium 142 (137-145) mmol/L Potassium 3.1 L (3.6-5.0) mmol/L Chloride 108.2 H (98-107) mmol/L Carbon Dioxide 22 (22-30) mmol/L BUN 4 L (9-20) mg/dL Creatinine 0.5 L (0.8-1.5) mg/dL Glucose 107 H (75-100) mg/dL Calcium 8.0 L (8.4-10.2) mg/dL - Imaging and Cardiology EKG: report reviewed, image reviewed Echo: report reviewed (09/09/2019 which showed EF 45-50%, mod LVH, grade 1 diastolic dysfunction, no sig valvular abnormalities, mod pleural effusion, mobile echogenic structure in LA that appears attached to the posterior wall of the aortic root or roof of the LA, atrial septal aneurysm present, negative bubble study although suboptimal study )
[2019-09-12] MEDS: HEPARIN/ 0.45% NACL DRIP 25,000 UNIT/500 ML BAG IV SCH (13:12)
[2019-09-12] MEDS: D5W/0.9% NACL 1,000 ML IV SCH (13:12)
--- NOTE | 2019-09-12 13:43 | Progress Note ---
Assessment and Plan - Patient Problems (1) Abdominal distension, gaseous Current Visit: Yes Status: Acute Plan to address problem: Pt stable from abdominal standpoint. Perhaps the distention is a chronic issue since he had a BM and is tolerating a diet per the staff. The abdominal film that I ordered did not get done. As he seems to be doing well, no surgical intervention is planned. Please call with questions. time=10min Subjective Date of service: 09/12/19 Patient Reports: Positive: tolerating a regular diet, bowel movement, other (staff reported that he tolerated a regular diet very well earlier today. ) Objective Vital Signs - 12hr 09/12/19 09/12/19 09/12/19 05:29 11:14 11:43 Temperature 98.1 F 97.9 F Pulse Rate 77 84 Respiratory 20 22 Rate Blood Pressure 146/82 145/89 O2 Sat by Pulse 97 96 98 Oximetry - General physical appearance no distress, no pain - Respiratory normal expansion, normal respiratory effort - Abdomen soft, not tender, bowel sounds hypoactive, distended - Labs 09/12/19 04:39 09/12/19 04:39 Diabetes panel 09/12/19 Range/Units 04:39 Sodium 142 (137-145) mmol/L Potassium 3.1 L (3.6-5.0) mmol/L Chloride 108.2 H (98-107) mmol/L Carbon Dioxide 22 (22-30) mmol/L BUN 4 L (9-20) mg/dL Creatinine 0.5 L (0.8-1.5) mg/dL Glucose 107 H (75-100) mg/dL Calcium 8.0 L (8.4-10.2) mg/dL Calcium panel 09/12/19 Range/Units 04:39 Calcium 8.0 L (8.4-10.2) mg/dL Pituitary panel 09/12/19 Range/Units 04:39 Sodium 142 (137-145) mmol/L Potassium 3.1 L (3.6-5.0) mmol/L Chloride 108.2 H (98-107) mmol/L Carbon Dioxide 22 (22-30) mmol/L BUN 4 L (9-20) mg/dL Creatinine 0.5 L (0.8-1.5) mg/dL Glucose 107 H (75-100) mg/dL Calcium 8.0 L (8.4-10.2) mg/dL Adrenal panel 09/12/19 Range/Units 04:39 Sodium 142 (137-145) mmol/L Potassium 3.1 L (3.6-5.0) mmol/L Chloride 108.2 H (98-107) mmol/L Carbon Dioxide 22 (22-30) mmol/L BUN 4 L (9-20) mg/dL Creatinine 0.5 L (0.8-1.5) mg/dL Glucose 107 H (75-100) mg/dL Calcium 8.0 L (8.4-10.2) mg/dL
--- NOTE | 2019-09-12 13:56 | Progress Note ---
Assessment and Plan 59 y/o male with status epilepticus. 1. Successful extubation. Will sign off. Subjective Date of service: 09/12/19 Principal diagnosis: seizure Interval history: Patient weaned to room air. No further pulm issues. Objective Vital Signs - 12hr 09/12/19 09/12/19 09/12/19 05:29 11:14 11:43 Temperature 98.1 F 97.9 F Pulse Rate 77 84 Respiratory 20 22 Rate Blood Pressure 146/82 145/89 O2 Sat by Pulse 97 96 98 Oximetry Eyes: non-icteric Neck: supple, no JVD Effort: normal Ascultation: Bilateral: clear Percussion: Bilateral: not dull Cardiovascular: regular rate and rhythm Gastrointestinal: hypoactive bowel sounds, other (distended, slightly) Extremities: no edema, pink and warm, pulses normal CBC and BMP: 09/12/19 04:39 09/12/19 04:39 ABG, PT/INR, D-dimer: ABG POC ABG pH 7.419 (7.35-7.45) 09/10/19 05:02 ABG pH 7.423 pH Units (7.350-7.450) 09/11/19 03:57 POC ABG pCO2 38.4 (35-45) 09/10/19 05:02 ABG pCO2 38.1 mm Hg 09/11/19 03:57 POC ABG pO2 94 (80-105) 09/10/19 05:02 ABG pO2 100.4 mm Hg (80.0-90.0) H 09/11/19 03:57 POC ABG HCO3 24.8 (22-26 mml/L) 09/10/19 05:02 POC ABG Total CO2 26 (23-27mmol/L) 09/10/19 05:02 POC ABG O2 Sat 97 09/10/19 05:02 ABG O2 Saturation 97.7 % (95.0-99.0) 09/11/19 03:57 PT/INR, D-dimer PT 14.0 Sec. (12.2-14.9) 09/11/19 18:08 INR 1.07 (0.87-1.13) 09/11/19 18:08 Abnormal lab findings: Abnormal Labs 09/09/19 09/09/19 09/09/19 10:22 10:22 10:22 Hct Plt Count Lymph % (Auto) Swift % (Auto) 8.6 H Eos % (Auto) 4.7 H Lymph # Seg Neutrophils % Heparin Anti-Xa Level POC ABG pH POC ABG pCO2 POC ABG pO2 ABG pO2 ABG Hemoglobin Potassium 3.4 L Chloride Carbon Dioxide 21 L BUN Creatinine Glucose 161 H POC Glucose Calcium Alkaline Phosphatase 139 H Ammonia 83.0 H Total Creatine Kinase 267 H CK-MB (CK-2) 4.6 H Albumin LDL Cholesterol Direct Valproic Acid 09/09/19 09/09/19 09/09/19 10:29 13:10 13:54 Hct Plt Count Lymph % (Auto) Swift % (Auto) Eos % (Auto) Lymph # Seg Neutrophils % Heparin Anti-Xa Level POC ABG pH 7.150 L POC ABG pCO2 > 70 H 46.7 H POC ABG pO2 179 H ABG pO2 ABG Hemoglobin Potassium Chloride Carbon Dioxide BUN Creatinine Glucose POC Glucose Calcium Alkaline Phosphatase Ammonia Total Creatine Kinase CK-MB (CK-2) Albumin LDL Cholesterol Direct Valproic Acid < 2.8 L 09/10/19 09/10/19 09/10/19 04:40 04:40 18:21 Hct Plt Count Lymph % (Auto) 7.2 L Swift % (Auto) 10.3 H Eos % (Auto) Lymph # 0.6 L Seg Neutrophils % 81.9 H Heparin Anti-Xa Level POC ABG pH POC ABG pCO2 POC ABG pO2 ABG pO2 ABG Hemoglobin Potassium Chloride Carbon Dioxide 20 L BUN Creatinine 0.6 L Glucose 109 H POC Glucose 109 H Calcium Alkaline Phosphatase Ammonia Total Creatine Kinase CK-MB (CK-2) Albumin 3.8 L LDL Cholesterol Direct 131 H Valproic Acid 09/11/19 09/11/19 09/12/19 03:57 08:43 00:35 Hct Plt Count Lymph % (Auto) Swift % (Auto) Eos % (Auto) Lymph # Seg Neutrophils % Heparin Anti-Xa Level POC ABG pH POC ABG pCO2 POC ABG pO2 ABG pO2 100.4 H ABG Hemoglobin 12.2 L Potassium Chloride 111.6 H Carbon Dioxide 19 L BUN 6 L Creatinine 0.6 L Glucose POC Glucose 109 H Calcium 8.0 L Alkaline Phosphatase Ammonia Total Creatine Kinase CK-MB (CK-2) Albumin LDL Cholesterol Direct Valproic Acid 09/12/19 09/12/19 09/12/19 00:47 04:39 04:39 Hct 35.1 L Plt Count 111 L Lymph % (Auto) Swift % (Auto) Eos % (Auto) Lymph # Seg Neutrophils % Heparin Anti-Xa Level 0.17 L POC ABG pH POC ABG pCO2 POC ABG pO2 ABG pO2 ABG Hemoglobin Potassium 3.1 L Chloride 108.2 H Carbon Dioxide BUN 4 L Creatinine 0.5 L Glucose 107 H POC Glucose Calcium 8.0 L Alkaline Phosphatase Ammonia Total Creatine Kinase CK-MB (CK-2) Albumin LDL Cholesterol Direct Valproic Acid 09/12/19 11:30 Hct Plt Count Lymph % (Auto) Swift % (Auto) Eos % (Auto) Lymph # Seg Neutrophils % Heparin Anti-Xa Level POC ABG pH POC ABG pCO2 POC ABG pO2 ABG pO2 ABG Hemoglobin Potassium Chloride Carbon Dioxide BUN Creatinine Glucose POC Glucose 121 H Calcium Alkaline Phosphatase Ammonia Total Creatine Kinase CK-MB (CK-2) Albumin LDL Cholesterol Direct Valproic Acid
[2019-09-12] MEDS: METOPROLOL TARTRATE 50 MG TAB PO SCH ×2 (15:18→22:00)
--- NOTE | 2019-09-12 18:07 | Progress Note ---
Assessment and Plan Assessment and plan: 59-year-old man who lives in a [facility]. He was brought in for multiple seizures. Apparently he was having seizures nonstop at the [facility]. He rests arrived in the hospital in a postictal state and was not having active seizures. He was given Keppra, he had normal blood glucose. It is not clear how well he is receiving his phenytoin and valproate in a [facility]ci. While in the ER the patient remained postictal nonresponsive was unable to protect his airway and therefore intubated for airway protection. It is reported that the patient vomited and aspirated in the EMS and prior to arrival Past medical history; hypertension, CVA, CHF, seizure disorder, Wernicke's encephalopathy, schizophrenia, hyperlipidemia, CAD Chest x-ray bibasilar retrocardiac opacities represents atelectasis with or without superimposed pneumonia. CT abdomen and pelvis. Bibasilar pneumonia, bowel distention which is typical of ileus Status epilepticus Valproate levels are low, Neurology consult and input noted, do not see valprpate on home meds list, awaiting to see if patient was even on said medications. CT head did not show any acute findings. Acute metabolic encephalopathy Due to postictal state versus schizophrenia Awaiting Meds from home Continue restraints. Acute respiratory failure on mechanical ventilator less than 96 hours EXTUBATED Cardiac Mass - Start on Heparin drip - Cardiology consulted, cardiology planning for POLINA once patient is medically stabilized -Patient is a poor candidate for anticoagulation due to altered mental status also history of EtOH abuse in the past, seizure disorder psych as noted by cardiology. -brother Bandar Bauman @ , regarding current assessment and recommendations including POLINA as we will require a legal NOK to sign consent given pt's confusion. No answer. I have also tried to reach him and will await a call back Paroxysmal atrial flutter -As noted above -Continue p.o. current History of CVA? Cannot exclude stroke as etiology of his current symptoms. neurology consulted, Allow permissive hypertension, has received aspirin, stroke education, observe for arrhythmia on telemetry, --aspirin and high dose statin, check Lipid panel MRI brain, MRA head, carotid Dopplers, echo ?SBO-appears to be more of ileus improving. Surgery following Aspiration pneumonia/sepsis Antibiotics Hepatic encephalopathy Lactulose Hypokalemia Repleted, DVT prophylaxis; SCDs No family at bedside Case discussed with nursing staff. History Interval history: Patient seen and examined, remains on restraints due to agitation. Unable to ang ve coherent conversation. Attempt to get further records from personal-assisted futile at this point. We will continue to attempt. No other adverse event reported by nursing staff Hospitalist Physical - Physical exam Narrative exam: General appearance: Present: well-nourished, non coherent conversation - EENT Eyes: Present: PERRL ENT: hearing intact, clear oral mucosa - Neck Neck: Present: supple, normal ROM - Respiratory Respiratory effort: normal Respiratory: bilateral: rhonchi - Cardiovascular Heart Sounds: Present: S1 & S2. Absent: rub, click - Extremities Extremities: pulses symmetrical, No edema Peripheral Pulses: within normal limits - Abdominal General gastrointestinal: Present: soft, non-tender, non-distended, normal bowel sounds Male genitourinary: Present: normal - Integumentary Integumentary: Present: clear, warm, dry - Musculoskeletal Musculoskeletal: other, moves all extremitis - Psychiatric Psychiatric: - Neurologic Neurologic: other encephalopathy - Constitutional Vitals: Temp Pulse Resp BP Pulse Ox 97.9 F 84 22 145/89 98 09/12/19 11:14 09/12/19 11:14 09/12/19 11:14 09/12/19 11:14 09/12/19 11:43 General appearance: Present: other (agitated, confused, restrained) Results - Labs CBC & Chem 7: 09/12/19 04:39 09/12/19 04:39 Labs: Laboratory Last Values WBC 5.2 K/mm3 (4.5-11.0) 09/12/19 04:39 RBC 4.02 M/mm3 (3.65-5.03) 09/12/19 04:39 Hgb 12.1 gm/dl (11.8-15.2) 09/12/19 04:39 Hct 35.1 % (35.5-45.6) L 09/12/19 04:39 MCV 87 fl (84-94) 09/12/19 04:39 MCH 30 pg (28-32) 09/12/19 04:39 MCHC 34 % (32-34) 09/12/19 04:39 RDW 13.6 % (13.2-15.2) 09/12/19 04:39 Plt Count 111 K/mm3 (140-440) L 09/12/19 04:39 Lymph % (Auto) 7.2 % (13.4-35.0) L 09/10/19 04:40 [place] % (Auto) 10.3 % (0.0-7.3) H 09/10/19 04:40 Eos % (Auto) 0.3 % (0.0-4.3) 09/10/19 04:40 Baso % (Auto) 0.3 % (0.0-1.8) 09/10/19 04:40 Lymph # 0.6 K/mm3 (1.2-5.4) L 09/10/19 04:40 [place] # 0.8 K/mm3 (0.0-0.8) 09/10/19 04:40 Eos # 0.0 K/mm3 (0.0-0.4) 09/10/19 04:40 Baso # 0.0 K/mm3 (0.0-0.1) 09/10/19 04:40 Seg Neutrophils % 81.9 % (40.0-70.0) H 09/10/19 04:40 Seg Neutrophils # 6.6 K/mm3 (1.8-7.7) 09/10/19 04:40 PT 14.0 Sec. (12.2-14.9) 09/11/19 18:08 INR 1.07 (0.87-1.13) 09/11/19 18:08 APTT 29.1 Sec. (24.2-36.6) 09/11/19 18:08 Heparin Anti-Xa Level 0.49 U.I./ml (0.3-0.7) 09/12/19 08:07 POC ABG pH 7.419 (7.35-7.45) 09/10/19 05:02 ABG pH 7.423 pH Units (7.350-7.450) 09/11/19 03:57 POC ABG pCO2 38.4 (35-45) 09/10/19 05:02 ABG pCO2 38.1 mm Hg 09/11/19 03:57 POC ABG pO2 94 (80-105) 09/10/19 05:02 ABG pO2 100.4 mm Hg (80.0-90.0) H 09/11/19 03:57 POC ABG HCO3 24.8 (22-26 mml/L) 09/10/19 05:02 ABG HCO3 24.4 mmol/L (20.0-26.0) 09/11/19 03:57 POC ABG Total CO2 26 (23-27mmol/L) 09/10/19 05:02 POC ABG O2 Sat 97 09/10/19 05:02 ABG O2 Saturation 97.7 % (95.0-99.0) 09/11/19 03:57 ABG O2 Content 16.5 (0.0-44) 09/11/19 03:57 POC ABG Base Excess 0 ((-2) - (+3)mmol/L) 09/10/19 05:02 ABG Base Excess 0.1 mmol/L (-2.0-3.0) 09/11/19 03:57 ABG Hemoglobin 12.2 gm/dl (14.0-18.0) L 09/11/19 03:57 ABG Carboxyhemoglobin 1.7 % (0.0-5.0) 09/11/19 03:57 ABG Methemoglobin 0.6 % (0.0-1.5) 09/11/19 03:57 Oxyhemoglobin 95.5 % (95.0-99.0) 09/11/19 03:57 FiO2 30 % 09/11/19 03:57 Sodium 142 mmol/L (137-145) 09/12/19 04:39 Potassium 3.1 mmol/L (3.6-5.0) L 09/12/19 04:39 Chloride 108.2 mmol/L (98-107) H 09/12/19 04:39 Carbon Dioxide 22 mmol/L (22-30) 09/12/19 04:39 Anion Gap 15 mmol/L 09/12/19 04:39 BUN 4 mg/dL (9-20) L 09/12/19 04:39 Creatinine 0.5 mg/dL (0.8-1.5) L 09/12/19 04:39 Estimated GFR > 60 ml/min 09/12/19 04:39 BUN/Creatinine Ratio 8 % 09/12/19 04:39 Glucose 107 mg/dL (75-100) H 09/12/19 04:39 POC Glucose 121 (70-105) H 09/12/19 11:30 Calcium 8.0 mg/dL (8.4-10.2) L 09/12/19 04:39 Phosphorus TNR 09/11/19 04:50 Magnesium 2.10 mg/dL (1.7-2.3) 09/10/19 04:40 Total Bilirubin 0.50 mg/dL (0.1-1.2) 09/10/19 04:40 Direct Bilirubin < 0.2 mg/dL (0-0.2) 09/10/19 04:40 Indirect Bilirubin 0.0 mg/dL 09/09/19 10:22 AST 33 units/L (5-40) 09/10/19 04:40 ALT 23 units/L (7-56) 09/10/19 04:40 Alkaline Phosphatase 117 units/L (35-129) 09/10/19 04:40 Ammonia 60.0 umol/L (25-60) 09/10/19 04:40 Total Creatine Kinase 267 units/L (55-170) H 09/09/19 10:22 CK-MB (CK-2) 4.6 ng/mL (0.0-4.0) H 09/09/19 10:22 CK-MB (CK-2) Rel Index 1.7 (0-4) 09/09/19 10:22 Troponin T < 0.010 ng/mL (0.00-0.029) 09/09/19 10:22 NT-Pro-B Natriuret Pep 268.5 pg/mL (0-900) 09/09/19 10:22 Total Protein 7.1 g/dL (6.3-8.2) 09/10/19 04:40 Albumin 3.8 g/dL (3.9-5) L 09/10/19 04:40 Albumin/Globulin Ratio 1.2 % 09/10/19 04:40 Triglycerides 90 mg/dL (2-149) 09/10/19 04:40 Cholesterol 196 mg/dL (50-199) 09/10/19 04:40 LDL Cholesterol Direct 131 mg/dL (50-130) H 09/10/19 04:40 HDL Cholesterol 57 mg/dL (40-59) 09/10/19 04:40 Cholesterol/HDL Ratio 3.43 % 09/10/19 04:40 Procalcitonin 0.14 ng/mL (<0.15) 09/12/19 04:39 Urine Color Yellow (Yellow) 09/09/19 15:24 Urine Turbidity Clear (Clear) 09/09/19 15:24 Urine pH 5.0 (5.0-7.0) 09/09/19 15:24 Ur Specific [place] 1.015 (1.003-1.030) 09/09/19 15:24 Urine Protein 30 mg/dl mg/dL (Negative) 09/09/19 15:24 Urine Glucose (UA) Neg mg/dL (Negative) 09/09/19 15:24 Urine Ketones Neg mg/dL (Negative) 09/09/19 15:24 Urine Blood Mod (Negative) 09/09/19 15:24 Urine Nitrite Neg (Negative) 09/09/19 15:24 Urine Bilirubin Neg (Negative) 09/09/19 15:24 Urine Urobilinogen < 2.0 mg/dL (<2.0) 09/09/19 15:24 Ur Leukocyte Esterase Neg (Negative) 09/09/19 15:24 Urine WBC (Auto) 2.0 /HPF (0.0-6.0) 09/09/19 15:24 Urine RBC (Auto) 59.0 /HPF (0.0-6.0) 09/09/19 15:24 U Epithel Cells (Auto) < 1.0 /HPF (0-13.0) 09/09/19 15:24 Urine Bacteria (Auto) 1+ /HPF (Negative) 09/09/19 15:24 Urine Mucus Few /HPF 09/09/19 15:24 Urine Opiates Screen Presumptive negative 09/09/19 15:24 Urine Methadone Screen Presumptive negative 09/09/19 15:24 Ur Barbiturates Screen Presumptive negative 09/09/19 15:24 Phenytoin 11.1 ug/mL (10.0-20.0) 09/09/19 13:10 Valproic Acid < 2.8 ug/mL (50-100) L 09/09/19 13:10 Ur Phencyclidine Scrn Presumptive negative 09/09/19 15:24 Ur Amphetamines Screen Presumptive negative 09/09/19 15:24 U Benzodiazepines Scrn Presumptive positive 09/09/19 15:24 Urine Cocaine Screen Presumptive negative 09/09/19 15:24 U Marijuana (THC) Screen Presumptive negative 09/09/19 15:24 Drugs of Abuse Note Disclamer 09/09/19 15:24 Active Medications - Current Medications Current Medications: Generic Name Dose Route Start Last Admin Trade Name Freq PRN Reason Stop Dose Admin Acetaminophen 650 mg 09/09/19 22:21 09/11/19 12:25 Tylenol PO 650 mg Q4H PRN Administration Pain MILD(1-3)/Fever >100.5/ANG Aspirin 325 mg 09/11/19 10:00 09/12/19 10:49 Aspirin PO 325 mg QDAY WALT Administration Atorvastatin Calcium 40 mg 09/09/19 22:00 09/11/19 23:06 Lipitor PO 40 mg QHS WALT Administration Clopidogrel Bisulfate 75 mg 09/10/19 10:00 09/12/19 10:49 Plavix PO 75 mg QDAY WALT Administration Diphenhydramine HCl 25 mg 09/11/19 16:08 09/12/19 15:18 Benadryl IV 25 mg Q6H PRN Administration Itching Famotidine 20 mg 09/12/19 22:00 Pepcid PO BID WALT Haloperidol Lactate 5 mg 09/12/19 17:22 Haldol IM Q6H PRN Agitation Hydrophilic Ointment 1 applic 09/09/19 12:23 Vaseline Lip Therapy TP Q2HR PRN Dry Lips Ampicillin Sodium/Sulbactam Sodium 3 gm in 100 mls @ 200 mls/hr 09/10/19 00:00 09/12/19 17:37 Unasyn/Ns 3 Gm/100 Ml IV 200 mls/hr Q6HR WALT Administration Protocol Dextrose/Sodium Chloride 1,000 mls @ 75 mls/hr 09/10/19 15:09 09/12/19 13:12 D5ns IV 75 mls/hr DIRECT WALT Administration Valproate Sodium 1,000 mg/ 110 mls @ 100 mls/hr 09/11/19 22:00 09/12/19 10:44 Sodium Chloride IV 100 mls/hr Q12HR WALT Administration Heparin Sodium/Sodium Chloride 25,000 unit in 500 mls @ 26 mls/hr 09/11/19 17:00 09/12/19 13:12 Heparin/ 0.45% Nacl-25,000 Unit/500 Ml IV 1,400 units/hr TITR WALT 28 mls/hr Administration Protocol 1,300 UNITS/HR Lorazepam 2 mg 09/11/19 16:06 09/12/19 16:19 Ativan IV 2 mg Q4H PRN Administration Agitation Melatonin 5 mg 09/11/19 13:00 09/12/19 10:48 Melatonin PO 5 mg BID WALT Administration Metoprolol Tartrate 50 mg 09/12/19 12:20 09/12/19 15:18 Metoprolol PO 50 mg BID WALT Administration Multi-Ingred Cream/Lotion/Oil/Oint 1 applic 09/09/19 12:23 Artificial Tears Ophth Oint OU Q4HR PRN Dry Eye(s) Ondansetron HCl 4 mg 09/09/19 22:21 09/12/19 15:18 Zofran IV 4 mg Q8H PRN Administration Nausea And Vomiting Sodium Chloride 10 ml 09/10/19 10:00 09/12/19 11:01 Sodium Chloride Flush Syringe 10 Ml IV 10 ml BID WALT Administration Sodium Chloride 10 ml 09/09/19 22:21 Sodium Chloride Flush Syringe 10 Ml IV PRN PRN LINE FLUSH Nutrition/Malnutrition Assess - Dietary Evaluation Nutrition/Malnutrition Findings: Nutrition Notes Start: 09/10/19 12:25 Freq: Status: Active Protocol: Document 09/12/19 12:03 CW (Rec: 09/12/19 12:30 CW [id number]) Co-Sign 09/12/19 12:03 LP Nutrition Notes Need for Assessment generated from: MD Order Initial or Follow up Reassessment Current Diagnosis Coronary Artery Disease, Hypertension,Heart Failure, Respiratory Failure, Hyperlipidemia Other Pertinent Diagnosis hx of CVA, seizures, schizophrenia, pneumonia, hepatic encephalopathy Current Diet Regular Diet Labs/Tests Creat:0.5L, BUN: 4, K 3.1 Pertinent Medications Heparin Sodium KDUR Height 6 ft 1 in Weight 83.4 kg [place] Body Weight (kg) 83.63 BMI 24.3 Weight change and time frame 3.7% weight loss in 2 days Weight Status Appropriate Subjective/Other Information No diet ordered at time of visit; Pt advanced to regular diet at lunch per PROCUREMENT CONSULTANT. Pt extubated yesterday (09/11/19) ; Burn Absent Trauma Absent Current % PO Negligible Minimum of two criteria No Reduced [place] Strength Measurably Reduced (severe) #1 Nutrition Diagnosis Inadequate oral intake As Evidenced by Signs and Symptoms pt advanced to regular diet per PROCUREMENT CONSULTANT Diagnosis Progress(for reassessment Improved documentation) Is patient on ventilator? No Is Patient Ambulatory and/or Out of Bed No REE-([facility]) Calculation Used for Recommendations [facility] Additional Notes Protein Needs:67 - 83 g(0.8 - 1 g/kg) Fluid Needs: 1ml/Kcal Nutrition Intervention Change Diet Order: continue regular diet Goal #1 increase oral intake to at least 75% of energy and protein needs Anticipated Discharge Needs: regular diet Follow-Up By: 09/14/19 Additional Comments F/U PO tolerance
[2019-09-12] MEDS: HALOPERIDOL LACTATE 5 MG/1 ML INJ IM PRN (18:43)
[2019-09-12] MEDS: FAMOTIDINE 20 MG TAB PO SCH (21:56)
[2019-09-13] MEDS: AMPICILLIN/SULBACTA 3GM/100ML 3 GM/100 ML BAG IV SCH ×3 (01:26→11:52)
[2019-09-13] MEDS: HALOPERIDOL LACTATE 5 MG/1 ML INJ IM PRN (03:59)
[2019-09-13] MEDS: D5W/0.9% NACL 1,000 ML IV SCH ×2 (04:01→22:29)
[2019-09-13 07:07] LABS: Hematocrit 33.1 % (35.5-45.6); Hemoglobin 11.3 gm/dl (11.8-15.2); Mean Corpuscular HGB Conc 34 % (32-34); Mean Corpuscular Volume 87 fl (84-94); Platelet Count 192 K/mm3 (140-440); Red Blood Count 3.79 M/mm3 (3.65-5.03); Red Cell Distribution Width 14.1 % (13.2-15.2)
[2019-09-13 07:32] LABS: BUN/Creatinine Ratio 12; Blood Urea Nitrogen 7 mg/dL (9-20); Calcium 8.4 mg/dL (8.4-10.2); Hemolysis Index 12
[2019-09-13] MEDS: LORazepam 2 MG/ML VIAL IV PRN ×3 (07:57→17:34)
[2019-09-13] MEDS: ASPIRIN 325 MG TAB PO SCH (10:00)
[2019-09-13] MEDS: METOPROLOL TARTRATE 50 MG TAB PO SCH ×2 (10:00→22:29)
[2019-09-13] MEDS: VALPROATE SODIUM 1,000 MG in SODIUM CHLORIDE 0.9% 100 ML IV SCH ×2 (10:00→22:28)
[2019-09-13] MEDS: MELATONIN 5 MG TAB PO SCH ×2 (10:01→22:36)
[2019-09-13] MEDS: CLOPIDOGREL 75 MG TAB PO SCH (10:01)
[2019-09-13] MEDS: HEPARIN/ 0.45% NACL DRIP 25,000 UNIT/500 ML BAG IV SCH (10:07)
[2019-09-13] MEDS: FAMOTIDINE 20 MG TAB PO SCH ×2 (10:11→22:31)
--- NOTE | 2019-09-13 11:35 | Electroencephalogram Report ---
Electroencephalogram EEG Date of exam: 09/13/19 History: 59-year-old male arriving with [id number] seizures seizure breakthrough which have resolved patient is now on valproic acid awake and moving all extremities no focal deficits still agitated This EEG is compared to recent EEG done on 09/10/19 which showed suggestive of epileptic discharges this is a 20 minutes bedside EEG Impression: Normal EEGs however do not rule out epilepsy Description: This EEG was acquired electrodes placed according to International 10-20 electrode placement system. The waking background shows an appropriate organization with, at times, a better appreciated anterior posterior voltage and frequency gradients. Posteriorly, there is a well-developed beta rhythm of [12-13] Hz, that does slow down to alpha frequency occasionally and remains symmetric bilaterally and reactive to eye opening and closing. Anteriorly, there is a pattern of lower voltage and slightly irregular beta range frequencies. Beta frequencies were seen more posteriorly than usual. No sleep architecture was appreciated Throughout, the recording there are no epileptiform abnormalities, focal or lateralizing features, or significant interhemispheric findings. Photic stimulation and hyperventilation were not applied EMG and IV machine artifact were appreciated throughout this EEG Interpretation: This is a normal awake EEG Increased beta frequency in the posterior regions may be secondary to medication /benzodiazepine effect
--- NOTE | 2019-09-13 11:50 | Progress Note ---
Assessment and Plan Seizure disorder with recent [id number] seizure breakthrough resolved EEG much improved as compared to prior 09/10/2019 I believe his seizure disorder is now stable however I am concerned about these moments of staring and right gaze and his continued agitation in concern for interictal sz activity will add vimpat 100 iV and get biofeedback I will check orthostatic hypotension vital signs sitting standing and standing 4 minutes I will check ammonia level along with valproic acid level, my concern is that valproic acid may increase ammonia EEG checked at bedside today Continue secondary stroke risk reduction measures Continue telemetry, thus far is no atrial fibrillation reported Subjective Date of service: 09/13/19 Principal diagnosis: seizure Interval history: Patient was seen and examined 4 point restraints Agitated and impulsive At times I see patient looking to the right and not following commands when asking him to look to the left but he is still able to speak move around during these times and don't see any other extra movements to suggest interictal seizure-like activity EEG at bedside today was reassuring / normal Depakote 1000 twice a day No fevers Upon standing patient becomes what seems to be lightheaded and starts to stare No events overnight no neurological decline no generalized tonic-clonic seizures no focal seizures per nursing Patient denies headache "I remember you " No nausea vomiting No change of speech No mention of atrial fibrillation Objective - Exam Narrative Exam: Awake agitated and alert's what seems to be semi-aware as well able to remember me and intermittently follow commands patient is in 4-point restraints Cranial nerves seem intact however at times patient seems to have a right gaze preference versus a forced right gaze and not following commands to move his eyes to the left but during these events she is talking in front get up out of bed 5 out of 5 strength throughout No respiratory distress Agitated and irritated internal stimuli confused at times but also lucid at times Pupils reactive - Vital Sign Vital Signs - 12hr 09/13/19 09/13/19 09/13/19 04:24 04:28 10:00 Temperature 98.3 F 98.3 F Pulse Rate 97 H 92 H Respiratory 18 20 Rate Blood Pressure 131/92 136/90 O2 Sat by Pulse 91 Oximetry - Laboratory Findings CBC and BMP: 09/13/19 05:02 09/13/19 05:02 Abnormal Lab Findings: Abnormal Labs 09/09/19 09/09/19 09/09/19 10:22 10:22 10:22 Hgb Hct Plt Count Lymph % (Auto) [place] % (Auto) 8.6 H Eos % (Auto) 4.7 H Lymph # Seg Neutrophils % Heparin Anti-Xa Level POC ABG pH POC ABG pCO2 POC ABG pO2 ABG pO2 ABG Hemoglobin Potassium 3.4 L Chloride Carbon Dioxide 21 L BUN Creatinine Glucose 161 H POC Glucose Calcium Alkaline Phosphatase 139 H Ammonia 83.0 H Total Creatine Kinase 267 H CK-MB (CK-2) 4.6 H Albumin LDL Cholesterol Direct Valproic Acid 09/09/19 09/09/19 09/09/19 10:29 13:10 13:54 Hgb Hct Plt Count Lymph % (Auto) [place] % (Auto) Eos % (Auto) Lymph # Seg Neutrophils % Heparin Anti-Xa Level POC ABG pH 7.150 L POC ABG pCO2 > 70 H 46.7 H POC ABG pO2 179 H ABG pO2 ABG Hemoglobin Potassium Chloride Carbon Dioxide BUN Creatinine Glucose POC Glucose Calcium Alkaline Phosphatase Ammonia Total Creatine Kinase CK-MB (CK-2) Albumin LDL Cholesterol Direct Valproic Acid < 2.8 L 09/10/19 09/10/19 09/10/19 04:40 04:40 18:21 Hgb Hct Plt Count Lymph % (Auto) 7.2 L [place] % (Auto) 10.3 H Eos % (Auto) Lymph # 0.6 L Seg Neutrophils % 81.9 H Heparin Anti-Xa Level POC ABG pH POC ABG pCO2 POC ABG pO2 ABG pO2 ABG Hemoglobin Potassium Chloride Carbon Dioxide 20 L BUN Creatinine 0.6 L Glucose 109 H POC Glucose 109 H Calcium Alkaline Phosphatase Ammonia Total Creatine Kinase CK-MB (CK-2) Albumin 3.8 L LDL Cholesterol Direct 131 H Valproic Acid 09/11/19 09/11/19 09/12/19 03:57 08:43 00:35 Hgb Hct Plt Count Lymph % (Auto) [place] % (Auto) Eos % (Auto) Lymph # Seg Neutrophils % Heparin Anti-Xa Level POC ABG pH POC ABG pCO2 POC ABG pO2 ABG pO2 100.4 H ABG Hemoglobin 12.2 L Potassium Chloride 111.6 H Carbon Dioxide 19 L BUN 6 L Creatinine 0.6 L Glucose POC Glucose 109 H Calcium 8.0 L Alkaline Phosphatase Ammonia Total Creatine Kinase CK-MB (CK-2) Albumin LDL Cholesterol Direct Valproic Acid 09/12/19 09/12/19 09/12/19 00:47 04:39 04:39 Hgb Hct 35.1 L Plt Count 111 L Lymph % (Auto) [place] % (Auto) Eos % (Auto) Lymph # Seg Neutrophils % Heparin Anti-Xa Level 0.17 L POC ABG pH POC ABG pCO2 POC ABG pO2 ABG pO2 ABG Hemoglobin Potassium 3.1 L Chloride 108.2 H Carbon Dioxide BUN 4 L Creatinine 0.5 L Glucose 107 H POC Glucose Calcium 8.0 L Alkaline Phosphatase Ammonia Total Creatine Kinase CK-MB (CK-2) Albumin LDL Cholesterol Direct Valproic Acid 09/12/19 09/13/19 09/13/19 11:30 05:02 05:02 Hgb 11.3 L Hct 33.1 L Plt Count Lymph % (Auto) [place] % (Auto) Eos % (Auto) Lymph # Seg Neutrophils % Heparin Anti-Xa Level POC ABG pH POC ABG pCO2 POC ABG pO2 ABG pO2 ABG Hemoglobin Potassium 3.4 L Chloride 110.3 H Carbon Dioxide 20 L BUN 7 L Creatinine 0.6 L Glucose 101 H POC Glucose 121 H Calcium Alkaline Phosphatase Ammonia Total Creatine Kinase CK-MB (CK-2) Albumin LDL Cholesterol Direct Valproic Acid
--- NOTE | 2019-09-13 13:55 | Progress Note ---
Assessment and Plan Cultures: 09/09/2019 tracheal aspirate: usual respiratory na 09/09/2019 blood culture: NGTD A/P: 59/M [facility] resident, hypertension, CVA, CHF, seizure disorder, schizophrenia, hyperlipidemia, CAD, CHF admitted with: #Seizures, post ictal state, acute encephalopathy: improving. #Acute resp failure, b/l aspiration pneumonia vs pneumonitis: extubated. Procal is low. #Ileus: surgery following, stable. #Acute encephalopathy: undergoing work up. Recs: abx sherlyn Nicholson MD, FACP [facility] C: [phone] O: [phone] F: [phone] Subjective Date of service: 09/13/19 Principal diagnosis: seizure Interval history: No fevers. Currently sleeping. Reportedly walked with PT. Still confused, agitated at times. Objective - Exam Narrative Exam: Physical Exam: Constitutional: sleeping Head, Ears, Nose: Normocephalic, atraumatic. External ears, nose normal Eyes: Conjunctivae/corneas clear. No icterus. No ptosis. Neck: supple, no meningeal signs Cardiovascular: S1, S2 normal Respiratory: Good air entry, clear to auscultation bilaterally GI: non tender, bowel sounds +. No peritoneal signs Musculoskeletal: No pedal edema, no cyanosis. Skin: No rash or abscess Hem/Lymphatic: No palpable cervical or supraclavicular nodes. No lymphangitis Psych: no agitation Neurological: sleeping - Constitutional Vitals: Vital Signs Temp Pulse Resp BP Pulse Ox 97.9 F 82 20 143/91 92 09/13/19 11:29 09/13/19 11:29 09/13/19 11:29 09/13/19 11:29 09/13/19 11:29 Temperature -Last 24 Hours Temperature 97.9 F Temperature 98.3 F Temperature 98.3 F Temperature 98.1 F Temperature 98.2 F - Labs CBC & Chem 7: 09/13/19 05:02 09/13/19 05:02 Labs: Abnormal lab results 09/13/19 09/13/19 Range/Units 05:02 05:02 Hgb 11.3 L (11.8-15.2) gm/dl Hct 33.1 L (35.5-45.6) % Potassium 3.4 L (3.6-5.0) mmol/L Chloride 110.3 H (98-107) mmol/L Carbon Dioxide 20 L (22-30) mmol/L BUN 7 L (9-20) mg/dL Creatinine 0.6 L (0.8-1.5) mg/dL Glucose 101 H (75-100) mg/dL
--- NOTE | 2019-09-13 14:30 | Progress Note ---
Assessment and Plan Cont present cardiac management. Attempted to contact pt's listed NOK again today, brother Bandar Bauman @ , regarding current assessment and recommendations including POLINA as we will require a legal NOK to sign consent given pt's confusion. No answer. Will continue to attempt to reach him. The patient has been seen in conjunction with Dr. Jovel who agrees with the assessment and plan of care. - Patient Problems (1) Cardiac mass Current Visit: Yes Status: Acute (2) Paroxysmal atrial flutter Current Visit: Yes Status: Acute (3) Seizure disorder Current Visit: Yes Status: Chronic (4) Altered mental status Current Visit: Yes Status: Acute (5) Aspiration pneumonia Current Visit: Yes Status: Suspected (6) Ileus Current Visit: Yes Status: Suspected (7) Hypertension Current Visit: Yes Status: Chronic Qualifiers: Hypertension type: essential hypertension Qualified Code(s): I10 - Essential (primary) hypertension (8) Hyperlipidemia Current Visit: Yes Status: Chronic Qualifiers: Hyperlipidemia type: unspecified Qualified Code(s): E78.5 - Hyperlipidemia, unspecified (9) History of cerebrovascular accident Current Visit: Yes Status: Chronic Subjective Date of service: 09/13/19 Principal diagnosis: seizure Interval history: pt resting in bed, remains confused and agitated and restrained. undergoing EEG. in SR on tele. no family present. Objective Last Vital Signs Temp 97.9 F 09/13/19 11:29 Pulse 82 09/13/19 11:29 Resp 20 09/13/19 11:29 BP 143/91 09/13/19 11:29 Pulse Ox 92 09/13/19 11:29 - Physical Examination General: Other (agitated, restrained, confused) HEENT: Positive: PERRL Cardiac: Positive: Reg Rate and Rhythm, S1/S2 Lungs: Positive: Decreased Breath Sounds Neuro: Positive: Grossly Intact, Other (agitated, confused, restrained) Skin: Negative: Rash Extremities: Absent: edema - Labs and Meds CBC 09/13/19 Range/Units 05:02 WBC 6.4 (4.5-11.0) K/mm3 RBC 3.79 (3.65-5.03) M/mm3 Hgb 11.3 L (11.8-15.2) gm/dl Hct 33.1 L (35.5-45.6) % Plt Count 192 (140-440) K/mm3 Comprehensive Metabolic Panel 09/13/19 Range/Units 05:02 Sodium 144 (137-145) mmol/L Potassium 3.4 L (3.6-5.0) mmol/L Chloride 110.3 H (98-107) mmol/L Carbon Dioxide 20 L (22-30) mmol/L BUN 7 L (9-20) mg/dL Creatinine 0.6 L (0.8-1.5) mg/dL Glucose 101 H (75-100) mg/dL Calcium 8.4 (8.4-10.2) mg/dL - Imaging and Cardiology EKG: report reviewed, image reviewed Echo: report reviewed (09/09/2019 which showed EF 45-50%, mod LVH, grade 1 diastolic dysfunction, no sig valvular abnormalities, mod pleural effusion, mobile echogenic structure in LA that appears attached to the posterior wall of the aortic root or roof of the LA, atrial septal aneurysm present, negative bubble study although suboptimal study ) - Telemetry EKG Rhythm: Sinus Rhythm
[2019-09-13] MEDS ORDERED: POTASSIUM CHLORIDE 10 MEQ 10 MEQ/100 ML BAG IV SCH (16:00)
--- NOTE | 2019-09-13 17:41 | Progress Note ---
Assessment and Plan Assessment and plan: 59-year-old man who lives in a long term. He was brought in for multiple seizures. Apparently he was having seizures nonstop at the long term. He rests arrived in the hospital in a postictal state and was not having active seizures. He was given Keppra, he had normal blood glucose. It is not clear how well he is receiving his phenytoin and valproate in a long term. While in the ER the patient remained postictal nonresponsive was unable to protect his airway and therefore intubated for airway protection. It is reported that the patient vomited and aspirated in the EMS and prior to arrival Past medical history; hypertension, CVA, CHF, seizure disorder, Wernicke's encephalopathy, schizophrenia, hyperlipidemia, CAD Chest x-ray bibasilar retrocardiac opacities represents atelectasis with or without superimposed pneumonia. CT abdomen and pelvis. Bibasilar pneumonia, bowel distention which is typical of ileus Status epilepticus Valproate levels are low, Neurology consult and input noted, do not see valprpate on home meds list, awaiting to see if patient was even on said medications. CT head did not show any acute findings, Neurology reports concern about these moments of staring and right gaze and his continued agitation in concern for interictal sz activity will add vimpat 100 iV and get biofeedback -Ammonia and valporic level ordered and pending Axute metabolic encephalopathy/psychosis Due to postictal state versus schizophrenia Awaiting Meds from home Concerned this may only be psychosis Continue restraints. Pysch consulted start on seroquel at hs Acute respiratory failure on mechanical ventilator less than 96 hours EXTUBATED Cardiac Mass - on Heparin drip - Cardiology consulted, cardiology planning for POLINA once patient is medically stabilized -Patient is a poor candidate for anticoagulation due to altered mental status also history of EtOH abuse in the past, seizure disorder psych as noted by cardiology. -brother Bandar Bauman @ , regarding current assessment and recommendations including POLINA as we will require a legal NOK to sign consent given pt's confusion. No answer. I have also tried to reach him and will await a call back will discuss with cardiology about 2 physician signing Paroxysmal atrial flutter -As noted above -Continue p.o. current History of CVA? Cannot exclude stroke as etiology of his current symptoms. neurology consulted, Allow permissive hypertension, has received aspirin, stroke education, observe for arrhythmia on telemetry, --aspirin and high dose statin, check Lipid panel ?SBO-appears to be more of ileus improving. Surgery following Aspiration pneumonia/sepsis Antibiotics Hepatic encephalopathy Lactulose Hypokalemia Repleted, Upper ext excouration -Obtain wound care eval DVT prophylaxis; SCDs No family at bedside Case discussed with nursing staff. History Interval history: Patient seen and examined, remains on restraints due to agitation. Unable to have coherent conversation. Attempt to get further records from [facility] futile at this point. We will continue to attempt. No other adverse event reported by nursing staff. Remains very agitated and does appear at times to have auditory hallucination or visual hallucination as he sometimes speaks to people that are not in the room. Hospitalist Physical - Physical exam Narrative exam: General appearance: Present: well-nourished, non coherent conversation - EENT Eyes: Present: PERRL ENT: hearing intact, clear oral mucosa - Neck Neck: Present: supple, normal ROM - Respiratory Respiratory effort: normal Respiratory: bilateral: rhonchi - Cardiovascular Heart Sounds: Present: S1 & S2. Absent: rub, click - Extremities Extremities: pulses symmetrical, No edema Peripheral Pulses: within normal limits - Abdominal General gastrointestinal: Present: soft, non-tender, non-distended, normal bowel sounds Male genitourinary: Present: normal - Integumentary Integumentary: Present: clear, warm, dry - Musculoskeletal Musculoskeletal: other, moves all extremitis - Psychiatric Psychiatric: - Neurologic Neurologic: other encephalopathy - Constitutional Vitals: Temp Pulse Resp BP Pulse Ox 97.9 F 82 20 143/91 92 09/13/19 11:29 09/13/19 11:29 09/13/19 11:29 09/13/19 11:29 09/13/19 11:29 General appearance: Present: other (agitated, confused, restrained) Results - Labs CBC & Chem 7: 09/13/19 05:02 09/13/19 05:02 Labs: Laboratory Last Values WBC 6.4 K/mm3 (4.5-11.0) 09/13/19 05:02 RBC 3.79 M/mm3 (3.65-5.03) 09/13/19 05:02 Hgb 11.3 gm/dl (11.8-15.2) L 09/13/19 05:02 Hct 33.1 % (35.5-45.6) L 09/13/19 05:02 MCV 87 fl (84-94) 09/13/19 05:02 MCH 30 pg (28-32) 09/13/19 05:02 MCHC 34 % (32-34) 09/13/19 05:02 RDW 14.1 % (13.2-15.2) 09/13/19 05:02 Plt Count 192 K/mm3 (140-440) 09/13/19 05:02 Lymph % (Auto) 7.2 % (13.4-35.0) L 09/10/19 04:40 [place] % (Auto) 10.3 % (0.0-7.3) H 09/10/19 04:40 Eos % (Auto) 0.3 % (0.0-4.3) 09/10/19 04:40 Baso % (Auto) 0.3 % (0.0-1.8) 09/10/19 04:40 Lymph # 0.6 K/mm3 (1.2-5.4) L 09/10/19 04:40 [place] # 0.8 K/mm3 (0.0-0.8) 09/10/19 04:40 Eos # 0.0 K/mm3 (0.0-0.4) 09/10/19 04:40 Baso # 0.0 K/mm3 (0.0-0.1) 09/10/19 04:40 Seg Neutrophils % 81.9 % (40.0-70.0) H 09/10/19 04:40 Seg Neutrophils # 6.6 K/mm3 (1.8-7.7) 09/10/19 04:40 PT 14.0 Sec. (12.2-14.9) 09/11/19 18:08 INR 1.07 (0.87-1.13) 09/11/19 18:08 APTT 29.1 Sec. (24.2-36.6) 09/11/19 18:08 Heparin Anti-Xa Level 0.50 U.I./ml (0.3-0.7) 09/13/19 08:07 POC ABG pH 7.419 (7.35-7.45) 09/10/19 05:02 ABG pH 7.423 pH Units (7.350-7.450) 09/11/19 03:57 POC ABG pCO2 38.4 (35-45) 09/10/19 05:02 ABG pCO2 38.1 mm Hg 09/11/19 03:57 POC ABG pO2 94 (80-105) 09/10/19 05:02 ABG pO2 100.4 mm Hg (80.0-90.0) H 09/11/19 03:57 POC ABG HCO3 24.8 (22-26 mml/L) 09/10/19 05:02 ABG HCO3 24.4 mmol/L (20.0-26.0) 09/11/19 03:57 POC ABG Total CO2 26 (23-27mmol/L) 09/10/19 05:02 POC ABG O2 Sat 97 09/10/19 05:02 ABG O2 Saturation 97.7 % (95.0-99.0) 09/11/19 03:57 ABG O2 Content 16.5 (0.0-44) 09/11/19 03:57 POC ABG Base Excess 0 ((-2) - (+3)mmol/L) 09/10/19 05:02 ABG Base Excess 0.1 mmol/L (-2.0-3.0) 09/11/19 03:57 ABG Hemoglobin 12.2 gm/dl (14.0-18.0) L 09/11/19 03:57 ABG Carboxyhemoglobin 1.7 % (0.0-5.0) 09/11/19 03:57 ABG Methemoglobin 0.6 % (0.0-1.5) 09/11/19 03:57 Oxyhemoglobin 95.5 % (95.0-99.0) 09/11/19 03:57 FiO2 30 % 09/11/19 03:57 Sodium 144 mmol/L (137-145) 09/13/19 05:02 Potassium 3.4 mmol/L (3.6-5.0) L 09/13/19 05:02 Chloride 110.3 mmol/L (98-107) H 09/13/19 05:02 Carbon Dioxide 20 mmol/L (22-30) L 09/13/19 05:02 Anion Gap 17 mmol/L 09/13/19 05:02 BUN 7 mg/dL (9-20) L 09/13/19 05:02 Creatinine 0.6 mg/dL (0.8-1.5) L 09/13/19 05:02 Estimated GFR > 60 ml/min 09/13/19 05:02 BUN/Creatinine Ratio 12 % 09/13/19 05:02 Glucose 101 mg/dL (75-100) H 09/13/19 05:02 POC Glucose 115 (70-105) H 09/13/19 16:54 Calcium 8.4 mg/dL (8.4-10.2) 09/13/19 05:02 Phosphorus TNR 09/11/19 04:50 Magnesium 2.10 mg/dL (1.7-2.3) 09/10/19 04:40 Total Bilirubin 0.50 mg/dL (0.1-1.2) 09/10/19 04:40 Direct Bilirubin < 0.2 mg/dL (0-0.2) 09/10/19 04:40 Indirect Bilirubin 0.0 mg/dL 09/09/19 10:22 AST 33 units/L (5-40) 09/10/19 04:40 ALT 23 units/L (7-56) 09/10/19 04:40 Alkaline Phosphatase 117 units/L (35-129) 09/10/19 04:40 Ammonia 74.0 umol/L (25-60) H 09/13/19 13:36 Total Creatine Kinase 267 units/L (55-170) H 09/09/19 10:22 CK-MB (CK-2) 4.6 ng/mL (0.0-4.0) H 09/09/19 10:22 CK-MB (CK-2) Rel Index 1.7 (0-4) 09/09/19 10:22 Troponin T < 0.010 ng/mL (0.00-0.029) 09/09/19 10:22 NT-Pro-B Natriuret Pep 268.5 pg/mL (0-900) 09/09/19 10:22 Total Protein 7.1 g/dL (6.3-8.2) 09/10/19 04:40 Albumin 3.8 g/dL (3.9-5) L 09/10/19 04:40 Albumin/Globulin Ratio 1.2 % 09/10/19 04:40 Triglycerides 90 mg/dL (2-149) 09/10/19 04:40 Cholesterol 196 mg/dL (50-199) 09/10/19 04:40 LDL Cholesterol Direct 131 mg/dL (50-130) H 09/10/19 04:40 HDL Cholesterol 57 mg/dL (40-59) 09/10/19 04:40 Cholesterol/HDL Ratio 3.43 % 09/10/19 04:40 Procalcitonin 0.14 ng/mL (<0.15) 09/12/19 04:39 Urine Color Yellow (Yellow) 09/09/19 15:24 Urine Turbidity Clear (Clear) 09/09/19 15:24 Urine pH 5.0 (5.0-7.0) 09/09/19 15:24 Ur Specific [place] 1.015 (1.003-1.030) 09/09/19 15:24 Urine Protein 30 mg/dl mg/dL (Negative) 09/09/19 15:24 Urine Glucose (UA) Neg mg/dL (Negative) 09/09/19 15:24 Urine Ketones Neg mg/dL (Negative) 09/09/19 15:24 Urine Blood Mod (Negative) 09/09/19 15:24 Urine Nitrite Neg (Negative) 09/09/19 15:24 Urine Bilirubin Neg (Negative) 09/09/19 15:24 Urine Urobilinogen < 2.0 mg/dL (<2.0) 09/09/19 15:24 Ur Leukocyte Esterase Neg (Negative) 09/09/19 15:24 Urine WBC (Auto) 2.0 /HPF (0.0-6.0) 09/09/19 15:24 Urine RBC (Auto) 59.0 /HPF (0.0-6.0) 09/09/19 15:24 U Epithel Cells (Auto) < 1.0 /HPF (0-13.0) 09/09/19 15:24 Urine Bacteria (Auto) 1+ /HPF (Negative) 09/09/19 15:24 Urine Mucus Few /HPF 09/09/19 15:24 Urine Opiates Screen Presumptive negative 09/09/19 15:24 Urine Methadone Screen Presumptive negative 09/09/19 15:24 Ur Barbiturates Screen Presumptive negative 09/09/19 15:24 Phenytoin 11.1 ug/mL (10.0-20.0) 09/09/19 13:10 Valproic Acid 50.0 ug/mL (50-100) 09/13/19 13:36 Ur Phencyclidine Scrn Presumptive negative 09/09/19 15:24 Ur Amphetamines Screen Presumptive negative 09/09/19 15:24 U Benzodiazepines Scrn Presumptive positive 09/09/19 15:24 Urine Cocaine Screen Presumptive negative 09/09/19 15:24 U Marijuana (THC) Screen Presumptive negative 09/09/19 15:24 Drugs of Abuse Note Disclamer 09/09/19 15:24 Active Medications - Current Medications Current Medications: Generic Name Dose Route Start Last Admin Trade Name Freq PRN Reason Stop Dose Admin Acetaminophen 650 mg 09/09/19 22:21 09/11/19 12:25 Tylenol PO 650 mg Q4H PRN Administration Pain MILD(1-3)/Fever >100.5/ANG Aspirin 325 mg 09/11/19 10:00 09/13/19 10:00 Aspirin PO 325 mg QDAY WALT Administration Atorvastatin Calcium 40 mg 09/09/19 22:00 09/12/19 21:56 Lipitor PO 40 mg QHS WALT Administration Clopidogrel Bisulfate 75 mg 09/10/19 10:00 09/13/19 10:01 Plavix PO 75 mg QDAY WALT Administration Diphenhydramine HCl 25 mg 09/11/19 16:08 09/12/19 15:18 Benadryl IV 25 mg Q6H PRN Administration Itching Famotidine 20 mg 09/12/19 22:00 09/13/19 10:11 Pepcid PO 20 mg BID WALT Administration Haloperidol Lactate 5 mg 09/12/19 17:22 09/13/19 03:59 Haldol IM 5 mg Q6H PRN Administration Agitation Hydrophilic Ointment 1 applic 09/09/19 12:23 Vaseline Lip Therapy TP Q2HR PRN Dry Lips Dextrose/Sodium Chloride 1,000 mls @ 75 mls/hr 09/10/19 15:09 09/13/19 04:01 D5ns IV 75 mls/hr DIRECT WALT Administration Valproate Sodium 1,000 mg/ 110 mls @ 100 mls/hr 09/11/19 22:00 09/13/19 10:00 Sodium Chloride IV 100 mls/hr Q12HR WALT Administration Heparin Sodium/Sodium Chloride 25,000 unit in 500 mls @ 26 mls/hr 09/11/19 17:00 09/13/19 10:07 Heparin/ 0.45% Nacl-25,000 Unit/500 Ml IV 1,400 units/hr TITR WALT 28 mls/hr Administration Protocol 1,300 UNITS/HR Lacosamide 100 mg/ Sodium 110 mls @ 100 mls/hr 09/13/19 13:00 Chloride IV Q12H WALT Potassium Chloride 10 meq in 100 mls @ 100 mls/hr 09/13/19 16:00 Kcl 10meq/100ml IV 09/13/19 17:59 Q1H WALT Melatonin 5 mg 09/11/19 13:00 09/13/19 10:01 Melatonin PO 5 mg BID WALT Administration Metoprolol Tartrate 50 mg 09/12/19 12:20 09/13/19 10:00 Metoprolol PO 50 mg BID WALT Administration Multi-Ingred Cream/Lotion/Oil/Oint 1 applic 09/09/19 12:23 Artificial Tears Ophth Oint OU Q4HR PRN Dry Eye(s) Ondansetron HCl 4 mg 09/09/19 22:21 09/12/19 15:18 Zofran IV 4 mg Q8H PRN Administration Nausea And Vomiting Quetiapine Fumarate 50 mg 09/13/19 22:00 Seroquel PO QHS WALT Sodium Chloride 10 ml 09/10/19 10:00 09/13/19 10:10 Sodium Chloride Flush Syringe 10 Ml IV 10 ml BID WALT Administration Sodium Chloride 10 ml 09/09/19 22:21 Sodium Chloride Flush Syringe 10 Ml IV PRN PRN LINE FLUSH Nutrition/Malnutrition Assess - Dietary Evaluation Nutrition/Malnutrition Findings: Nutrition Notes Start: 09/10/19 12:25 Freq: Status: Active Protocol: Document 09/12/19 12:03 CW (Rec: 09/12/19 12:30 CW [id number]) Co-Sign 09/12/19 12:03 LP Nutrition Notes Need for Assessment generated from: MD Order Initial or Follow up Reassessment Current Diagnosis Coronary Artery Disease, Hypertension,Heart Failure, Respiratory Failure, Hyperlipidemia Other Pertinent Diagnosis hx of CVA, seizures, schizophrenia, pneumonia, hepatic encephalopathy Current Diet Regular Diet Labs/Tests Creat:0.5L, BUN: 4, K 3.1 Pertinent Medications Heparin Sodium KDUR Height 6 ft 1 in Weight 83.4 kg [place] Body Weight (kg) 83.63 BMI 24.3 Weight change and time frame 3.7% weight loss in 2 days Weight Status Appropriate Subjective/Other Information No diet ordered at time of visit; Pt advanced to regular diet at lunch per BRAZING FURNACE OPERATOR. Pt extubated yesterday (09/11/19) ; Burn Absent Trauma Absent Current % PO Negligible Minimum of two criteria No Reduced Accounting Practice Manager Strength Measurably Reduced (severe) #1 Nutrition Diagnosis Inadequate oral intake As Evidenced by Signs and Symptoms pt advanced to regular diet per BRAZING FURNACE OPERATOR Diagnosis Progress(for reassessment Improved documentation) Is patient on ventilator? No Is Patient Ambulatory and/or Out of Bed No REE-([facility]-confined to bed) 2.049 Calculation Used for Recommendations [facility] Additional Notes Protein Needs:67 - 83 g(0.8 - 1 g/kg) Fluid Needs: 1ml/Kcal Nutrition Intervention Change Diet Order: continue regular diet Goal #1 increase oral intake to at least 75% of energy and protein needs Anticipated Discharge Needs: regular diet Follow-Up By: 09/14/19 Additional Comments F/U PO tolerance
[2019-09-13] MEDS: LACOSAMIDE 100 MG in SODIUM CHLORIDE 0.9% 100 ML IV SCH (18:13)
[2019-09-13] MEDS ORDERED: QUEtiapine 25 MG TAB PO SCH (22:00)
[2019-09-14] MEDS: ASPIRIN 81 MG TAB CHEW PO SCH (00:03)
[2019-09-14] MEDS: HEPARIN/ 0.45% NACL DRIP 25,000 UNIT/500 ML BAG IV SCH ×2 (04:41→22:25)
--- NOTE | 2019-09-14 10:35 | Progress Note ---
Assessment and Plan Cont present cardiac management. heparin gtt has been initiated per primary. We were able to contact pt's listed NOK, brother Bandar Bauman @ , regarding current assessment and recommendations including POLINA. Indications, potential risks and benefits of POLINA reviewed with Bandar Bauman and he has consen clark for us to proceed with POLINA on his brother, Eduardo Bauman. Pt ate breakfast this AM. Will proceed with POLINA on 09/17/2019 @ 9:00AM with anesthesia. Will follow on as needed basis over the weekend. The patient has been seen in conjunction with Dr. Jovel who agrees with the assessment and plan of care. - Patient Problems (1) Cardiac mass Current Visit: Yes Status: Acute Plan to address problem: intra cardiac mass unclear etiology. vegetation or thrombus possible but unusual location. 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 POLINA and possibly cardiac mri at some point appears warranted. (2) Paroxysmal atrial flutter Current Visit: Yes Status: Acute (3) Seizure disorder Current Visit: Yes Status: Chronic (4) Altered mental status Current Visit: Yes Status: Acute (5) Aspiration pneumonia Current Visit: Yes Status: Suspected (6) Ileus Current Visit: Yes Status: Suspected (7) Hypertension Current Visit: Yes Status: Chronic Qualifiers: Hypertension type: essential hypertension Qualified Code(s): I10 - Essential (primary) hypertension (8) Hyperlipidemia Current Visit: Yes Status: Chronic Qualifiers: Hyperlipidemia type: unspecified Qualified Code(s): E78.5 - Hyperlipidemia, unspecified (9) History of cerebrovascular accident Current Visit: Yes Status: Chronic (10) History of coronary artery bypass graft Current Visit: Yes Status: Suspected Plan to address problem: pt reports h/o "open heart surgery" for "blockage" at [facility], however, no operative report in [facility] records. Subjective Date of service: 09/14/19 Principal diagnosis: seizure Interval history: pt resting in bed, pt appears more alert today, he is attempting to feed himself. in SR on tele. no family present. Objective Last Vital Signs Temp 99.7 F H 09/14/19 05:26 Pulse 65 09/14/19 05:26 Resp 22 09/14/19 05:26 BP 172/108 09/14/19 05:26 Pulse Ox 96 09/14/19 05:26 - Physical Examination General: Other (alert, confused, right sided gaze) HEENT: Positive: PERRL Cardiac: Positive: Reg Rate and Rhythm, S1/S2 Lungs: Positive: Decreased Breath Sounds Neuro: Positive: Grossly Intact, Other (alert, confused, right sided gaze) Skin: Negative: Rash Extremities: Absent: edema - Imaging and Cardiology EKG: report reviewed, image reviewed Echo: report reviewed (09/09/2019 which showed EF 45-50%, mod LVH, grade 1 diastolic dysfunction, no sig valvular abnormalities, mod pleural effusion, mobile echogenic structure in LA that appears attached to the posterior wall of the aortic root or roof of the LA, atrial septal aneurysm present, negative bubble study although suboptimal study ) - Telemetry EKG Rhythm: Sinus Rhythm
[2019-09-14] MEDS: VALPROATE SODIUM 1,000 MG in SODIUM CHLORIDE 0.9% 100 ML IV SCH ×2 (11:28→22:36)
[2019-09-14] MEDS: FAMOTIDINE 20 MG TAB PO SCH ×2 (12:00→22:28)
[2019-09-14] MEDS: CLOPIDOGREL 75 MG TAB PO SCH (12:00)
--- NOTE | 2019-09-14 12:13 | Consultation ---
History of Present Illness - Reason for Consult Consult date: 09/14/19 Reason for consult: agitation - Chief Complaint Chief complaint: distended abdomen - History of Present Psychiatric Illness History of Present Illness: Eduardo Bauman is a 59y/o male patient who is documented to be admitted for having multiple seizures. At the time of my interview the patient was in bed. Awake. In 4-point restraints. He was disheveled and disorganized. The patient was aggressive and irritable, shouting at times. He says he was admitted to "get taken care of." He then asked my "why are you asking me a question like that." He is attempting to pull of his legs. He says he needs to get up because "he wants to rake stuff up." Mr. Bauman shouts "no" when asked about harmful thoughts. When asking about hallucinations, he then tells me to get out of his room and shouts "everything is nasty and needs to be rakes up." PAST PSYCHIATRIC HISTORY: Schizophrenia (per chart) REVIEW OF SYSTEMS Unable to adequately assess due to patient's disorganization PAST MEDICAL HISTORY: HTN, CVA, Seizures, CAD, hypelipidemia (per chart) Family Psychiatric History None reported or documented SOCIAL HISTORY Unable to assess due to patient's disorganization MSE Appearance: In bed. Disheveled Behavior: Aggressive, irritable Mood: unable to assess Affect: consisted with mood Thought Process: Disorganized Speech: Increased tone Thought Content Harmfulness Denies SI/HI Hallucinations: unable to assess Delusions: none elicited Consciousness: Drowsy Cognition/Memory: Impaired Insight/Judgment: Poor Assessment: Schizoaffective Disorder Treatment Plan Medications: -Risperidone 0.5mg p BID to decrease aggression and irritability -Trazodone 50mg PO qhs to induce insomnia -Folic Acid 1mg po daily Medical: Per primary team Sitter: Defer to primary team Disposition: TBD. Will continue to follow. Please call with any questions or concerns. Thank you for this consult. Medications and Allergies Allergies Allergy/AdvReac Type Severity Reaction Status Date / Time Iodine and Iodide Containing Allergy Unknown Verified 01/27/19 10:25 Produc Home Medications Medication Instructions Recorded Confirmed Last Taken Type Aspirin [Aspirin BABY CHEW TAB] 81 mg PO DAILY #30 02/07/19 01/27/19 Unknown Rx AtorvaSTATin [Lipitor] 40 mg PO QHS #30 tablet 02/07/19 Unknown Rx Clopidogrel [Plavix] 75 mg PO QDAY #30 tablet 02/07/19 Unknown Rx Divalproex [Yenny Dr] 125 mg PO DAILY #30 02/07/19 01/27/19 Unknown Rx Famotidine [Pepcid] 20 mg PO BID #60 tablet 02/07/19 Unknown Rx Metoprolol [Lopressor TAB] 75 mg PO BID #60 tablet 02/07/19 Unknown Rx Phenytoin [Dilantin] 200 mg PO BID #60 02/07/19 01/27/19 Unknown Rx cloNIDine-TTS PATCH [Catapres-Tts 0.2 mg TD QWEEK patch 02/07/19 Unknown Rx 0.2mg Patch] levETIRAcetam [Keppra] 1,500 mg PO BID #60 oral.liqd 02/07/19 Unknown Rx lisinopriL [Zestril TAB] 40 mg PO QDAY #30 tablet 02/07/19 Unknown Rx Active Meds: Active Medications Acetaminophen (Tylenol) 650 mg PO Q4H PRN PRN Reason: Pain MILD(1-3)/Fever >100.5/ANG Last Admin: 09/11/19 12:25 Dose: 650 mg Documented by: Aspirin (Baby Aspirin) 81 mg PO QDAY [facility] Atorvastatin Calcium (Lipitor) 40 mg PO QHS [facility] Last Admin: 09/13/19 22:30 Dose: 40 mg Documented by: Clopidogrel Bisulfate (Plavix) 75 mg PO QDAY [facility] Last Admin: 09/13/19 10:01 Dose: 75 mg Documented by: Diphenhydramine HCl (Benadryl) 25 mg IV Q6H PRN PRN Reason: Itching Last Admin: 09/12/19 15:18 Dose: 25 mg Documented by: Famotidine (Pepcid) 20 mg PO BID [facility] Last Admin: 09/13/19 22:31 Dose: 20 mg Documented by: Haloperidol Lactate (Haldol) 5 mg IM Q6H PRN PRN Reason: Agitation Last Admin: 09/13/19 03:59 Dose: 5 mg Documented by: Hydrophilic Ointment (Vaseline Lip Therapy) 1 applic TP Q2HR PRN PRN Reason: Dry Lips Dextrose/Sodium Chloride (D5ns) 1,000 mls @ 75 mls/hr IV DIRECT [facility] Last Admin: 09/13/19 22:29 Dose: 75 mls/hr Documented by: Valproate Sodium 1,000 mg/ (Sodium Chloride) 110 mls @ 100 mls/hr IV Q12HR [facility] Last Admin: 09/13/19 22:28 Dose: 100 mls/hr Documented by: Heparin Sodium/Sodium Chloride (Heparin/ 0.45% Nacl-25,000 Unit/500 Ml) 25,000 unit in 500 mls @ 26 mls/hr IV TITR [facility]; Protocol Last Admin: 09/14/19 04:41 Dose: 1,400 units/hr, 28 mls/hr Documented by: Lacosamide 100 mg/ Sodium (Chloride) 110 mls @ 100 mls/hr IV Q12H [facility] Last Admin: 09/13/19 18:13 Dose: 100 mls/hr Documented by: Melatonin (Melatonin) 5 mg PO BID [facility] Last Admin: 09/13/19 22:36 Dose: 5 mg Documented by: Metoprolol Tartrate (Metoprolol) 50 mg PO TID [facility] Multi-Ingred Cream/Lotion/Oil/Oint (Artificial Tears Ophth Oint) 1 applic OU Q4HR PRN PRN Reason: Dry Eye(s) Ondansetron HCl (Zofran) 4 mg IV Q8H PRN PRN Reason: Nausea And Vomiting Last Admin: 09/12/19 15:18 Dose: 4 mg Documented by: Quetiapine Fumarate (Seroquel) 50 mg PO QHS [facility] Last Admin: 09/13/19 22:30 Dose: 50 mg Documented by: Sodium Chloride (Sodium Chloride Flush Syringe 10 Ml) 10 ml IV BID [facility] Last Admin: 09/13/19 10:10 Dose: 10 ml Documented by: Sodium Chloride (Sodium Chloride Flush Syringe 10 Ml) 10 ml IV PRN PRN PRN Reason: LINE FLUSH Last Admin: 09/14/19 04:55 Dose: 10 ml Documented by: Mental Status Exam - Vital signs Last Vital Signs Temp 99.7 F H 09/14/19 05:26 Pulse 65 09/14/19 05:26 Resp 22 09/14/19 05:26 BP 172/108 09/14/19 05:26 Pulse Ox 96 09/14/19 05:26 Results Result Diagrams: 09/13/19 05:02 01/09/20 05:02 Abnormal lab results 09/13/19 09/13/19 Range/Units 13:36 16:54 POC Glucose 115 H (70-105) Ammonia 74.0 H (25-60) umol/L All other labs normal.
[2019-09-14] MEDS ORDERED: MELATONIN 5 MG TAB PO PRN (12:26)
[2019-09-14] MEDS: LACOSAMIDE 100 MG in SODIUM CHLORIDE 0.9% 100 ML IV SCH (13:05)
--- NOTE | 2019-09-14 14:02 | Progress Note ---
Assessment and Plan Cultures: 09/09/2019 tracheal aspirate: usual respiratory na 09/09/2019 blood culture: NGTD A/P: 59/M shelter resident, hypertension, CVA, CHF, seizure disorder, schizophrenia, hyperlipidemia, CAD, CHF admitted with: #Seizures, post ictal state, acute encephalopathy: on meds. #Acute resp failure, b/l aspiration pneumonia vs pneumonitis: extubated. Procal low. Completed empiric abx course. #Ileus: surgery saw, managed conservatively. Stable. #Acute encephalopathy: undergoing work up. Psych following. Recs: stable off antibiotics ID will sign off. Please call with questions. Emily Nicholson MD, FACP [facility] ([facility]) C: [phone] O: [phone] F: [phone] Subjective Date of service: 09/14/19 Principal diagnosis: seizure Interval history: One temp of 99F. no fever. Remains otherwise stable but confused. Objective - Exam Narrative Exam: Physical Exam: Constitutional: awake, answers questions but confused Head, Ears, Nose: Normocephalic, atraumatic. External ears, nose normal Eyes: Conjunctivae/corneas clear. No icterus. No ptosis. Neck: supple, no meningeal signs Cardiovascular: S1, S2 normal Respiratory: Good air entry, clear to auscultation bilaterally GI: non tender, bowel sounds +. No peritoneal signs Musculoskeletal: No pedal edema, no cyanosis. Skin: No rash or abscess Hem/Lymphatic: No palpable cervical or supraclavicular nodes. No lymphangitis Psych: no agitation Neurological: awake, answers questions but confused - Constitutional Vitals: Vital Signs Temp Pulse Resp BP Pulse Ox 97.7 F 83 18 135/95 93 09/14/19 11:55 09/14/19 11:55 09/14/19 11:55 09/14/19 11:55 09/14/19 11:55 Temperature -Last 24 Hours Temperature 97.7 F Temperature 99.7 F Temperature 97.6 F Temperature 97.8 F - Labs CBC & Chem 7: 09/13/19 05:02 09/13/19 05:02 Labs: Abnormal lab results 09/13/19 09/13/19 Range/Units 13:36 16:54 POC Glucose 115 H (70-105) Ammonia 74.0 H (25-60) umol/L
[2019-09-14] MEDS: risperiDONE 0.25 MG TAB PO SCH ×2 (15:59→22:28)
[2019-09-14] MEDS: METOPROLOL TARTRATE 50 MG TAB PO SCH ×2 (15:59→20:00)
[2019-09-14] MEDS: HALOPERIDOL LACTATE 5 MG/1 ML INJ IM PRN (16:04)
--- NOTE | 2019-09-14 17:45 | Progress Note ---
Assessment and Plan Assessment and plan: 59-year-old man who lives in a [facility]. He was brought in for multiple seizures. Apparently he was having seizures nonstop at the [facility]. He rests arrived in the hospital in a postictal state and was not having active seizures. He was given Keppra, he had normal blood glucose. It is not clear how well he is receiving his phenytoin and valproate in a [facility]. While in the ER the patient remained postictal nonresponsive was unable to protect his airway and therefore intubated for airway protection. It is reported that the patient vomited and aspirated in the EMS and prior to arrival Past medical history; hypertension, CVA, CHF, seizure disorder, Wernicke's encephalopathy, schizophrenia, hyperlipidemia, CAD Chest x-ray bibasilar retrocardiac opacities represents atelectasis with or without superimposed pneumonia. CT abdomen and pelvis. Bibasilar pneumonia, bowel distention which is typical of ileus Status epilepticus Valproate levels are low, Neurology consult and input noted, do not see valprpate on home meds list, awaiting to see if patient was even on said medications. CT head did not show any acute findings, Neurology reports concern about these moments of staring and right gaze and his continued agitation in concern for interictal sz activity will add vimpat 100 iV and get biofeedback -Ammonia elevated -Resumed back lactulos Axute metabolic encephalopathy/psychosis Due to postictal state versus schizophrenia Awaiting Meds from home Concerned this may only be psychosis Continue restraints. Pysch consulted start on seroquel at hs Acute respiratory failure on mechanical ventilator less than 96 hours EXTUBATED Cardiac Mass - on Heparin drip - Cardiology consulted, cardiology planning for POLINA once patient is medically s tabilized -Patient is a poor candidate for anticoagulation due to altered mental status also history of EtOH abuse in the past, seizure disorder psych as noted by cardiology. -Consent signed by brother Bandar Bauman @ , POLINA planned for Tuesday09/17/19 Paroxysmal atrial flutter -As noted above -Continue p.o. current History of CVA? Cannot exclude stroke as etiology of his current symptoms. neurology consulted, Allow permissive hypertension, has received aspirin, stroke education, observe for arrhythmia on telemetry, --aspirin and high dose statin, check Lipid panel ?SBO-appears to be more of ileus improving. Surgery following Aspiration pneumonia/sepsis Stable now off abx Hepatic encephalopathy Lactulose Respiradone and trazadone per PSYCH Hypokalemia Repleted, Upper ext excouration -Obtain wound care eval Schizoaffective Disorder -Psych evaluated -started on -Risperidone 0.5mg p BID to decrease aggression and irritability -Trazodone 50mg PO qhs to induce insomnia -Folic Acid 1mg po daily DVT prophylaxis; SCDs No family at bedside Case discussed with nursing staff. History Interval history: Patient seen and examined, remains on restraints due to agitation. Unable to have coherent conversation. Attempt to get further records from personal-intermediate futile at this point. We will continue to attempt. No other adverse event reported by nursing staff. Hospitalist Physical - Physical exam Narrative exam: General appearance: Present: well-nourished, non coherent conversation, But remarkably was able to feed himself today - EENT Eyes: Present: PERRL ENT: hearing intact, clear oral mucosa - Neck Neck: Present: supple, normal ROM - Respiratory Respiratory effort: normal Respiratory: bilateral: rhonchi - Cardiovascular Heart Sounds: Present: S1 & S2. Absent: rub, click - Extremities Extremities: pulses symmetrical, No edema Peripheral Pulses: within normal limits - Abdominal General gastrointestinal: Present: soft, non-tender, non-distended, normal bowel sounds Male genitourinary: Present: normal - Integumentary Integumentary: Present: clear, warm, dry - Musculoskeletal Musculoskeletal: other, moves all extremitis - Psychiatric Psychiatric: - Neurologic Neurologic: other encephalopathy - Constitutional Vitals: Temp Pulse Resp BP Pulse Ox 97.7 F 83 18 135/95 93 09/14/19 11:55 09/14/19 11:55 09/14/19 11:55 09/14/19 11:55 09/14/19 11:55 General appearance: Present: other (agitated, confused, restrained) Results - Labs CBC & Chem 7: 09/13/19 05:02 09/13/19 05:02 Labs: Laboratory Last Values WBC 6.4 K/mm3 (4.5-11.0) 09/13/19 05:02 RBC 3.79 M/mm3 (3.65-5.03) 09/13/19 05:02 Hgb 11.3 gm/dl (11.8-15.2) L 09/13/19 05:02 Hct 33.1 % (35.5-45.6) L 09/13/19 05:02 MCV 87 fl (84-94) 09/13/19 05:02 MCH 30 pg (28-32) 09/13/19 05:02 MCHC 34 % (32-34) 09/13/19 05:02 RDW 14.1 % (13.2-15.2) 09/13/19 05:02 Plt Count 192 K/mm3 (140-440) 09/13/19 05:02 Lymph % (Auto) 7.2 % (13.4-35.0) L 09/10/19 04:40 [place] % (Auto) 10.3 % (0.0-7.3) H 09/10/19 04:40 Eos % (Auto) 0.3 % (0.0-4.3) 09/10/19 04:40 Baso % (Auto) 0.3 % (0.0-1.8) 09/10/19 04:40 Lymph # 0.6 K/mm3 (1.2-5.4) L 09/10/19 04:40 [place] # 0.8 K/mm3 (0.0-0.8) 09/10/19 04:40 Eos # 0.0 K/mm3 (0.0-0.4) 09/10/19 04:40 Baso # 0.0 K/mm3 (0.0-0.1) 09/10/19 04:40 Seg Neutrophils % 81.9 % (40.0-70.0) H 09/10/19 04:40 Seg Neutrophils # 6.6 K/mm3 (1.8-7.7) 09/10/19 04:40 PT 14.0 Sec. (12.2-14.9) 09/11/19 18:08 INR 1.07 (0.87-1.13) 09/11/19 18:08 APTT 29.1 Sec. (24.2-36.6) 09/11/19 18:08 Heparin Anti-Xa Level 0.37 U.I./ml (0.3-0.7) 09/14/19 08:15 POC ABG pH 7.419 (7.35-7.45) 09/10/19 05:02 ABG pH 7.423 pH Units (7.350-7.450) 09/11/19 03:57 POC ABG pCO2 38.4 (35-45) 09/10/19 05:02 ABG pCO2 38.1 mm Hg 09/11/19 03:57 POC ABG pO2 94 (80-105) 09/10/19 05:02 ABG pO2 100.4 mm Hg (80.0-90.0) H 09/11/19 03:57 POC ABG HCO3 24.8 (22-26 mml/L) 09/10/19 05:02 ABG HCO3 24.4 mmol/L (20.0-26.0) 09/11/19 03:57 POC ABG Total CO2 26 (23-27mmol/L) 09/10/19 05:02 POC ABG O2 Sat 97 09/10/19 05:02 ABG O2 Saturation 97.7 % (95.0-99.0) 09/11/19 03:57 ABG O2 Content 16.5 (0.0-44) 09/11/19 03:57 POC ABG Base Excess 0 ((-2) - (+3)mmol/L) 09/10/19 05:02 ABG Base Excess 0.1 mmol/L (-2.0-3.0) 09/11/19 03:57 ABG Hemoglobin 12.2 gm/dl (14.0-18.0) L 09/11/19 03:57 ABG Carboxyhemoglobin 1.7 % (0.0-5.0) 09/11/19 03:57 ABG Methemoglobin 0.6 % (0.0-1.5) 09/11/19 03:57 Oxyhemoglobin 95.5 % (95.0-99.0) 09/11/19 03:57 FiO2 30 % 09/11/19 03:57 Sodium 144 mmol/L (137-145) 09/13/19 05:02 Potassium 3.4 mmol/L (3.6-5.0) L 09/13/19 05:02 Chloride 110.3 mmol/L (98-107) H 09/13/19 05:02 Carbon Dioxide 20 mmol/L (22-30) L 09/13/19 05:02 Anion Gap 17 mmol/L 09/13/19 05:02 BUN 7 mg/dL (9-20) L 09/13/19 05:02 Creatinine 0.6 mg/dL (0.8-1.5) L 09/13/19 05:02 Estimated GFR > 60 ml/min 09/13/19 05:02 BUN/Creatinine Ratio 12 % 09/13/19 05:02 Glucose 101 mg/dL (75-100) H 09/13/19 05:02 POC Glucose 128 (70-105) H 09/14/19 16:13 Calcium 8.4 mg/dL (8.4-10.2) 09/13/19 05:02 Phosphorus TNR 09/11/19 04:50 Magnesium 2.10 mg/dL (1.7-2.3) 09/10/19 04:40 Total Bilirubin 0.50 mg/dL (0.1-1.2) 09/10/19 04:40 Direct Bilirubin < 0.2 mg/dL (0-0.2) 09/10/19 04:40 Indirect Bilirubin 0.0 mg/dL 09/09/19 10:22 AST 33 units/L (5-40) 09/10/19 04:40 ALT 23 units/L (7-56) 09/10/19 04:40 Alkaline Phosphatase 117 units/L (35-129) 09/10/19 04:40 Ammonia 74.0 umol/L (25-60) H 09/13/19 13:36 Total Creatine Kinase 267 units/L (55-170) H 09/09/19 10:22 CK-MB (CK-2) 4.6 ng/mL (0.0-4.0) H 09/09/19 10:22 CK-MB (CK-2) Rel Index 1.7 (0-4) 09/09/19 10:22 Troponin T < 0.010 ng/mL (0.00-0.029) 09/09/19 10:22 NT-Pro-B Natriuret Pep 268.5 pg/mL (0-900) 09/09/19 10:22 Total Protein 7.1 g/dL (6.3-8.2) 09/10/19 04:40 Albumin 3.8 g/dL (3.9-5) L 09/10/19 04:40 Albumin/Globulin Ratio 1.2 % 09/10/19 04:40 Triglycerides 90 mg/dL (2-149) 09/10/19 04:40 Cholesterol 196 mg/dL (50-199) 09/10/19 04:40 LDL Cholesterol Direct 131 mg/dL (50-130) H 09/10/19 04:40 HDL Cholesterol 57 mg/dL (40-59) 09/10/19 04:40 Cholesterol/HDL Ratio 3.43 % 09/10/19 04:40 Procalcitonin 0.14 ng/mL (<0.15) 09/12/19 04:39 Urine Color Yellow (Yellow) 09/09/19 15:24 Urine Turbidity Clear (Clear) 09/09/19 15:24 Urine pH 5.0 (5.0-7.0) 09/09/19 15:24 Ur Specific [place] 1.015 (1.003-1.030) 09/09/19 15:24 Urine Protein 30 mg/dl mg/dL (Negative) 09/09/19 15:24 Urine Glucose (UA) Neg mg/dL (Negative) 09/09/19 15:24 Urine Ketones Neg mg/dL (Negative) 09/09/19 15:24 Urine Blood Mod (Negative) 09/09/19 15:24 Urine Nitrite Neg (Negative) 09/09/19 15:24 Urine Bilirubin Neg (Negative) 09/09/19 15:24 Urine Urobilinogen < 2.0 mg/dL (<2.0) 09/09/19 15:24 Ur Leukocyte Esterase Neg (Negative) 09/09/19 15:24 Urine WBC (Auto) 2.0 /HPF (0.0-6.0) 09/09/19 15:24 Urine RBC (Auto) 59.0 /HPF (0.0-6.0) 09/09/19 15:24 U Epithel Cells (Auto) < 1.0 /HPF (0-13.0) 09/09/19 15:24 Urine Bacteria (Auto) 1+ /HPF (Negative) 09/09/19 15:24 Urine Mucus Few /HPF 09/09/19 15:24 Urine Opiates Screen Presumptive negative 09/09/19 15:24 Urine Methadone Screen Presumptive negative 09/09/19 15:24 Ur Barbiturates Screen Presumptive negative 09/09/19 15:24 Phenytoin 11.1 ug/mL (10.0-20.0) 09/09/19 13:10 Valproic Acid 50.0 ug/mL (50-100) 09/13/19 13:36 Ur Phencyclidine Scrn Presumptive negative 09/09/19 15:24 Ur Amphetamines Screen Presumptive negative 09/09/19 15:24 U Benzodiazepines Scrn Presumptive positive 09/09/19 15:24 Urine Cocaine Screen Presumptive negative 09/09/19 15:24 U Marijuana (THC) Screen Presumptive negative 09/09/19 15:24 Drugs of Abuse Note Disclamer 09/09/19 15:24 Active Medications - Current Medications Current Medications: Generic Name Dose Route Start Last Admin Trade Name Freq PRN Reason Stop Dose Admin Acetaminophen 650 mg 09/09/19 22:21 09/11/19 12:25 Tylenol PO 650 mg Q4H PRN Administration Pain MILD(1-3)/Fever >100.5/ANG Aspirin 81 mg 09/15/19 10:00 Baby Aspirin PO QDAY [facility] Atorvastatin Calcium 40 mg 09/09/19 22:00 09/13/19 22:30 Lipitor PO 40 mg QHS [facility] Administration Clopidogrel Bisulfate 75 mg 09/10/19 10:00 09/14/19 12:00 Plavix PO 75 mg QDAY [facility] Administration Diphenhydramine HCl 25 mg 09/11/19 16:08 09/12/19 15:18 Benadryl IV 25 mg Q6H PRN Administration Itching Famotidine 20 mg 09/12/19 22:00 09/14/19 12:00 Pepcid PO 20 mg BID [facility] Administration Folic Acid 1 mg 09/15/19 10:00 Folvite PO QDAY [facility] Haloperidol Lactate 5 mg 09/12/19 17:22 09/14/19 16:04 Haldol IM 5 mg Q6H PRN Administration Agitation Hydrophilic Ointment 1 applic 09/09/19 12:23 Vaseline Lip Therapy TP Q2HR PRN Dry Lips Dextrose/Sodium Chloride 1,000 mls @ 75 mls/hr 09/10/19 15:09 09/13/19 22:29 D5ns IV 75 mls/hr DIRECT [facility] Administration Valproate Sodium 1,000 mg/ 110 mls @ 100 mls/hr 09/11/19 22:00 09/14/19 11:28 Sodium Chloride IV 100 mls/hr Q12HR [facility] Administration Heparin Sodium/Sodium Chloride 25,000 unit in 500 mls @ 26 mls/hr 09/11/19 17:00 09/14/19 04:41 Heparin/ 0.45% Nacl-25,000 Unit/500 Ml IV 1,400 units/hr TITR [facility] 28 mls/hr Administration Protocol 1,300 UNITS/HR Lacosamide 100 mg/ Sodium 110 mls @ 100 mls/hr 09/13/19 13:00 09/14/19 13:05 Chloride IV 100 mls/hr Q12H [facility] Administration Melatonin 5 mg 09/14/19 22:00 Melatonin PO BID [facility] Metoprolol Tartrate 50 mg 09/14/19 14:00 09/14/19 15:59 Metoprolol PO 50 mg TID [facility] Administration Multi-Ingred Cream/Lotion/Oil/Oint 1 applic 09/09/19 12:23 Artificial Tears Ophth Oint OU Q4HR PRN Dry Eye(s) Ondansetron HCl 4 mg 09/09/19 22:21 09/12/19 15:18 Zofran IV 4 mg Q8H PRN Administration Nausea And Vomiting Risperidone 0.5 mg 09/14/19 14:00 09/14/19 15:59 Risperdal PO 0.5 mg BID [facility] Administration Sodium Chloride 10 ml 09/10/19 10:00 09/14/19 15:58 Sodium Chloride Flush Syringe 10 Ml IV 10 ml BID [facility] Administration Sodium Chloride 10 ml 09/09/19 22:21 09/14/19 04:55 Sodium Chloride Flush Syringe 10 Ml IV 10 ml PRN PRN Administration LINE FLUSH Trazodone HCl 50 mg 09/14/19 22:00 Desyrel PO QHS [facility] Nutrition/Malnutrition Assess - Dietary Evaluation Nutrition/Malnutrition Findings: Nutrition Notes Start: 09/10/19 12:25 Freq: Status: Active Protocol: Document 09/14/19 12:26 PS (Rec: 09/14/19 12:31 PS [id number]) Co-Sign 09/14/19 12:26 LP Nutrition Notes Initial or Follow up Reassessment Current Diagnosis Coronary Artery Disease, Hypertension,Heart Failure, Respiratory Failure, Hyperlipidemia Other Pertinent Diagnosis hx of CVA, seizures, schizophrenia, pneumonia, hepatic encephalopathy Current Diet Regular Diet Labs/Tests No Recent Labs Pertinent Medications Zofran Height 6 ft 1 in Weight 82 kg [place] Body Weight (kg) 83.63 BMI 23.8 Weight Status Appropriate Subjective/Other Information F/U for intakes. Pt stated he ate 100% of breakfast, has appetite, and had no problem chewing or swallowing his food . Percent of energy/protein needs met: 100%/100% Burn Absent Trauma Absent Current % PO Good (75-100%) Minimum of two criteria No Reduced Drawer Upfitter Strength Measurably Reduced (severe) #1 Nutrition Diagnosis Inadequate oral intake As Evidenced by Signs and Symptoms pt ate 100% of breakfast, had no trouble chewing or swallowing, and has appetite Diagnosis Progress(for reassessment Resolved documentation) Is patient on ventilator? No Is Patient Ambulatory and/or Out of Bed No REE-([facility]-confined to bed) 2042.144 Calculation Used for Recommendations [facility] Additional Notes Protein Needs:67 - 83 g(0.8 - 1 g/kg) Fluid Needs: 1ml/Kcal Nutrition Intervention Change Diet Order: continue regular diet Goal #1 Meet 75% of energy/protein needs Anticipated Discharge Needs: regular diet Revisit per MD consult or patient Sign Off request:
[2019-09-14] MEDS: LACTULOSE 20 GM/30 ML ORAL LIQD PO SCH (18:14)
[2019-09-14] MEDS: MELATONIN 5 MG TAB PO SCH (22:00)
[2019-09-14] MEDS: traZODone 50 MG TAB PO SCH (22:28)
[2019-09-15] MEDS: LACOSAMIDE 100 MG in SODIUM CHLORIDE 0.9% 100 ML IV SCH ×2 (01:00→14:02)
[2019-09-15] MEDS: LACTULOSE 20 GM/30 ML ORAL LIQD PO SCH ×4 (06:00→18:00)
[2019-09-15] MEDS: D5W/0.9% NACL 1,000 ML IV SCH (09:22)
[2019-09-15 10:15] LABS: Hematocrit 37.4 % (35.5-45.6); Hemoglobin 12.7 gm/dl (11.8-15.2)
[2019-09-15] MEDS: MELATONIN 5 MG TAB PO SCH ×2 (10:50→22:00)
[2019-09-15] MEDS: FOLIC ACID 1 MG TAB PO SCH (10:50)
[2019-09-15] MEDS: CLOPIDOGREL 75 MG TAB PO SCH (10:50)
[2019-09-15] MEDS: ASPIRIN 81 MG TAB CHEW PO SCH (10:50)
[2019-09-15] MEDS: FAMOTIDINE 20 MG TAB PO SCH ×2 (10:50→22:00)
--- NOTE | 2019-09-15 11:34 | Progress Note ---
Subjective - Reason for Consult Consult date: 09/15/19 Reason for consult: agitation - Chief Complaint Chief complaint: History of Present Illness: The patient's medical chart reviewed and patient's progress discussed with the nursing staff. The nurse note states the patient is resting in bed. Yelling at intervals with periods of confusion. Remains on restraints due to pulling out lines and combativeness. New IV site placed this morning pulled out 1 of his IV' During my interview this morning, the patient is lying in bed. He is awake, disheveled, and disorganized. The patient is in 3 restraints. His speech is incomprehensible at times. He greets me with "hey, look at you with your pretty self." He says his "night went bad" and he's "ready to move." He says "somebody is going to pay me." When asked about SI/HI, the patient replied, "there you go." he denies hallucinations. MSE Appearance: In bed. Disheveled Behavior: Inappropriate Mood: unable to assess Affect: consisted with mood Thought Process: Disorganized Speech: Incomprehensible at times Thought Content Harmfulness Denies SI/HI Hallucinations: Denies Delusions: none elicited Consciousness: Alert Cognition/Memory: Impaired Insight/Judgment: Poor Assessment: Schizoaffective Disorder Treatment Plan Medications: -Increase Risperidone 1mg p BID to decrease aggression and agitation Medical: Per primary team Sitter: Defer to primary team Disposition: TBD. Will continue to follow. Please call with any questions or concerns. Mental Status Exam - Vital signs Last Vital Signs Temp 98.6 F 09/15/19 03:57 Pulse 67 09/15/19 03:57 Resp 18 09/15/19 03:57 BP 140/89 09/15/19 03:57 Pulse Ox 97 09/15/19 03:57
[2019-09-15] MEDS: METOPROLOL TARTRATE 50 MG TAB PO SCH ×2 (11:57→21:59)
[2019-09-15] MEDS: VALPROATE SODIUM 1,000 MG in SODIUM CHLORIDE 0.9% 100 ML IV SCH ×2 (11:58→23:03)
[2019-09-15] MEDS ORDERED: risperiDONE 0.25 MG TAB PO SCH (12:00)
--- NOTE | 2019-09-15 15:15 | Progress Note ---
Assessment and Plan Assessment and plan: 59-year-old man who lives in a detention. He was brought in for multiple seizures. Apparently he was having seizures nonstop at the detention. He rests arrived in the hospital in a postictal state and was not having active seizures. He was given Keppra, he had normal blood glucose. It is not clear how well he is receiving his phenytoin and valproate in a detention. While in the ER the patient remained postictal nonresponsive was unable to protect his airway and therefore intubated for airway protection. It is reported that the patient vomited and aspirated in the EMS and prior to arrival Past medical history; hypertension, CVA, CHF, seizure disorder, Wernicke's encephalopathy, schizophrenia, hyperlipidemia, CAD Chest x-ray bibasilar retrocardiac opacities represents atelectasis with or without superimposed pneumonia. CT abdomen and pelvis. Bibasilar pneumonia, bowel distention which is typical of ileus Status epilepticus Valproate levels are low, Neurology consult and input noted, do not see valprpate on home meds list, awaiting to see if patient was even on said medications. CT head did not show any acute findings, Neurology reports concern about these moments of staring and right gaze and his continued agitation Continue Vimpat edback -Ammonia elevated -Resumed back lactulose continue to monitor with this improvement. Axute metabolic encephalopathy/psychosis Due to postictal state versus schizophrenia Awaiting Meds from home Concerned this may only be psychosis Continue restraints. Teo consulted start on seroquel at hs Acute respiratory failure on mechanical ventilator less than 96 hours EXTUBATED Cardiac Mass - on Heparin drip - Cardiology consulted, cardiology planning for POLINA once patient is medically stabilized -Patient is a poor candidate for anticoagulation due to altered mental status also history of EtOH abuse in the past, seizure disorder psych as noted by cardiology. -Consent signed by brother Bandar Bauman @ , POLINA planned for Tuesday09/17/19 Paroxysmal atrial flutter -As noted above -Continue p.o. current History of CVA? Cannot exclude stroke as etiology of his current symptoms. neurology consulted, Allow permissive hypertension, has received aspirin, stroke education, observe for arrhythmia on telemetry, --aspirin and high dose statin, check Lipid panel ?SBO-appears to be more of ileus improving. Surgery following Aspiration pneumonia/sepsis Stable now off abx Hepatic encephalopathy Lactulose Respiradone and trazadone per PSYCH Hypokalemia Repleted, Upper ext excouration -Obtain wound care eval Schizoaffective Disorder -Psych evaluated -started on -Risperidone increased to 1 mg p BID to decrease aggression and irritability -Trazodone 50mg PO qhs to induce insomnia -Folic Acid 1mg po daily DVT prophylaxis; SCDs No family at bedside Case discussed with nursing staff. Discussed with nursing staff will begin to attempt to remove from restraints. History Interval history: Patient seen and examined, remains on restraints due to agitation. This morning patient appears emotional still not having coherent conversation although improved slightly today he had actually asked me to come in and close the door that he broke down in tears could not tell me why he was crying. Hospitalist Physical - Physical exam Narrative exam: General appearance: Present: well-nourished, non coherent conversation, emotional - EENT Eyes: Present: PERRL ENT: hearing intact, clear oral mucosa - Neck Neck: Present: supple, normal ROM - Respiratory Respiratory effort: normal Respiratory: bilateral: rhonchi - Cardiovascular Heart Sounds: Present: S1 & S2. Absent: rub, click - Extremities Extremities: pulses symmetrical, No edema Peripheral Pulses: within normal limits - Abdominal General gastrointestinal: Present: soft, non-tender, non-distended, normal bowel sounds Male genitourinary: Present: normal - Integumentary Integumentary: Present: clear, warm, dry - Musculoskeletal Musculoskeletal: other, moves all extremitis - Psychiatric Psychiatric: emotional - Neurologic Neurologic: other encephalopathy - Constitutional Vitals: Temp Pulse Resp BP Pulse Ox 98.6 F 67 18 140/89 97 09/15/19 03:57 09/15/19 03:57 09/15/19 03:57 09/15/19 03:57 09/15/19 03:57 General appearance: Present: other (agitated, confused, restrained) Results - Labs CBC & Chem 7: 09/15/19 10:03 09/13/19 05:02 Labs: Laboratory Last Values WBC 6.4 K/mm3 (4.5-11.0) 09/13/19 05:02 RBC 3.79 M/mm3 (3.65-5.03) 09/13/19 05:02 Hgb 12.7 gm/dl (11.8-15.2) 09/15/19 10:03 Hct 37.4 % (35.5-45.6) 09/15/19 10:03 MCV 87 fl (84-94) 09/13/19 05:02 MCH 30 pg (28-32) 09/13/19 05:02 MCHC 34 % (32-34) 09/13/19 05:02 RDW 14.1 % (13.2-15.2) 09/13/19 05:02 Plt Count 236 K/mm3 (140-440) 09/15/19 10:03 Lymph % (Auto) 7.2 % (13.4-35.0) L 09/10/19 04:40 [place] % (Auto) 10.3 % (0.0-7.3) H 09/10/19 04:40 Eos % (Auto) 0.3 % (0.0-4.3) 09/10/19 04:40 Baso % (Auto) 0.3 % (0.0-1.8) 09/10/19 04:40 Lymph # 0.6 K/mm3 (1.2-5.4) L 09/10/19 04:40 [place] # 0.8 K/mm3 (0.0-0.8) 09/10/19 04:40 Eos # 0.0 K/mm3 (0.0-0.4) 09/10/19 04:40 Baso # 0.0 K/mm3 (0.0-0.1) 09/10/19 04:40 Seg Neutrophils % 81.9 % (40.0-70.0) H 09/10/19 04:40 Seg Neutrophils # 6.6 K/mm3 (1.8-7.7) 09/10/19 04:40 PT 14.0 Sec. (12.2-14.9) 09/11/19 18:08 INR 1.07 (0.87-1.13) 09/11/19 18:08 APTT 29.1 Sec. (24.2-36.6) 09/11/19 18:08 Heparin Anti-Xa Level 0.20 U.I./ml (0.3-0.7) L 09/15/19 10:03 POC ABG pH 7.419 (7.35-7.45) 09/10/19 05:02 ABG pH 7.423 pH Units (7.350-7.450) 09/11/19 03:57 POC ABG pCO2 38.4 (35-45) 09/10/19 05:02 ABG pCO2 38.1 mm Hg 09/11/19 03:57 POC ABG pO2 94 (80-105) 09/10/19 05:02 ABG pO2 100.4 mm Hg (80.0-90.0) H 09/11/19 03:57 POC ABG HCO3 24.8 (22-26 mml/L) 09/10/19 05:02 ABG HCO3 24.4 mmol/L (20.0-26.0) 09/11/19 03:57 POC ABG Total CO2 26 (23-27mmol/L) 09/10/19 05:02 POC ABG O2 Sat 97 09/10/19 05:02 ABG O2 Saturation 97.7 % (95.0-99.0) 09/11/19 03:57 ABG O2 Content 16.5 (0.0-44) 09/11/19 03:57 POC ABG Base Excess 0 ((-2) - (+3)mmol/L) 09/10/19 05:02 ABG Base Excess 0.1 mmol/L (-2.0-3.0) 09/11/19 03:57 ABG Hemoglobin 12.2 gm/dl (14.0-18.0) L 09/11/19 03:57 ABG Carboxyhemoglobin 1.7 % (0.0-5.0) 09/11/19 03:57 ABG Methemoglobin 0.6 % (0.0-1.5) 09/11/19 03:57 Oxyhemoglobin 95.5 % (95.0-99.0) 09/11/19 03:57 FiO2 30 % 09/11/19 03:57 Sodium 144 mmol/L (137-145) 09/13/19 05:02 Potassium 3.4 mmol/L (3.6-5.0) L 09/13/19 05:02 Chloride 110.3 mmol/L (98-107) H 09/13/19 05:02 Carbon Dioxide 20 mmol/L (22-30) L 09/13/19 05:02 Anion Gap 17 mmol/L 09/13/19 05:02 BUN 7 mg/dL (9-20) L 09/13/19 05:02 Creatinine 0.6 mg/dL (0.8-1.5) L 09/13/19 05:02 Estimated GFR > 60 ml/min 09/13/19 05:02 BUN/Creatinine Ratio 12 % 09/13/19 05:02 Glucose 101 mg/dL (75-100) H 09/13/19 05:02 POC Glucose 91 (70-105) 09/15/19 12:09 Calcium 8.4 mg/dL (8.4-10.2) 09/13/19 05:02 Phosphorus TNR 09/11/19 04:50 Magnesium 2.10 mg/dL (1.7-2.3) 09/10/19 04:40 Total Bilirubin 0.50 mg/dL (0.1-1.2) 09/10/19 04:40 Direct Bilirubin < 0.2 mg/dL (0-0.2) 09/10/19 04:40 Indirect Bilirubin 0.0 mg/dL 09/09/19 10:22 AST 33 units/L (5-40) 09/10/19 04:40 ALT 23 units/L (7-56) 09/10/19 04:40 Alkaline Phosphatase 117 units/L (35-129) 09/10/19 04:40 Ammonia 74.0 umol/L (25-60) H 09/13/19 13:36 Total Creatine Kinase 267 units/L (55-170) H 09/09/19 10:22 CK-MB (CK-2) 4.6 ng/mL (0.0-4.0) H 09/09/19 10:22 CK-MB (CK-2) Rel Index 1.7 (0-4) 09/09/19 10:22 Troponin T < 0.010 ng/mL (0.00-0.029) 09/09/19 10:22 NT-Pro-B Natriuret Pep 268.5 pg/mL (0-900) 09/09/19 10:22 Total Protein 7.1 g/dL (6.3-8.2) 09/10/19 04:40 Albumin 3.8 g/dL (3.9-5) L 09/10/19 04:40 Albumin/Globulin Ratio 1.2 % 09/10/19 04:40 Triglycerides 90 mg/dL (2-149) 09/10/19 04:40 Cholesterol 196 mg/dL (50-199) 09/10/19 04:40 LDL Cholesterol Direct 131 mg/dL (50-130) H 09/10/19 04:40 HDL Cholesterol 57 mg/dL (40-59) 09/10/19 04:40 Cholesterol/HDL Ratio 3.43 % 09/10/19 04:40 Procalcitonin 0.14 ng/mL (<0.15) 09/12/19 04:39 Urine Color Yellow (Yellow) 09/09/19 15:24 Urine Turbidity Clear (Clear) 09/09/19 15:24 Urine pH 5.0 (5.0-7.0) 09/09/19 15:24 Ur Specific [place] 1.015 (1.003-1.030) 09/09/19 15:24 Urine Protein 30 mg/dl mg/dL (Negative) 09/09/19 15:24 Urine Glucose (UA) Neg mg/dL (Negative) 09/09/19 15:24 Urine Ketones Neg mg/dL (Negative) 09/09/19 15:24 Urine Blood Mod (Negative) 09/09/19 15:24 Urine Nitrite Neg (Negative) 09/09/19 15:24 Urine Bilirubin Neg (Negative) 09/09/19 15:24 Urine Urobilinogen < 2.0 mg/dL (<2.0) 09/09/19 15:24 Ur Leukocyte Esterase Neg (Negative) 09/09/19 15:24 Urine WBC (Auto) 2.0 /HPF (0.0-6.0) 09/09/19 15:24 Urine RBC (Auto) 59.0 /HPF (0.0-6.0) 09/09/19 15:24 U Epithel Cells (Auto) < 1.0 /HPF (0-13.0) 09/09/19 15:24 Urine Bacteria (Auto) 1+ /HPF (Negative) 09/09/19 15:24 Urine Mucus Few /HPF 09/09/19 15:24 Urine Opiates Screen Presumptive negative 09/09/19 15:24 Urine Methadone Screen Presumptive negative 01/05/20 15:24 Ur Barbiturates Screen Presumptive negative 09/09/19 15:24 Phenytoin 11.1 ug/mL (10.0-20.0) 09/09/19 13:10 Valproic Acid 50.0 ug/mL (50-100) 09/13/19 13:36 Ur Phencyclidine Scrn Presumptive negative 09/09/19 15:24 Ur Amphetamines Screen Presumptive negative 09/09/19 15:24 U Benzodiazepines Scrn Presumptive positive 09/09/19 15:24 Urine Cocaine Screen Presumptive negative 09/09/19 15:24 U Marijuana (THC) Screen Presumptive negative 09/09/19 15:24 Drugs of Abuse Note Disclamer 09/09/19 15:24 Active Medications - Current Medications Current Medications: Generic Name Dose Route Start Last Admin Trade Name Freq PRN Reason Stop Dose Admin Acetaminophen 650 mg 09/09/19 22:21 09/11/19 12:25 Tylenol PO 650 mg Q4H PRN Administration Pain MILD(1-3)/Fever >100.5/ANG Aspirin 81 mg 09/15/19 10:00 09/15/19 10:50 Baby Aspirin PO 81 mg QDAY WALT Administration Atorvastatin Calcium 40 mg 09/09/19 22:00 09/14/19 22:28 Lipitor PO 40 mg QHS WALT Administration Clopidogrel Bisulfate 75 mg 09/10/19 10:00 09/15/19 10:50 Plavix PO 75 mg QDAY WALT Administration Diphenhydramine HCl 25 mg 09/11/19 16:08 09/12/19 15:18 Benadryl IV 25 mg Q6H PRN Administration Itching Famotidine 20 mg 09/12/19 22:00 09/15/19 10:50 Pepcid PO 20 mg BID WALT Administration Folic Acid 1 mg 09/15/19 10:00 09/15/19 10:50 Folvite PO 1 mg QDAY WALT Administration Haloperidol Lactate 5 mg 09/12/19 17:22 09/14/19 16:04 Haldol IM 5 mg Q6H PRN Administration Agitation Hydrophilic Ointment 1 applic 09/09/19 12:23 Vaseline Lip Therapy TP Q2HR PRN Dry Lips Dextrose/Sodium Chloride 1,000 mls @ 75 mls/hr 09/10/19 15:09 09/15/19 09:22 D5ns IV 75 mls/hr DIRECT WALT Administration Valproate Sodium 1,000 mg/ 110 mls @ 100 mls/hr 09/11/19 22:00 09/15/19 11:58 Sodium Chloride IV 100 mls/hr Q12HR WALT Administration Heparin Sodium/Sodium Chloride 25,000 unit in 500 mls @ 26 mls/hr 09/11/19 17:00 09/15/19 11:18 Heparin/ 0.45% Nacl-25,000 Unit/500 Ml IV 1,450 units/hr TITR WALT 29 mls/hr Titration Protocol 1,300 UNITS/HR Lacosamide 100 mg/ Sodium 110 mls @ 100 mls/hr 09/13/19 13:00 09/15/19 14:02 Chloride IV 100 mls/hr Q12H WALT Administration Lactulose 20 gm 09/14/19 18:00 09/15/19 11:57 Cephulac PO 20 gm Q6H WALT Administration Melatonin 5 mg 09/14/19 22:00 09/15/19 10:50 Melatonin PO 5 mg BID WALT Administration Metoprolol Tartrate 50 mg 09/14/19 14:00 09/15/19 11:57 Metoprolol PO 50 mg TID WALT Administration Multi-Ingred Cream/Lotion/Oil/Oint 1 applic 09/09/19 12:23 Artificial Tears Ophth Oint OU Q4HR PRN Dry Eye(s) Ondansetron HCl 4 mg 09/09/19 22:21 09/12/19 15:18 Zofran IV 4 mg Q8H PRN Administration Nausea And Vomiting Risperidone 1 mg 09/15/19 12:00 09/15/19 14:03 Risperdal PO 1 mg BID WALT Administration Sodium Chloride 10 ml 09/10/19 10:00 09/15/19 11:15 Sodium Chloride Flush Syringe 10 Ml IV 10 ml BID WALT Administration Sodium Chloride 10 ml 09/09/19 22:21 09/14/19 04:55 Sodium Chloride Flush Syringe 10 Ml IV 10 ml PRN PRN Administration LINE FLUSH Trazodone HCl 50 mg 09/14/19 22:00 09/14/19 22:28 Desyrel PO 50 mg QHS WALT Administration Nutrition/Malnutrition Assess - Dietary Evaluation Nutrition/Malnutrition Findings: Nutrition Notes Start: 09/10/19 12:25 Freq: Status: Active Protocol: Document 09/14/19 12:26 PS (Rec: 09/14/19 12:31 PS [id number]) Co-Sign 09/14/19 12:26 LP Nutrition Notes Initial or Follow up Reassessment Current Diagnosis Coronary Artery Disease, Hypertension,Heart Failure, Respiratory Failure, Hyperlipidemia Other Pertinent Diagnosis hx of CVA, seizures, schizophrenia, pneumonia, hepatic encephalopathy Current Diet Regular Diet Labs/Tests No Recent Labs Pertinent Medications Zofran Height 6 ft 1 in Weight 82 kg [place] Body Weight (kg) 83.63 BMI 23.8 Weight Status Appropriate Subjective/Other Information F/U for intakes. Pt stated he ate 100% of breakfast, has appetite, and had no problem chewing or swallowing his food . Percent of energy/protein needs met: 100%/100% Burn Absent Trauma Absent Current % PO Good (75-100%) Minimum of two criteria No Reduced Director Community Organization Strength Measurably Reduced (severe) #1 Nutrition Diagnosis Inadequate oral intake As Evidenced by Signs and Symptoms pt ate 100% of breakfast, had no trouble chewing or swallowing, and has appetite Diagnosis Progress(for reassessment Resolved documentation) Is patient on ventilator? No Is Patient Ambulatory and/or Out of Bed No REE-(Cook-St. Jeor-confined to bed) 144 Calculation Used for Recommendations Cook-St Jeor Additional Notes Protein Needs:67 - 83 g(0.8 - 1 g/kg) Fluid Needs: 1ml/Kcal Nutrition Intervention Change Diet Order: continue regular diet Goal #1 Meet 75% of energy/protein needs Anticipated Discharge Needs: regular diet Revisit per MD consult or patient Sign Off request:
[2019-09-15] MEDS: HEPARIN/ 0.45% NACL DRIP 25,000 UNIT/500 ML BAG IV SCH (17:49)
[2019-09-15] MEDS: traZODone 50 MG TAB PO SCH (21:59)
[2019-09-15] MEDS ORDERED: risperiDONE 1 MG TAB PO SCH (22:00)
[2019-09-15] MEDS: risperiDONE 1 MG TAB PO SCH (22:01)
[2019-09-16] MEDS: LACOSAMIDE 100 MG in SODIUM CHLORIDE 0.9% 100 ML IV SCH ×4 (00:18→13:23)
[2019-09-16] MEDS: LACTULOSE 20 GM/30 ML ORAL LIQD PO SCH ×3 (00:29→17:53)
[2019-09-16] MEDS: METOPROLOL TARTRATE 50 MG TAB PO SCH ×3 (08:09→22:05)
[2019-09-16] MEDS: risperiDONE 1 MG TAB PO SCH ×2 (10:00→22:05)
[2019-09-16] MEDS: FOLIC ACID 1 MG TAB PO SCH (10:00)
[2019-09-16] MEDS: CLOPIDOGREL 75 MG TAB PO SCH (10:00)
[2019-09-16] MEDS: FAMOTIDINE 20 MG TAB PO SCH ×2 (10:00→22:05)
[2019-09-16] MEDS: MELATONIN 5 MG TAB PO SCH ×2 (10:00→22:04)
--- NOTE | 2019-09-16 10:16 | Progress Note ---
Subjective - Reason for Consult Consult date: 09/16/19 Reason for consult: Manage mental mental health - Chief Complaint Chief complaint: History of Present Illness: The patient's medical chart reviewed and patient's progress discussed with the nursing staff. The nurse caring for the patient states the patient attempted to get out of bed last night. She says the restrains were removed yesterday. During my interview this morning, the patient is lying in bed. He is awake, dressed appropriately. He is much more calm today. His restraints are off. He makes poor eye contact. The patient does not appear to be well. He says he's "doing alright" when asked. My observations of the patient's appearance discussed with the nurse caring for the patient. She says the hospitalist has been notified and is on his way. When asked about hallucinations, the patient laughs. He does not answer any further questions in the interview. MSE Appearance: In bed. dressed appropriately Behavior: calm Mood: "doing alright" Affect: labile Thought Process: Unable to assess Speech: Normal tone Thought Content Unable to adequately assess Consciousness: Drowsy Cognition/Memory: Impaired Insight/Judgment: Poor Assessment: Schizoaffective Disorder Treatment Plan Medications: Continue prescribed meds Medical: Per primary team Sitter: Defer to primary team Disposition: Acute inpatient psychiatric treatment is not recommended at this time. It is my professional opinion, due to the patient's complicated medical conditions, his mentation would not improve, nor benefit from inpatient psychiatric hospitalization. Will sign off. Thank you for this consult. Mental Status Exam - Vital signs Last Vital Signs Temp 98.5 F 09/16/19 05:53 Pulse 86 09/16/19 08:09 Resp 20 09/16/19 05:53 BP 141/89 09/16/19 08:09 Pulse Ox 94 09/16/19 08:11
[2019-09-16 10:40] LABS: ABG Base Excess 1.7 mmol/L (-2.0-3.0); ABG HCO3 24.5 mmol/L (20.0-26.0); ABG Methemoglobin 0.6 % (0.0-1.5); ABG Oxygen Saturation 93.2 % (95.0-99.0); ABG PH 7.489 pH Units (7.350-7.450); ABG PO2 58.6 mm Hg (80.0-90.0)
[2019-09-16] MEDS ORDERED: ALBUTEROL 2.5 MG/3 ML NEBU IH PRN (11:14)
--- NOTE | 2019-09-16 12:00 | XRay Report ---
CHEST 1 VIEW INDICATION / CLINICAL INFORMATION: SOB. COMPARISON: 09/11/2019 FINDINGS: SUPPORT DEVICES: ET tube and NG tube have been removed in the interim. HEART / MEDIASTINUM: No significant abnormality. Sternotomy. LUNGS / PLEURA: Mild bibasilar parenchymal disease, most likely atelectasis, is stable. No significan t pleural effusion. No interstitial pulmonary edema. No pneumothorax. ADDITIONAL FINDINGS: No significant additional findings. IMPRESSION: 1. Interval extubation. Stable mild bibasilar parenchymal disease, most likely atelectasis. Signer Name: Stacie Strauss MD Signed: 09/16/2019 11:56 AM Workstation Name: [id number]
[2019-09-16] MEDS: VALPROATE SODIUM 1,000 MG in SODIUM CHLORIDE 0.9% 100 ML IV SCH ×2 (13:16→22:05)
--- NOTE | 2019-09-16 13:42 | Progress Note ---
Assessment and Plan Assessment and plan: 59-year-old man who lives in a [facility]. He was brought in for multiple seizures. Apparently he was having seizures nonstop at the [facility]. He rests arrived in the hospital in a postictal state and was not having active seizures. He was given Keppra, he had normal blood glucose. It is not clear how well he is receiving his phenytoin and valproate in a [facility]. While in the ER the patient remained postictal nonresponsive was unable to protect his airway and therefore intubated for airway protection. It is reported that the patient vomited and aspirated in the EMS and prior to arrival Past medical history; hypertension, CVA, CHF, seizure disorder, Wernicke's encephalopathy, schizophrenia, hyperlipidemia, CAD Chest x-ray bibasilar retrocardiac opacities represents atelectasis with or without superimposed pneumonia. CT abdomen and pelvis. Bibasilar pneumonia, bowel distention which is typical of ileus * Previously intubated after presenting with status epilepticus was successfully extubated. And placed on oxygen becomes hypoxic when he takes off of his oxygen * Unfortunately remains confused, seen by psychiatrist do not believe that his confusion will resolve due to his multiple comorbidities. * Ammonia level was elevated patient was started on lactulose. * Required BiPAP following an episode of hypoxic respiratory failure after being found without oxygen. * Is noted to have a cardiac mass and has been on heparin drip although complicated by intermittent epistaxis. Is planned for a POLINA 09/17/2019. * Disposition may prove difficult for this patient due to multiple medical conditions nevertheless we will continue working on ensuring that seizure is completely resolved. Status epilepticus/seizure Valproate levels are low, Neurology consult and input noted, do not see valprpate on home meds list, awaiting to see if patient was even on said medications. CT head did not show any acute findings, Neurology reports concern about these moments of staring and right gaze and his continued agitation Continue Vimpat edback -Ammonia elevated -Resumed back lactulose continue to monitor with this improvement. Axute metabolic encephalopathy/psychosis Due to postictal state versus schizophrenia Awaiting Meds from home Concerned this may only be psychosis Continue restraints. Pysch consulted start on seroquel at hs Acute respiratory failure on mechanical ventilator less than 96 hours EXTUBATED Cardiac Mass - on Heparin drip - Cardiology consulted, cardiology planning for POLINA once patient is medically stabilized -Patient is a poor candidate for anticoagulation due to altered mental status also history of EtOH abuse in the past, seizure disorder psych as noted by cardiology. -Consent signed by brother Bandar Bauman @ , POLINA planned for Tuesday09/17/19 Paroxysmal atrial flutter -As noted above -Continue p.o. current History of CVA? Cannot exclude stroke as etiology of his current symptoms. neurology consulted, Allow permissive hypertension, has received aspirin, stroke education, observe for arrhythmia on telemetry, --aspirin and high dose statin, check Lipid panel ?SBO-appears to be more of ileus improving. Surgery following Aspiration pneumonia/sepsis Stable now off abx Hepatic encephalopathy Lactulose Respiradone and trazadone per PSYCH Hypokalemia Repleted, Upper ext excouration -Obtain wound care eval Schizoaffective Disorder -Psych evaluated -started on -Risperidone increased to 1 mg p BID to decrease aggression and irritability -Trazodone 50mg PO qhs to induce insomnia -Folic Acid 1mg po daily DVT prophylaxis; SCDs No family at bedside Case discussed with nursing staff. Discussed with nursing staff will begin to attempt to remove from restraints. History Interval history: Patient seen and examined, remains confused and incoherent. Although sometimes is able to carry out conversation. This morning patient was noted to have nasal bleed heparin drip was discontinued and symptoms resolved. Nevertheless during his episode of confusion he pulled out inadvertently his IV access and also remove his oxygen became hypoxic with increased respiratory distress requiring BiPAP. Hospitalist Physical - Physical exam Narrative exam: General appearance: Present: well-nourished, non coherent conversation, currently on BiPAP due to respiratory distress - EENT Eyes: Present: PERRL ENT: hearing intact, clear oral mucosa - Neck Neck: Present: supple, normal ROM - Respiratory Respiratory effort: increased work of breathing Respiratory: bilateral: rhonchi - Cardiovascular Heart Sounds: Present: S1 & S2. Absent: rub, click - Extremities Extremities: pulses symmetrical, No edema Peripheral Pulses: within normal limits - Abdominal General gastrointestinal: Present: soft, non-tender, non-distended, normal bowel sounds Male genitourinary: Present: normal - Integumentary Integumentary: Present: clear, warm, dry - Musculoskeletal Musculoskeletal: other, moves all extremitis - Psychiatric Psychiatric: emotional - Neurologic Neurologic: other encephalopathy - Constitutional Vitals: Temp Pulse Resp BP Pulse Ox 99.8 F H 110 H 34 H 117/84 95 09/16/19 12:03 09/16/19 12:03 09/16/19 12:03 09/16/19 12:03 09/16/19 12:03 General appearance: Present: other (agitated, confused, restrained) Results - Labs CBC & Chem 7: 09/15/19 10:03 09/13/19 05:02 Labs: Laboratory Last Values WBC 6.4 K/mm3 (4.5-11.0) 09/13/19 05:02 RBC 3.79 M/mm3 (3.65-5.03) 09/13/19 05:02 Hgb 12.7 gm/dl (11.8-15.2) 09/15/19 10:03 Hct 37.4 % (35.5-45.6) 09/15/19 10:03 MCV 87 fl (84-94) 09/13/19 05:02 MCH 30 pg (28-32) 09/13/19 05:02 MCHC 34 % (32-34) 09/13/19 05:02 RDW 14.1 % (13.2-15.2) 09/13/19 05:02 Plt Count 236 K/mm3 (140-440) 09/15/19 10:03 Lymph % (Auto) 7.2 % (13.4-35.0) L 09/10/19 04:40 [place] % (Auto) 10.3 % (0.0-7.3) H 09/10/19 04:40 Eos % (Auto) 0.3 % (0.0-4.3) 09/10/19 04:40 Baso % (Auto) 0.3 % (0.0-1.8) 09/10/19 04:40 Lymph # 0.6 K/mm3 (1.2-5.4) L 09/10/19 04:40 [place] # 0.8 K/mm3 (0.0-0.8) 09/10/19 04:40 Eos # 0.0 K/mm3 (0.0-0.4) 09/10/19 04:40 Baso # 0.0 K/mm3 (0.0-0.1) 09/10/19 04:40 Seg Neutrophils % 81.9 % (40.0-70.0) H 09/10/19 04:40 Seg Neutrophils # 6.6 K/mm3 (1.8-7.7) 09/10/19 04:40 PT 14.0 Sec. (12.2-14.9) 09/11/19 18:08 INR 1.07 (0.87-1.13) 09/11/19 18:08 APTT 29.1 Sec. (24.2-36.6) 09/11/19 18:08 Heparin Anti-Xa Level 0.54 U.I./ml (0.3-0.7) 09/16/19 00:23 POC ABG pH 7.419 (7.35-7.45) 09/10/19 05:02 ABG pH 7.489 pH Units (7.350-7.450) H 09/16/19 10:33 POC ABG pCO2 38.4 (35-45) 09/10/19 05:02 ABG pCO2 33.0 mm Hg 09/16/19 10:33 POC ABG pO2 94 (80-105) 09/10/19 05:02 ABG pO2 58.6 mm Hg (80.0-90.0) L 09/16/19 10:33 POC ABG HCO3 24.8 (22-26 mml/L) 09/10/19 05:02 ABG HCO3 24.5 mmol/L (20.0-26.0) 09/16/19 10:33 POC ABG Total CO2 26 (23-27mmol/L) 09/10/19 05:02 POC ABG O2 Sat 97 09/10/19 05:02 ABG O2 Saturation 93.2 % (95.0-99.0) L 09/16/19 10:33 ABG O2 Content 15.9 (0.0-44) 09/16/19 10:33 POC ABG Base Excess 0 ((-2) - (+3)mmol/L) 09/10/19 05:02 ABG Base Excess 1.7 mmol/L (-2.0-3.0) 09/16/19 10:33 ABG Hemoglobin 12.4 gm/dl (14.0-18.0) L 09/16/19 10:33 ABG Carboxyhemoglobin 1.8 % (0.0-5.0) 09/16/19 10:33 ABG Methemoglobin 0.6 % (0.0-1.5) 09/16/19 10:33 Oxyhemoglobin 90.9 % (95.0-99.0) L 09/16/19 10:33 FiO2 28 % 09/16/19 10:33 Sodium 144 mmol/L (137-145) 09/13/19 05:02 Potassium 3.4 mmol/L (3.6-5.0) L 09/13/19 05:02 Chloride 110.3 mmol/L (98-107) H 09/13/19 05:02 Carbon Dioxide 20 mmol/L (22-30) L 09/13/19 05:02 Anion Gap 17 mmol/L 09/13/19 05:02 BUN 7 mg/dL (9-20) L 09/13/19 05:02 Creatinine 0.6 mg/dL (0.8-1.5) L 09/13/19 05:02 Estimated GFR > 60 ml/min 09/13/19 05:02 BUN/Creatinine Ratio 12 % 09/13/19 05:02 Glucose 101 mg/dL (75-100) H 09/13/19 05:02 POC Glucose 96 (70-105) 09/16/19 06:05 Calcium 8.4 mg/dL (8.4-10.2) 09/13/19 05:02 Phosphorus TNR 09/11/19 04:50 Magnesium 2.10 mg/dL (1.7-2.3) 09/10/19 04:40 Total Bilirubin 0.50 mg/dL (0.1-1.2) 09/10/19 04:40 Direct Bilirubin < 0.2 mg/dL (0-0.2) 09/10/19 04:40 Indirect Bilirubin 0.0 mg/dL 09/09/19 10:22 AST 33 units/L (5-40) 09/10/19 04:40 ALT 23 units/L (7-56) 09/10/19 04:40 Alkaline Phosphatase 117 units/L (35-129) 09/10/19 04:40 Ammonia 74.0 umol/L (25-60) H 09/13/19 13:36 Total Creatine Kinase 267 units/L (55-170) H 09/09/19 10:22 CK-MB (CK-2) 4.6 ng/mL (0.0-4.0) H 09/09/19 10:22 CK-MB (CK-2) Rel Index 1.7 (0-4) 09/09/19 10:22 Troponin T < 0.010 ng/mL (0.00-0.029) 09/09/19 10:22 NT-Pro-B Natriuret Pep 268.5 pg/mL (0-900) 09/09/19 10:22 Total Protein 7.1 g/dL (6.3-8.2) 09/10/19 04:40 Albumin 3.8 g/dL (3.9-5) L 09/10/19 04:40 Albumin/Globulin Ratio 1.2 % 09/10/19 04:40 Triglycerides 90 mg/dL (2-149) 09/10/19 04:40 Cholesterol 196 mg/dL (50-199) 09/10/19 04:40 LDL Cholesterol Direct 131 mg/dL (50-130) H 09/10/19 04:40 HDL Cholesterol 57 mg/dL (40-59) 09/10/19 04:40 Cholesterol/HDL Ratio 3.43 % 09/10/19 04:40 Procalcitonin 0.14 ng/mL (<0.15) 09/12/19 04:39 Urine Color Yellow (Yellow) 09/09/19 15:24 Urine Turbidity Clear (Clear) 09/09/19 15:24 Urine pH 5.0 (5.0-7.0) 09/09/19 15:24 Ur Specific [place] 1.015 (1.003-1.030) 09/09/19 15:24 Urine Protein 30 mg/dl mg/dL (Negative) 09/09/19 15:24 Urine Glucose (UA) Neg mg/dL (Negative) 09/09/19 15:24 Urine Ketones Neg mg/dL (Negative) 09/09/19 15:24 Urine Blood Mod (Negative) 09/09/19 15:24 Urine Nitrite Neg (Negative) 09/09/19 15:24 Urine Bilirubin Neg (Negative) 09/09/19 15:24 Urine Urobilinogen < 2.0 mg/dL (<2.0) 09/09/19 15:24 Ur Leukocyte Esterase Neg (Negative) 09/09/19 15:24 Urine WBC (Auto) 2.0 /HPF (0.0-6.0) 09/09/19 15:24 Urine RBC (Auto) 59.0 /HPF (0.0-6.0) 09/09/19 15:24 U Epithel Cells (Auto) < 1.0 /HPF (0-13.0) 09/09/19 15:24 Urine Bacteria (Auto) 1+ /HPF (Negative) 09/09/19 15:24 Urine Mucus Few /HPF 09/09/19 15:24 Urine Opiates Screen Presumptive negative 09/09/19 15:24 Urine Methadone Screen Presumptive negative 09/09/19 15:24 Ur Barbiturates Screen Presumptive negative 09/09/19 15:24 Phenytoin 11.1 ug/mL (10.0-20.0) 09/09/19 13:10 Valproic Acid 50.0 ug/mL (50-100) 09/13/19 13:36 Ur Phencyclidine Scrn Presumptive negative 09/09/19 15:24 Ur Amphetamines Screen Presumptive negative 09/09/19 15:24 U Benzodiazepines Scrn Presumptive positive 09/09/19 15:24 Urine Cocaine Screen Presumptive negative 09/09/19 15:24 U Marijuana (THC) Screen Presumptive negative 09/09/19 15:24 Drugs of Abuse Note Disclamer 09/09/19 15:24 Active Medications - Current Medications Current Medications: Generic Name Dose Route Start Last Admin Trade Name Freq PRN Reason Stop Dose Admin Acetaminophen 650 mg 09/09/19 22:21 09/11/19 12:25 Tylenol PO 650 mg Q4H PRN Administration Pain MILD(1-3)/Fever >100.5/ANG Albuterol 2.5 mg 09/16/19 11:14 Proventil IH Q4HRT PRN Shortness Of Breath Albuterol/Ipratropium 1 ampul 09/16/19 14:00 Duoneb *Not For Prn Use* IH Q6HRT WALT Aspirin 81 mg 09/15/19 10:00 09/15/19 10:50 Baby Aspirin PO 81 mg QDAY WALT Administration Atorvastatin Calcium 40 mg 09/09/19 22:00 09/15/19 22:00 Lipitor PO 40 mg QHS WALT Administration Clopidogrel Bisulfate 75 mg 09/10/19 10:00 09/15/19 10:50 Plavix PO 75 mg QDAY WALT Administration Diphenhydramine HCl 25 mg 09/11/19 16:08 09/12/19 15:18 Benadryl IV 25 mg Q6H PRN Administration Itching Famotidine 20 mg 09/12/19 22:00 09/15/19 22:00 Pepcid PO 20 mg BID WALT Administration Folic Acid 1 mg 09/15/19 10:00 09/15/19 10:50 Folvite PO 1 mg QDAY WALT Administration Haloperidol Lactate 5 mg 09/12/19 17:22 09/14/19 16:04 Haldol IM 5 mg Q6H PRN Administration Agitation Hydrophilic Ointment 1 applic 09/09/19 12:23 Vaseline Lip Therapy TP Q2HR PRN Dry Lips Valproate Sodium 1,000 mg/ 110 mls @ 100 mls/hr 09/11/19 22:00 09/16/19 13:16 Sodium Chloride IV 100 mls/hr Q12HR WALT Administration Heparin Sodium/Sodium Chloride 25,000 unit in 500 mls @ 26 mls/hr 09/11/19 17:00 09/15/19 17:49 Heparin/ 0.45% Nacl-25,000 Unit/500 Ml IV 1,500 units/hr TITR WALT 30 mls/hr Administration Protocol 1,300 UNITS/HR Lacosamide 100 mg/ Sodium 110 mls @ 100 mls/hr 09/13/19 13:00 09/16/19 13:23 Chloride IV 100 mls/hr Q12H WALT Administration Lactulose 20 gm 09/14/19 18:00 09/16/19 12:00 Cephulac PO Not Given Q6H WALT Melatonin 5 mg 09/14/19 22:00 09/15/19 22:00 Melatonin PO 5 mg BID WALT Administration Metoprolol Tartrate 50 mg 09/14/19 14:00 09/16/19 08:09 Metoprolol PO 50 mg TID WALT Administration Multi-Ingred Cream/Lotion/Oil/Oint 1 applic 09/09/19 12:23 Artificial Tears Ophth Oint OU Q4HR PRN Dry Eye(s) Ondansetron HCl 4 mg 09/09/19 22:21 09/12/19 15:18 Zofran IV 4 mg Q8H PRN Administration Nausea And Vomiting Risperidone 1 mg 09/15/19 22:00 09/15/19 22:01 Risperdal PO 1 mg BID WALT Administration Sodium Chloride 10 ml 09/10/19 10:00 09/15/19 22:01 Sodium Chloride Flush Syringe 10 Ml IV 10 ml BID WALT Administration Sodium Chloride 10 ml 09/09/19 22:21 09/14/19 04:55 Sodium Chloride Flush Syringe 10 Ml IV 10 ml PRN PRN Administration LINE FLUSH Trazodone HCl 50 mg 09/14/19 22:00 09/15/19 21:59 Desyrel PO 50 mg QHS WALT Administration Nutrition/Malnutrition Assess - Dietary Evaluation Nutrition/Malnutrition Findings: Nutrition Notes Start: 09/10/19 12:25 Freq: Status: Active Protocol: Document 09/14/19 12:26 PS (Rec: 09/14/19 12:31 PS [id number]) Co-Sign 09/14/19 12:26 LP Nutrition Notes Initial or Follow up Reassessment Current Diagnosis Coronary Artery Disease, Hypertension,Heart Failure, Respiratory Failure, Hyperlipidemia Other Pertinent Diagnosis hx of CVA, seizures, schizophrenia, pneumonia, hepatic encephalopathy Current Diet Regular Diet Labs/Tests No Recent Labs Pertinent Medications Zofran Height 6 ft 1 in Weight 82 kg [place] Body Weight (kg) 83.63 BMI 23.8 Weight Status Appropriate Subjective/Other Information F/U for intakes. Pt stated he ate 100% of breakfast, has appetite, and had no problem chewing or swallowing his food . Percent of energy/protein needs met: 100%/100% Burn Absent Trauma Absent Current % PO Good (75-100%) Minimum of two criteria No Reduced [employer]ist Strength Measurably Reduced (severe) #1 Nutrition Diagnosis Inadequate oral intake As Evidenced by Signs and Symptoms pt ate 100% of breakfast, had no trouble chewing or swallowing, and has appetite Diagnosis Progress(for reassessment Resolved documentation) Is patient on ventilator? No Is Patient Ambulatory and/or Out of Bed No REE-([facility]-confined to bed) 2042.144 Calculation Used for Recommendations [facility] Additional Notes Protein Needs:67 - 83 g(0.8 - 1 g/kg) Fluid Needs: 1ml/Kcal Nutrition Intervention Change Diet Order: continue regular diet Goal #1 Meet 75% of energy/protein needs Anticipated Discharge Needs: regular diet Revisit per MD consult or patient Sign Off request:
[2019-09-16] MEDS: IPRATROPIUM/ALBUTEROL SULFATE 3 ML AMPUL.NEB IH SCH ×2 (13:47→21:01)
[2019-09-16] MEDS: HEPARIN/ 0.45% NACL DRIP 25,000 UNIT/500 ML BAG IV SCH (17:53)
[2019-09-16] MEDS: traZODone 50 MG TAB PO SCH (22:04)
[2019-09-17] MEDS: LACTULOSE 20 GM/30 ML ORAL LIQD PO SCH (01:23)
[2019-09-17] MEDS: LACOSAMIDE 100 MG in SODIUM CHLORIDE 0.9% 100 ML IV SCH ×2 (01:59→14:09)
[2019-09-17] MEDS: IPRATROPIUM/ALBUTEROL SULFATE 3 ML AMPUL.NEB IH SCH ×4 (03:36→20:25)
[2019-09-17] MEDS ORDERED: SODIUM CHLORIDE 0.9% 500 ML 0 ML ONE (08:40)
[2019-09-17] MEDS ORDERED: BENZOCAINE 20% TOP SPRAY 0.5 ML UNIT DOSE MM ONE (08:40)
[2019-09-17] MEDS ORDERED: BENZOCAINE 20% TOP SPRAY 0.5 ML UNIT DOSE MM NR (09:00)
--- NOTE | 2019-09-17 09:03 | XRay Report ---
ABDOMEN 2 VIEW(S) INDICATION / CLINICAL INFORMATION: distended abdomen. COMPARISON: 09/10/2019 FINDINGS: TUBES / LINES: None. BOWEL GAS PATTERN: No significant abnormality. FREE AIR / EXTRALUMINAL GAS: None seen. ADDITIONAL FINDINGS: Severe scoliosis IMPRESSION: No significant abnormality. Signer Name: Drew Liu Jr, MD Signed: 09/17/2019 8:58 AM Workstation Name: [id number]
[2019-09-17 09:49] LABS: Hematocrit 33.2 % (35.5-45.6); Hemoglobin 11.3 gm/dl (11.8-15.2)
[2019-09-17] MEDS: VALPROATE SODIUM 1,000 MG in SODIUM CHLORIDE 0.9% 100 ML IV SCH ×2 (10:00→21:21)
--- NOTE | 2019-09-17 11:39 | Progress Note ---
Assessment and Plan Cont present cardiac management. heparin gtt has been initiated per primary. We were able to contact pt's listed NOK, brother Bandar Bauman @ , regarding current assessment and recommendations including POLINA. Indications, potential risks and benefits of POLINA reviewed with Bandar Bauman and he has consen clark for us to proceed with POLINA on his brother, Eduardo Bauman. Pt combative earlier this morning and pulled out peripheral IV and thus we were unable to perform POLINA at 9AM today. POLINA rescheduled for tomorrow at 10AM with anesthesia. NPO after MN. The patient has been seen in conjunction with Dr. Fabian Chiu who agrees with the assessment and plan of care. - Patient Problems (1) Cardiac mass Current Visit: Yes Status: Acute Plan to address problem: intra cardiac mass unclear etiology. vegetation or thrombus possible but unusual location. 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 POLINA and possibly cardiac mri at some point appears warranted. (2) Paroxysmal atrial flutter Current Visit: Yes Status: Acute (3) Seizure disorder Current Visit: Yes Status: Chronic (4) Altered mental status Current Visit: Yes Status: Acute (5) Aspiration pneumonia Current Visit: Yes Status: Suspected (6) Ileus Current Visit: Yes Status: Suspected (7) Hypertension Current Visit: Yes Status: Chronic Qualifiers: Hypertension type: essential hypertension Qualified Code(s): I10 - Essential (primary) hypertension (8) Hyperlipidemia Current Visit: Yes Status: Chronic Qualifiers: Hyperlipidemia type: unspecified Qualified Code(s): E78.5 - Hyperlipidemia, unspecified (9) History of cerebrovascular accident Current Visit: Yes Status: Chronic (10) History of coronary artery bypass graft Current Visit: Yes Status: Suspected Subjective Date of service: 09/17/19 Principal diagnosis: seizure Interval history: pt resting in bed, currently alert and calm although he was combative earlier this morning and pulled out peripheral IV. in SR on tele. no family at bedside. Objective Last Vital Signs Temp 98.3 F 09/17/19 05:09 Pulse 77 09/17/19 05:09 Resp 20 09/17/19 05:09 BP 123/81 09/17/19 05:09 Pulse Ox 100 09/17/19 08:58 - Physical Examination General: Other (alert, confused, right sided gaze) HEENT: Positive: PERRL Cardiac: Positive: Reg Rate and Rhythm, S1/S2 Lungs: Positive: Decreased Breath Sounds Neuro: Positive: Grossly Intact, Other (alert, confused, right sided gaze) Skin: Negative: Rash Extremities: Absent: edema - Labs and Meds CBC 09/17/19 Range/Units 07:35 Hgb 11.3 L (11.8-15.2) gm/dl Hct 33.2 L (35.5-45.6) % Plt Count 245 (140-440) K/mm3 - Imaging and Cardiology EKG: report reviewed, image reviewed Echo: report reviewed (09/09/2019 which showed EF 45-50%, mod LVH, grade 1 diastolic dysfunction, no sig valvular abnormalities, mod pleural effusion, m obile echogenic structure in LA that appears attached to the posterior wall of the aortic root or roof of the LA, atrial septal aneurysm present, negative bubble study although suboptimal study )
[2019-09-17] MEDS: CLOPIDOGREL 75 MG TAB PO SCH (12:35)
[2019-09-17] MEDS: HALOPERIDOL LACTATE 5 MG/1 ML INJ IM PRN (12:35)
[2019-09-17] MEDS: FAMOTIDINE 20 MG TAB PO SCH ×2 (12:35→21:18)
[2019-09-17] MEDS: ASPIRIN 81 MG TAB CHEW PO SCH (12:35)
[2019-09-17] MEDS: FOLIC ACID 1 MG TAB PO SCH (12:35)
[2019-09-17] MEDS: risperiDONE 1 MG TAB PO SCH ×2 (12:35→21:18)
[2019-09-17] MEDS: MELATONIN 5 MG TAB PO SCH ×2 (12:35→21:18)
[2019-09-17] MEDS: METOPROLOL TARTRATE 50 MG TAB PO SCH ×2 (14:09→21:17)
--- NOTE | 2019-09-17 14:58 | Progress Note ---
Assessment and Plan Assessment and plan: 59-year-old man who lives in a retirement. He was brought in for multiple seizures. Apparently he was having seizures nonstop at the retirement. He rests arrived in the hospital in a postictal state and was not having active seizures. He was given Keppra, he had normal blood glucose. It is not clear how well he is receiving his phenytoin and valproate in a retirement. While in the ER the patient remained postictal nonresponsive was unable to protect his airway and therefore intubated for airway protection. It is reported that the patient vomited and aspirated in the EMS and prior to arrival Past medical history; hypertension, CVA, CHF, seizure disorder, Wernicke's encephalopathy, schizophrenia, hyperlipidemia, CAD Chest x-ray bibasilar retrocardiac opacities represents atelectasis with or without superimposed pneumonia. CT abdomen and pelvis. Bibasilar pneumonia, bowel distention which is typical of ileus * Previously intubated after presenting with status epilepticus was successfully extubated. And placed on oxygen becomes hypoxic when he takes off of his oxygen * Unfortunately remains confused, seen by psychiatrist do not believe that his confusion will resolve due to his multiple comorbidities. * Ammonia level was elevated patient was started on lactulose. * Required BiPAP following an episode of hypoxic respiratory failure after being found without oxygen. * Is noted to have a cardiac mass and has been on heparin drip although complicated by intermittent epistaxis. Is planned for a POLINA 09/17/2019. * No further seizures noted * Unfortunately patient went back on restraints today for safety as he is planned for POLINA tomorrow and he had pulled out multiple lines. I believe that this restraints can be removed once the POLINA is done and should not preclude the patient from being discharged. Status epilepticus/seizure Valproate levels are low, Neurology consult and input noted, do not see valprpate on home meds list, awaiting to see if patient was even on said medications. CT head did not show any acute findings, Neurology reports concern about these moments of staring and right gaze and his continued agitation Continue Vimpat edback -Ammonia elevated -Resumed back lactulose continue to monitor with this improvement. Axute metabolic encephalopathy/psychosis Due to postictal state versus schizophrenia Awaiting Meds from home Concerned this may only be psychosis Continue restraints. Teo consulted start on seroquel at hs Acute respiratory failure on mechanical ventilator less than 96 hours EXTUBATED Cardiac Mass - on Heparin drip - Cardiology consulted, cardiology planning for POLINA once patient is medically stabilized -Patient is a poor candidate for anticoagulation due to altered mental status also history of EtOH abuse in the past, seizure disorder psych as noted by cardiology. -Consent signed by brother Bandar Bauman @ , POLINA planned for Tuesday09/17/19 Paroxysmal atrial flutter -As noted above -Continue p.o. current History of CVA Cannot exclude stroke as etiology of his current symptoms. neurology consulted, --aspirin and high dose statin, check Lipid panel Ileus-stable resolved. Aspiration pneumonia/sepsis Stable now off abx Hepatic encephalopathy Lactulose continue daily 2 to 3 x 4 to loose stools. Respiradone and trazadone per PSYCH Hypokalemia Repleted, Upper ext excouration -Obtain wound care eval Schizoaffective Disorder -Psych evaluated -started on -Risperidone increased to 1 mg p BID to decrease aggression and irritability -Trazodone 50mg PO qhs to induce insomnia -Folic Acid 1mg po daily DVT prophylaxis; SCDs No family at bedside Case discussed with nursing staff. Discussed with nursing staff will begin to attempt to remove from restraints. Patient can be discharged following POLINA and recommendation. History Interval history: Patient seen and examined, remains confused and incoherent. Patient currently is on heparin drip in preparation for POLINA secondary to cardiac mass unfortunately has had episodes of epistaxis and also intermittent episodes of confusion above his baseline. He is unfortunately unable to carry out conversation due to his incoherent speech and also underlying psychiatric issue. And intermittently requires restraints for safety. At the facility he came from it is noted that the patient has unsteady gait and is able to feed himself. No new seizures noted. Hospitalist Physical - Physical exam Narrative exam: General appearance: Present: well-nourished, non coherent conversation, currently on BiPAP due to respiratory distress - EENT Eyes: Present: PERRL ENT: hearing intact, clear oral mucosa - Neck Neck: Present: supple, normal ROM - Respiratory Respiratory effort: increased work of breathing Respiratory: bilateral: rhonchi - Cardiovascular Heart Sounds: Present: S1 & S2. Absent: rub, click - Extremities Extremities: pulses symmetrical, No edema Peripheral Pulses: within normal limits - Abdominal General gastrointestinal: Present: soft, non-tender, non-distended, normal bowel sounds Male genitourinary: Present: normal - Integumentary Integumentary: Present: clear, warm, dry - Musculoskeletal Musculoskeletal: other, moves all extremitis - Psychiatric Psychiatric: emotional - Neurologic Neurologic: other encephalopathy - Constitutional Vitals: Temp Pulse Resp BP Pulse Ox 98.3 F 72 18 123/81 100 09/17/19 05:09 09/17/19 14:11 09/17/19 14:11 09/17/19 05:09 09/17/19 08:58 General appearance: Present: other (agitated, confused, restrained) Results - Labs CBC & Chem 7: 09/17/19 07:35 09/13/19 05:02 Labs: Laboratory Last Values WBC 6.4 K/mm3 (4.5-11.0) 09/13/19 05:02 RBC 3.79 M/mm3 (3.65-5.03) 09/13/19 05:02 Hgb 11.3 gm/dl (11.8-15.2) L 09/17/19 07:35 Hct 33.2 % (35.5-45.6) L 09/17/19 07:35 MCV 87 fl (84-94) 09/13/19 05:02 MCH 30 pg (28-32) 09/13/19 05:02 MCHC 34 % (32-34) 09/13/19 05:02 RDW 14.1 % (13.2-15.2) 09/13/19 05:02 Plt Count 245 K/mm3 (140-440) 09/17/19 07:35 Lymph % (Auto) 7.2 % (13.4-35.0) L 09/10/19 04:40 [place] % (Auto) 10.3 % (0.0-7.3) H 09/10/19 04:40 Eos % (Auto) 0.3 % (0.0-4.3) 09/10/19 04:40 Baso % (Auto) 0.3 % (0.0-1.8) 09/10/19 04:40 Lymph # 0.6 K/mm3 (1.2-5.4) L 09/10/19 04:40 [place] # 0.8 K/mm3 (0.0-0.8) 09/10/19 04:40 Eos # 0.0 K/mm3 (0.0-0.4) 09/10/19 04:40 Baso # 0.0 K/mm3 (0.0-0.1) 09/10/19 04:40 Seg Neutrophils % 81.9 % (40.0-70.0) H 09/10/19 04:40 Seg Neutrophils # 6.6 K/mm3 (1.8-7.7) 09/10/19 04:40 PT 14.0 Sec. (12.2-14.9) 09/11/19 18:08 INR 1.07 (0.87-1.13) 09/11/19 18:08 APTT 29.1 Sec. (24.2-36.6) 09/11/19 18:08 Heparin Anti-Xa Level < 0.10 U.I./ml (0.3-0.7) L 09/17/19 07:35 POC ABG pH 7.419 (7.35-7.45) 09/10/19 05:02 ABG pH 7.489 pH Units (7.350-7.450) H 09/16/19 10:33 POC ABG pCO2 38.4 (35-45) 09/10/19 05:02 ABG pCO2 33.0 mm Hg 09/16/19 10:33 POC ABG pO2 94 (80-105) 09/10/19 05:02 ABG pO2 58.6 mm Hg (80.0-90.0) L 09/16/19 10:33 POC ABG HCO3 24.8 (22-26 mml/L) 09/10/19 05:02 ABG HCO3 24.5 mmol/L (20.0-26.0) 09/16/19 10:33 POC ABG Total CO2 26 (23-27mmol/L) 09/10/19 05:02 POC ABG O2 Sat 97 09/10/19 05:02 ABG O2 Saturation 93.2 % (95.0-99.0) L 09/16/19 10:33 ABG O2 Content 15.9 (0.0-44) 09/16/19 10:33 POC ABG Base Excess 0 ((-2) - (+3)mmol/L) 09/10/19 05:02 ABG Base Excess 1.7 mmol/L (-2.0-3.0) 09/16/19 10:33 ABG Hemoglobin 12.4 gm/dl (14.0-18.0) L 09/16/19 10:33 ABG Carboxyhemoglobin 1.8 % (0.0-5.0) 09/16/19 10:33 ABG Methemoglobin 0.6 % (0.0-1.5) 09/16/19 10:33 Oxyhemoglobin 90.9 % (95.0-99.0) L 09/16/19 10:33 FiO2 28 % 09/16/19 10:33 Sodium 144 mmol/L (137-145) 09/13/19 05:02 Potassium 3.4 mmol/L (3.6-5.0) L 09/13/19 05:02 Chloride 110.3 mmol/L (98-107) H 09/13/19 05:02 Carbon Dioxide 20 mmol/L (22-30) L 09/13/19 05:02 Anion Gap 17 mmol/L 09/13/19 05:02 BUN 7 mg/dL (9-20) L 09/13/19 05:02 Creatinine 0.6 mg/dL (0.8-1.5) L 09/13/19 05:02 Estimated GFR > 60 ml/min 09/13/19 05:02 BUN/Creatinine Ratio 12 % 09/13/19 05:02 Glucose 101 mg/dL (75-100) H 09/13/19 05:02 POC Glucose 77 (70-105) 09/17/19 12:08 Calcium 8.4 mg/dL (8.4-10.2) 09/13/19 05:02 Phosphorus TNR 09/11/19 04:50 Magnesium 2.10 mg/dL (1.7-2.3) 09/10/19 04:40 Total Bilirubin 0.50 mg/dL (0.1-1.2) 09/10/19 04:40 Direct Bilirubin < 0.2 mg/dL (0-0.2) 09/10/19 04:40 Indirect Bilirubin 0.0 mg/dL 09/09/19 10:22 AST 33 units/L (5-40) 09/10/19 04:40 ALT 23 units/L (7-56) 09/10/19 04:40 Alkaline Phosphatase 117 units/L (35-129) 09/10/19 04:40 Ammonia 74.0 umol/L (25-60) H 09/13/19 13:36 Total Creatine Kinase 267 units/L (55-170) H 09/09/19 10:22 CK-MB (CK-2) 4.6 ng/mL (0.0-4.0) H 09/09/19 10:22 CK-MB (CK-2) Rel Index 1.7 (0-4) 09/09/19 10:22 Troponin T < 0.010 ng/mL (0.00-0.029) 09/09/19 10:22 NT-Pro-B Natriuret Pep 268.5 pg/mL (0-900) 09/09/19 10:22 Total Protein 7.1 g/dL (6.3-8.2) 09/10/19 04:40 Albumin 3.8 g/dL (3.9-5) L 09/10/19 04:40 Albumin/Globulin Ratio 1.2 % 09/10/19 04:40 Triglycerides 90 mg/dL (2-149) 09/10/19 04:40 Cholesterol 196 mg/dL (50-199) 09/10/19 04:40 LDL Cholesterol Direct 131 mg/dL (50-130) H 09/10/19 04:40 HDL Cholesterol 57 mg/dL (40-59) 09/10/19 04:40 Cholesterol/HDL Ratio 3.43 % 09/10/19 04:40 Procalcitonin 0.14 ng/mL (<0.15) 09/12/19 04:39 Urine Color Yellow (Yellow) 09/09/19 15:24 Urine Turbidity Clear (Clear) 09/09/19 15:24 Urine pH 5.0 (5.0-7.0) 09/09/19 15:24 Ur Specific [place] 1.015 (1.003-1.030) 09/09/19 15:24 Urine Protein 30 mg/dl mg/dL (Negative) 09/09/19 15:24 Urine Glucose (UA) Neg mg/dL (Negative) 09/09/19 15:24 Urine Ketones Neg mg/dL (Negative) 09/09/19 15:24 Urine Blood Mod (Negative) 09/09/19 15:24 Urine Nitrite Neg (Negative) 09/09/19 15:24 Urine Bilirubin Neg (Negative) 09/09/19 15:24 Urine Urobilinogen < 2.0 mg/dL (<2.0) 09/09/19 15:24 Ur Leukocyte Esterase Neg (Negative) 09/09/19 15:24 Urine WBC (Auto) 2.0 /HPF (0.0-6.0) 09/09/19 15:24 Urine RBC (Auto) 59.0 /HPF (0.0-6.0) 09/09/19 15:24 U Epithel Cells (Auto) < 1.0 /HPF (0-13.0) 09/09/19 15:24 Urine Bacteria (Auto) 1+ /HPF (Negative) 09/09/19 15:24 Urine Mucus Few /HPF 09/09/19 15:24 Urine Opiates Screen Presumptive negative 09/09/19 15:24 Urine Methadone Screen Presumptive negative 09/09/19 15:24 Ur Barbiturates Screen Presumptive negative 09/09/19 15:24 Phenytoin 11.1 ug/mL (10.0-20.0) 09/09/19 13:10 Valproic Acid 50.0 ug/mL (50-100) 09/13/19 13:36 Ur Phencyclidine Scrn Presumptive negative 09/09/19 15:24 Ur Amphetamines Screen Presumptive negative 09/09/19 15:24 U Benzodiazepines Scrn Presumptive positive 09/09/19 15:24 Urine Cocaine Screen Presumptive negative 09/09/19 15:24 U Marijuana (THC) Screen Presumptive negative 09/09/19 15:24 Drugs of Abuse Note Disclamer 09/09/19 15:24 Active Medications - Current Medications Current Medications: Generic Name Dose Route Start Last Admin Trade Name Freq PRN Reason Stop Dose Admin Acetaminophen 650 mg 09/09/19 22:21 09/11/19 12:25 Tylenol PO 650 mg Q4H PRN Administration Pain MILD(1-3)/Fever >100.5/ANG Albuterol 2.5 mg 09/16/19 11:14 Proventil IH Q4HRT PRN Shortness Of Breath Albuterol/Ipratropium 1 ampul 09/16/19 14:00 09/17/19 14:07 Duoneb *Not For Prn Use* IH 1 ampul Q6HRT WALT Administration Aspirin 81 mg 09/15/19 10:00 09/17/19 12:35 Baby Aspirin PO 81 mg QDAY WALT Administration Atorvastatin Calcium 40 mg 09/09/19 22:00 09/16/19 22:05 Lipitor PO 40 mg QHS WALT Administration Benzocaine 3 spray 09/17/19 09:00 Hurricaine One 20% Topical [place] MM 09/17/19 23:00 PREOP NR Clopidogrel Bisulfate 75 mg 09/10/19 10:00 09/17/19 12:35 Plavix PO 75 mg QDAY WALT Administration Diphenhydramine HCl 25 mg 09/11/19 16:08 09/12/19 15:18 Benadryl IV 25 mg Q6H PRN Administration Itching Famotidine 20 mg 09/12/19 22:00 09/17/19 12:35 Pepcid PO 20 mg BID WALT Administration Folic Acid 1 mg 09/15/19 10:00 09/17/19 12:35 Folvite PO 1 mg QDAY WALT Administration Haloperidol Lactate 5 mg 09/12/19 17:22 09/17/19 12:35 Haldol IM 5 mg Q6H PRN Administration Agitation Hydrophilic Ointment 1 applic 09/09/19 12:23 Vaseline Lip Therapy TP Q2HR PRN Dry Lips Valproate Sodium 1,000 mg/ 110 mls @ 100 mls/hr 09/11/19 22:00 09/17/19 10:00 Sodium Chloride IV 100 mls/hr Q12HR WALT Administration Heparin Sodium/Sodium Chloride 25,000 unit in 500 mls @ 26 mls/hr 09/11/19 17:00 09/17/19 01:26 Heparin/ 0.45% Nacl-25,000 Unit/500 Ml IV 1,650 units/hr TITR WALT 33 mls/hr Titration Protocol 1,300 UNITS/HR Lacosamide 100 mg/ Sodium 110 mls @ 100 mls/hr 09/13/19 13:00 09/17/19 14:09 Chloride IV 100 mls/hr Q12H WALT Administration Lactulose 20 gm 09/14/19 18:00 09/17/19 01:23 Cephulac PO Not Given Q6H WALT Lorazepam 2 mg 09/17/19 15:00 Ativan IV 09/17/19 15:01 ONCE ONE Melatonin 5 mg 09/14/19 22:00 09/17/19 12:35 Melatonin PO 5 mg BID WALT Administration Metoprolol Tartrate 50 mg 09/14/19 14:00 09/17/19 14:09 Metoprolol PO 50 mg TID WALT Administration Multi-Ingred Cream/Lotion/Oil/Oint 1 applic 09/09/19 12:23 Artificial Tears Ophth Oint OU Q4HR PRN Dry Eye(s) Ondansetron HCl 4 mg 09/09/19 22:21 09/12/19 15:18 Zofran IV 4 mg Q8H PRN Administration Nausea And Vomiting Risperidone 1 mg 09/15/19 22:00 09/17/19 12:35 Risperdal PO 1 mg BID WALT Administration Sodium Chloride 10 ml 09/10/19 10:00 09/17/19 12:38 Sodium Chloride Flush Syringe 10 Ml IV 10 ml BID WALT Administration Sodium Chloride 10 ml 09/09/19 22:21 09/14/19 04:55 Sodium Chloride Flush Syringe 10 Ml IV 10 ml PRN PRN Administration LINE FLUSH Trazodone HCl 50 mg 09/14/19 22:00 09/16/19 22:04 Desyrel PO 50 mg QHS WALT Administration Nutrition/Malnutrition Assess - Dietary Evaluation Nutrition/Malnutrition Findings: Nutrition Notes Start: 09/10/19 12:25 Freq: Status: Active Protocol: Document 09/14/19 12:26 PS (Rec: 09/14/19 12:31 PS [id number]) Co-Sign 09/14/19 12:26 LP Nutrition Notes Initial or Follow up Reassessment Current Diagnosis Coronary Artery Disease, Hypertension,Heart Failure, Respiratory Failure, Hyperlipidemia Other Pertinent Diagnosis hx of CVA, seizures, schizophrenia, pneumonia, hepatic encephalopathy Current Diet Regular Diet Labs/Tests No Recent Labs Pertinent Medications Zofran Height 6 ft 1 in Weight 82 kg [place] Body Weight (kg) 83.63 BMI 23.8 Weight Status Appropriate Subjective/Other Information F/U for intakes. Pt stated he ate 100% of breakfast, has appetite, and had no problem chewing or swallowing his food . Percent of energy/protein needs met: 100%/100% Burn Absent Trauma Absent Current % PO Good (75-100%) Minimum of two criteria No Reduced Title I Assistant Strength Measurably Reduced (severe) #1 Nutrition Diagnosis Inadequate oral intake As Evidenced by Signs and Symptoms pt ate 100% of breakfast, had no trouble chewing or swallowing, and has appetite Diagnosis Progress(for reassessment Resolved documentation) Is patient on ventilator? No Is Patient Ambulatory and/or Out of Bed No REE-([facility]-confined to bed) 144 Calculation Used for Recommendations [facility] Additional Notes Protein Needs:67 - 83 g(0.8 - 1 g/kg) Fluid Needs: 1ml/Kcal Nutrition Intervention Change Diet Order: continue regular diet Goal #1 Meet 75% of energy/protein needs Anticipated Discharge Needs: regular diet Revisit per MD consult or patient Sign Off request:
[2019-09-17] MEDS ORDERED: LORazepam 2 MG/ML VIAL IV ONE (15:00)
[2019-09-17] MEDS: traZODone 50 MG TAB PO SCH (21:18)
[2019-09-18] MEDS: LACOSAMIDE 100 MG in SODIUM CHLORIDE 0.9% 100 ML IV SCH ×2 (01:06→12:31)
[2019-09-18] MEDS: LACTULOSE 20 GM/30 ML ORAL LIQD PO SCH ×4 (01:07→12:43)
[2019-09-18] MEDS: IPRATROPIUM/ALBUTEROL SULFATE 3 ML AMPUL.NEB IH SCH ×3 (03:18→14:51)
[2019-09-18] MEDS: METOPROLOL TARTRATE 50 MG TAB PO SCH (08:00)
[2019-09-18] MEDS: HALOPERIDOL LACTATE 5 MG/1 ML INJ IM PRN (08:15)
[2019-09-18] MEDS ORDERED: BENZOCAINE 20% TOP SPRAY 0.5 ML UNIT DOSE MM NR (09:21)
[2019-09-18] MEDS ORDERED: BENZOCAINE 20% TOP SPRAY 0.5 ML UNIT DOSE MM ONE (09:34)
[2019-09-18] MEDS ORDERED: SODIUM CHLORIDE 0.9% 500 ML 500 ML ONE (09:45)
[2019-09-18] MEDS ORDERED: PROPOFOL 200 MG/20 ML VIAL IV ONE ×2 (10:01)
--- NOTE | 2019-09-18 11:24 | Anesthesia Consultation ---
Anesthesia Consult and Med Hx Date of service: 09/18/19 - Airway Anesthetic Teeth Evaluation: Poor ROM Head & Neck: Adequate Mental/Hyoid Distance: Adequate Mallampati Class: Class III Intubation Access Assessment: Possibly Difficult - Pre-Operative Health Status ASA Pre-Surgery Classification: ASA3 Proposed Anesthetic Plan: MAC - Pulmonary Hx Smoking: No Hx Pneumonia: Yes (PNA on this admission; antibotics completed) - Cardiovascular System Hx Hypertension: Yes Hx Coronary Artery Disease: Yes Hx Heart Attack/AMI: Yes - Central Nervous System Hx Seizures: Yes CVA: Yes Hx Psychiatric Problems: Yes (Schzio-affective disorder) - Endocrine Hx Liver Disease: Yes (Hyperlipidemia ) - Other Systems Hx Alcohol Use: Yes (Hx of ETOH)
--- NOTE | 2019-09-18 11:28 | Anesthesia Day of Surgery ---
Anesthesia Day of Surgery - Day of Surgery Patient Examined: Yes Patient H&P Reviewed: Yes Patient is NPO: Yes Beta Blockers: No
--- NOTE | 2019-09-18 11:30 | Progress Note ---
Assessment and Plan S/p POLINA this AM which showed NO LA MASS - mass visualized on tte appears to have been artifactual. Currently stable cardiac status. Pt is on heparin gtt per primary, although he appears to be a poor candidate for terminal make up operator AC in regards to paroxysmal AFlutter. Nothing further to add from cardiac perspective at this time. Will sign off. Recommend pt follow up in our office with Dr. Jovel within 1-2 weeks of discharge ([phone]). The patient has been seen in conjunction with Dr. Fabian Chiu who agrees with the assessment and plan of care. - Patient Problems (1) Paroxysmal atrial flutter Current Visit: Yes Status: Acute (2) Seizure disorder Current Visit: Yes Status: Chronic (3) Altered mental status Current Visit: Yes Status: Acute (4) Aspiration pneumonia Current Visit: Yes Status: Suspected (5) Ileus Current Visit: Yes Status: Suspected (6) Hypertension Current Visit: Yes Status: Chronic Qualifiers: Hypertension type: essential hypertension Qualified Code(s): I10 - Essential (primary) hypertension (7) Hyperlipidemia Current Visit: Yes Status: Chronic Qualifiers: Hyperlipidemia type: unspecified Qualified Code(s): E78.5 - Hyperlipidemia, unspecified (8) History of cerebrovascular accident Current Visit: Yes Status: Chronic (9) History of coronary artery bypass graft Current Visit: Yes Status: Suspected Plan to address problem: pt reports h/o "open heart surgery" for "blockage" at [place], however, no operative report in [place] records. Subjective Date of service: 09/18/19 Principal diagnosis: seizure Interval history: pt resting in bed, no current complaints. for POLINA today. Objective Last Vital Signs Temp 98.8 F 09/18/19 03:09 Pulse 70 09/18/19 10:32 Resp 24 09/18/19 10:32 BP 150/91 09/18/19 10:32 Pulse Ox 100 09/18/19 10:32 - Physical Examination General: No Apparent Distress HEENT: Positive: PERRL Cardiac: Positive: Reg Rate and Rhythm, S1/S2 Lungs: Positive: Decreased Breath Sounds Neuro: Positive: Grossly Intact Skin: Negative: Rash Extremities: Absent: edema - Imaging and Cardiology EKG: report reviewed, image reviewed Echo: report reviewed (09/09/2019 which showed EF 45-50%, mod LVH, grade 1 diastolic dysfunction, no sig valvular abnormalities, mod pleural effusion, mobile echogenic structure in LA that appears attached to the posterior wall of the aortic root or roof of the LA, atrial septal aneurysm present, negative bubble study although suboptimal study ) - Telemetry EKG Rhythm: Sinus Rhythm
[2019-09-18] MEDS: FOLIC ACID 1 MG TAB PO SCH (12:31)
[2019-09-18] MEDS: ASPIRIN 81 MG TAB CHEW PO SCH (12:32)
[2019-09-18] MEDS: FAMOTIDINE 20 MG TAB PO SCH (12:32)
[2019-09-18] MEDS: CLOPIDOGREL 75 MG TAB PO SCH (12:32)
[2019-09-18] MEDS: MELATONIN 5 MG TAB PO SCH (12:36)
[2019-09-18] MEDS: VALPROATE SODIUM 1,000 MG in SODIUM CHLORIDE 0.9% 100 ML IV SCH (12:42)
[2019-09-18] MEDS: risperiDONE 1 MG TAB PO SCH (12:42)
[2019-09-18 13:45] LABS: Hematocrit 31.6 % (35.5-45.6); Hemoglobin 10.7 gm/dl (11.8-15.2); Mean Corpuscular HGB Conc 34 % (32-34); Mean Corpuscular Volume 87 fl (84-94); Platelet Count 247 K/mm3 (140-440); Red Blood Count 3.64 M/mm3 (3.65-5.03); Red Cell Distribution Width 14.2 % (13.2-15.2)
[2019-09-18 14:08] LABS: BUN/Creatinine Ratio 10; Blood Urea Nitrogen 6 mg/dL (9-20); Calcium 8.8 mg/dL (8.4-10.2); Hemolysis Index 16
--- NOTE | 2019-09-18 16:17 | Discharge Summary ---
Providers - Providers Date of Admission: 09/09/19 13:57 Date of discharge: 09/18/19 Attending physician: SERGE SCRUGGS 09/09/19 Consult to Physician [CONS] Routine Comment: Consulting Provider: QUOC MCCONNELL Physician Instructions: Reason For Exam: seizure Consult to Physician [CONS] Routine Comment: Consulting Provider: RACHEL HORNE Physician Instructions: Reason For Exam: pna 09/09/19 12:24 Consult to Dietitian/Nutrition [CONS] Routine Physician Instructions: Reason For Exam: Reason for Consult: Evaluate nutritional intake 09/09/19 22:21 Occupational Therapy Evaluate and Treat [CONS] Routine Comment: Reason For Exam: Neuro deficits Physical Therapy Evaluation and Treat [CONS] Routine Comment: Reason For Exam: Neuro deficits 09/09/19 22:24 Consult to Physician [CONS] Routine Comment: Consulting Provider: MICHELLE DE LA O Physician Instructions: Reason For Exam: ileus 09/10/19 07:44 Speech Therapy Evaluation and Treat [CONS] Routine Reason For Exam: vented pt/failed swallow 09/11/19 10:09 Consult to Physician [CONS] Routine Comment: Consulting Provider: DENNY FLAHERTY Physician Instructions: Reason For Exam: intracardiac mass 09/13/19 07:59 Consult to Wound/ET Nurse [CONS] Routine Reason For Exam: wound eval 09/13/19 11:26 Consult to Mental Health [CONS] Routine Reason For Exam: medication management Place consult to:: mental health consult Notified:: TANIA Phone number called:: [phone] Was contact made?: Yes If yes, spoke with:: Tania Time called:: 13:37 Primary care physician: [employer] Hospitalization Condition: Stable Hospital course: Patient is a 59-year-old man from [facility] with a history of seizure disorder, hypertension, CVA, CHF, seizure disorder, Wernicke's encephalopathy, schizophrenia, hyperlipidemia, CAD and p. afib/aflutter who presented to [facility] ED with seizure activity. While in the ER the patient remained postictal nonresponsive was unable to protect his airway and therefore intubated for airway protection. It is reported that the patient vomited and aspirated in the EMS and prior to arrival; therefore, developed pneumonia. He is extubated, off bipap, on nasal canula. He was thought to have cardiac mass and treated with iv heparin drip, this was ruled out by POLINA on 09/18/18. * Chest x-ray bibasilar retrocardiac opacities represents atelectasis with or without superimposed pneumonia. * CT abdomen and pelvis. Bibasilar pneumonia, bowel distention which is typical of ileus Status epilepticus/seizure Valproate levels are low, Neurology consult and input noted, do not see valprpate on home meds list, awaiting to see if patient was even on said medications. CT head did not show any acute findings, Neurology reports concern about these moments of staring and right gaze and his continued agitation Continue Vimpat -Ammonia elevated -Resumed back lactulose continue to monitor with this improvement. Acute metabolic encephalopathy/psychosis Due to postictal state versus schizophrenia Awaiting Meds from home Concerned this may only be psychosis Continue restraints. Teo consulted start on seroquel at hs Acute respiratory failure on mechanical ventilator less than 96 hours EXTUBATED Ruled out Cardiac Mass s/p POLINA Paroxysmal atrial flutter -As noted above -Continue p.o. current History of CVA Cannot exclude stroke as etiology of his current symptoms. neurology consulted, --aspirin and high dose statin, check Lipid panel Ileus-stable resolved. Aspiration pneumonia/sepsis Stable now off abx Hepatic encephalopathy Lactulose continue daily 2 to 3 x 4 to loose stools. Respiradone and trazadone per PSYCH Hypokalemia Repleted, Upper ext excoriation -Obtain wound care eval Schizoaffective Disorder -Psych evaluated -started on -Risperidone increased to 1 mg p BID to decrease aggression and irritability -Trazodone 50mg PO qhs to induce insomnia -Folic Acid 1mg po daily DVT prophylaxis; SCDs Disposition: back to [facility] Disposition: DC/TX-03 SNF W [facility] CERT Time spent for discharge: 36 minutes Core Measure Documentation - Palliative Care Palliative Care/ Comfort Measures: Not Applicable - Core Measures Any of the following diagnoses?: none - VTE Discharge Requirements Deep Vein Thrombosis/Pulmonary Embolism Present on Admission: No Has pt received <5 days of overlap therapy or INR<2.0: No Anticoagulant overlap therapy prescribed at discharge: No Contraindication No Overlap Therapy order at DC: Not Indicated Exam - Physical Exam Narrative exam: Gen: thin frial chronically ill appearing, NAD, orientated x 3 HEENT: upper gaze eyes Neck: supple, no adenopathy, no thyromegaly, no JVD CVS/Heart: RRR, normal S1S2, pulses present bilaterally Chest/Lungs: diminished bs bilateral, Symmetrical chest expansion, good air entry bilaterally GI/Abdomen: soft, NTND, good bowel sounds, no guarding or rebound /Bladder: no suprapubic tenderness, no CVA or paraspinal tenderness Extermity/Skin: no c/c/e, no obvious rash Neuro: CN 2-12 grossly intact, no new focal deficits Psych: calm - Constitutional Vitals: Temp Pulse Resp BP Pulse Ox 98.0 F 72 18 144/87 94 09/18/19 11:50 09/18/19 11:50 09/18/19 11:50 09/18/19 11:50 09/18/19 11:50 Plan Activity: up only with assistance, fall precautions, other (no strenous activity) Diet: regular Follow up with: PRIMARY CAREMD [Primary Care Provider] - 3-5 Days DENNY FLAHERTY MD [Staff Physician] - 10 Days Prescriptions: traZODone [Desyrel] 50 mg PO QHS #30 tablet Melatonin [Melatonin 5MG TAB] 5 mg PO QHS PRN #10 tablet PRN Reason: Sleep Acetaminophen [Acetaminophen TAB] 325 mg PO Q4H PRN #15 tablet PRN Reason: Pain MILD(1-3)/Fever >100.5/ANG Lactulose [Cephulac] 20 gm PO Q6H #160 oral.liqd Divalproex ER [DepaKOTE ER] 1,000 mg PO QDAY #30 tablet Ipratropium/Albuterol Sulfate [DUONEB *Not for PRN Use*] 1 ampul IH Q8H #30 ampul.neb Folic Acid [Folvite] 1 mg PO QDAY #30 tablet Metoprolol [Lopressor TAB] 50 mg PO TID #90 tablet Famotidine [Pepcid] 20 mg PO BID #60 tablet ALBUTEROL NEB's [Proventil 0.083% NEBS] 2.5 mg IH Q4HRT PRN #30 nebu PRN Reason: Shortness Of Breath risperiDONE [RisperDAL] 1 mg PO BID #60 tablet Lacosamide [Vimpat] 100 mg PO BID #60 tablet
[2019-09-18] MEDS ORDERED: POTASSIUM CHLORIDE ER 20 MEQ TAB PO ONE (17:39)
[2019-09-18 18:08] VITALS: BP 136/88
--- NOTE | 2019-09-18 22:06 | Post Anesthesia Evaluation ---
- Post Anesthesia Evaluation Patient Participated: Yes Airway Patent: Yes Stable Respiratory Function: Yes Nausea/Vomiting: No Temp > 96.8F: Yes Pain Manageable: Yes Adequeate Hydration: Yes Anesthesia Complications: No Block Receding Appropriately: Not Applicable Patient on Ventilator: No
== END 2019-09-18 18:00 | DRG 871 ==
LOC: ED 10:00 → 4A 13:57 → CC1 19:16 → 3A 09-11 21:01
PROVIDERS: ADMIT Internal Medicine; ATTEND Internal Medicine
PROC: 5A1945Z Respiratory Ventilation, 24-96 Consecutive Hours (ICD-10-PCS; principal; 2019-09-09)
PROC: 0BH17EZ Insertion of Endotracheal Airway into Trachea, Via Natural or Artificial Opening (ICD-10-PCS; 2019-09-09)
PROC: 4A033R1 Measurement of Arterial Saturation, Peripheral, Percutaneous Approach (ICD-10-PCS; 2019-09-09)
PROC: 0BP1XDZ Removal of Intraluminal Device from Trachea, External Approach (ICD-10-PCS; 2019-09-11)
PROC: 3E0234Z Introduction of Serum, Toxoid and Vaccine into Muscle, Percutaneous Approach (ICD-10-PCS; 2019-09-11)
PROC: 5A09357 Assistance with Respiratory Ventilation, Less than 24 Consecutive Hours, Continuous Positive Airway Pressure (ICD-10-PCS; 2019-09-16)
DX: A41.9 Sepsis, unspecified organism (principal); J69.0 Pneumonitis due to inhalation of food and vomit; J96.02 Acute respiratory failure with hypercapnia; K72.90 Hepatic failure, unspecified without coma; I50.9 Heart failure, unspecified; E78.5 Hyperlipidemia, unspecified; I11.0 Hypertensive heart disease with heart failure; I25.10 Atherosclerotic heart disease of native coronary artery without angina pectoris; E87.6 Hypokalemia; K56.7 Ileus, unspecified; G93.89 Other specified disorders of brain; I48.92 Unspecified atrial flutter; F25.9 Schizoaffective disorder, unspecified; G40.901 Epilepsy, unspecified, not intractable, with status epilepticus; I25.2 Old myocardial infarction; Z86.73 Personal history of transient ischemic attack (TIA), and cerebral infarction without residual deficits; Z79.82 Long term (current) use of aspirin; Z23 Encounter for immunization
CPT/HCPCS: 36415; 36600; 70450; 71045; 74018; 74176; 80048; 80061; 80076; 80164; 80185; 80307; 81001; 82140; 82550; 82553; 82803; 82962; 83735; 83880; 84145; 84484; 85014; 85018; 85025; 85027; 85049; 85520; 85610; 85730; 87040; 87070; 87086; 87116; 87205; 90686; 90732; 93005; 93010; 93306; 93312; 93320; 93325; 93880; 94002; 94003; 94640; 94760; 95819; 99292; G0378; A9270-GY; C9254; J0295; J0330; J0692; J1165; J1200; J1630; J1644; J1953; J2060; J2405; J2704; J3010; J3370; J3480; J7030; J7040; J7042

== ENCOUNTER 2019-09-19 07:33 | Emergency (ER) | payer MEDICAID ==
--- NOTE | 2019-09-19 08:44 | Emergency Department Report ---
HPI - General Chief Complaint: Altered Mental Status Time Seen by Provider: 09/19/19 08:17 - HPI HPI: Room 6 The patient is a 59-year-old male presenting with a chief complaint of epistaxis and possible seizure. Patient has a history of seizure disorder and schizophrenia. Staff at [facility] states that the patient had what appeared to be a seizure as his eyes rolled back of his head. Afterwards the patient seemed combative and had epistaxis. Subsequently the patient was sent to the ED for evaluation. There is currently no epistaxis present. Patient denies any complaints Location: [See above] Duration: [See above] Quality: [See above] Severity: [See above] Timing: [See above] Context: [See above] Modifying factors: [See above] Associated signs and symptoms: [see above] ED Past Medical Hx - Past Medical History Hx Hypertension: Yes Hx CVA: Yes Hx Heart Attack/AMI: Yes Hx Congestive Heart Failure: Yes Hx Diabetes: Yes Hx Liver Disease: Yes (Hyperlipidemia ) Hx Seizures: Yes Hx Psychiatric Treatment: Yes (Schizophrenia) Additional medical history: hyperlipidemia, CAD - Surgical History Additional Surgical History: Unable to obtain at this time - Family History Family history: no significant - Social History Smoking Status: Unknown if ever smoked - Medications Home Medications: Home Medications Medication Instructions Recorded Confirmed Last Taken Type Aspirin [Aspirin BABY CHEW TAB] 81 mg PO DAILY #30 02/07/19 09/18/19 Unknown Rx AtorvaSTATin [Lipitor] 40 mg PO QHS #30 tablet 02/07/19 09/18/19 Unknown Rx Clopidogrel [Plavix] 75 mg PO QDAY #30 tablet 02/07/19 09/18/19 Unknown Rx Famotidine [Pepcid] 20 mg PO BID #60 tablet 02/07/19 09/18/19 Unknown Rx Metoprolol [Lopressor TAB] 75 mg PO BID #60 tablet 02/07/19 09/18/19 Unknown Rx Phenytoin [Dilantin] 200 mg PO BID #60 02/07/19 09/18/19 Unknown Rx cloNIDine-TTS PATCH [Catapres-Tts 0.2 mg TD QWEEK patch 02/07/19 09/18/19 Unknown Rx 0.2mg Patch] levETIRAcetam [Keppra] 1,500 mg PO BID #60 oral.liqd 02/07/19 09/18/19 Unknown Rx lisinopriL [Zestril TAB] 40 mg PO QDAY #30 tablet 02/07/19 09/18/19 Unknown Rx ALBUTEROL NEB's [Proventil 0.083% 2.5 mg IH Q4HRT PRN #30 nebu 09/18/19 Unknown Rx NEBS] Acetaminophen [Acetaminophen TAB] 325 mg PO Q4H PRN #15 tablet 09/18/19 Unknown Rx Divalproex ER [DepaKOTE ER] 1,000 mg PO QDAY #30 tablet 09/18/19 Unknown Rx Famotidine [Pepcid] 20 mg PO BID #60 tablet 09/18/19 Unknown Rx Folic Acid [Folvite] 1 mg PO QDAY #30 tablet 09/18/19 Unknown Rx Ipratropium/Albuterol Sulfate 1 ampul IH Q8H #30 ampul.neb 09/18/19 Unknown Rx [DUONEB *Not for PRN Use*] Lacosamide [Vimpat] 100 mg PO BID #60 tablet 09/18/19 Unknown Rx Lactulose [Cephulac] 20 gm PO Q6H #160 oral.liqd 09/18/19 Unknown Rx Melatonin [Melatonin 5MG TAB] 5 mg PO QHS PRN #10 tablet 09/18/19 Unknown Rx Metoprolol [Lopressor TAB] 50 mg PO TID #90 tablet 09/18/19 Unknown Rx risperiDONE [RisperDAL] 1 mg PO BID #60 tablet 09/18/19 Unknown Rx traZODone [Desyrel] 50 mg PO QHS #30 tablet 09/18/19 Unknown Rx ED Review of Systems ROS: Stated complaint: [facility] CALLED/PT NO COMPLAINT Other details as noted in HPI Constitutional: no symptoms reported ENT: epistaxis (none present currently) Respiratory: no symptoms reported Cardiovascular: denies: chest pain Endocrine: no symptoms reported Gastrointestinal: denies: abdominal pain Physical Exam - Physical Exam Vital Signs: Vital Signs 09/19/19 09/19/19 08:01 08:02 Temperature 97.8 F Pulse Rate 77 Respiratory 20 20 Rate Blood Pressure 138/91 [Left] O2 Sat by Pulse 96 Oximetry Physical Exam: GENERAL: The patient is well-developed well-nourished male lying on stretcher not appearing to be in acute distress. [] HEENT: Normocephalic. Atraumatic. Extraocular motions are intact. Patient has moist mucous membranes. No epistaxis present NECK: Supple. Trachea midline CHEST/LUNGS: Clear to auscultation. There is no respiratory distress noted. HEART/CARDIOVASCULAR: Regular. There is no tachycardia. There is no gallop rub or murmur. ABDOMEN: Abdomen is soft, nontender. Patient has normal bowel sounds. There is no abdominal distention. SKIN: There is no rash. There is no edema. There is no diaphoresis. NEURO: The patient is an alert. Patient has dementia. The patient is cooperative. The patient has normal speech MUSCULOSKELETAL: There is no evidence of acute injury. ED Course Vital Signs 09/19/19 09/19/19 08:01 08:02 Temperature 97.8 F Pulse Rate 77 Respiratory 20 20 Rate Blood Pressure 138/91 [Left] O2 Sat by Pulse 96 Oximetry ED Medical Decision Making - Lab Data Result diagrams: 09/19/19 09:23 09/19/19 09:23 Laboratory Tests 09/19/19 09/19/19 09/19/19 09:23 09:23 09:23 WBC 8.9 RBC 3.48 L Hgb 10.3 L Hct 29.8 L MCV 86 MCH 30 MCHC 35 H RDW 14.1 Plt Count 272 Lymph % (Auto) 14.0 Burnett % (Auto) 12.5 H Eos % (Auto) 5.3 H Baso % (Auto) 1.1 Lymph # 1.3 Burnett # 1.1 H Eos # 0.5 H Baso # 0.1 Seg Neutrophils % 67.1 Seg Neutrophils # 6.0 PT 14.1 INR 1.08 APTT 26.4 Sodium 145 Potassium 3.3 L Chloride 108.4 H Carbon Dioxide 21 L Anion Gap 19 BUN 16 Creatinine 0.6 L Estimated GFR > 60 BUN/Creatinine Ratio 27 Glucose 105 H Calcium 8.7 Phenytoin Valproic Acid 09/19/19 09/19/19 09:23 09:23 WBC RBC Hgb Hct MCV MCH MCHC RDW Plt Count Lymph % (Auto) Burnett % (Auto) Eos % (Auto) Baso % (Auto) Lymph # Burnett # Eos # Baso # Seg Neutrophils % Seg Neutrophils # PT INR APTT Sodium Potassium Chloride Carbon Dioxide Anion Gap BUN Creatinine Estimated GFR BUN/Creatinine Ratio Glucose Calcium Phenytoin 2.6 L Valproic Acid 35.0 L - Radiology Data Radiology results: report reviewed (CT head), image reviewed (CT head) [facility] [address] [place] [address] Cat Scan Report Signed Patient: EFRAIN GREEN MR#: [id number] : 1960 Acct:[id number] Age/Sex: 59 / M ADM Date: 09/19/19 Loc: ED Attending Dr: Ordering Physician: PATTI BRUCE MD Date of Service: 09/19/19 Procedure(s): CT head/brain wo con Accession Number(s): [id number] cc: PATTI BRUCE MD CT HEAD WITHOUT CONTRAST INDICATION / CLINICAL INFORMATION: seizure, altered mental status. TECHNIQUE: All CT scans at this location are performed using CT dose reduction for ALARA by means of automated exposure control. COMPARISON: Head CT 09/09/2019, 02/11/2019 and 01/27/2019. FINDINGS: HEMORRHAGE: No evidence of intracranial hemorrhage or extra-axial fluid collection. EXTRA-AXIAL SPACES: Cortical sulci and sylvian fissures are enlarged reflecting a degree of parenchymal volume loss which is within normal limits for the patient's age. Basilar cisterns have an unremarkable appearance. VENTRICULAR SYSTEM: The third and lateral ventricles are enlarged reflecting a degree of parenchymal volume loss which is greater than expected for the patient's age of 59 years. Addition there is expected dilatation temporal horn of the right lateral ventricle secondary to what appears to be a remote right temporal lobe infarction. CEREBRAL PARENCHYMA: Extensive periventricular and deep white matter lucency is observed. This is probably secondary to advanced microvascular ischemic change. There is no indication of recent infarction. An area of encephalomalacia is identified in the right temporal operculum likely due to remote right temporal lobe infarction. This is unchanged. There are also findings indicating remote right posterior cerebral artery infarction involving the medial occipital lobe. MIDLINE SHIFT OR HERNIATION: There is no mass effect. CEREBELLUM / BRAINSTEM: Brainstem and cerebellum have an unremarkable appe arance. INTRACRANIAL VESSELS: No abnormalities are identified on this noncontrast head CT examination. ORBITS: Postoperative changes are observed involving both orbits. Scleral bands are identified bilaterally. Patient is also status post cataract surgery. SOFT TISSUES of HEAD: No significant abnormality. CALVARIUM: Evaluation of bone windows reveals no abnormalities. PARANASAL SINUSES / MASTOID AIR CELLS: Paranasal sinuses are free from inflammatory mucosal disease and abnormal soft tissue materials present in the left-sided mastoid air cells. There was abnormal soft tissue material protruding into the external auditory canal and mastoid air cells between the temporal bone and posterior aspect of the external auditory canal prior study. This soft tissue lesion was previously noted to protrude into this external auditory canal. The EAC lesion is no longer present. Correlation with surgical history is advised. IMPRESSION: 1. Moderate parenchymal volume loss and advanced microvascular ischemic changes stable since prior study. 2. Evidence of remote right temporal and right occipital infarctions. 3. No acute intracranial abnormality. 4. Bony dehiscence between the left-sided mastoid air cells and left external auditory canal. Correlation with surgical history is suggested as described above. Signer Name: Bandar Uriarte MD Signed: 09/19/2019 10:37 AM Workstation Name: [id number] Transcribed By: Dictated By: Bandar Uriarte MD Electronically Authenticated By: Bandar Uriarte MD Signed Date/Time: 09/19/19 1037 DD/ 1024 TD/TT: - Differential Diagnosis seizure, epistaxis, dementia Critical care attestation.: If time is entered above; I have spent that time in minutes in the direct care of this critically ill patient, excluding procedure time. ED Disposition Clinical Impression: Seizure disorder, Epistaxis, Hypokalemia Disposition: DC/TX-70 ANOTHER TYPE HLTHCARE Is pt being admited?: No Does the pt Need Aspirin: No Condition: Stable Additional Instructions: Return to the emergency department should you develop worsening symptoms, inability to tolerate food or liquids, high fever or any other concerns Referrals: CATRACHITA KEEN MD [Primary Care Provider] - 3-5 Days Time of Disposition: 11:50
[2019-09-19 09:54] LABS: Basophils # (Auto) 0.1 K/mm3 (0.0-0.1); Basophils % (Auto) 1.1 % (0.0-1.8); Eosinophils # (Auto) 0.5 K/mm3 (0.0-0.4); Eosinophils % (Auto) 5.3 % (0.0-4.3); Hematocrit 29.8 % (35.5-45.6); Hemoglobin 10.3 gm/dl (11.8-15.2); Lymphocytes # (Auto) 1.3 K/mm3 (1.2-5.4); Mean Corpuscular HGB Conc 35 % (32-34); Mean Corpuscular Volume 86 fl (84-94); Monocytes # (Auto) 1.1 K/mm3 (0.0-0.8); Monocytes % (Auto) 12.5 % (0.0-7.3); Platelet Count 272 K/mm3 (140-440); Red Blood Count 3.48 M/mm3 (3.65-5.03); Red Cell Distribution Width 14.1 % (13.2-15.2)
[2019-09-19 09:56] LABS: INR 1.08 (0.87-1.13); Partial Thromboplastin Time 26.4 Sec. (24.2-36.6)
[2019-09-19 10:13] LABS: BUN/Creatinine Ratio 27; Blood Urea Nitrogen 16 mg/dL (9-20); Calcium 8.7 mg/dL (8.4-10.2); Hemolysis Index 6
--- NOTE | 2019-09-19 10:42 | Cat Scan Report ---
CT HEAD WITHOUT CONTRAST INDICATION / CLINICAL INFORMATION: seizure, altered mental status. TECHNIQUE: All CT scans at this location are performed using CT dose reduction for ALARA by means of automated e xposure control. COMPARISON: Head CT 09/09/2019, 02/11/2019 and 01/27/2019. FINDINGS: HEMORRHAGE: No evidence of intracranial hemorrhage or extra-axial fluid collection. EXTRA-AXIAL SPACES: Cortical sulci and sylvian fissures are enlarged reflecting a degree of parenchym al volume loss which is within normal limits for the patient's age. Basilar cisterns have an unremark able appearance. VENTRICULAR SYSTEM: The third and lateral ventricles are enlarged reflecting a degree of parenchymal volume loss which is greater than expected for the patient's age of 59 years. Addition there is expec clark dilatation temporal horn of the right lateral ventricle secondary to what appears to be a remote right temporal lobe infarction. CEREBRAL PARENCHYMA: Extensive periventricular and deep white matter lucency is observed. This is pro bably secondary to advanced microvascular ischemic change. There is no indication of recent infarctio n. An area of encephalomalacia is identified in the right temporal operculum likely due to remote rig ht temporal lobe infarction. This is unchanged. There are also findings indicating remote right poste rior cerebral artery infarction involving the medial occipital lobe. MIDLINE SHIFT OR HERNIATION: There is no mass effect. CEREBELLUM / BRAINSTEM: Brainstem and cerebellum have an unremarkable appearance. INTRACRANIAL VESSELS: No abnormalities are identified on this noncontrast head CT examination. ORBITS: Postoperative changes are observed involving both orbits. Scleral bands are identified bilate rally. Patient is also status post cataract surgery. SOFT TISSUES of HEAD: No significant abnormality. CALVARIUM: Evaluation of bone windows reveals no abnormalities. PARANASAL SINUSES / MASTOID AIR CELLS: Paranasal sinuses are free from inflammatory mucosal disease a nd abnormal soft tissue materials present in the left-sided mastoid air cells. There was abnormal sof t tissue material protruding into the external auditory canal and mastoid air cells between the tempo ral bone and posterior aspect of the external auditory canal prior study. This soft tissue lesion was previously noted to protrude into this external auditory canal. The EAC lesion is no longer present. Correlation with surgical history is advised. IMPRESSION: 1. Moderate parenchymal volume loss and advanced microvascular ischemic changes stable since prior st udy. 2. Evidence of remote right temporal and right occipital infarctions. 3. No acute intracranial abnormality. 4. Bony dehiscence between the left-sided mastoid air cells and left external auditory canal. Correla tion with surgical history is suggested as described above. Signer Name: Bandar Uriarte MD Signed: 09/19/2019 10:37 AM Workstation Name: [id number]
[2019-09-19] MEDS ORDERED: VALPROATE SODIUM 500 MG in SODIUM CHLORIDE 0.9% 100 ML IV ONE (11:48)
[2019-09-19] MEDS ORDERED: FOSPHENYTOIN 1,000 MG.PE in SODIUM CHLORIDE 0.9% 100 ML IV ONE (11:48)
[2019-09-19] MEDS ORDERED: POTASSIUM CHLORIDE ER 20 MEQ TAB PO ONE (11:49)
[2019-09-19 13:17] VITALS: BP 132/92
== END 2019-09-19 13:29 | disposition other institution (70) ==
LOC: ED 07:33
DX: G40.909 Epilepsy, unspecified, not intractable, without status epilepticus (principal); R04.0 Epistaxis; E87.6 Hypokalemia; I11.0 Hypertensive heart disease with heart failure; I50.9 Heart failure, unspecified; E11.9 Type 2 diabetes mellitus without complications; E78.5 Hyperlipidemia, unspecified; I25.10 Atherosclerotic heart disease of native coronary artery without angina pectoris; Z86.73 Personal history of transient ischemic attack (TIA), and cerebral infarction without residual deficits; Z91.041 Radiographic dye allergy status; Z79.899 Other long term (current) drug therapy
CPT/HCPCS: 36415; 70450; 80048; 80164; 80185; 85025; 85610; 85730; 96365; 96368; 99285; Q2009